=== PATIENT | male | born 1940 | race African-American/Black ===

== ENCOUNTER 2017-08-10 09:24 | Inpatient (IN) | payer MEDICARE, OTHER ==
[2017-08-10] MEDS ORDERED: MIDAZOLAM HCL 50 MG/100 ML RTUINJ IV ONE (09:39)
[2017-08-10] MEDS: MIDAZOLAM HCL 50 MG/100 ML RTUINJ IV PRN ×2 (09:50→22:58)
[2017-08-10] MEDS ORDERED: RINGERS SOLUTION,LACTATED 1,000 ML IV PRN (10:01)
--- NOTE | 2017-08-10 10:01 | ER Document Report ---
ED Respiratory Problem - General Mode of Arrival: Stretcher Information source: Patient TRAVEL OUTSIDE OF THE [place] IN LAST 30 DAYS: No <JANIE VYAS - Last Filed: 08/10/17 15:46> <KORINA COOPER - Last Filed: 08/10/17 15:52> - General Chief Complaint: Breathing Difficulty Stated Complaint: DIFFICULTY BREATHING Time Seen by Provider: 08/10/17 09:24 Notes: Patient is a 77 year old male with a history of COPD presents to the emergency department via EMS due to difficulty breathing. EMS states upon arrival to the patients home the patient was alert and oriented and followed commands although a bit confused and had an incontinent episode. EMS further states that on the way to the emergency department the patient became febrile, non verbal and stopped following commands. Family states the patient has had a cold recently with some nausea, vomiting, diarrhea and decreased appetite onset 3 days ago. Family states they called the EMS due to the patients confusion and difficulty breathing. Family further states the patient was behaving "slower" than normal last night. Family states the patient does not like to come to the emergency room but visits his PCP, Dr. Kline, regularly. (JANIE VYAS) - Related Data Allergies/Adverse Reactions: codeine Allergy (Unknown, Verified 11/15/15 13:01) unsure Penicillins Allergy (Unknown, Verified 11/15/15 13:01) unsure Past Medical History - General Information source: Relative, Emergency Med Personnel Cannot obtain history due to: Intubated, Altered mental status - Social History Smoking Status: Smoker,Current Status Unk - Family states the patient may sneak a cigarette. Frequency of alcohol use: None Drug Abuse: None Pulmonary Medical History: Reports: Hx COPD - Immunizations Hx Diphtheria, Pertussis, Tetanus Vaccination: No Hx Pneumococcal Vaccination: 06/25/14 <JANIE VYAS - Last Filed: 08/10/17 15:46> - Social History Family History: CAD <KORINA COOPER - Last Filed: 08/10/17 15:52> Review of Systems - Review of Systems Constitutional: No symptoms reported EENT: No symptoms reported Cardiovascular: No symptoms reported Respiratory: See HPI Gastrointestinal: See HPI, Abdominal pain, Diarrhea, Nausea, Vomiting Genitourinary: No symptoms reported Male Genitourinary: No symptoms reported Musculoskeletal: No symptoms reported Skin: No symptoms reported Hematologic/Lymphatic: No symptoms reported Neurological/Psychological: See HPI, Confusion -: Yes All other systems reviewed and negative <JANIE VYAS - Last Filed: 08/10/17 15:46> <KORINA COOPER - Last Filed: 08/10/17 15:52> - Review of Systems Notes: ROS obtained from family. (JANIE VYAS) Physical Exam <JANIE VYAS - Last Filed: 08/10/17 15:46> <KORINA COOPER - Last Filed: 08/10/17 15:52> - Vital signs Vitals: Pulse Ox 96 08/10/17 09:42 - Notes Notes: GENERAL: Unresponsive, does not answer questions, does not follow commands. Respiratory distress. HEAD: Normocephalic, atraumatic. EYES: Pupils equal, round, and reactive to light. ENT: Oral mucosa dry, tongue midline. NECK: Full range of motion. Supple. Trachea midline. LUNGS: respiratory distress. Tachypneic. Breathing on own although shallow breaths therefore being assisted. HEART: Tachycardic. No murmurs, gallops, or rubs. ABDOMEN: Soft, non-tender. Non-distended. Bowel sounds present in all 4 quadrants. EXTREMITIES: Left hand is clenched, will not open. No edema, radial and dorsalis pedis pulses 2/4 bilaterally. No cyanosis. NEUROLOGICAL: Does not follow commands. Will blink when touching eyelashes. Biceps and patellar DTRs 2+ bilaterally. PSYCH: Does not follow commands. SKIN: Warm, dry, normal turgor. No rashes or lesions noted. : Smells of urine. Circumcised, yeast on tip of penis. (JANIE VYAS) Course - Laboratory Result Diagrams: 08/10/17 10:00 08/10/17 10:00 <JANIE VYAS - Last Filed: 08/10/17 15:46> - Laboratory Result Diagrams: 08/10/17 10:00 08/10/17 10:00 <KORINA COOPER - Last Filed: 08/10/17 15:52> - Re-evaluation Re-evalutation: 08/10/17 12:02 When patient arrived he was in acute respiratory distress, breathing about 30 times per minute however very shallow breaths, was not following commands, GCS was less than 8, decision was made to intubate as he was also not oxygenating well, not protecting his airway. Patient was intubated without difficulty or complications. See procedure note for further details. Patient was then placed on a Versed drip for sedation. Despite being on a ventilator he has remained relatively hypoxic with his oxygenation being approximately 92% on 100 % FiO2. Patient has since become hypotensive, Versed drip was decreased somewhat and a central line was started to use levo fed. Chest x-ray reveals bilateral pneumonia, patient was started on antibiotics. Patient received 3 L of fluid as well but has persistent hypotension. Laboratory studies revealed leukocytosis with a white count of 13.5, no anemia, INR is 1.01, venous blood gas shows a pH of 7.22 and a PCO2 of 71.6, this was drawn from the central line. CMP shows acute renal failure with BUN of 40 and creatinine 1.54, lactic acid is normal at 1.8, potassium slightly elevated at 5.3, troponin is positive at 0.190, suspect this is from the septic shock rather than true STEMI. EKG does not show ischemic changes. 08/10/17 12:33 Discussed this febrile hypoxic hypotensive patient with Dr. Kline, he agrees that the patient appears to be in septic shock, requested a second antibiotic be added in the form of cefepime, he is concerned by the elevated troponin, disagrees that it is likely from the septic shock and acute renal failure, would prefer that the patient had a second set of cardiac enzymes before he accepts the patient to his service. Agrees that the patient is likely not a candidate for intervention at this point given his status but would prefer to know the results of his repeat cardiac enzymes anyway. Agreeable to holding off on the CT scan of the head until the patient is an route to the ICU. If at that point it shows a large bleed the patient will return to the ER rather than going to the intensive care unit. Before this can happen second set of cardiac enzymes must be returned and we must discuss them with him. 08/10/17 13:32 Dr. Kline did come to the emergency department and personally examined the patient. He has since put in admission orders. He is discussed the gravity of situation with the patient's family. Patient will be admitted to the intensive care unit. Repeat troponin is pending. 08/10/17 15:50 This is a late entry, second pressor in the form of dopamine was added. Blood pressure did improve. Patient has been transferred to the ICU. (KORINA COOPER) - Vital Signs Vital signs: Temp Pulse Resp BP Pulse Ox 14 89/35 L 94 08/10/17 12:01 08/10/17 12:00 08/10/17 14:10 - Laboratory Laboratory results interpreted by me: 08/10/17 08/10/17 08/10/17 09:49 10:00 10:00 WBC 13.5 H RDW 15.2 H Abs Neuts (Manual) 10.0 H VBG pH VBG pCO2 Potassium 5.3 H Carbon Dioxide 32 H BUN 40 H Creatinine 1.54 H Est GFR ( Amer) 53 L Est GFR (Non-Af Amer) 44 L Glucose 182 H POC Glucose Direct Bilirubin 0.5 H ALT 13 L Urine Protein >=500 H Urine Glucose (UA) 50 H Urine Blood LARGE H 08/10/17 08/10/17 10:32 11:10 WBC RDW Abs Neuts (Manual) VBG pH 7.22 L VBG pCO2 71.6 H* Potassium Carbon Dioxide BUN Creatinine Est GFR ( Amer) Est GFR (Non-Af Amer) Glucose POC Glucose 133 H Direct Bilirubin ALT Urine Protein Urine Glucose (UA) Urine Blood - EKG Interpretation by Me Additional EKG results interpreted by me: 08/10/17 13:34 EKG shows sinus tachycardia at a rate of 143, slight right axis deviation, no ST segment elevations or depressions, nonspecific T-wave flattening noted in V2 and AV L per my interpretation. (KORINA COOPER) Procedures - Central Line Right Internal jugular Time completed: 11:18 Consent obtained: No - Implied for emergent condition Central line pre-insertion: Sterile PPE donned, Chloraprep applied, Sterile drapes applied, Other - maximum sterile barrier technique was used including, sterile probe cover and sterile transducer gel. Central line size (Fr.): 20 Central line lumen type: Triple Anesthetic type: 1% Lidocaine mL's of anesthesia: 5 Ultrasound guided: Yes CM at insertion site: 18 Line secured with sutures: Yes Central line post-insertion: Blood return from lumens, Biopatch applied, Sutured , Sterile dressing applied, Position confirmed w/ CXR Number of attempts: 1 Complications: No - Intubation Orotracheal Time of Intubation: 09:30 Airway evaluation: No: Large tongue, Loose teeth, Neck immobility Medications: Etomidate, Vecuronium Intubation method: Orotracheal Blade type: Kehinde Blade size: 4 ETT size: 8.0 ETT secured at: Gums ETT secured at (cm): 24 Breath Sounds after Intubation: Equal End tidal CO2 confirmed: Yes Ventilator settings: SIMV Tidal volume: 350 FiO2: 30 Respirations: 14 Pressure support: 10 PEEP: 5 Post Intubation Xray: Yes Intubation Complications: No complications <JANIE VYAS - Last Filed: 08/10/17 15:46> Critical Care Note - Critical Care Note Total time excluding time spent on procedures (mins): 90 <KORINA COOPER - Last Filed: 08/10/17 15:52> Discharge <JANIE VYAS - Last Filed: 08/10/17 15:46> - Discharge Admitting Provider: [facility] Unit Admitted: ICU <KORINA COOPER - Last Filed: 08/10/17 15:52> - Discharge Clinical Impression: Septic shock, Acute on chronic respiratory failure with hypoxia and hypercapnia Acute renal failure Qualifiers: Acute renal failure type: unspecified Qualified Code(s): N17.9 - Acute kidney failure, unspecified Pneumonia Qualifiers: Pneumonia type: due to unspecified organism Laterality: bilateral Lung location : lower lobe of lung Qualified Code(s): J18.9 - Pneumonia, unspecified organism Condition: Critical Disposition: ADMITTED INPATIENT Scribe Attestation: 08/10/17 15:51 I personally performed the services described in the documentation, reviewed and edited the documentation which was dictated to the scribe in my presence, and it accurately records my words and actions. (KORINA COOPER) Scribe Documentation - Scribe Written by Luz Maria:: Luz Maria Larson, 08/10/2017 10:27 acting as scribe for :: Norm <JANIE VYAS - Last Filed: 08/10/17 15:46> Sepsis <JANIE VYAS - Last Filed: 08/10/17 15:46> - Sepsis Documentation Sepsis Patient: Yes - Vital Signs Interpretation: Hypertensive, Tachycardic, Hypoxic - Cardiovascular Peripheral Pulse Strength: Weak Capillary refill: > 3 seconds Rhythm: Tachycardia Heart Sounds: Normal auscultation - Respiratory Breath Sounds: Wheezing Respiratory Status: Other - Intubated - Skin Skin Color: Pale <KORINA COOPER - Last Filed: 08/10/17 15:52> - Vital Signs Vitals: Temp Pulse Resp BP Pulse Ox 14 89/35 L 94 08/10/17 12:01 08/10/17 12:00 08/10/17 14:10
[2017-08-10 10:22] LABS: INTERNATIONAL RATION (INR) 1.01
--- NOTE | 2017-08-10 10:26 | RADIOLOGY REPORT (SQ) ---
EXAM DESCRIPTION: CHEST SINGLE VIEW COMPLETED DATE/TIME: 08/10/2017 10:04 am REASON FOR STUDY: intubated, resp failure COMPARISON: 02/10/2008 EXAM PARAMETERS: NUMBER OF VIEWS: One view. TECHNIQUE: Single frontal radiographic view of the chest acquired. RADIATION DOSE: NA LIMITATIONS: None. FINDINGS: LUNGS AND PLEURA: Abnormal air space density in both lung bases suggesting pneumonia. 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 Somewhat spiculated density in the right upper lobe which on review of previous chest CT probably is related to scarring. No effusion. MEDIASTINUM AND HILAR STRUCTURES: No masses. Contour normal. HEART AND VASCULAR STRUCTURES: Heart normal in size. Normal vasculature. BONES: No acute findings. HARDWARE: Endotracheal tube with its tip 2 cm above the guzman. NG tube with its tip in the body of the stomach. OTHER: No other significant finding. IMPRESSION: 1. Abnormal density in both lung bases most consistent with pneumonia. 2. COPD. TECHNICAL DOCUMENTATION: JOB ID: [id number] [employer]- All Rights Reserved
[2017-08-10 10:30] LABS: ALANINE AMINOTRANSFERASE 13 U/L (21-72); ALBUMIN 3.6 g/dL (3.5-5.0); ALKALINE PHOSPHATASE 62 U/L (38-126); ANION GAP 10 (5-19); ASPARTATE AMINO TRANSFERASE 27 U/L (17-59); BILIRUBIN,DIRECT 0.5 mg/dL (0.0-0.4); BILIRUBIN,TOTAL 0.5 mg/dL (0.2-1.3); BLOOD UREA NITROGEN 40 mg/dL (7-20); CALCIUM 9.8 mg/dL (8.4-10.2); CARBON DIOXIDE 32 mmol/L (22-30); CHLORIDE 99 mmol/L (98-107); CREATINE KINASE 73 U/L (55-170); GLUCOSE 182 mg/dL (75-110); POTASSIUM 5.3 mmol/L (3.6-5.0); SODIUM 141.4 mmol/L (137-145); TOTAL PROTEIN 7.7 g/dL (6.3-8.2)
[2017-08-10] MEDS ORDERED: NOREPINEPHRINE BITARTRATE INJ/PF 4 MG/4 ML SDV IV ONE ×3 (10:34→22:40)
[2017-08-10] MEDS ORDERED: METHYLPREDNISOLONE INJ 125 MG/2 ML SDV IV ONE (10:37)
[2017-08-10] MEDS ORDERED: DEXTROSE 5%-WATER 250 ML with NOREPINEPHRINE BITARTRATE 4 MG IV PRN ×2 (10:37)
[2017-08-10 10:41] LABS: CREATINE KINASE MB 1.84 ng/mL (<4.55)
[2017-08-10 10:47] LABS: TROPONIN I 0.19 ng/mL
[2017-08-10 10:53] LABS: HEMOGLOBIN 14.2 g/dL (13.5-17.0); MEAN CORPUSCULAR HEMOGLOBIN 27.4 pg (27.0-33.4); MEAN CORPUSCULAR HGB CONC 32.3 g/dL (32.0-36.0); MEAN CORPUSCULAR VOLUME 85 fl (80-97); PLATELET COUNT 222 10^3/uL (150-450); RED BLOOD COUNT 5.18 10^6/uL (4.35-5.55); RED CELL DISTRIBUTION WIDTH 15.2 % (11.5-14.0); WHITE BLOOD COUNT 13.5 10^3/uL (4.0-10.5)
[2017-08-10] MEDS: NORMAL SALINE 1000 ML 1,000 ML IV PRN (11:03)
--- NOTE | 2017-08-10 11:04 | EKG REPORT ---
SEVERITY:- ABNORMAL ECG - SINUS TACHYCARDIA PROBABLE LEFT ATRIAL ABNORMALITY RIGHT AXIS DEVIATION CONSIDER ANTEROSEPTAL INFARCT : Confirmed by: Rachel Florian 10-Aug-2017 11:03:58
[2017-08-10 11:12] LABS: ABSOLUTE LYMPHOCYTES# (MANUAL) 2.2 10^3/uL (0.5-4.7); ABSOLUTE MONOCYTES # (MANUAL) 1.4 10^3/uL (0.1-1.4); BAND NEUTROPHILS % (MANUAL) 5 % (3-5); BASOPHILS % (MANUAL) 0 % (0-2); EOSINOPHILS % (MANUAL) 0 % (0-6); LYMPHOCYTES % (MANUAL) 15 % (13-45); MONOCYTES % (MANUAL) 10 % (3-13); SEGMENTED NEUTROPHILS % (MAN) 69 % (42-78); TOTAL CELLS COUNTED 100
[2017-08-10 11:13] LABS: ANISOCYTOSIS SLIGHT; PLATELET COMMENT ADEQUATE; TOXIC GRANULATION SLIGHT
[2017-08-10 11:26] LABS: VENOUS BLOOD BASE EXCESS -0.3 mmol/L; VENOUS BLOOD HCO3 28.8 mmol/L (20-32); VENOUS BLOOD PH 7.22 (7.30-7.42)
[2017-08-10] MEDS ORDERED: LEVOFLOXACIN 750 MG/D5W RTU 750 MG/150 ML RTUPB IV ONE (11:30)
[2017-08-10 11:32] LABS: VENOUS BLOOD PCO2 71.6 mmHg (35-63)
--- NOTE | 2017-08-10 12:04 | RADIOLOGY REPORT (SQ) ---
EXAM DESCRIPTION: CHEST SINGLE VIEW COMPLETED DATE/TIME: 08/10/2017 11:34 am REASON FOR STUDY: central line placement COMPARISON: Earlier the same day. NUMBER OF VIEWS: One view. TECHNIQUE: Single frontal radiographic image of the chest acquired. LIMITATIONS: None. FINDINGS: LUNGS AND PLEURA: No significant change. No pneumothorax. MEDIASTINUM AND HEART: Stable heart size and mediastinal structures. SUPPORT DEVICES: Interval placement of right-sided central line with tip overlying SVC. Nasogastric and endotracheal tube position is not significantly changed. BONY STRUCTURES: No acute findings. HARDWARE: None. OTHER: No other significant finding. IMPRESSION: Satisfactory position of right central line. No pneumothorax.
[2017-08-10] MEDS ORDERED: OSELTAMIVIR PHOSPHATE 75 MG CAPSULE PO ONE (12:31)
[2017-08-10] MEDS ORDERED: CEFEPIME 2 GM/D5W RTU 2 GM/50 ML RTUPB IV ONE (12:31)
[2017-08-10] MEDS ORDERED: DOPAMINE HCL/DEXTROSE 5%-WATER 800 MG/250 ML RTUINJ IV PRN (12:35)
[2017-08-10] MEDS ORDERED: NORMAL SALINE 1000 ML 1,000 ML IV ONE (12:35)
[2017-08-10] MEDS ORDERED: ACETAMINOPHEN 650 MG SUPP.RECT PR PRN (12:55)
[2017-08-10 13:14] LABS: APPEARANCE,URINE TURBID; BILIRUBIN,URINE NEGATIVE (NEGATIVE); COLOR,URINE AMBER; GLUCOSE, URINE 50 mg/dL (NEGATIVE); KETONES,URINE NEGATIVE (NEGATIVE); LEUKOCYTE ESTERASE,URINE NEGATIVE (NEGATIVE); NITRITE,URINE NEGATIVE (NEGATIVE); PROTEIN,URINE >=500 mg/dL (NEGATIVE); URINE SPECIFIC GRAVITY 1.025; UROBILINOGEN,URINE NEGATIVE mg/dL (<2.0)
[2017-08-10] MEDS ORDERED: VANCOMYCIN HCL 0 MG in DEXTROSE 5%-WATER 250 ML IV NR (13:15)
--- NOTE | 2017-08-10 13:56 | PDOC H&P ---
History of Present Illness Admission Date/PCP: 08/10/17 12:55 SUSANNA JASMINE MD Patient complains of: Hypotensive'sAnd unresponsive History of Present Illness: CHRISTOPHER LEBLANC is a 77 year old male This is a 77-year-old male's with a history of the COPD history of the hypertension's hyperlipidemia and history of the neoplasm of the rectum currently under well control was doing okay until the last 3 or 4 days according to family patient start complaining some cough cold And some nausea and vomiting and some diarrheaand runny nose-like symptoms and this morning patient started complaining of more short of breathIn the call the EMS and the patient was alert awake when the EMS went to the see the patient when patient was brought to the ER the patient was more unresponsive and very hypotensive and patient was intubated Patients in the ER start in the levo drip and added a dopamine drip Patient's also from the elevated white count and the pneumonia in the lung which is most likely source of the infections with the renal failure and elevated troponin which is all because of the septic shock When I saw the patient's in the ER patient was intubated currently on levo drips and dopamine drips systolic blood pressures around 100 Patient also came with emergency department the 101 fever currently 98.5 ER physicians call me for admissions with a septic shock and hypotension's and discussed with the family patient was still full code i discussed with the patient's daughter in the ERDuring the patient's current conditions with the critical care including the pneumonia renal failure and other etiologies within not a very good prognosis and understand very well CT of the head ordered to rule out any neurological events but unable to do it currently because patient was not stable enough to take him to the CT scan Patient is otherwise pretty much doing the last seen in my office in May and patient seen by the oncology in the last year was all stable Past Medical History Cardiac Medical History: Reports: Hyperlipidema Denies: Coronary Artery Disease, Myocardial Infarction, Hypertension Pulmonary Medical History: Reports: Chronic Obstructive Pulmonary Disease (COPD) Denies: Asthma, Bronchitis, Pneumonia Neurological Medical History: Denies: Seizures 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 GI Medical History: Reports: Gastroesophageal Reflux Disease Musculoskeltal Medical History: Denies: Arthritis Hematology: Reports: Anemia - hx Social History Information Source: Relative Lives with: Family Smoking Status: Unknown if Ever Smoked Frequency of Alcohol Use: Social Hx Recreational Drug Use: No Family History Family History: Reviewed & Not Pertinent Parental Family History Reviewed: Yes Children Family History Reviewed: Yes Sibling(s) Family History Reviewed.: Yes Medication/Allergy Allergies/Adverse Reactions: codeine Allergy (Unknown, Verified 11/15/15 13:01) unsure Penicillins Allergy (Unknown, Verified 11/15/15 13:01) unsure Review of Systems ROS unobtainable: Due to endotracheal tube All systems: reviewed and no additional remarkable complaints except as stated Physical Exam Vital Signs: Temp Pulse Resp BP Pulse Ox 14 89/35 L 91 L 08/10/17 12:01 08/10/17 12:00 08/10/17 12:01 Physical Exam: Currently intubated General appearance: PRESENT: no acute distress Eye exam: PRESENT: PERRLA Mouth exam: PRESENT: dry mucosa Neck exam: ABSENT: JVD Respiratory exam: PRESENT: decreased breath sounds Cardiovascular exam: PRESENT: +S1, +S2 GI/Abdominal exam: PRESENT: normal bowel sounds, soft Extremities exam: ABSENT: pedal edema Additional comments: Currently intubated on ventilation sedations Skin exam: PRESENT: dry Results Impressions: Chest X-Ray 08/10/17 09:58 IMPRESSION: 1. Abnormal density in both lung bases most consistent with pneumonia. 2. COPD. Assessment & Plan - Diagnosis (1) Acute on chronic respiratory failure with hypoxia and hypercapnia Is this 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 Plan: Currently intubated on ventilations discussed with the pulmonary currently underwent with the broad-spectrum antibiotics per the ICU (2) Septic shock Is this 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 Plan: Most likely pneumonia with the multiorgan failures start the patient on IV fluid currently in the levo drips and dopamine dripsStart the patient on the broad-spectrum antibiotics and cover with the Tamiflu with this currently going on in the community with the patient was some prodromal symptoms (3) Pneumonia Qualifiers: Pneumonia type: due to unspecified organism Laterality: bilateral Lung location: lower lobe of lung Qualified Code(s): J18.9 - Pneumonia, unspecified organism Is this 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 Plan: Start the patient on broad-spectrum antibiotic (4) Acute renal failure Qualifiers: Acute renal failure type: unspecified Qualified Code(s): N17.9 - Acute kidney failure, unspecified Is this 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 Plan: Due to the most likely a septic shock patient's creatinine was completely normal in May (5) Chronic obstructive pulmonary disease Qualifiers: Emphysema type: unspecified Is this 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 Plan: Continues to nebulizer treatments (6) Hypertension Qualifiers: Hypertension type: essential hypertension Qualified Code(s): I10 - Essential (primary) hypertension Is this 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 Plan: Currently hypertension is due to the septic shock (7) Neoplasm of rectum Is this 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 Plan: Patient's last CEA was all normal and according to the oncology's no need for further evaluations (8) Elevated troponin Is this 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 Plan: Most likely hypotensive's and septic shocks consult the customer program specialist get the echocardiogram - Time Time Spent: 50 to 70 Minutes Critical Time spent with patient: 35 or more minutes Medications reviewed and adjusted accordingly: Yes Anticipated discharge: Other Within: Other - Inpatient Certification Medical Necessity: Significant Comorbidiites Make Outpatient Treatment Too Risky , Need Close Monitoring Due to Risk of Patient Decompensation, Need For IV Fluids, Need for IV Antibiotics Post Hospital Care: D/C Laser Engraver Documentation - Plan Summary Plan Summary: Very extensive discussions with the patient's family and her daughter regarding the patient's current conditions with the poor prognosis also discussed with the pulmonary and cardiology about the patient's current conditions
[2017-08-10 14:03] LABS: CREATINE KINASE MB 2.03 ng/mL (<4.55)
[2017-08-10] MEDS ORDERED: DIPHENHYDRAMINE HCL 50 MG/ML VIAL IM PRN (14:06)
[2017-08-10 14:18] LABS: TROPONIN I 0.271 ng/mL
--- NOTE | 2017-08-10 14:18 | RADIOLOGY REPORT (SQ) ---
EXAM DESCRIPTION: CT HEAD WITHOUT COMPLETED DATE/TIME: 08/10/2017 2:04 pm REASON FOR STUDY: intubated, resp failure, AMS COMPARISON: 02/11/2008 TECHNIQUE: Axial images acquired through the brain without intravenous contrast. Images reviewed wi th bone, brain and subdural windows. Images stored on PACS. All CT scanners at this facility use dose modulation, iterative reconstruction, and/or weight based d osing when appropriate to reduce radiation dose to as low as reasonably achievable (ALARA). [facility]: Dose Right [facility]: CareDose [facility]: Dose Right [facility]: Teradose 4D [facility]: [employer] RADIATION DOSE: mGy. LIMITATIONS: None. FINDINGS: VENTRICLES: Prominent. CEREBRUM: No masses. No hemorrhage. No midline shift. 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 Areas of low density in the white matter most likely due to chronic micro-vascular ischemic change. No evidence for acute infarction. CEREBELLUM: No masses. No hemorrhage. No alteration of density. No evidence for acute infarction. EXTRAAXIAL SPACES: Age-related involutional change. No fluid collections. No masses. ORBITS AND GLOBE: No intra- or extraconal masses. Normal contour of globe without masses. CALVARIUM: No fracture. PARANASAL SINUSES: No fluid or mucosal thickening. SOFT TISSUES: No mass or hematoma. OTHER: No other significant finding. IMPRESSION: CHRONIC CHANGES OF ATROPHY AND MICROVASCULAR ISCHEMIA. NO ACUTE PROCESS. EVIDENCE OF ACUTE STROKE: NO. TECHNICAL DOCUMENTATION: JOB ID: [id number] Quality ID # [id number]: Final reports with documentation of one or more dose reduction techniques (e.g., Au tomated exposure control, adjustment of the mA and/or kV according to patient size, use of iterative reconstruction technique) 2010 [employer]- All Rights Reserved
[2017-08-10 14:44] LABS: ARTERIAL BLOOD BASE EXCESS -3.5 mmol/L; ARTERIAL BLOOD H2CO3 2.25 mmol/L (1.05-1.35); ARTERIAL BLOOD HCO3 26.7 mmol/L (20-26); ARTERIAL BLOOD O2 SATURATION 97.3 % (94-98); ARTERIAL BLOOD PO2 121.8 mmHg (80-100)
[2017-08-10 14:47] LABS: ARTERIAL BLOOD FIO2 100%
[2017-08-10 14:48] LABS: ARTERIAL BLOOD PCO2 74.7 mmHg (35-45); ARTERIAL BLOOD PH 7.17 (7.35-7.45)
[2017-08-10 15:36] LABS: APPEARANCE,URINE TURBID; BILIRUBIN,URINE NEGATIVE (NEGATIVE); GLUCOSE, URINE NEGATIVE (NEGATIVE); KETONES,URINE NEGATIVE (NEGATIVE); LEUKOCYTE ESTERASE,URINE NEGATIVE (NEGATIVE); NITRITE,URINE NEGATIVE (NEGATIVE); PROTEIN,URINE >=500 mg/dL (NEGATIVE); URINE SPECIFIC GRAVITY 1.025; UROBILINOGEN,URINE NEGATIVE mg/dL (<2.0)
[2017-08-10 15:37] LABS: COLOR,URINE YELLOW
[2017-08-10] MEDS: IPRATROPIUM/ALBUTEROL 0.5-2.5 MG/3 ML AMPUL NEB SCH ×2 (16:42→20:21)
[2017-08-10] MEDS ORDERED: OSELTAMIVIR PHOSPHATE 6 MG/1 ML SUSP 60 ML PO SCH (18:00)
[2017-08-10 18:18] LABS: ARTERIAL BLOOD BASE EXCESS -1.6 mmol/L; ARTERIAL BLOOD H2CO3 2.17 mmol/L (1.05-1.35); ARTERIAL BLOOD O2 SATURATION 92.5 % (94-98); ARTERIAL BLOOD PH 7.21 (7.35-7.45); ARTERIAL BLOOD PO2 78.9 mmHg (80-100); ARTERIAL BLOOD TOTAL CO2 30.2 mmol/L (23-27)
[2017-08-10 18:22] LABS: ARTERIAL BLOOD FIO2 80%
[2017-08-10] MEDS: IMIPENEM/CILASTATIN SODIUM 500 MG in NORMAL SALINE 100 ML IV SCH ×2 (18:30→23:00)
[2017-08-10] MEDS: OSELTAMIVIR PHOSPHATE 6 MG/1 ML SUSP 60 ML PO SCH (18:31)
--- NOTE | 2017-08-10 18:37 | XCELERA REPORT ---
[address] [address] Transthoracic Echocardiogram Report Name: CHRISTOPHER LEBLANC Age: 77 yrs Gender: Male : 1940 Patient Status: Inpatient Patient Location: ICU^603^A Study Date: 08/10/2017 03:18 PM Height: 66 in Weight: 128 lb BSA: 1.7 m2 Procedure: A complete two-dimensional transthoracic echocardiogram was performed (2D, M-mode, spectral and color flow Doppler). The study was technically adequate with some images being suboptimal in quality. Reason For Study: elevated troponin/hypotension Ordering Physician: SUSANNA JASMINE Performed By: Ashley Hernadez Interpretation Summary The left ventricular ejection fraction is normal. There is normal left ventricular wall thickness. The left ventricle is grossly normal size. Doppler measurements suggest pseudonormalized left ventricular relaxation, which is associated with grade II/IV or mild to moderate diastolic dysfunction Wall motion cannot be accurately commented on, but no definite regional wall motion abnormalities noted. The right ventricle is moderately dilated. The right atrium is moderately dilated. The left atrial size is normal. There is no mitral regurgitation noted. There is no mitral valve stenosis. No aortic regurgitation is present. There is no aortic valve stenosis There is a trace or physiologic amount of tricuspid regurgitation Tricuspid regurgitation jet envelope not well defined to measure RV systolic pressure accurately. The aortic root is not well visualized but is probably normal size. The inferior vena cava was not visualized There is no pericardial effusion. MMode/2D Measurements & Calculations RVDd: 4.1 cm LVIDd: 4.3 cm FS: 30.8 % Ao root diam: IVSd: 0.68 cm LVIDs: 3.0 cm EDV(Teich): 2.3 cm LVPWd: 0.71 cm 81.9 ml Ao root area: ESV(Teich): 33.8 ml 4.0 cm2 EF(Teich): 58.7 %LA dimension: 2.1 cm LVLd ap4: 6.7 cm SV(MOD-sp4): EDV(MOD-sp4): 37.0 ml 59.0 ml LVLs ap4: 5.7 cm ESV(MOD-sp4): 22.0 ml EF(MOD-sp4): 62.7 % Doppler Measurements & Calculations MV E max clara: MV P1/2t max clara: Ao V2 max: LV V1 max P.8 cm/sec 52.8 cm/sec 107.0 cm/sec 3.1 mmHg MV A max clara: MV P1/2t: 67.1 msec Ao max PG: LV V1 max: 102.2 cm/sec MVA(P1/2t): 3.3 cm2 4.6 mmHg 88.4 cm/sec MV E/A: 0.51 MV dec slope: 230.6 cm/sec2 PA V2 max: TR max clara: 44.9 cm/sec 234.8 cm/sec PA max PG: TR max P.1 mmHg 0.81 mmHg Left Ventricle The left ventricle is grossly normal size. There is normal left ventricular wall thickness. The left ventricular ejection fraction is normal. Doppler measurements suggest pseudonormalized left ventricular relaxation, which is associated with grade II/IV or mild to moderate diastolic dysfunction. Wall motion cannot be accurately commented on, but no definite regional wall motion abnormalities noted. Right Ventricle The right ventricle is moderately dilated. There is normal right ventricular wall thickness. The right ventricular systolic function is normal. Atria The right atrium is moderately dilated. The left atrial size is normal. Interarterial septum not well visualized and not well dopplered. Cannot comment on ASD/PFO presence. Mitral Valve The mitral valve is grossly normal. There is no mitral valve stenosis. There is no mitral regurgitation noted. Aortic Valve The aortic valve opens well. There is no aortic valve stenosis. No aortic regurgitation is present. Tricuspid Valve The tricuspid valve is not well visualized, but is grossly normal. There is no tricuspid stenosis. There is a trace or physiologic amount of tricuspid regurgitation. Tricuspid regurgitation jet envelope not well defined to measure RV systolic pressure accurately. Pulmonic Valve The pulmonic valve is not well visualized. Great Vessels The aortic root is not well visualized but is probably normal size. The inferior vena cava was not visualized. Effusions There is no pericardial effusion. : SUSANNA JASMINE > Rachel lForian
[2017-08-10] MEDS: HEPARIN SOD (PORCINE) 5,000 UNIT/ML 1 ML SYRINGE SUBCUT SCH ×2 (18:49→22:57)
--- NOTE | 2017-08-10 19:31 | PDOC CONSULTATION ---
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 Called the EMS and the patient was alert awake when the EMS went to the see the patient. When patient was brought to the ER the patient was more unresponsive and very hypotensive and patient was intubated Patients in the ER start in the levo drip and added a dopamine drip Patient's also from the elevated white count and the pneumonia in the lung which is most likely source of the infections with the renal failure and elevated troponin which is all because of the septic shock When I saw the patient's in the ER patient was intubated currently on levo drips and dopamine drips systolic blood pressures around 100 Patient also came with emergency department the 101 fever currently 98.5 ER physicians call me for admissions with a septic shock and hypotension's and discussed with the family patient was still full code i discussed with the patient's daughter in the ER. During the patient's current conditions with the critical care including the pneumonia renal failure and other etiologies within not a very good prognosis and understand very well CT of the head ordered to rule out any neurological events but unable to do it currently because patient was not stable enough to take him to the CT scan Patient is otherwise pretty much doing the last seen in my office in May and patient seen by the oncology in the last year was all stable. This history was reviewed and confirmed. I did talk with the nurses. Patient cannot give any history at this time. Past Medical History Cardiac Medical History: Reports: Hyperlipidema Denies: Coronary Artery Disease, Myocardial Infarction, Hypertension Pulmonary Medical History: Reports: Chronic Obstructive Pulmonary Disease (COPD) Denies: Asthma, Bronchitis, Pneumonia Neurological Medical History: Denies: Seizures GI Medical History: Reports: Gastroesophageal Reflux Disease Musculoskeltal Medical History: Denies: Arthritis Hematology: Reports: Anemia - hx Social History Information Source: [facility] Records Lives with: Family Smoking Status: Smoker,Current Status Unk - Family states the patient may sneak a cigarette. Frequency of Alcohol Use: None Hx Recreational Drug Use: No - Advance Directive Resuscitation Status: Full Code Surrogate healthcare decision maker:: Patient spouse is reported to be the surrogate decision-maker Family History Family History: CAD Parental Family History Reviewed: Yes Children Family History Reviewed: Yes Sibling(s) Family History Reviewed.: Yes Medication/Allergy Home Medications: Albuterol Sulfate [Proair Hfa Inhalation Aerosol 8.5 gm Mdi] 2 puff IH Q4HP PRN 08/10/17 Atorvastatin Calcium [Lipitor 20 mg Tablet] 20 mg PO QHS 08/10/17 Ergocalciferol (Vitamin D2) [Vitamin D2] 50,000 unit PO Q7D 08/10/17 Fluticasone/Salmeterol [Advair 250-50 Diskus 28 dose] 1 inh IH Q12 08/10/17 Tiotropium [place] [Spiriva Handihaler 18 mcg/dose (30 Dose)] 1 cap IH DAILY Allergies/Adverse Reactions: codeine Allergy (Unknown, Verified 11/15/15 13:01) unsure Penicillins Allergy (Unknown, Verified 11/15/15 13:01) unsure Review of Systems ROS unobtainable: Due to endotracheal tube Physical Exam Vital Signs: Temp Pulse Resp BP Pulse Ox 97.5 F 91 20 147/66 H 90 L 08/10/17 15:19 08/10/17 16:42 08/10/17 16:42 08/10/17 15:19 08/10/17 16:42 Intake & Output 08/09/17 08/10/17 08/11/17 06:59 06:59 06:59 Output Total 75 Balance -75 Weight 55.1 kg Exam: GENERAL: well-nourished and in no acute distress. Patient is intubated and sedated. Orientation cannot be checked HEAD: Atraumatic, normocephalic. EYES: Pupils equal round and reactive to light, extraocular movements could not be checked, sclera anicteric, conjunctiva are normal. ENT: TMs normal, nares patent, oropharynx clear without exudates. Moist mucous membranes. No oral ulcerations or bleeding gums noted NECK: supple without lymphadenopathy or JVD. Trachea is central. No cervical or axillary lymphadenopathy noted. Carotids are 2+ LUNGS: Breath sounds mostly clear to auscultation patient is noted to have bibasal crackles at the extreme bases CHEST: Palpation of the chest wall shows no significant chest wall tenderness or abnormalities. HEART: [place] CLIN ASST, No PSH, 2/6 DOTTY aortic area, 1/6 turk systolic murmur mitral area , no rubs or gallops. ABDOMEN: Soft, no significant tenderness appreciated, normoactive bowel sounds. No guarding, no rebound. No rigidity noted . No masses appreciated. EXTREMITIES: Pedal pulses are 1-2+, no calf tenderness noted, 1+ pedal edema noted. No clubbing or cyanosis. NEUROLOGICAL: The patient cannot participate in the neurological exam but no facial asymmetry noted. Extremities slightly hypotonic PSYCH: This cannot be evaluated. Patient cannot participate. SKIN: No significant ecchymosis, rash, or signs of pruritus noted. MUSCULOSKELETAL EXAM: No significant joint swelling noted. Patient cannot participate in musculoskeletal exam Results Laboratory Results: 08/10/17 08/10/17 08/10/17 13:16 14:30 14:37 Carbonic Acid 2.25 H HCO3/H2CO3 Ratio 11:1 ABG pH 7.17 L* ABG pCO2 74.7 H* ABG pO2 121.8 H ABG HCO3 26.7 H ABG O2 Saturation 97.3 ABG Base Excess -3.5 FiO2 100% Lactic Acid 1.5 Urine Color YELLOW Urine Appearance TURBID Urine pH 5.0 Ur Specific [place] 1.025 Urine Protein >=500 H Urine Glucose (UA) NEGATIVE Urine Ketones NEGATIVE Urine Blood LARGE H Urine Nitrite NEGATIVE Ur Leukocyte Esterase NEGATIVE Urine WBC (Auto) 5 Urine RBC (Auto) >182 08/10/17 18:00 Carbonic Acid 2.17 H HCO3/H2CO3 Ratio 12:1 ABG pH 7.21 L ABG pCO2 72.0 H* ABG pO2 78.9 L ABG HCO3 28.0 H ABG O2 Saturation 92.5 L ABG Base Excess -1.6 FiO2 80% Lactic Acid Urine Color Urine Appearance Urine pH Ur Specific [place] Urine Protein Urine Glucose (UA) Urine Ketones Urine Blood Urine Nitrite Ur Leukocyte Esterase Urine WBC (Auto) Urine RBC (Auto) 08/10/17 14:35 Sputum Gram Stain - Final 08/10/17 08/10/17 13:15 13:15 Creatine Kinase 70 CK-MB (CK-2) 2.03 Troponin I 0.271 EKG Comments: Shows sinus tachycardia without any acute ST-T wave changes Impressions: Chest X-Ray 08/10/17 09:58 IMPRESSION: 1. Abnormal density in both lung bases most consistent with pneumonia. 2. COPD. Head CT 08/10/17 09:58 IMPRESSION: CHRONIC CHANGES OF ATROPHY AND MICROVASCULAR ISCHEMIA. NO ACUTE PROCESS. EVIDENCE OF ACUTE STROKE: NO. Assessment & Plan - Diagnosis (1) Acute on chronic respiratory failure with hypoxia and hypercapnia Is this 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 (2) Elevated troponin Is this 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 (3) Chronic obstructive pulmonary disease Qualifiers: Emphysema type: unspecified Is this 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 (4) Pneumonia Qualifiers: Pneumonia type: due to unspecified organism Laterality: bilateral Lung location: lower lobe of lung Qualified Code(s): J18.9 - Pneumonia, unspecified organism Is this 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 (5) Septic shock Is this 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 (6) Non-STEMI (non-ST elevated myocardial infarction) Is this 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 - Notes Notes: Non-STEMI: Most likely related to sepsis and metabolic reason, hypoxemia, severe [id number] related rather than acute coronary syndrome. Recommend repeat EKG for any evolving changes. Acute respiratory failure: Most likely related to pneumonia on top of severe COPD. Agree with antibiotic therapy and artificial ventilation and oxygenation. Elevated troponin I: Most likely related to sepsis, acute respiratory failure. EKGs 2 did not show any acute ST segment changes. Will repeat EKG 2 in a.m. COPD: Continue with artificial ventilation and oxygenation. Pneumonia: Continue with antibiotic therapy. Septic shock: Agree with Levophed drip. Recommend normal saline boluses as needed. May consider adding vasopressin/dopamine drip as needed. Recommend DVT prophylaxis with Lovenox or subcu heparin - Time Time Spent: 30 to 50 Minutes - CODE STATUS was discussed, patient remains full code. Surrogate decision-maker unchanged. Multiple medical problems were addressed. More than 50% of the time spent coordinating care, discussing management plans with involved caregivers. Management plans discussed with involved personnels. Medical decision making was of moderate to high complexity , patient's has multiple comorbidities. Medications reviewed and adjusted accordingly: Yes
[2017-08-10] MEDS: VANCOMYCIN HCL 750 MG in DEXTROSE 5%-WATER 250 ML IV SCH (19:47)
[2017-08-10 21:08] LABS: ARTERIAL BLOOD BASE EXCESS -2.8 mmol/L; ARTERIAL BLOOD H2CO3 1.78 mmol/L (1.05-1.35); ARTERIAL BLOOD HCO3 25.4 mmol/L (20-26); ARTERIAL BLOOD PCO2 59.1 mmHg (35-45); ARTERIAL BLOOD PH 7.25 (7.35-7.45); ARTERIAL BLOOD PO2 67.3 mmHg (80-100); ARTERIAL BLOOD TOTAL CO2 27.2 mmol/L (23-27)
[2017-08-10 21:09] LABS: ARTERIAL BLOOD FIO2 80%
[2017-08-10 21:33] LABS: A TYPE INFLUENZA AG NEGATIVE (NEGATIVE); B INFLUENZA AG NEGATIVE (NEGATIVE)
[2017-08-10 21:40] LABS: CREATINE KINASE MB 2.61 ng/mL (<4.55)
[2017-08-10 21:44] LABS: TROPONIN I 0.16 ng/mL
[2017-08-10] MEDS: FAMOTIDINE INJ/PF 20 MG/2 ML SDV IV SCH (22:56)
[2017-08-11] MEDS: IPRATROPIUM/ALBUTEROL 0.5-2.5 MG/3 ML AMPUL NEB SCH ×6 (00:32→19:33)
[2017-08-11] MEDS: IMIPENEM/CILASTATIN SODIUM 500 MG in NORMAL SALINE 100 ML IV SCH ×3 (06:47→17:38)
[2017-08-11] MEDS: HEPARIN SOD (PORCINE) 5,000 UNIT/ML 1 ML SYRINGE SUBCUT SCH ×3 (06:48→22:09)
[2017-08-11 07:07] LABS: ALANINE AMINOTRANSFERASE 20 U/L (21-72); ALBUMIN 2.2 g/dL (3.5-5.0); ALKALINE PHOSPHATASE 44 U/L (38-126); ASPARTATE AMINO TRANSFERASE 15 U/L (17-59); BILIRUBIN,DIRECT 0.2 mg/dL (0.0-0.4); BILIRUBIN,TOTAL 0.2 mg/dL (0.2-1.3); BLOOD UREA NITROGEN 29 mg/dL (7-20); CALCIUM 7.7 mg/dL (8.4-10.2); CHLORIDE 104 mmol/L (98-107); CREATINE KINASE 31 U/L (55-170); GLUCOSE 206 mg/dL (75-110); SODIUM 136.9 mmol/L (137-145)
[2017-08-11 07:12] LABS: HEMATOCRIT 36.1 % (37.9-51.0); MEAN CORPUSCULAR HEMOGLOBIN 27.3 pg (27.0-33.4); MEAN CORPUSCULAR HGB CONC 32.8 g/dL (32.0-36.0); MEAN CORPUSCULAR VOLUME 83 fl (80-97); PLATELET COUNT 178 10^3/uL (150-450); RED BLOOD COUNT 4.34 10^6/uL (4.35-5.55); RED CELL DISTRIBUTION WIDTH 15.1 % (11.5-14.0)
[2017-08-11 07:14] LABS: HEMOGLOBIN 11.8 g/dL (13.5-17.0)
[2017-08-11 07:20] LABS: ANION GAP 12 (5-19)
[2017-08-11 07:21] LABS: ARTERIAL BLOOD BASE EXCESS -4.3 mmol/L; ARTERIAL BLOOD H2CO3 1.63 mmol/L (1.05-1.35); ARTERIAL BLOOD HCO3 23.5 mmol/L (20-26); ARTERIAL BLOOD O2 SATURATION 97.6 % (94-98); ARTERIAL BLOOD PCO2 54.3 mmHg (35-45); ARTERIAL BLOOD PH 7.25 (7.35-7.45); ARTERIAL BLOOD PO2 116.5 mmHg (80-100); ARTERIAL BLOOD TOTAL CO2 25.2 mmol/L (23-27); CARBON DIOXIDE 21 mmol/L (22-30); POTASSIUM 4.4 mmol/L (3.6-5.0)
[2017-08-11 07:22] LABS: CREATINE KINASE MB 1.8 ng/mL (<4.55); TROPONIN I 0.087 ng/mL
[2017-08-11 07:24] LABS: ARTERIAL BLOOD FIO2 60%
--- NOTE | 2017-08-11 07:48 | RADIOLOGY REPORT (SQ) ---
EXAM DESCRIPTION: CHEST SINGLE VIEW CLINICAL HISTORY: 77 years Male, vent management COMPARISON: 08/10/17. NUMBER OF VIEWS/TECHNIQUE: 1/AP LIMITATIONS: None. FINDINGS: Moderate mixed airspace and interstitial patchiness of bilateral lower lung bases, moderate obscuration-fusion of the left costophrenic angle, mild interstitial markings, and tip of an endotracheal tube is 1.3 cm from the guzman; recommend 2 cm retraction. Right jugular central line tip at the cavoatrial junction. Normal cardiac silhouette. No pneumothorax. No acute bone defect. IMPRESSION: Interval worsening includes the tip of an endotracheal tube 1.3 cm from the guzman- recommend 2 cm retraction and increased left basilar opacity.
[2017-08-11] MEDS: OSELTAMIVIR PHOSPHATE 6 MG/1 ML SUSP 60 ML PO SCH (09:12)
[2017-08-11] MEDS: FAMOTIDINE INJ/PF 20 MG/2 ML SDV IV SCH ×2 (09:12→22:09)
[2017-08-11] MEDS: NORMAL SALINE 1000 ML 1,000 ML IV PRN ×2 (09:13→17:42)
--- NOTE | 2017-08-11 09:54 | EKG REPORT ---
SEVERITY:- ABNORMAL ECG - SINUS TACHYCARDIA ATRIAL PREMATURE COMPLEX BORDERLINE RIGHT AXIS DEVIATION ABNRM R PROG, CONSIDER ASMI OR LEAD PLACEMENT BORDERLINE PROLONGED QT INTERVAL : Confirmed by: Rachel Florian 11-Aug-2017 09:53:44
[2017-08-11] MEDS ORDERED: LEVOFLOXACIN 500 MG/D5W RTU 500 MG/100 ML RTUPB IV SCH (10:00)
--- NOTE | 2017-08-11 11:38 | PDOC PROGRESS REPORT ---
Subjective Progress Note for:: 08/11/17 Subjective:: Patient about the same and has made some progress. Patient's blood pressure been more stable. He is making some urine. Labs were reviewed. Patient remains intubated, sedated, patient however looks comfortable and in acute distress. Medications reviewed. Reason For Visit: SEPTIC SHOCK,RESPIRATORY FAILURE,RENAL FAILURE, Physical Exam Vital Signs: Temp Pulse Resp BP Pulse Ox 97.2 F 117 H 24 H 112/71 96 08/11/17 10:00 08/11/17 10:00 08/11/17 10:00 08/11/17 10:00 08/11/17 10:00 Intake & Output 08/10/17 08/11/17 08/12/17 06:59 06:59 06:59 Intake Total 3487 Output Total 525 165 Balance 2962 -165 Weight 55.1 kg Exam: GENERAL: well-nourished and in no acute distress. Patient is intubated and sedated. Orientation cannot be checked HEAD: Atraumatic, normocephalic. EYES: Pupils equal round and reactive to light, extraocular movements could not be checked, sclera anicteric, conjunctiva are normal. ENT: TMs normal, nares patent, oropharynx clear without exudates. Moist mucous membranes. No oral ulcerations or bleeding gums noted NECK: supple without lymphadenopathy or JVD. Trachea is central. No cervical or axillary lymphadenopathy noted. Carotids are 2+ LUNGS: Breath sounds mostly clear to auscultation patient is noted to have bibasal crackles at the bases CHEST: Palpation of the chest wall shows no significant chest wall tenderness or abnormalities. 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 ABDOMEN: Soft, no significant tenderness appreciated, normoactive bowel sounds. No guarding, no rebound. No rigidity noted . No masses appreciated. EXTREMITIES: Pedal pulses are 1-2+, no calf tenderness noted, 1+ pedal edema noted. No clubbing or cyanosis. NEUROLOGICAL: The patient cannot participate in the neurological exam but no facial asymmetry noted. Extremities slightly hypotonic PSYCH: This cannot be evaluated. Patient cannot participate. SKIN: No significant ecchymosis, rash, or signs of pruritus noted. MUSCULOSKELETAL EXAM: No significant joint swelling noted. Patient cannot participate in musculoskeletal exam Results Laboratory Results: 08/11/17 06:30 08/11/17 06:30 08/10/17 08/10/17 08/10/17 13:16 14:30 14:37 WBC RBC Hgb Hct MCV MCH MCHC RDW Plt Count Carbonic Acid 2.25 H HCO3/H2CO3 Ratio 11:1 ABG pH 7.17 L* ABG pCO2 74.7 H* ABG pO2 121.8 H ABG HCO3 26.7 H ABG O2 Saturation 97.3 ABG Base Excess -3.5 FiO2 100% Sodium Potassium Chloride Carbon Dioxide Anion Gap BUN Creatinine Est GFR ( Amer) Est GFR (Non-Af Amer) Glucose Lactic Acid 1.5 Calcium Magnesium Total Bilirubin AST ALT Alkaline Phosphatase Total Protein Albumin Urine Color YELLOW Urine Appearance TURBID Urine pH 5.0 Ur Specific [place] 1.025 Urine Protein >=500 H Urine Glucose (UA) NEGATIVE Urine Ketones NEGATIVE Urine Blood LARGE H Urine Nitrite NEGATIVE Ur Leukocyte Esterase NEGATIVE Urine WBC (Auto) 5 Urine RBC (Auto) >182 08/10/17 08/10/17 08/11/17 18:00 20:30 06:30 WBC RBC Hgb Hct MCV MCH MCHC RDW Plt Count Carbonic Acid 2.17 H 1.78 H 1.63 H HCO3/H2CO3 Ratio 12:1 14:1 14:1 ABG pH 7.21 L 7.25 L 7.25 L ABG pCO2 72.0 H* 59.1 H 54.3 H ABG pO2 78.9 L 67.3 L 116.5 H ABG HCO3 28.0 H 25.4 23.5 ABG O2 Saturation 92.5 L 90.0 L 97.6 ABG Base Excess -1.6 -2.8 -4.3 FiO2 80% 80% 60% Sodium Potassium Chloride Carbon Dioxide Anion Gap BUN Creatinine Est GFR ( Amer) Est GFR (Non-Af Amer) Glucose Lactic Acid Calcium Magnesium Total Bilirubin AST ALT Alkaline Phosphatase Total Protein Albumin Urine Color Urine Appearance Urine pH Ur Specific [place] Urine Protein Urine Glucose (UA) Urine Ketones Urine Blood Urine Nitrite Ur Leukocyte Esterase Urine WBC (Auto) Urine RBC (Auto) 08/11/17 08/11/17 08/11/17 06:30 06:30 08:27 WBC 14.0 H RBC 4.34 L Hgb 11.8 L D Hct 36.1 L MCV 83 MCH 27.3 MCHC 32.8 RDW 15.1 H Plt Count 178 Carbonic Acid HCO3/H2CO3 Ratio ABG pH ABG pCO2 ABG pO2 ABG HCO3 ABG O2 Saturation ABG Base Excess FiO2 Sodium 136.9 L Potassium 4.4 Chloride 104 Carbon Dioxide 21 L D Anion Gap 12 BUN 29 H Creatinine 1.23 Est GFR ( Amer) > 60 Est GFR (Non-Af Amer) 57 L Glucose 206 H Lactic Acid 2.0 Calcium 7.7 L Magnesium 1.8 Total Bilirubin 0.2 AST 15 L ALT 20 L Alkaline Phosphatase 44 Total Protein 5.0 L Albumin 2.2 L Urine Color Urine Appearance Urine pH Ur Specific [place] Urine Protein Urine Glucose (UA) Urine Ketones Urine Blood Urine Nitrite Ur Leukocyte Esterase Urine WBC (Auto) Urine RBC (Auto) 08/10/17 14:35 Sputum Gram Stain - Final 08/10/17 08/10/17 08/10/17 13:15 13:15 20:30 Creatine Kinase 70 41 L CK-MB (CK-2) 2.03 Troponin I 0.271 08/10/17 08/11/17 08/11/17 20:30 06:30 06:30 Creatine Kinase 31 L CK-MB (CK-2) 2.61 1.80 Troponin I 0.160 0.087 EKG Comments: Telemetry shows sinus rhythm with tachycardia, mild. Twelve-lead EKG shows no acute ST-T wave changes. Impressions: Head CT 08/10/17 09:58 IMPRESSION: CHRONIC CHANGES OF ATROPHY AND MICROVASCULAR ISCHEMIA. NO ACUTE PROCESS. EVIDENCE OF ACUTE STROKE: NO. Chest X-Ray 08/11/17 06:00 IMPRESSION: Interval worsening includes the tip of an endotracheal tube 1.3 cm from the guzman- recommend 2 cm retraction and increased left basilar opacity. Assessment & Plan - Diagnosis (1) Acute on chronic respiratory failure with hypoxia and hypercapnia Is this 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 (2) Elevated troponin Is this 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 (3) Chronic obstructive pulmonary disease Qualifiers: Emphysema type: unspecified Is this 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 (4) Pneumonia Qualifiers: Pneumonia type: due to unspecified organism Laterality: bilateral Lung location: lower lobe of lung Qualified Code(s): J18.9 - Pneumonia, unspecified organism Is this 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 (5) Septic shock Is this 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 (6) Non-STEMI (non-ST elevated myocardial infarction) Is this 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 (7) Hypotension Qualifiers: Hypotension type: unspecified hypotension type Qualified Code(s): I95.9 - Hypotension, unspecified Is this 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 - Notes Notes: Non-STEMI: Most likely related to sepsis and metabolic reason, hypoxemia, severe hypotension related rather than acute coronary syndrome. Recommend repeat EKG for any evolving changes. Hypotension: Continue Levophed drip. May consider adding vasopressin if needed. Acute respiratory failure: Most likely related to pneumonia on top of severe COPD. Agree with antibiotic therapy and artificial ventilation and oxygenation. Elevated troponin I: Most likely related to sepsis, acute respiratory failure. EKGs 2 did not show any acute ST segment changes. Will repeat EKG 2 in a.m. COPD: Continue with artificial ventilation and oxygenation. Pneumonia: Continue with antibiotic therapy. Septic shock: Agree with Levophed drip. Recommend normal saline boluses as needed. May consider adding vasopressin/dopamine drip as needed. Recommend DVT prophylaxis with Lovenox or subcu heparin - Time Time with patient: Greater than 35 minutes - CODE STATUS was discussed, patient remains full code. Surrogate decision-maker unchanged. Multiple medical problems were addressed. More than 50% of the time spent coordinating care, discussing management plans with involved caregivers. Management plans discussed with involved personnels. Medical decision making was of moderate to high complexity, patient's has multiple comorbidities. Patient's daughter in the room. Echo findings and EKGs reviewed. Medications reviewed and adjusted accordingly: Yes
--- NOTE | 2017-08-11 12:13 | PDOC PROGRESS REPORT ---
Subjective Progress Note for:: 08/11/17 Subjective:: Patient remain intubated and vent supported in need of vasopressor support. Remain on IV antibiotic and Tamiflu coverage. His core temperature has remain fairly stable. Tolerating enteral tube feeding. Daughters at bedside. Reason For Visit: SEPTIC SHOCK,RESPIRATORY FAILURE,RENAL FAILURE, Physical Exam Vital Signs: Temp Pulse Resp BP Pulse Ox 97.2 F 117 H 24 H 112/71 96 08/11/17 10:00 08/11/17 10:00 08/11/17 10:00 08/11/17 10:00 08/11/17 10:00 Intake & Output 08/10/17 08/11/17 08/12/17 06:59 06:59 06:59 Intake Total 3487 Output Total 525 165 Balance 2962 -165 Weight 55.1 kg Physical Exam: Intubated and vent supported. Head exam: PRESENT: atraumatic, normocephalic Eye exam: PRESENT: conjunctiva pink, EOMI, PERRLA. ABSENT: scleral icterus Mouth exam: PRESENT: other - ET and NG tubes in situ Respiratory exam: PRESENT: prolonged expiratory phas - at lung bases Cardiovascular exam: PRESENT: RRR. ABSENT: diastolic murmur, rubs, systolic murmur GI/Abdominal exam: PRESENT: normal bowel sounds, soft. ABSENT: distended, guarding, mass, organolmegaly, rebound, tenderness Extremities exam: ABSENT: pedal edema Musculoskeletal exam: PRESENT: normal inspection Neurological exam: PRESENT: altered - sedated on Propofol and midazolam Psychiatric exam: PRESENT: other - sedated Skin exam: PRESENT: dry, intact, warm. ABSENT: cyanosis, rash Results Laboratory Results: 08/11/17 06:30 08/11/17 06:30 08/10/17 08/10/17 08/10/17 13:16 14:30 14:37 WBC RBC Hgb Hct MCV MCH MCHC RDW Plt Count Carbonic Acid 2.25 H HCO3/H2CO3 Ratio 11:1 ABG pH 7.17 L* ABG pCO2 74.7 H* ABG pO2 121.8 H ABG HCO3 26.7 H ABG O2 Saturation 97.3 ABG Base Excess -3.5 FiO2 100% Sodium Potassium Chloride Carbon Dioxide Anion Gap BUN Creatinine Est GFR ( Amer) Est GFR (Non-Af Amer) Glucose Lactic Acid 1.5 Calcium Magnesium Total Bilirubin AST ALT Alkaline Phosphatase Total Protein Albumin Urine Color YELLOW Urine Appearance TURBID Urine pH 5.0 Ur Specific [place] 1.025 Urine Protein >=500 H Urine Glucose (UA) NEGATIVE Urine Ketones NEGATIVE Urine Blood LARGE H Urine Nitrite NEGATIVE Ur Leukocyte Esterase NEGATIVE Urine WBC (Auto) 5 Urine RBC (Auto) >182 08/10/17 08/10/17 08/11/17 18:00 20:30 06:30 WBC RBC Hgb Hct MCV MCH MCHC RDW Plt Count Carbonic Acid 2.17 H 1.78 H 1.63 H HCO3/H2CO3 Ratio 12:1 14:1 14:1 ABG pH 7.21 L 7.25 L 7.25 L ABG pCO2 72.0 H* 59.1 H 54.3 H ABG pO2 78.9 L 67.3 L 116.5 H ABG HCO3 28.0 H 25.4 23.5 ABG O2 Saturation 92.5 L 90.0 L 97.6 ABG Base Excess -1.6 -2.8 -4.3 FiO2 80% 80% 60% Sodium Potassium Chloride Carbon Dioxide Anion Gap BUN Creatinine Est GFR ( Amer) Est GFR (Non-Af Amer) Glucose Lactic Acid Calcium Magnesium Total Bilirubin AST ALT Alkaline Phosphatase Total Protein Albumin Urine Color Urine Appearance Urine pH Ur Specific [place] Urine Protein Urine Glucose (UA) Urine Ketones Urine Blood Urine Nitrite Ur Leukocyte Esterase Urine WBC (Auto) Urine RBC (Auto) 08/11/17 08/11/17 08/11/17 06:30 06:30 08:27 WBC 14.0 H RBC 4.34 L Hgb 11.8 L D Hct 36.1 L MCV 83 MCH 27.3 MCHC 32.8 RDW 15.1 H Plt Count 178 Carbonic Acid HCO3/H2CO3 Ratio ABG pH ABG pCO2 ABG pO2 ABG HCO3 ABG O2 Saturation ABG Base Excess FiO2 Sodium 136.9 L Potassium 4.4 Chloride 104 Carbon Dioxide 21 L D Anion Gap 12 BUN 29 H Creatinine 1.23 Est GFR ( Amer) > 60 Est GFR (Non-Af Amer) 57 L Glucose 206 H Lactic Acid 2.0 Calcium 7.7 L Magnesium 1.8 Total Bilirubin 0.2 AST 15 L ALT 20 L Alkaline Phosphatase 44 Total Protein 5.0 L Albumin 2.2 L Urine Color Urine Appearance Urine pH Ur Specific [place] Urine Protein Urine Glucose (UA) Urine Ketones Urine Blood Urine Nitrite Ur Leukocyte Esterase Urine WBC (Auto) Urine RBC (Auto) 08/10/17 14:35 Sputum Gram Stain - Final 08/10/17 08/10/17 08/10/17 13:15 13:15 20:30 Creatine Kinase 70 41 L CK-MB (CK-2) 2.03 Troponin I 0.271 08/10/17 08/11/17 08/11/17 20:30 06:30 06:30 Creatine Kinase 31 L CK-MB (CK-2) 2.61 1.80 Troponin I 0.160 0.087 08/10/2017 Rapid Fluenza A and B negative Impressions: Head CT 08/10/17 09:58 IMPRESSION: CHRONIC CHANGES OF ATROPHY AND MICROVASCULAR ISCHEMIA. NO ACUTE PROCESS. EVIDENCE OF ACUTE STROKE: NO. Chest X-Ray 08/11/17 06:00 IMPRESSION: Interval worsening includes the tip of an endotracheal tube 1.3 cm from the guzman- recommend 2 cm retraction and increased left basilar opacity. Assessment & Plan - Diagnosis (1) Septic shock Is this 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 Plan: See covering attending physician orders. Continue IV antibiotic coverage, IV pressor support and IV fluid infusion. D/C Tamiflu in view of his negative rapid fluy findings. (2) Acute on chronic respiratory failure with hypoxia and hypercapnia Is this 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 Plan: See covering attending physician orders. Remain on Ventilator support with adjustment as per roll table operator recommendations. (3) Pneumonia Qualifiers: Pneumonia type: due to unspecified organism Laterality: bilateral Lung location: lower lobe of lung Qualified Code(s): J18.9 - Pneumonia, unspecified organism Is this 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 Plan: See covering attending physician orders. Continue IV antibiotic coverage. (4) Acute renal failure Qualifiers: Acute renal failure type: unspecified Qualified Code(s): N17.9 - Acute kidney failure, unspecified Is this 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 Plan: Improved. Continue current medication management. - Time Time Spent with patient: 35 or more minutes Medications reviewed and adjusted accordingly: Yes Anticipated discharge: Other Within: Other - Inpatient Certification Based on my medical assessment, after consideration of the patient's comorbidities, presenting symptoms, or acuity I expect that the services needed warrant INPATIENT care.: Yes I certify that my determination is in accordance with my understanding of Medicare's requirements for reasonable and necessary INPATIENT services [42 CFR 412.3e].: Yes Medical Necessity: Need Close Monitoring Due to Risk of Patient Decompensation, Need For IV Fluids, Need For Continuous Telemetry Monitoring, Need for Nebulizer Therapy and Monitoring of Response, Need for IV Antibiotics, Risk of Complication if Not Cared For in Hospital Post Hospital Care: Other - Plan Summary Plan Summary: See covering attending physician orders.
[2017-08-11] MEDS ORDERED: NOREPINEPHRINE BITARTRATE INJ/PF 4 MG/4 ML SDV IV ONE (13:02)
--- NOTE | 2017-08-11 13:23 | RADIOLOGY REPORT (SQ) ---
EXAM DESCRIPTION: CHEST SINGLE VIEW COMPLETED DATE/TIME: 08/11/2017 1:15 pm REASON FOR STUDY: ET tube Placement COMPARISON: None. EXAM PARAMETERS: NUMBER OF VIEWS: One view. TECHNIQUE: Single frontal radiographic view of the chest acquired. RADIATION DOSE: NA LIMITATIONS: None. FINDINGS: LUNGS AND PLEURA: Underlying emphysema with stable multifocal airspace disease and probabl e pleural effusions. MEDIASTINUM AND HILAR STRUCTURES: Stable in size and contour. HEART AND VASCULAR STRUCTURES: Stable. BONES: No acute findings. HARDWARE: Improved position endotracheal tube. Remaining lines/ tubes are stable. OTHER: No other significant finding. IMPRESSION: IMPROVED POSITION OF ENDOTRACHEAL TUBE. OTHERWISE STABLE APPEARANCE OF THE CHEST. TECHNICAL DOCUMENTATION: JOB ID: [id number] [employer]- All Rights Reserved
[2017-08-11 13:55] LABS: ARTERIAL BLOOD BASE EXCESS -4.1 mmol/L; ARTERIAL BLOOD FIO2 60%; ARTERIAL BLOOD H2CO3 1.67 mmol/L (1.05-1.35); ARTERIAL BLOOD HCO3 23.7 mmol/L (20-26); ARTERIAL BLOOD PCO2 55.5 mmHg (35-45); ARTERIAL BLOOD PH 7.25 (7.35-7.45); ARTERIAL BLOOD PO2 94.9 mmHg (80-100); ARTERIAL BLOOD TOTAL CO2 25.4 mmol/L (23-27)
[2017-08-11] MEDS: VANCOMYCIN HCL 750 MG in DEXTROSE 5%-WATER 250 ML IV SCH (14:29)
[2017-08-11] MEDS: PROPOFOL 100 ML IV PRN (14:30)
[2017-08-11 17:28] LABS: ARTERIAL BLOOD BASE EXCESS -3.6 mmol/L; ARTERIAL BLOOD H2CO3 1.32 mmol/L (1.05-1.35); ARTERIAL BLOOD HCO3 22.3 mmol/L (20-26); ARTERIAL BLOOD PCO2 43.7 mmHg (35-45); ARTERIAL BLOOD PH 7.33 (7.35-7.45); ARTERIAL BLOOD PO2 118.5 mmHg (80-100); ARTERIAL BLOOD TOTAL CO2 23.7 mmol/L (23-27)
[2017-08-11 17:29] LABS: ARTERIAL BLOOD FIO2 60%
--- NOTE | 2017-08-11 22:12 | EKG REPORT ---
SEVERITY:- ABNORMAL ECG - SINUS TACHYCARDIA ATRIAL PREMATURE COMPLEX LOW VOLTAGE WITH RIGHT AXIS DEVIATION BORDERLINE R WAVE PROGRESSION, ANTERIOR LEADS : Confirmed by: Rachel Florian 11-Aug-2017 22:11:50
[2017-08-12] MEDS: IPRATROPIUM/ALBUTEROL 0.5-2.5 MG/3 ML AMPUL NEB SCH ×6 (00:01→19:58)
[2017-08-12] MEDS: IMIPENEM/CILASTATIN SODIUM 500 MG in NORMAL SALINE 100 ML IV SCH ×5 (00:09→23:59)
[2017-08-12] MEDS: PROPOFOL 100 ML IV PRN ×3 (00:44→19:30)
[2017-08-12] MEDS: NORMAL SALINE 1000 ML 1,000 ML IV PRN ×2 (03:49→13:18)
[2017-08-12] MEDS: HEPARIN SOD (PORCINE) 5,000 UNIT/ML 1 ML SYRINGE SUBCUT SCH ×3 (05:11→22:25)
[2017-08-12 05:15] LABS: HEMOGLOBIN 10.5 g/dL (13.5-17.0); MEAN CORPUSCULAR HGB CONC 32.7 g/dL (32.0-36.0); MEAN CORPUSCULAR VOLUME 83 fl (80-97); PLATELET COUNT 175 10^3/uL (150-450); RED BLOOD COUNT 3.87 10^6/uL (4.35-5.55); RED CELL DISTRIBUTION WIDTH 15.6 % (11.5-14.0); WHITE BLOOD COUNT 12.1 10^3/uL (4.0-10.5)
[2017-08-12 07:00] LABS: ALANINE AMINOTRANSFERASE 27 U/L (21-72); ALBUMIN 1.9 g/dL (3.5-5.0); ALKALINE PHOSPHATASE 45 U/L (38-126); ANION GAP 7 (5-19); ASPARTATE AMINO TRANSFERASE 40 U/L (17-59); BLOOD UREA NITROGEN 26 mg/dL (7-20); CALCIUM 7.9 mg/dL (8.4-10.2); CARBON DIOXIDE 22 mmol/L (22-30); CHLORIDE 109 mmol/L (98-107); GLUCOSE 144 mg/dL (75-110); POTASSIUM 3.8 mmol/L (3.6-5.0); SODIUM 138.4 mmol/L (137-145); TOTAL PROTEIN 4.5 g/dL (6.3-8.2)
[2017-08-12 07:14] LABS: BILIRUBIN,TOTAL < 0.1 mg/dL (0.2-1.3)
--- NOTE | 2017-08-12 09:34 | EKG REPORT ---
SEVERITY:- ABNORMAL ECG - SINUS TACHYCARDIA MULTIPLE ATRIAL PREMATURE COMPLEXES PROBABLE ANTEROSEPTAL INFARCT, AGE INDETERM BORDERLINE PROLONGED QT INTERVAL : Confirmed by: Rachel Florian 12-Aug-2017 09:33:42
[2017-08-12] MEDS: LEVOFLOXACIN 750 MG/D5W RTU 750 MG/150 ML RTUPB IV SCH (09:55)
[2017-08-12] MEDS: FAMOTIDINE INJ/PF 20 MG/2 ML SDV IV SCH ×2 (09:55→22:24)
[2017-08-12] MEDS: VANCOMYCIN HCL 500 MG in NORMAL SALINE 100 ML IV SCH ×2 (09:56→22:24)
--- NOTE | 2017-08-12 10:05 | PDOC PROGRESS REPORT ---
Subjective Progress Note for:: 08/12/17 Subjective:: Remain intubated and vent supported. chest X ray revealed multi focal airspace disease. No reported fever. Some degree of sustained tachycardia. Tolerating enteral tube feeding. Reason For Visit: SEPTIC SHOCK,RESPIRATORY FAILURE,RENAL FAILURE, Physical Exam Vital Signs: Temp Pulse Resp BP Pulse Ox 97.7 F 104 H 24 H 97/56 L 99 08/12/17 07:59 08/12/17 08:00 08/12/17 07:59 08/12/17 07:59 08/12/17 07:59 Intake & Output 08/11/17 08/12/17 08/13/17 06:59 06:59 06:59 Intake Total 3487 4558 Output Total 525 950 60 Balance 2962 3608 -60 Weight 55.1 kg 65.5 kg Physical Exam: Intubated and vent supported. Head exam: PRESENT: atraumatic, normocephalic Eye exam: PRESENT: conjunctiva pink, EOMI, PERRLA. ABSENT: scleral icterus Mouth exam: PRESENT: other - ET and NG tubes in situ Respiratory exam: PRESENT: prolonged expiratory phas - at lung bases Cardiovascular exam: PRESENT: RRR. ABSENT: diastolic murmur, rubs, systolic murmur GI/Abdominal exam: PRESENT: normal bowel sounds, soft. ABSENT: distended, guarding, mass, organolmegaly, rebound, tenderness Extremities exam: ABSENT: pedal edema Musculoskeletal exam: PRESENT: normal inspection Neurological exam: PRESENT: altered - sedated on Propofol and midazolam Psychiatric exam: PRESENT: other - sedated Skin exam: PRESENT: dry, intact, warm. ABSENT: cyanosis, rash Results Laboratory Results: 08/12/17 05:00 08/12/17 06:00 08/11/17 08/11/17 08/12/17 13:20 17:05 05:00 WBC 12.1 H RBC 3.87 L Hgb 10.5 L Hct 32.0 L MCV 83 MCH 27.0 MCHC 32.7 RDW 15.6 H Plt Count 175 Carbonic Acid 1.67 H 1.32 HCO3/H2CO3 Ratio 14:1 16:1 ABG pH 7.25 L 7.33 L ABG pCO2 55.5 H 43.7 ABG pO2 94.9 118.5 H ABG HCO3 23.7 22.3 ABG O2 Saturation 96.0 98.0 ABG Base Excess -4.1 -3.6 FiO2 60% 60% Sodium Potassium Chloride Carbon Dioxide Anion Gap BUN Creatinine Est GFR ( Amer) Est GFR (Non-Af Amer) Glucose Lactic Acid Calcium Magnesium Total Bilirubin AST ALT Alkaline Phosphatase Total Protein Albumin 08/12/17 08/12/17 08/12/17 05:00 05:00 06:00 WBC RBC Hgb Hct MCV MCH MCHC RDW Plt Count Carbonic Acid HCO3/H2CO3 Ratio ABG pH ABG pCO2 ABG pO2 ABG HCO3 ABG O2 Saturation ABG Base Excess FiO2 Sodium Cancelled 138.4 Potassium Cancelled 3.8 Chloride Cancelled 109 H Carbon Dioxide Cancelled 22 Anion Gap Cancelled 7 BUN Cancelled 26 H Creatinine Cancelled 1.03 Est GFR ( Amer) Cancelled > 60 Est GFR (Non-Af Amer) Cancelled > 60 Glucose Cancelled 144 H Lactic Acid 1.0 Calcium Cancelled 7.9 L Magnesium Cancelled 1.9 Total Bilirubin Cancelled < 0.1 L AST Cancelled 40 ALT Cancelled 27 Alkaline Phosphatase Cancelled 45 Total Protein Cancelled 4.5 L Albumin Cancelled 1.9 L 08/10/17 14:37 Catheterized Urine Urine Culture - Final NO GROWTH 2 DAYS 08/10/17 14:35 Sputum Gram Stain - Final 08/10/17 08/10/17 08/10/17 13:15 13:15 20:30 Creatine Kinase 70 41 L CK-MB (CK-2) 2.03 Troponin I 0.271 08/10/17 08/11/17 08/11/17 20:30 06:30 06:30 Creatine Kinase 31 L CK-MB (CK-2) 2.61 1.80 Troponin I 0.160 0.087 Impressions: Head CT 08/10/17 09:58 IMPRESSION: CHRONIC CHANGES OF ATROPHY AND MICROVASCULAR ISCHEMIA. NO ACUTE PROCESS. EVIDENCE OF ACUTE STROKE: NO. Chest X-Ray 08/11/17 12:58 IMPRESSION: IMPROVED POSITION OF ENDOTRACHEAL TUBE. OTHERWISE STABLE APPEARANCE OF THE CHEST. Assessment & Plan - Diagnosis (1) Septic shock Is this 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 (2) Acute on chronic respiratory failure with hypoxia and hypercapnia Is this 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 (3) Pneumonia Qualifiers: Pneumonia type: due to unspecified organism Laterality: bilateral Lung location: lower lobe of lung Qualified Code(s): J18.9 - Pneumonia, unspecified organism Is this 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 (4) Acute renal failure Qualifiers: Acute renal failure type: unspecified Qualified Code(s): N17.9 - Acute kidney failure, unspecified Is this 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 - Time Time Spent with patient: 25-34 minutes Medications reviewed and adjusted accordingly: Yes Anticipated discharge: SNF Within: Other - Inpatient Certification Based on my medical assessment, after consideration of the patient's comorbidities, presenting symptoms, or acuity I expect that the services needed warrant INPATIENT care.: Yes I certify that my determination is in accordance with my understanding of Medicare's requirements for reasonable and necessary INPATIENT services [42 CFR 412.3e].: Yes Medical Necessity: Need Close Monitoring Due to Risk of Patient Decompensation, Need For IV Fluids, Need For Continuous Telemetry Monitoring, Need for Nebulizer Therapy and Monitoring of Response, Need for IV Antibiotics, Risk of Complication if Not Cared For in Hospital Post Hospital Care: D/C or Transfer Summary - Plan Summary Plan Summary: Continue current antibiotic coverage in view of resolving leukocytosis. Follow up on culture findings. Advance feeding by 5mL/shift to ax 45ml/hour as tolerated. Obtain ABG this am. Obtain CBC with diff, CMP in AM. I discussed care plan with daughter art bedside.
--- NOTE | 2017-08-12 11:20 | RADIOLOGY REPORT (SQ) ---
EXAM DESCRIPTION: CHEST SINGLE VIEW COMPLETED DATE/TIME: 08/12/2017 11:12 am REASON FOR STUDY: ET tube placement COMPARISON: 08/11/2017 NUMBER OF VIEWS: One view. TECHNIQUE: Single frontal radiographic image of the chest acquired. LIMITATIONS: None. FINDINGS: LUNGS AND PLEURA: Persistent bilateral airspace disease. Small left pleural effusion. No pneumothorax. MEDIASTINUM AND HEART: Stable heart size and mediastinal structures. SUPPORT DEVICES: Appropriate location without change. BONY STRUCTURES: No acute findings. HARDWARE: None. OTHER: No other significant finding. IMPRESSION: Pneumonia or asymmetric edema. No significant change. No pneumothorax.
[2017-08-12 11:39] LABS: ARTERIAL BLOOD H2CO3 1.14 mmol/L (1.05-1.35); ARTERIAL BLOOD O2 SATURATION 87.4 % (94-98); ARTERIAL BLOOD PCO2 37.9 mmHg (35-45); ARTERIAL BLOOD PH 7.36 (7.35-7.45); ARTERIAL BLOOD PO2 54.5 mmHg (80-100); ARTERIAL BLOOD TOTAL CO2 22.1 mmol/L (23-27)
[2017-08-12 11:45] LABS: ARTERIAL BLOOD FIO2 30%
--- NOTE | 2017-08-12 17:54 | PDOC PROGRESS REPORT ---
Subjective Progress Note for:: 08/12/17 Subjective:: Patient about the same and has made some progress. Patient's blood pressure been more stable. He is making urine. Labs were reviewed. Currently off vasopressors. Patient remains intubated, sedated, patient however looks comfortable and in acute distress. Telemetry strips reviewed. Shows intermittent sinus tachycardia but with frequent APCs. Medications reviewed. Reason For Visit: SEPTIC SHOCK,RESPIRATORY FAILURE,RENAL FAILURE, Physical Exam Vital Signs: Temp Pulse Resp BP Pulse Ox 97.9 F 104 H 24 H 114/67 96 08/12/17 16:00 08/12/17 16:00 08/12/17 16:00 08/12/17 16:00 08/12/17 14:02 Intake & Output 08/11/17 08/12/17 08/13/17 06:59 06:59 06:59 Intake Total 3487 4558 Output Total 525 950 845 Balance 2962 3608 -845 Weight 55.1 kg 65.5 kg Exam: GENERAL: well-nourished and in no acute distress. Patient is intubated and sedated. Orientation cannot be checked HEAD: Atraumatic, normocephalic. EYES: Pupils equal round and reactive to light, extraocular movements could not be checked, sclera anicteric, conjunctiva are normal. ENT: TMs normal, nares patent, oropharynx clear without exudates. Moist mucous membranes. No oral ulcerations or bleeding gums noted NECK: supple without lymphadenopathy or JVD. Trachea is central. No cervical or axillary lymphadenopathy noted. Carotids are 2+ LUNGS: Breath sounds mostly clear to auscultation patient is noted to have bibasal crackles at the extreme bases CHEST: Palpation of the chest wall shows no significant chest wall tenderness or abnormalities. HEART: [employer], No PSH, 2/6 ODTTY aortic area, 1/6 turk systolic murmur mitral area , no rubs or gallops. ABDOMEN: Soft, no significant tenderness appreciated, normoactive bowel sounds. No guarding, no rebound. No rigidity noted . No masses appreciated. EXTREMITIES: Pedal pulses are 1-2+, no calf tenderness noted, 1+ pedal edema noted. No clubbing or cyanosis. NEUROLOGICAL: The patient cannot participate in the neurological exam but no facial asymmetry noted. Extremities slightly hypotonic PSYCH: This cannot be evaluated. Patient cannot participate. SKIN: No significant ecchymosis, rash, or signs of pruritus noted. MUSCULOSKELETAL EXAM: No significant joint swelling noted. Patient cannot participate in musculoskeletal exam Results Laboratory Results: 08/12/17 05:00 08/12/17 06:00 08/12/17 08/12/17 08/12/17 05:00 05:00 05:00 WBC 12.1 H RBC 3.87 L Hgb 10.5 L Hct 32.0 L MCV 83 MCH 27.0 MCHC 32.7 RDW 15.6 H Plt Count 175 Carbonic Acid HCO3/H2CO3 Ratio ABG pH ABG pCO2 ABG pO2 ABG HCO3 ABG O2 Saturation ABG Base Excess FiO2 Sodium Cancelled Potassium Cancelled Chloride Cancelled Carbon Dioxide Cancelled Anion Gap Cancelled BUN Cancelled Creatinine Cancelled Est GFR ( Amer) Cancelled Est GFR (Non-Af Amer) Cancelled Glucose Cancelled Lactic Acid 1.0 Calcium Cancelled Magnesium Cancelled Total Bilirubin Cancelled AST Cancelled ALT Cancelled Alkaline Phosphatase Cancelled Total Protein Cancelled Albumin Cancelled 08/12/17 08/12/17 06:00 11:00 WBC RBC Hgb Hct MCV MCH MCHC RDW Plt Count Carbonic Acid 1.14 HCO3/H2CO3 Ratio 18:1 ABG pH 7.36 ABG pCO2 37.9 ABG pO2 54.5 L ABG HCO3 21.0 ABG O2 Saturation 87.4 L ABG Base Excess -4.0 FiO2 30% Sodium 138.4 Potassium 3.8 Chloride 109 H Carbon Dioxide 22 Anion Gap 7 BUN 26 H Creatinine 1.03 Est GFR ( Amer) > 60 Est GFR (Non-Af Amer) > 60 Glucose 144 H Lactic Acid Calcium 7.9 L Magnesium 1.9 Total Bilirubin < 0.1 L AST 40 ALT 27 Alkaline Phosphatase 45 Total Protein 4.5 L Albumin 1.9 L 08/10/17 14:35 Sputum Gram Stain - Final 08/10/17 14:37 Catheterized Urine Urine Culture - Final NO GROWTH 2 DAYS 08/10/17 08/10/17 08/10/17 13:15 13:15 20:30 Creatine Kinase 70 41 L CK-MB (CK-2) 2.03 Troponin I 0.271 08/10/17 08/11/17 08/11/17 20:30 06:30 06:30 Creatine Kinase 31 L CK-MB (CK-2) 2.61 1.80 Troponin I 0.160 0.087 Impressions: Head CT 08/10/17 09:58 IMPRESSION: CHRONIC CHANGES OF ATROPHY AND MICROVASCULAR ISCHEMIA. NO ACUTE PROCESS. EVIDENCE OF ACUTE STROKE: NO. Chest X-Ray 08/12/17 10:56 IMPRESSION: Pneumonia or asymmetric edema. No significant change. No pneumothorax. Assessment & Plan - Diagnosis (1) Acute on chronic respiratory failure with hypoxia and hypercapnia Is this 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 (2) Elevated troponin Is this 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 (3) Chronic obstructive pulmonary disease Qualifiers: Emphysema type: unspecified Is this 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 (4) Pneumonia Qualifiers: Pneumonia type: due to unspecified organism Laterality: bilateral Lung location: lower lobe of lung Qualified Code(s): J18.9 - Pneumonia, unspecified organism Is this 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 (5) Septic shock Is this 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 (6) Non-STEMI (non-ST elevated myocardial infarction) Is this 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 (7) Hypotension Qualifiers: Hypotension type: unspecified hypotension type Qualified Code(s): I95.9 - Hypotension, unspecified Is this 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 - Notes Notes: Non-STEMI: Most likely related to sepsis and metabolic reason, hypoxemia, severe hypotension related rather than acute coronary syndrome. EKG is reviewed shows no significant ST-T changes. Hypotension: Currently off vasopressors/Levophed drip. May consider adding vasopressin if needed as preferred agent especially if patient develops hypotension. Acute respiratory failure: Most likely related to pneumonia on top of severe COPD. Agree with antibiotic therapy and artificial ventilation and oxygenation. Elevated troponin I: Most likely related to sepsis, acute respiratory failure. Patient may benefit from ischemia evaluation that can be considered even as an outpatient. COPD: Continue with artificial ventilation and oxygenation. Pneumonia: Continue with antibiotic therapy. Septic shock: Continue antibiotics. Currently off any vasopressors. Recommend normal saline boluses as needed. Recommend DVT prophylaxis with Lovenox or subcu heparin - Time Time with patient: Greater than 35 minutes - CODE STATUS was discussed, patient remains full code. Surrogate decision-maker unchanged. Multiple medical problems were addressed. More than 50% of the time spent coordinating care, discussing management plans with involved caregivers. Management plans discussed with involved personnels. Medical decision making was of moderate to high complexity, patient's has multiple comorbidities. Medications reviewed and adjusted accordingly: Yes
[2017-08-12] MEDS: 1/2 NORMAL SALINE 1,000 ML IV PRN (18:14)
[2017-08-12] MEDS: DIPHENHYDRAMINE HCL 50 MG/ML VIAL IM SCH (22:24)
[2017-08-13] MEDS: IPRATROPIUM/ALBUTEROL 0.5-2.5 MG/3 ML AMPUL NEB SCH ×7 (00:26→23:58)
[2017-08-13] MEDS: PROPOFOL 100 ML IV PRN ×4 (03:57→18:35)
[2017-08-13] MEDS: DIPHENHYDRAMINE HCL 50 MG/ML VIAL IM SCH ×4 (04:01→23:27)
[2017-08-13 05:03] LABS: ARTERIAL BLOOD BASE EXCESS -1.9 mmol/L; ARTERIAL BLOOD H2CO3 1.25 mmol/L (1.05-1.35); ARTERIAL BLOOD HCO3 23.3 mmol/L (20-26); ARTERIAL BLOOD O2 SATURATION 91.4 % (94-98); ARTERIAL BLOOD PCO2 41.4 mmHg (35-45); ARTERIAL BLOOD PH 7.37 (7.35-7.45); ARTERIAL BLOOD PO2 62.7 mmHg (80-100); ARTERIAL BLOOD TOTAL CO2 24.6 mmol/L (23-27)
[2017-08-13 05:06] LABS: ARTERIAL BLOOD FIO2 35%; HEMATOCRIT 32.5 % (37.9-51.0); HEMOGLOBIN 10.5 g/dL (13.5-17.0); MEAN CORPUSCULAR HEMOGLOBIN 26.7 pg (27.0-33.4); MEAN CORPUSCULAR HGB CONC 32.4 g/dL (32.0-36.0); MEAN CORPUSCULAR VOLUME 82 fl (80-97); PLATELET COUNT 192 10^3/uL (150-450); RED BLOOD COUNT 3.95 10^6/uL (4.35-5.55); RED CELL DISTRIBUTION WIDTH 15.3 % (11.5-14.0); WHITE BLOOD COUNT 15.1 10^3/uL (4.0-10.5)
[2017-08-13] MEDS: IMIPENEM/CILASTATIN SODIUM 500 MG in NORMAL SALINE 100 ML IV SCH ×4 (05:26→23:27)
[2017-08-13 05:27] LABS: ALANINE AMINOTRANSFERASE 49 U/L (21-72); ALKALINE PHOSPHATASE 52 U/L (38-126); ANION GAP 5 (5-19); ASPARTATE AMINO TRANSFERASE 67 U/L (17-59); BILIRUBIN,DIRECT 0.2 mg/dL (0.0-0.4); BILIRUBIN,TOTAL 0.2 mg/dL (0.2-1.3); BLOOD UREA NITROGEN 26 mg/dL (7-20); CALCIUM 8.2 mg/dL (8.4-10.2); CARBON DIOXIDE 22 mmol/L (22-30); CHLORIDE 113 mmol/L (98-107); GLUCOSE 131 mg/dL (75-110); POTASSIUM 3.8 mmol/L (3.6-5.0); SODIUM 140.2 mmol/L (137-145); TOTAL PROTEIN 4.5 g/dL (6.3-8.2)
[2017-08-13 05:29] LABS: ABSOLUTE LYMPHOCYTES# (MANUAL) 1.2 10^3/uL (0.5-4.7); ABSOLUTE MONOCYTES # (MANUAL) 1.1 10^3/uL (0.1-1.4); ABSOLUTE NEUTROPHILS# (MANUAL) 12.8 10^3/uL (1.7-8.2); BAND NEUTROPHILS % (MANUAL) 2 % (3-5); BASOPHILS % (MANUAL) 0 % (0-2); EOSINOPHILS % (MANUAL) 0 % (0-6); LYMPHOCYTES % (MANUAL) 8 % (13-45); MONOCYTES % (MANUAL) 7 % (3-13); TOTAL CELLS COUNTED 100
[2017-08-13 05:33] LABS: ANISOCYTOSIS SLIGHT; BURR CELLS SLIGHT; HYPOCHROMASIA SLIGHT; OVALOCYTES SLIGHT; PLATELET CLUMPS PRESENT; PLATELET COMMENT ADEQUATE; PLATELET LARGE PRESENT; POIKILOCYTOSIS SLIGHT; POLYCHROMASIA SLIGHT
[2017-08-13] MEDS: HEPARIN SOD (PORCINE) 5,000 UNIT/ML 1 ML SYRINGE SUBCUT SCH ×3 (05:37→21:33)
[2017-08-13 06:18] LABS: SEGMENTED NEUTROPHILS % (MAN) 75 % (42-78)
[2017-08-13 06:19] LABS: MYELOCYTES % (MANUAL) 6 % (0); PROMYELOCYTES % (MANUAL) 2 % (0)
--- NOTE | 2017-08-13 07:30 | RADIOLOGY REPORT (SQ) ---
EXAM DESCRIPTION: CHEST SINGLE VIEW CLINICAL HISTORY: 77 years Male, ET Tube Placement COMPARISON: 08/12/17. NUMBER OF VIEWS/TECHNIQUE: 1/AP LIMITATIONS: None. FINDINGS: Moderate mixed patchiness and interstitial opacity with lower predominance, prominent interstitium, normal cardiac silhouette, and adequate tip of an endotracheal tube which is 1.8 cm from the guzman; recommend retraction/adjustment of the endotracheal tube by 1.5 cm. No pneumothorax. Normal cardiac silhouette. Likely adequate enteric tube obscured distally. Right jugular central line tip at the upper right atrium. IMPRESSION: Adequate endotracheal tube tip 1.8 cm from the guzman; recommend adjustment with 1.5 cm retraction. No significant change. Else, stable.
[2017-08-13] MEDS: ALPRAZOLAM 0.25 MG TABLET NG SCH ×2 (09:55→18:35)
[2017-08-13] MEDS: VANCOMYCIN HCL 500 MG in NORMAL SALINE 100 ML IV SCH ×2 (09:55→21:31)
[2017-08-13] MEDS: FAMOTIDINE INJ/PF 20 MG/2 ML SDV IV SCH ×2 (09:56→21:32)
--- NOTE | 2017-08-13 11:23 | PDOC PROGRESS REPORT ---
Subjective Progress Note for:: 08/13/17 Subjective:: Patient about the same and has made some progress. Patient's blood pressure been more stable. He is making urine. Labs were reviewed. Currently off vasopressors. Nurses claim patient to be in some pain. Patient has some pain medication ordered. Patient remains intubated, sedated, patient however looks comfortable and in acute distress. Intermittent sinus tachycardia noted. Telemetry strips reviewed. Shows intermittent sinus tachycardia but with frequent APCs. Medications reviewed. Reason For Visit: SEPTIC SHOCK,RESPIRATORY FAILURE,RENAL FAILURE, Physical Exam Vital Signs: Temp Pulse Resp BP Pulse Ox 98.1 F 118 H 30 H 118/66 94 08/13/17 08:00 08/13/17 08:00 08/13/17 08:00 08/13/17 08:00 08/13/17 08:00 Intake & Output 08/12/17 08/13/17 08/14/17 06:59 06:59 06:59 Intake Total 4558 2793 Output Total 950 2075 250 Balance 3608 718 -250 Weight 65.5 kg 66.3 kg Exam: GENERAL: well-nourished and in no acute distress. Patient is intubated and sedated. Orientation cannot be checked HEAD: Atraumatic, normocephalic. EYES: Pupils equal round and reactive to light, extraocular movements could not be checked, sclera anicteric, conjunctiva are normal. ENT: TMs normal, nares patent, oropharynx clear without exudates. Moist mucous membranes. No oral ulcerations or bleeding gums noted NECK: supple without lymphadenopathy or JVD. Trachea is central. No cervical or axillary lymphadenopathy noted. Carotids are 2+ LUNGS: Breath sounds mostly clear to auscultation patient is noted to have bibasal crackles at the extreme bases CHEST: Palpation of the chest wall shows no significant chest wall tenderness or abnormalities. 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 ABDOMEN: Soft, no significant tenderness appreciated, normoactive bowel sounds. No guarding, no rebound. No rigidity noted . No masses appreciated. EXTREMITIES: Pedal pulses are 1-2+, no calf tenderness noted, 1+ pedal edema noted. No clubbing or cyanosis. NEUROLOGICAL: The patient cannot participate in the neurological exam but no facial asymmetry noted. Extremities slightly hypotonic PSYCH: This cannot be evaluated. Patient cannot participate. SKIN: No significant ecchymosis, rash, or signs of pruritus noted. MUSCULOSKELETAL EXAM: No significant joint swelling noted. Patient cannot participate in musculoskeletal exam Results Laboratory Results: 08/13/17 04:40 08/13/17 04:40 08/12/17 08/13/17 08/13/17 11:00 04:40 04:40 WBC 15.1 H RBC 3.95 L Hgb 10.5 L Hct 32.5 L MCV 82 MCH 26.7 L MCHC 32.4 RDW 15.3 H Plt Count 192 Seg Neutrophils % Not Reportable Lymphocytes % Not Reportable Monocytes % Not Reportable Eosinophils % Not Reportable Basophils % Not Reportable Absolute Neutrophils Not Reportable Absolute Lymphocytes Not Reportable Absolute Monocytes Not Reportable Absolute Eosinophils Not Reportable Absolute Basophils Not Reportable Carbonic Acid 1.14 1.25 HCO3/H2CO3 Ratio 18:1 18:1 ABG pH 7.36 7.37 ABG pCO2 37.9 41.4 ABG pO2 54.5 L 62.7 L ABG HCO3 21.0 23.3 ABG O2 Saturation 87.4 L 91.4 L ABG Base Excess -4.0 -1.9 FiO2 30% 35% Sodium Potassium Chloride Carbon Dioxide Anion Gap BUN Creatinine Est GFR ( Amer) Est GFR (Non-Af Amer) Glucose Calcium Magnesium Total Bilirubin AST ALT Alkaline Phosphatase Total Protein Albumin 08/13/17 04:40 WBC RBC Hgb Hct MCV MCH MCHC RDW Plt Count Seg Neutrophils % Lymphocytes % Monocytes % Eosinophils % Basophils % Absolute Neutrophils Absolute Lymphocytes Absolute Monocytes Absolute Eosinophils Absolute Basophils Carbonic Acid HCO3/H2CO3 Ratio ABG pH ABG pCO2 ABG pO2 ABG HCO3 ABG O2 Saturation ABG Base Excess FiO2 Sodium 140.2 Potassium 3.8 Chloride 113 H Carbon Dioxide 22 Anion Gap 5 BUN 26 H Creatinine 1.09 Est GFR ( Amer) > 60 Est GFR (Non-Af Amer) > 60 Glucose 131 H Calcium 8.2 L Magnesium 2.0 Total Bilirubin 0.2 AST 67 H ALT 49 Alkaline Phosphatase 52 Total Protein 4.5 L Albumin 2.0 L 08/10/17 14:35 Sputum Gram Stain - Final 08/10/17 14:37 Catheterized Urine Urine Culture - Final NO GROWTH 2 DAYS 0208/10/17 08/10/17 13:15 13:15 20:30 Creatine Kinase 70 41 L CK-MB (CK-2) 2.03 Troponin I 0.271 08/10/17 08/11/17 08/11/17 20:30 06:30 06:30 Creatine Kinase 31 L CK-MB (CK-2) 2.61 1.80 Troponin I 0.160 0.087 EKG Comments: Telemetry shows sinus rhythm without any sustained tacky or bradycardia arrhythmias. Impressions: Head CT 08/10/17 09:58 IMPRESSION: CHRONIC CHANGES OF ATROPHY AND MICROVASCULAR ISCHEMIA. NO ACUTE PROCESS. EVIDENCE OF ACUTE STROKE: NO. Chest X-Ray 08/13/17 06:00 IMPRESSION: Adequate endotracheal tube tip 1.8 cm from the guzman; recommend adjustment with 1.5 cm retraction. No significant change. Else, stable. Assessment & Plan - Diagnosis (1) Acute on chronic respiratory failure with hypoxia and hypercapnia Is this 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 (2) Elevated troponin Is this 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 (3) Chronic obstructive pulmonary disease Qualifiers: Emphysema type: unspecified Is this 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 (4) Pneumonia Qualifiers: Pneumonia type: due to unspecified organism Laterality: bilateral Lung location: lower lobe of lung Qualified Code(s): J18.9 - Pneumonia, unspecified organism Is this 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 (5) Septic shock Is this 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 (6) Non-STEMI (non-ST elevated myocardial infarction) Is this 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 (7) Hypotension Qualifiers: Hypotension type: unspecified hypotension type Qualified Code(s): I95.9 - Hypotension, unspecified Is this 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 - Notes Notes: Non-STEMI: Most likely related to sepsis and metabolic reason, hypoxemia, severe hypotension related rather than acute coronary syndrome. Multiple EKG is reviewed shows no significant ST-T changes. Also no evolving changes noted. Will consider stress test prior to discharge. Hypotension: Currently off vasopressors/Levophed drip. May consider adding vasopressin if needed as preferred agent especially if patient develops hypotension. Acute respiratory failure: Most likely related to pneumonia on top of severe COPD. Agree with antibiotic therapy and artificial ventilation and oxygenation. Elevated troponin I: Most likely related to sepsis, acute respiratory failure. Patient may benefit from ischemia evaluation that can be considered even as an outpatient. COPD: Continue with artificial ventilation and oxygenation. Pneumonia: Continue with antibiotic therapy. Septic shock: Continue antibiotics. Currently off any vasopressors. Recommend normal saline boluses as needed for hypotension prior to starting patient on any vasopressors. Recommend DVT prophylaxis with Lovenox or subcu heparin - Time Time with patient: 15-25 minutes - CODE STATUS was discussed, patient remains full code. Surrogate decision-maker unchanged. Multiple medical problems were addressed. More than 50% of the time spent coordinating care, discussing management plans with involved caregivers. Management plans discussed with involved personnels. Medical decision making was of moderate to high complexity , patient's has multiple comorbidities. Medications reviewed and adjusted accordingly: Yes
--- NOTE | 2017-08-13 12:49 | PDOC PROGRESS REPORT ---
Subjective Progress Note for:: 08/13/17 Subjective:: Patient still currently intubated on a vent support's Patients off the pressure Patient's according to the nursing some still little tachycardic and discussed with the cardiology and suggested continues to monitor Patient's urine output is adequate Patient's currently on normal temperature before was a hypothermic Reason For Visit: SEPTIC SHOCK,RESPIRATORY FAILURE,RENAL FAILURE, Physical Exam Vital Signs: Temp Pulse Resp BP Pulse Ox 98.1 F 118 H 21 H 97/54 L 95 08/13/17 08:00 08/13/17 08:00 08/13/17 12:03 08/13/17 12:03 08/13/17 12:03 Intake & Output 08/12/17 08/13/17 08/14/17 06:59 06:59 06:59 Intake Total 4558 2793 Output Total 950 2075 650 Balance 3608 718 -650 Weight 65.5 kg 66.3 kg Physical Exam: Currently on intubated General appearance: PRESENT: no acute distress Eye exam: PRESENT: PERRLA Mouth exam: PRESENT: neck supple Neck exam: ABSENT: JVD Respiratory exam: PRESENT: decreased breath sounds Cardiovascular exam: PRESENT: +S1, +S2 GI/Abdominal exam: PRESENT: normal bowel sounds, soft Extremities exam: ABSENT: pedal edema Additional comments: Currently intubated and the sedations Results Laboratory Results: 08/13/17 04:40 08/13/17 04:40 08/13/17 08/13/17 08/13/17 04:40 04:40 04:40 WBC 15.1 H RBC 3.95 L Hgb 10.5 L Hct 32.5 L MCV 82 MCH 26.7 L MCHC 32.4 RDW 15.3 H Plt Count 192 Seg Neutrophils % Not Reportable Lymphocytes % Not Reportable Monocytes % Not Reportable Eosinophils % Not Reportable Basophils % Not Reportable Absolute Neutrophils Not Reportable Absolute Lymphocytes Not Reportable Absolute Monocytes Not Reportable Absolute Eosinophils Not Reportable Absolute Basophils Not Reportable Carbonic Acid 1.25 HCO3/H2CO3 Ratio 18:1 ABG pH 7.37 ABG pCO2 41.4 ABG pO2 62.7 L ABG HCO3 23.3 ABG O2 Saturation 91.4 L ABG Base Excess -1.9 FiO2 35% Sodium 140.2 Potassium 3.8 Chloride 113 H Carbon Dioxide 22 Anion Gap 5 BUN 26 H Creatinine 1.09 Est GFR ( Amer) > 60 Est GFR (Non-Af Amer) > 60 Glucose 131 H Calcium 8.2 L Magnesium 2.0 Total Bilirubin 0.2 AST 67 H ALT 49 Alkaline Phosphatase 52 Total Protein 4.5 L Albumin 2.0 L 08/10/17 14:35 Sputum Gram Stain - Final 08/10/17 14:37 Catheterized Urine Urine Culture - Final NO GROWTH 2 DAYS 08/10/17 08/10/17 08/10/17 13:15 13:15 20:30 Creatine Kinase 70 41 L CK-MB (CK-2) 2.03 Troponin I 0.271 08/10/17 08/11/17 08/11/17 20:30 06:30 06:30 Creatine Kinase 31 L CK-MB (CK-2) 2.61 1.80 Troponin I 0.160 0.087 Impressions: Head CT 08/10/17 09:58 IMPRESSION: CHRONIC CHANGES OF ATROPHY AND MICROVASCULAR ISCHEMIA. NO ACUTE PROCESS. EVIDENCE OF ACUTE STROKE: NO. Chest X-Ray 08/13/17 06:00 IMPRESSION: Adequate endotracheal tube tip 1.8 cm from the guzman; recommend adjustment with 1.5 cm retraction. No significant change. Else, stable. Assessment & Plan - Diagnosis (1) Acute on chronic respiratory failure with hypoxia and hypercapnia Is this 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 Plan: Currently on vent support's follow with the pulmonary (2) Septic shock Is this 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 Plan: Continues to IV antibiotic and IV fluidWith the sputum culture is positive with MRSAContinues to vancomycin (3) Pneumonia Qualifiers: Pneumonia type: due to unspecified organism Laterality: bilateral Lung location: lower lobe of lung Qualified Code(s): J18.9 - Pneumonia, unspecified organism Is this 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 Plan: Strep pneumonia with MRSA continues to Primaxin and vancomycin (4) Acute renal failure Qualifiers: Acute renal failure type: unspecified Qualified Code(s): N17.9 - Acute kidney failure, unspecified Is this 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 Plan: Currently all stable (5) Chronic obstructive pulmonary disease Qualifiers: Emphysema type: unspecified Is this 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 Plan: Continues to nebulizer treatments (6) Hypertension Qualifiers: Hypertension type: essential hypertension Qualified Code(s): I10 - Essential (primary) hypertension Is this 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 Plan: Currently hypertension is due to the septic shock (7) Neoplasm of rectum Is this 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 Plan: Patient's last CEA was all normal and according to the oncology's no need for further evaluations (8) Elevated troponin Is this 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 Plan: Due to the hypotension and septic shock currently stable follow with the cardiology - Time Time Spent with patient: 25-34 minutes Total Critical Time (Minutes): 25 Medications reviewed and adjusted accordingly: Yes Anticipated discharge: Other Within: Other - Inpatient Certification Medical Necessity: Need Close Monitoring Due to Risk of Patient Decompensation, Need For IV Fluids, Need for IV Antibiotics 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
--- NOTE | 2017-08-13 13:34 | CONSULTATION REPORT E ---
Consultation Report NAME: CHRISTOPHER LEBLANC : 1940 AGE: 77Y DATE: 08/10/2017 ROOM: 603 A TO: MICHAEL GARNER M.D. FROM: SUSANNA JASMINE M.D. Requesting Physician HISTORY OF PRESENT ILLNESS: The patient is a 77-year-old male who came in with history of COPD, admitted because of fever, chills, increased shortness of breath, hypotension, and respiratory distress. The patient was endotracheally intubated and mechanically ventilated and started on vasopressors in the emergency room. The patient transferred to ICU for further management. PAST MEDICAL HISTORY: Patient with history of: 1. COPD 2. Hyperlipidemia. 3. History of rectal neoplasm, stage I. 4. Gastroesophageal reflux disease. SOCIAL HISTORY: Patient lives with family. Unknown if patient ever smoked. Patient drinks alcohol occasionally. Negative illicit drug use. FAMILY HISTORY: Unremarkable. ALLERGIES: Include: 1. CODEINE 2. PENICILLIN MEDICATIONS: At home include: 1. Advair 250/50 one puff b.i.d. 2. Vitamin D. 3. Lipitor. 4. Spiriva. 5. Albuterol inhaler. REVIEW OF SYSTEMS: CONSTITUTIONAL: Patient had fever for the last few days. RESPIRATION: Complains about increased shortness of breath. patient with respiratory failure and endotracheally intubated in the emergency room. PHYSICAL EXAMINATION: GENERAL: The patient is sedated and breathing comfortably. VITAL SIGNS: Heart rate of 109. Respiratory rate is 24. Blood pressure is 105/61. Saturations 94% on FIO2 of 80%. SIMV rate of 24. Tidal volume 350. Pressors were 10. PEEP of 5. Peak A-wave pressure is 20-21. EYES: No jaundice or pallor. EARS, NOSE, AND THROAT: No ear drainage. No nasal discharge. ET tube is in place. Orotracheal tube is in place. CHEST AND LUNGS: No wheezing. No rhonchi. Fine rales bibasilarly. CARDIOVASCULAR: S1 and S2 distant. Tachycardic. Regular rhythm. ABDOMEN: Flabby. Positive bowel sounds. Soft, nondistended. EXTREMITIES: No joint swelling. No cellulitis. GENITOURINARY: Scrotum appeared within normal limits. Arvizu catheter is in place. LABORATORY: CBC done today showed white count of 13.5, hemoglobin is 14.2, hematocrit is 44, platelet count is 232. PT is 14, INR is 1.01. ABG today at 6:00 p.m. showed a pH of 7.21, pCO2 of 72, pO2 of 78.9 on ventilatory rate of 20. Chemistries done today showed sodium is 141.4, potassium is 5.3, chloride is 99, CO2 is 32, creatinine is 1.54, glucose is 182, lactate is 1.8, total bilirubin 0.5, direct bilirubin 0.5, SGOT is 37, SGPT 13. Total protein 7.7, albumin 3.6. Troponin is 0.190. RADIOLOGY: Chest x-ray showed bibasilar infiltrates. Endotracheal tube is in place. No apparent pneumothorax noted. ASSESSMENT: 1. Acute respiratory failure requiring basic mechanical ventilation. Currently on SIMV rate of 34, tidal volume 350, Pressors of 10, PEEP of 5, FIO2 of 80%. 2. Pneumonia, bibasilar. 3. Chronic obstructive pulmonary disease, presently stable and not in acute bronchospasm. 4. Septic shock requiring 1 vasopressor, Levophed. PLAN AND RECOMMENDATION: 1. Continue to optimize ventilator support. Repeat the ABG after setting ventilator tonight. 2. Continue the Primaxin 500 mg every 6 hours. 3. Continue Levaquin 750 mg IV piggyback twice daily. 4. Continue vancomycin 1 gram IV once daily. Pharmacy to follow vancomycin levels and adjust dose. 5. GI prophylaxis with Pepcid 50 mg IV q. 12 hours. Will start the NG-tube feeding using Jevity at 20 mL per hour. DICTATING PHYSICIAN: MICHAEL GARNER MD,RADHA,MPH [id number] PHY#: [id number] 1945 ID: [id number] JOB#: [id number] ACCT: [id number] cc:MICHAEL GARNER M.D. > MTDD
--- NOTE | 2017-08-13 13:35 | PROGRESS NOTE E ---
Progress Note NAME: CHRISTOPHER LEBLANC : 1940 AGE: 77Y DATE: 08/11/2017 ROOM: 603 SUBJECTIVE: This is a 77-year-old -[place] male with past medical history of COPD and emphysema. Admitted for acute respiratory failure requiring invasive mechanical ventilation and pneumonia and septic shock. Patient has been intubated for the last 24 hours. Blood pressure is still low and requiring vasopressor support, Levophed infusion. Scant endotracheal secretions over the last 24 hours. No fever spikes since last night with a current temperature of 97.2 with a T-max of 98.2. No vomiting. No diarrhea. Started NG tube feeding at 20 mL per hour and patient appeared to be tolerating it. PHYSICAL EXAMINATION: GENERAL: Patient appears sedated and afebrile, not in respiratory distress. VITAL SIGNS: Blood pressure of 112/71, heart rate of 100-119, temperature 97.2 with T-max of 98.2, saturations are about 90-93% on FiO2 of 60%, PEEP of 7, tidal volume of 400, pressor support of 10. FiO2 has been titrated to get saturation 91-94%. Attempted to decrease it to 45% a few minutes ago and patient did not tolerate it. Oxygen saturation went down to 88%, hence increaseD PEEP from 5 to 7 cm H2O. This morning because pH is still low at 7.25, pCO2 on ABG of 54.3. EYES: No jaundice or pallor. EAR, NOSE, AND THROAT: No ear drainage noted. NG tube is in place through the nose and orotracheal tube is in place. CHEST AND LUNGS: No wheezing. No coarse crackles. No rhonchi noted. CARDIOVASCULAR: S1, S2 distant. Slightly tachycardiac. Regular rate. ABDOMEN: Flabby. Positive bowel sounds. Soft and nondistended. EXTREMITIES: No joint swelling or cellulitis. INTAKE/OUTPUT: This morning, intake was 3487 mL and output is 525 mL with a positive balance of 2962. LABORATORY: CBC done today shows white count of 14,000; hemoglobin is 11.8; hematocrit is 30.1; platelet count is 178. Blood gas this morning was 7.25, pCO2 is 54.3, and pO2 is 116.5. Oxygen saturation 97.6. This is on SIMV rate of 24, tidal volume of 380 mL, pressor support of 10, PEEP of 5, and FiO2 of 60%. Chemistry done today showed sodium of 136.9, potassium 4.4, chloride 104, carbon dioxide 21, BUN 29, creatinine is 1.23, glucose is 206, and calcium is 7.7. Lactate is 2. SGOT is 15, SGPT is 20. CK-MB is 1.8. Troponin I is 0.087. Total protein is 5, albumin 2.2. Chest x-ray showed tip of endotracheal tube appears to be in the midline, about 1.5 cm above the guzman. There is still bilateral infiltrates. There is no pneumothorax. ASSESSMENT: 1. ACUTE RESPIRATORY FAILURE REQUIRING INVASIVE MECHANICAL VENTILATION. Currently requiring a PEEP of 7, FiO2 of 60%. Adjusted tidal volume to 6.5 mL/kg ideal body weight. We will continue to optimize ventilator support. 2. PNEUMONIA, BIBASILAR. Waiting for the cultures. 3. SEPTIC SHOCK. Currently on vasopressors. 4. COPD/EMPHYSEMA. Currently not in acute bronchospasm. PLAN AND RECOMMENDATION: 1. We will change the ventilator settings today to SIMV rate of 24, tidal volume of 400, pressor support of 10/5, PEEP of 7, FiO2 60% and to titrate to keep saturation 91-94%. 2. Continue vasopressors. 3. Continue Primaxin and Levaquin 750 and vancomycin. 4. Continue to optimize ventilator support, and hemodynamic support. We will repeat the ABG at 1 p.m. to determine efficacy of the current ventilator setting. DICTATING PHYSICIAN: MICHAEL GARNER MD,RADHA,MPH [id number] PHY#: [id number] ID: [id number] JOB#: [id number] ACCT: [id number] cc: > MTDD
--- NOTE | 2017-08-13 13:54 | PROGRESS NOTE E ---
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 Patient appeared to be doing well over the last 24 hours. IV Levophed was weaned off yesterday. Has continued to cough up secretions. No fever spikes over the last 24 hours. No nausea, no vomiting, no diarrhea. Patient received NG feeding at 20 mL/h over the last 24 hours. OBJECTIVE: GENERAL: Patient is sedated, afebrile, not in acute respiratory distress. VITAL SIGNS: Blood pressure 99/53 to 101/51 a few minutes ago, off Levophed drip, heart rate 102 beats per minute, respiratory rate 24, oxygen saturation 93% on FiO2 of 35%, PEEP 5, pressure of 10, SIMV rate 24, tidal volume 450. EYES: No jaundice or pallor. EARS, NOSE AND THROAT: No ear drainage. There is no nasal discharge. Nasogastric tube is in place. Orotracheal tube is in place. CHEST/LUNGS: Fine rales bilaterally. No rhonchi, no wheezing. CARDIAC: Slightly tachycardic. Regular rate and rhythm. ABDOMEN: Flat, positive bowel sounds, soft, nondistended. EXTREMITIES: No edema or cellulitis. GENITALIA: Appeared within normal limits. Arvizu catheter is in place. LABORATORY DATA: CBC done today showed a white count of 12.1, down from 14 yesterday, hemoglobin 10.5, hematocrit 32, platelet count 155. Blood gas this morning at 11:00 a.m. showed pH 7.36, pCO2 37.9, pO2 54. O2 sat- 87%. Pulse oximetry 96%. Chemistry done today showed a sodium 138, potassium 3.8, chloride 109, CO2 22, BUN 26, creatinine 1.03, glucose 144, calcium 7.9, total bilirubin less than 0.1, total protein 4.5, and albumin 1.9. Chest x-ray done this morning showed absence of pneumothorax. Endotracheal tube appeared to be in place. Central line appeared to be in place. Bibasilar infiltrate right more than the left and a small amount of secretion in the left side. ASSESSMENT: 1. Acute respiratory failure requiring invasive mechanical ventilation. Currently not ready to be extubated yet. 2. Pneumonia bilateral with a small amount of pleural effusion that appeared to be improving. 3. COPD/emphysema. Currently not in acute bronchospasm. 4. Septic shock. Appeared to have resolved. Currently not requiring vasopressors. 5. Hyperglobulinemia-we are increasing the NG tube feeding to 40 mL/h today. PLAN: 1. We will change the IV fluid to 0.45 and decrease the rate to 18 mL/h. The current I and O balance is 3608 over the last 24 hours. 2. We will continue IV Zosyn, IV Levaquin, IV vancomycin for now, until we have more sputum culture results. 3. We will continue to optimize ventilator support. 4. We will increase the NG tube rate to 40 mL. DICTATING PHYSICIAN: MICHAEL GARNER MD,RADHA,MPH [id number] PHY#: [id number] ID: [id number] JOB#: [id number] ACCT: [id number] cc:MICHAEL GARNER M.D. > MTDD
[2017-08-13 14:27] LABS: PATH REVIEW PATHOLOGIST REVIEWED
[2017-08-13] MEDS ORDERED: HYDROMORPHONE HCL INJ/PF 2 MG/ML AMPULE ONE (15:56)
--- NOTE | 2017-08-13 19:58 | PROGRESS NOTE E ---
Progress Note NAME: CHRISTOPHER LEBLANC : 1940 AGE: 77Y DATE: 08/13/2017 ROOM: 603 SUBJECTIVE: Patient is a 77-year-old who came in with acute respiratory failure requiring invasive mechanical ventilation, pneumonia and severe sepsis. Patient has been stable over the last 24 hours off the vasopressors. Patient has been tolerating the NG tube feedings. Scanty endotracheal tube secretions. No vomiting, no diarrhea. Patient went off sedation this morning, but became so agitated and tachycardic and tachypneic, the IV sedation was resumed. Patient was started on Xanax 0.25 mg tablet every 2 hours per NG tube today. Will consider repeating the breathing trial again tomorrow. OBJECTIVE: VITAL SIGNS: Patient appears sedated, afebrile, not in acute respiratory distress, with a blood pressure of 108/63, heart rate of 108, temperature is 98.6, with a T-max of 98.6. Respiratory rate is 24, the saturation is 94% on SIMV rate of 24, tidal volume of 450, pressure support of 10, PEEP of 5. MIP ventilation is 11. Plateau pressure is 16, peak airway pressure is 24, inhaled tidal volume is 458. EYES: No jaundice or pallor. EARS, NOSE AND THROAT: No ear drainage noted. No nasal discharge. Orotracheal tube is in place. NG tube is in place. CHEST AND LUNGS: No wheezing, no rhonchi, no coarse crackles. CARDIOVASCULAR: S1, S2 distinct. Normal rate and regular rhythm. ABDOMEN: Flabby. Positive bowel sounds. Soft and nondistended. EXTREMITIES: No joint swelling or cellulitis. ASSESSMENT: 1. ACUTE RESPIRATORY FAILURE REQUIRING INVASIVE MECHANICAL VENTILATION. Currently not ready to be extubated yet. Appeared to be improving. 2. PNEUMONIA BILATERALLY. 3. CHRONIC OBSTRUCTIVE PULMONARY DISEASE, CURRENTLY NOT IN ACUTE BRONCHOSPASM. PLAN: 1. Will continue to do spontaneous breathing trial tomorrow morning, when fully awake. She takes a vacation every morning. Will hold the NG tube during spontaneous breathing trial. 2. Will continue the IV antibiotics, Primaxin, vancomycin and Levaquin. 3. Will do CBC, chemistry, chest x-ray and ABG tomorrow. 4. Will continue GI prophylaxis with Pepcid 20 mg. DICTATING PHYSICIAN: MICHAEL GARNER MD,RADHA,MPH [id number] PHY#: [id number] ID: [id number] JOB#: [id number] ACCT: [id number] cc: > MTDD
[2017-08-13] MEDS: DEXTROSE 5%-WATER 250 ML with NOREPINEPHRINE BITARTRATE 4 MG IV PRN ×2 (21:53)
[2017-08-14] MEDS: ALPRAZOLAM 0.25 MG TABLET NG SCH ×3 (02:10→17:40)
[2017-08-14] MEDS: 1/2 NORMAL SALINE 1,000 ML IV PRN (04:42)
[2017-08-14] MEDS: DIPHENHYDRAMINE HCL 50 MG/ML VIAL IM SCH ×4 (04:42→23:51)
[2017-08-14] MEDS: IPRATROPIUM/ALBUTEROL 0.5-2.5 MG/3 ML AMPUL NEB SCH ×5 (04:55→19:31)
[2017-08-14 05:07] LABS: HEMATOCRIT 33.1 % (37.9-51.0); MEAN CORPUSCULAR HEMOGLOBIN 27.3 pg (27.0-33.4); MEAN CORPUSCULAR HGB CONC 33.2 g/dL (32.0-36.0); MEAN CORPUSCULAR VOLUME 82 fl (80-97); PLATELET COUNT 205 10^3/uL (150-450); RED BLOOD COUNT 4.03 10^6/uL (4.35-5.55); RED CELL DISTRIBUTION WIDTH 15.6 % (11.5-14.0); WHITE BLOOD COUNT 19.8 10^3/uL (4.0-10.5)
[2017-08-14 05:18] LABS: ANION GAP 6 (5-19); BLOOD UREA NITROGEN 25 mg/dL (7-20); CALCIUM 8.1 mg/dL (8.4-10.2); CARBON DIOXIDE 25 mmol/L (22-30); CHLORIDE 111 mmol/L (98-107); GLUCOSE 99 mg/dL (75-110); POTASSIUM 4.2 mmol/L (3.6-5.0); SODIUM 141.7 mmol/L (137-145)
[2017-08-14 05:38] LABS: ABSOLUTE LYMPHOCYTES# (MANUAL) 2.6 10^3/uL (0.5-4.7); ABSOLUTE MONOCYTES # (MANUAL) 1.6 10^3/uL (0.1-1.4); ABSOLUTE NEUTROPHILS# (MANUAL) 15.4 10^3/uL (1.7-8.2); BAND NEUTROPHILS % (MANUAL) 6 % (3-5); BASOPHILS % (MANUAL) 0 % (0-2); EOSINOPHILS % (MANUAL) 1 % (0-6); LYMPHOCYTES % (MANUAL) 13 % (13-45); METAMYELOCYTES % (MANUAL) 1 % (0); MONOCYTES % (MANUAL) 8 % (3-13); MYELOCYTES % (MANUAL) 4 % (0); PROMYELOCYTES % (MANUAL) 1 % (0); SEGMENTED NEUTROPHILS % (MAN) 66 % (42-78); TOTAL CELLS COUNTED 100
[2017-08-14 05:39] LABS: TOXIC GRANULATION SLIGHT
[2017-08-14 05:41] LABS: ANISOCYTOSIS SLIGHT
[2017-08-14 05:42] LABS: OVALOCYTES SLIGHT; POLYCHROMASIA SLIGHT
[2017-08-14 05:43] LABS: PLATELET COMMENT ADEQUATE
[2017-08-14 05:46] LABS: PLATELET LARGE PRESENT; POIKILOCYTOSIS SLIGHT
[2017-08-14] MEDS: IMIPENEM/CILASTATIN SODIUM 500 MG in NORMAL SALINE 100 ML IV SCH ×4 (05:57→23:51)
[2017-08-14] MEDS: PROPOFOL 100 ML IV PRN ×3 (05:57→20:29)
[2017-08-14] MEDS: HEPARIN SOD (PORCINE) 5,000 UNIT/ML 1 ML SYRINGE SUBCUT SCH ×3 (06:01→22:21)
--- NOTE | 2017-08-14 07:16 | RADIOLOGY REPORT (SQ) ---
EXAM DESCRIPTION: CHEST SINGLE VIEW CLINICAL HISTORY: endotracheally intubated; mechanical ventilation COMPARISON: 08/13/2017 FINDINGS: Single frontal view of the chest. Right IJ central venous catheter with tip in SVC. Endotracheal tube with tip 3 cm above the guzman. NG tube with tip below the diaphragm. Cardiac silhouette is stable. Bibasilar opacities demonstrate mildly improved aeration. No pneumothorax. Possible small left pleural effusion. No acute osseous abnormalities. Upper abdominal soft tissues are unremarkable. IMPRESSION: 1. Mild improved aeration the lung bases.
[2017-08-14] MEDS: HYDROMORPHONE HCL INJ/PF 2 MG/ML AMPULE IV PRN (08:38)
[2017-08-14] MEDS: FAMOTIDINE INJ/PF 20 MG/2 ML SDV IV SCH ×2 (08:41→22:18)
[2017-08-14] MEDS: LEVOFLOXACIN 750 MG/D5W RTU 750 MG/150 ML RTUPB IV SCH (08:41)
--- NOTE | 2017-08-14 09:14 | PDOC PROGRESS REPORT ---
Subjective Progress Note for:: 08/14/17 Subjective:: Patient is currently doing same still on the vent support Patient off the patient per patient is maintaining Patient white count is going up but patients remain afebrile Reason For Visit: SEPTIC SHOCK,RESPIRATORY FAILURE,RENAL FAILURE, Physical Exam Vital Signs: Temp Pulse Resp BP Pulse Ox 99.0 F 108 H 24 H 99/60 L 96 08/14/17 08:00 08/14/17 08:16 08/14/17 08:16 08/14/17 06:04 08/14/17 08:16 Intake & Output 08/13/17 08/14/17 08/15/17 06:59 06:59 06:59 Intake Total 2793 2601 Output Total 9448 1895 Balance 718 706 Weight 66.3 kg 67.9 kg Physical Exam: Currently intubated under sedation's and a vent support General appearance: PRESENT: no acute distress Eye exam: PRESENT: PERRLA Neck exam: ABSENT: JVD Respiratory exam: PRESENT: clear to auscultation ana Cardiovascular exam: PRESENT: +S1, +S2 GI/Abdominal exam: PRESENT: normal bowel sounds, soft Extremities exam: ABSENT: pedal edema Additional comments: Currently under sedation Skin exam: PRESENT: dry Results Laboratory Results: 08/14/17 04:45 08/14/17 04:45 08/14/17 08/14/17 04:45 04:45 WBC 19.8 H RBC 4.03 L Hgb 11.0 L Hct 33.1 L MCV 82 MCH 27.3 MCHC 33.2 RDW 15.6 H Plt Count 205 Seg Neutrophils % Not Reportable Lymphocytes % Not Reportable Monocytes % Not Reportable Eosinophils % Not Reportable Basophils % Not Reportable Absolute Neutrophils Not Reportable Absolute Lymphocytes Not Reportable Absolute Monocytes Not Reportable Absolute Eosinophils Not Reportable Absolute Basophils Not Reportable Sodium 141.7 Potassium 4.2 Chloride 111 H Carbon Dioxide 25 Anion Gap 6 BUN 25 H Creatinine 1.04 Est GFR ( Amer) > 60 Est GFR (Non-Af Amer) > 60 Glucose 99 Calcium 8.1 L 08/10/17 14:35 Sputum Gram Stain - Final 08/10/17 14:35 Sputum Sputum Culture - Final Streptococcus Pneumoniae Mrsa (Meth Resis Staph Aureus) Normal Chelsey Absent 02/16/18 02/16/18 02/16/18 13:15 13:15 20:30 Creatine Kinase 70 41 L CK-MB (CK-2) 2.03 Troponin I 0.271 08/10/17 08/11/17 08/11/17 20:30 06:30 06:30 Creatine Kinase 31 L CK-MB (CK-2) 2.61 1.80 Troponin I 0.160 0.087 Impressions: Head CT 08/10/17 09:58 IMPRESSION: CHRONIC CHANGES OF ATROPHY AND MICROVASCULAR ISCHEMIA. NO ACUTE PROCESS. EVIDENCE OF ACUTE STROKE: NO. Chest X-Ray 08/14/17 05:15 IMPRESSION: 1. Mild improved aeration the lung bases. Assessment & Plan - Diagnosis (1) Acute on chronic respiratory failure with hypoxia and hypercapnia Is this 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 Plan: Currently on vent support's follow with the pulmonary (2) Septic shock Is this 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 Plan: Continues to IV antibiotic and IV fluidWith the sputum culture is positive with MRSAContinues to vancomycin Will get the culture again's and I will just check the stool for the C. difficile with some elevated white count (3) Pneumonia Qualifiers: Pneumonia type: due to unspecified organism Laterality: bilateral Lung location: lower lobe of lung Qualified Code(s): J18.9 - Pneumonia, unspecified organism Is this 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 Plan: Strep pneumonia with MRSA continues to Primaxin and vancomycin (4) Acute renal failure Qualifiers: Acute renal failure type: unspecified Qualified Code(s): N17.9 - Acute kidney failure, unspecified Is this 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 Plan: Currently all stable (5) Chronic obstructive pulmonary disease Qualifiers: Emphysema type: unspecified Is this 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 Plan: Continues to nebulizer treatments (6) Hypertension Qualifiers: Hypertension type: essential hypertension Qualified Code(s): I10 - Essential (primary) hypertension Is this 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 Plan: Currently hypertension is due to the septic shock (7) Neoplasm of rectum Is this 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 (8) Elevated troponin Is this 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 - Time Time Spent with patient: 15-24 minutes Total Critical Time (Minutes): 25 Anticipated discharge: Other Within: Other - Inpatient Certification Medical Necessity: Need Close Monitoring Due to Risk of Patient Decompensation, Need For IV Fluids, Need for IV Antibiotics Post Hospital Care: D/C [employer] T[employer] Trimmer Documentation - Plan Summary Plan Summary: Continues to current medications continues to monitor the patient's follow with the pulmonary and cardiology discussed with the nursing staff on ICU discussed with nursing stumps to discuss with discussed with the family and will get the family meeting
[2017-08-14] MEDS: POLYETHYLENE GLYCOL 3350 POWDER 17 GM/1 PACKET PO SCH (10:54)
[2017-08-14 11:07] LABS: ARTERIAL BLOOD BASE EXCESS 0.2 mmol/L; ARTERIAL BLOOD H2CO3 1.35 mmol/L (1.05-1.35); ARTERIAL BLOOD HCO3 25.6 mmol/L (20-26); ARTERIAL BLOOD O2 SATURATION 91.9 % (94-98); ARTERIAL BLOOD PCO2 44.7 mmHg (35-45); ARTERIAL BLOOD PH 7.38 (7.35-7.45); ARTERIAL BLOOD PO2 63.9 mmHg (80-100); ARTERIAL BLOOD TOTAL CO2 26.9 mmol/L (23-27)
[2017-08-14 11:10] LABS: ARTERIAL BLOOD FIO2 35%
[2017-08-14] MEDS: METRONIDAZOLE 500 MG/NS RTU 100 ML IV SCH ×3 (11:12→23:51)
[2017-08-14 11:48] LABS: VANCOMYCIN,TROUGH 11.8 ug/mL (5.0-20.0)
[2017-08-14] MEDS: VANCOMYCIN HCL 500 MG in NORMAL SALINE 100 ML IV SCH (12:31)
--- NOTE | 2017-08-14 14:22 | RADIOLOGY REPORT (SQ) ---
EXAM DESCRIPTION: CTA CHEST COMPLETED DATE/TIME: 08/14/2017 2:05 pm REASON FOR STUDY: Pneumonia/hypoxia/tachycardia COMPARISON: 10/21/2015. TECHNIQUE: CT scan of the chest performed using helical scanning technique with dynamic intravenous contrast injection. Images reviewed with lung, soft tissue and bone windows. Reconstructed coronal and sagittal MPR images reviewed. Additional 3 dimensional post-processing performed to develop Maximal Intensity Projection images (TN P). All images stored on PACS. All CT scanners at this facility use dose modulation, iterative reconstruction, and/or weight based d osing when appropriate to reduce radiation dose to as low as reasonably achievable (ALARA). [facility]: Dose Right [facility]: CareDose [facility]: Dose Right [facility]: Teradose 4D [facility]: QuizFortune CONTRAST TYPE AND DOSE: contrast/concentration: Isovue 370.00 mg/ml; Total Contrast Delivered: 60.0 ml; Total Saline Delivered: 105.0 ml Contrast bolus optimized for the pulmonary arteries. Not diagnostic for the aorta. RENAL FUNCTION: BUN 26 creatinine 1.09. RADIATION DOSE: CT Rad equipment meets quality standard of care and radiation dose reduction techniq ues were employed. CTDIvol: 11.0 - 11.3 mGy. DLP: 424 mGy-cm. . LIMITATIONS: None. FINDINGS: LUNGS AND PLEURA: Bilateral pleural effusions. Right and left lower lobe consolidations. Chronic emphysematous changes. AORTA AND GREAT VESSELS: No aneurysm. Contrast bolus not optimized for the aorta. HEART: No pericardial effusion. No significant coronary artery calcifications. PULMONARY ARTERIES: No emboli visualized in the main pulmonary arteries or the segmental branches. HILAR AND MEDIASTINAL STRUCTURES: No identified masses or abnormal nodes. HARDWARE: Central line, endotracheal tube, nasogastric tube. UPPER ABDOMEN: Calculus in the left kidney. No other significant findings. Limited exam. THYROID AND OTHER SOFT TISSUES: No masses. No adenopathy. BONES: Old vertebral wedge compression fractures. 3D MIPS: Confirm above findings. OTHER: No other significant finding. IMPRESSION: 1. NORMAL CTA OF THE CHEST. NO PULMONARY EMBOLI. 2. BILATERAL PLEURAL EFFUSIONS. RIGHT AND LEFT LOWER LOBE CONSOLIDATIONS SECONDARY TO COMPRESSIVE AT ELECTASIS AND/OR PNEUMONIA. 3. COPD. 4. NONOBSTRUCTING CALCULUS IN THE LEFT KIDNEY. OLD VERTEBRAL WEDGE COMPRESSION FRACTURES. COMMENT: Quality ID # [id number]: Final reports with documentation of one or more dose reduction techniques (e.g., Automated exposure control, adjustment of the mA and/or kV according to patient size, use of iterative reconstruction technique) TECHNICAL DOCUMENTATION: JOB ID: [id number] [email or web address]- All Rights Reserved
[2017-08-14] MEDS: DEXTROSE 5%-WATER 250 ML with NOREPINEPHRINE BITARTRATE 4 MG IV PRN ×2 (14:44)
[2017-08-14] MEDS: VANCOMYCIN HCL 750 MG in DEXTROSE 5%-WATER 250 ML IV SCH (22:18)
--- NOTE | 2017-08-14 23:12 | RADIOLOGY REPORT (SQ) ---
EXAM DESCRIPTION: KUB/ABDOMEN (SINGLE VIEW) COMPLETED DATE/TIME: 08/14/2017 10:58 pm REASON FOR STUDY: orogastrictube placement COMPARISON: None. NUMBER OF VIEWS: One view. TECHNIQUE: Supine radiographic image of the abdomen acquired. LIMITATIONS: None. FINDINGS: NG tube is present with tip overlying the distal body of the stomach. Basilar subsegmenta l atelectasis -small left effusion. OTHER: No other significant finding. IMPRESSION: NG tube is present with tip overlying the distal body of the stomach. Basilar subsegment al atelectasis -small left effusion. TECHNICAL DOCUMENTATION: JOB ID: [id number] [id number] [employer]- All Rights Reserved
--- NOTE | 2017-08-14 23:28 | PROGRESS NOTE E ---
Progress Note NAME: CHRISTOPHER LEBLANC : 1940 AGE: 77Y DATE: 08/14/2017 ROOM: 603 SUBJECTIVE: Patient is a 77-year-old male who came in for acute respiratory failure requiring invasive mechanical ventilation, severe septic shock, pneumonia bilateral, and some pleural effusion noted today. Patient's white count has been going up. Patient's leukocytosis has been going up since yesterday from 12.1 on 08/12 to 15,000 on 08/13 and 19,800 today. This has continued the tracheal tube secretions. No vomiting. No diarrhea noted. Patient appeared to be constipated. The central line site appeared to be normal. No erythema noted. Blood culture sent from the central line site and no bed sores noted. NG tube is in place. Orotracheal tube is also in place. Patient had SPONTA breathing trial today using a SIMV rate of 2 but did not tolerate it. Patient was placed on pressure support of 14 and 7. Patient appeared to be doing well. OBJECTIVE: VITAL SIGNS: Patient on exam appears sedated, afebrile, not in acute respiratory distress with a blood pressure of 112/61, blood pressure has been going up and down today to 84/49. Patient was started on Levaquin. Heart rate was 102 beats per minute. Respiratory rate is 24. Saturation is 92% on SIMV rate of 24, tidal volume of 450, pressure support of 10, PEEP of 5, and fio2 35% with a peak airway pressure of 24, plateau pressure of 18, mean airway pressure of 12. EYES: No jaundice or pallor. EARS, NOSE AND THROAT: No ear drainage noted. No nasal discharge. CHEST AND LUNGS: No wheezing. No coarse crackles. No rhonchi noted., CARDIOVASCULAR: S1, S2 distinct. Slightly tachycardic, regular rhythm. ABDOMEN: Flabby but nondistended. Hypoactive bowel sounds. EXTREMITIES: No joint swelling. No tenderness. No cellulitis. SKIN: No bed sores on the lower back. LABORATORY: A CBC done today showed white count of 19,800; hemoglobin is 11; hematocrit is 33; platelet count is 205; bands is 6%. Chemistry done today showed sodium 141, potassium 4.2, chloride 111, CO2 is 25, BUN 25, creatinine is 1.04, calcium is 8.1. A chest x-ray done today showed endotracheal tube in place. No increase in the pulmonary infiltrates bibasally. No pneumothorax. The CT scan done today showed bilateral pleural effusion, mild to moderate. We will do an thoracic ultrasound tomorrow to quantify pleural effusion. We will consider ultrasound-guided thoracentesis on the area where there is the most pleural effusion. ASSESSMENT: 1. ACUTE RESPIRATORY FAILURE REQUIRING INVASIVE MECHANICAL VENTILATION. Not ready to be extubated yet. 2. PNEUMONIA BILATERALLY WITH MILD TO MODERATE PLEURAL EFFUSION BILATERAL. 3. WORSENING LEUKOCYTOSIS, ETIOLOGY CURRENTLY BEING DETERMINED. 4. CHRONIC OBSTRUCTIVE PULMONARY DISEASE/EMPHYSEMA, CURRENTLY NOT IN ACUTE BRONCHOSPASM. PLAN AND RECOMMENDATIONS: 1. We are awaiting for blood cultures from the central lines and we will consider changing central lines if the central line appears to be infected. 2. Will do a chest ultrasound to quantify pleural effusion. Will consider ultrasound-guided thoracentesis on the chest with the most pleural effusion. 3. Will discontinue the nasogastric tube and replace it with an orogastric tube and provide feeding through the orogastric tube. 4. Will continue the vancomycin, Primaxin, and Levaquin. 5. Will repeat the CBC with differential, chemistry tomorrow morning. DICTATING PHYSICIAN: MICHAEL GARNER MD,RADHA,MPH [id number] PHY#: [id number] ID: [id number] JOB#: [id number] ACCT: [id number] cc: > MTDD
[2017-08-15] MEDS: IPRATROPIUM/ALBUTEROL 0.5-2.5 MG/3 ML AMPUL NEB SCH ×7 (00:06→23:58)
[2017-08-15] MEDS ORDERED: METRONIDAZOLE 500 MG/NS RTU 100 ML IV ONE (00:27)
[2017-08-15] MEDS: HYDROMORPHONE HCL INJ/PF 2 MG/ML AMPULE IV PRN ×3 (01:17→15:17)
[2017-08-15] MEDS: ALPRAZOLAM 0.25 MG TABLET NG SCH ×3 (01:18→17:20)
[2017-08-15] MEDS: PROPOFOL 100 ML IV PRN ×2 (03:34→18:58)
[2017-08-15] MEDS: 1/2 NORMAL SALINE 1,000 ML IV PRN ×2 (03:51→08:24)
[2017-08-15] MEDS: METRONIDAZOLE 500 MG/NS RTU 100 ML IV SCH ×4 (05:26→23:32)
[2017-08-15] MEDS: HEPARIN SOD (PORCINE) 5,000 UNIT/ML 1 ML SYRINGE SUBCUT SCH ×3 (05:26→22:34)
[2017-08-15] MEDS: DIPHENHYDRAMINE HCL 50 MG/ML VIAL IM SCH ×4 (05:26→22:34)
[2017-08-15] MEDS: IMIPENEM/CILASTATIN SODIUM 500 MG in NORMAL SALINE 100 ML IV SCH ×4 (05:27→23:31)
[2017-08-15 06:52] LABS: ALANINE AMINOTRANSFERASE 49 U/L (21-72); ALKALINE PHOSPHATASE 57 U/L (38-126); ANION GAP 6 (5-19); ASPARTATE AMINO TRANSFERASE 67 U/L (17-59); BILIRUBIN,DIRECT 0.3 mg/dL (0.0-0.4); BILIRUBIN,TOTAL 0.3 mg/dL (0.2-1.3); BLOOD UREA NITROGEN 19 mg/dL (7-20); CALCIUM 7.7 mg/dL (8.4-10.2); CARBON DIOXIDE 26 mmol/L (22-30); CHLORIDE 107 mmol/L (98-107); GLUCOSE 101 mg/dL (75-110); POTASSIUM 4.2 mmol/L (3.6-5.0); SODIUM 138.5 mmol/L (137-145); TOTAL PROTEIN 4.7 g/dL (6.3-8.2)
[2017-08-15 07:20] LABS: HEMOGLOBIN 10.9 g/dL (13.5-17.0); MEAN CORPUSCULAR HEMOGLOBIN 27.6 pg (27.0-33.4); MEAN CORPUSCULAR HGB CONC 33.9 g/dL (32.0-36.0); MEAN CORPUSCULAR VOLUME 82 fl (80-97); PLATELET COUNT 209 10^3/uL (150-450); RED BLOOD COUNT 3.93 10^6/uL (4.35-5.55); RED CELL DISTRIBUTION WIDTH 14.9 % (11.5-14.0); WHITE BLOOD COUNT 23.7 10^3/uL (4.0-10.5)
[2017-08-15 08:37] LABS: ABSOLUTE LYMPHOCYTES# (MANUAL) 2.6 10^3/uL (0.5-4.7); ABSOLUTE MONOCYTES # (MANUAL) 1.2 10^3/uL (0.1-1.4); ABSOLUTE NEUTROPHILS# (MANUAL) 19.4 10^3/uL (1.7-8.2); BAND NEUTROPHILS % (MANUAL) 6 % (3-5); BASOPHILS % (MANUAL) 0 % (0-2); EOSINOPHILS % (MANUAL) 2 % (0-6); HYPOCHROMASIA SLIGHT; LYMPHOCYTES % (MANUAL) 11 % (13-45); METAMYELOCYTES % (MANUAL) 4 % (0); MONOCYTES % (MANUAL) 5 % (3-13); MYELOCYTES % (MANUAL) 2 % (0); PROMYELOCYTES % (MANUAL) 2 % (0); SEGMENTED NEUTROPHILS % (MAN) 68 % (42-78); TOTAL CELLS COUNTED 100; TOXIC GRANULATION 2+
[2017-08-15 08:38] LABS: OVALOCYTES SLIGHT; PLATELET COMMENT ADEQUATE; POIKILOCYTOSIS SLIGHT; POLYCHROMASIA SLIGHT
[2017-08-15] MEDS: POLYETHYLENE GLYCOL 3350 POWDER 17 GM/1 PACKET PO SCH (10:13)
[2017-08-15] MEDS: FAMOTIDINE INJ/PF 20 MG/2 ML SDV IV SCH ×2 (10:23→22:32)
[2017-08-15] MEDS: VANCOMYCIN HCL 750 MG in DEXTROSE 5%-WATER 250 ML IV SCH ×2 (10:25→22:32)
[2017-08-15] MEDS: DEXTROSE 5%-WATER 250 ML with NOREPINEPHRINE BITARTRATE 4 MG IV PRN ×2 (10:40)
--- NOTE | 2017-08-15 11:39 | PDOC PROGRESS REPORT ---
Subjective Progress Note for:: 08/14/17 Subjective:: Patient about the same and has made some progress. Patient's blood pressure been more stable. However he is placed back on small dose of Levophed. He is making urine. Labs were reviewed. Patient remains intubated, sedated, patient however looks comfortable and in acute distress. Intermittent sinus tachycardia noted. Telemetry strips reviewed. Shows intermittent sinus tachycardia but with frequent APCs. Medications reviewed. Reason For Visit: SEPTIC SHOCK,RESPIRATORY FAILURE,RENAL FAILURE, Physical Exam Vital Signs: Temp Pulse Resp BP Pulse Ox 36.7 F L 105 H 24 H 112/61 93 08/14/17 14:00 08/14/17 16:28 08/14/17 18:00 08/14/17 17:56 08/14/17 18:00 Intake & Output 08/13/17 08/14/17 08/15/17 06:59 06:59 06:59 Intake Total 2793 2601 1387 Output Total 2075 1895 1025 Balance 718 706 362 Weight 66.3 kg 67.9 kg Exam: GENERAL: well-nourished and in no acute distress. Patient is intubated and sedated. Orientation cannot be checked HEAD: Atraumatic, normocephalic. EYES: Pupils equal round and reactive to light, extraocular movements could not be checked, sclera anicteric, conjunctiva are normal. ENT: TMs normal, nares patent, oropharynx clear without exudates. Moist mucous membranes. No oral ulcerations or bleeding gums noted NECK: supple without lymphadenopathy or JVD. Trachea is central. No cervical or axillary lymphadenopathy noted. Carotids are 2+ LUNGS: Breath sounds mostly clear to auscultation patient is noted to have bibasal crackles at the extreme bases CHEST: Palpation of the chest wall shows no significant chest wall tenderness or abnormalities. 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 ABDOMEN: Soft, no significant tenderness appreciated, normoactive bowel sounds. No guarding, no rebound. No rigidity noted . No masses appreciated. EXTREMITIES: Pedal pulses are 1-2+, no calf tenderness noted, 1+ pedal edema noted. No clubbing or cyanosis. NEUROLOGICAL: The patient cannot participate in the neurological exam but no facial asymmetry noted. Extremities slightly hypotonic PSYCH: This cannot be evaluated. Patient cannot participate. SKIN: No significant ecchymosis, rash, or signs of pruritus noted. MUSCULOSKELETAL EXAM: No significant joint swelling noted. Patient cannot participate in musculoskeletal exam Results Laboratory Results: 08/14/17 04:45 08/14/17 09:40 08/14/17 08/14/17 08/14/17 04:45 04:45 09:40 WBC 19.8 H RBC 4.03 L Hgb 11.0 L Hct 33.1 L MCV 82 MCH 27.3 MCHC 33.2 RDW 15.6 H Plt Count 205 Seg Neutrophils % Not Reportable Lymphocytes % Not Reportable Monocytes % Not Reportable Eosinophils % Not Reportable Basophils % Not Reportable Absolute Neutrophils Not Reportable Absolute Lymphocytes Not Reportable Absolute Monocytes Not Reportable Absolute Eosinophils Not Reportable Absolute Basophils Not Reportable Carbonic Acid HCO3/H2CO3 Ratio ABG pH ABG pCO2 ABG pO2 ABG HCO3 ABG O2 Saturation ABG Base Excess FiO2 Sodium 141.7 Potassium 4.2 Chloride 111 H Carbon Dioxide 25 Anion Gap 6 BUN 25 H Creatinine 1.04 1.04 Est GFR ( Amer) > 60 > 60 Est GFR (Non-Af Amer) > 60 > 60 Glucose 99 Calcium 8.1 L Magnesium 1.9 08/14/17 10:50 WBC RBC Hgb Hct MCV MCH MCHC RDW Plt Count Seg Neutrophils % Lymphocytes % Monocytes % Eosinophils % Basophils % Absolute Neutrophils Absolute Lymphocytes Absolute Monocytes Absolute Eosinophils Absolute Basophils Carbonic Acid 1.35 HCO3/H2CO3 Ratio 18:1 ABG pH 7.38 ABG pCO2 44.7 ABG pO2 63.9 L ABG HCO3 25.6 ABG O2 Saturation 91.9 L ABG Base Excess 0.2 FiO2 35% Sodium Potassium Chloride Carbon Dioxide Anion Gap BUN Creatinine Est GFR ( Amer) Est GFR (Non-Af Amer) Glucose Calcium Magnesium 08/10/17 14:35 Sputum Gram Stain - Final 08/10/17 14:35 Sputum Sputum Culture - Final Streptococcus Pneumoniae Mrsa (Meth Resis Staph Aureus) Normal Chelsey Absent 08/10/17 08/10/17 08/10/17 13:15 13:15 20:30 Creatine Kinase 70 41 L CK-MB (CK-2) 2.03 Troponin I 0.271 08/10/17 08/11/17 08/11/17 20:30 06:30 06:30 Creatine Kinase 31 L CK-MB (CK-2) 2.61 1.80 Troponin I 0.160 0.087 EKG Comments: Sinus rhythm with intermittent sinus tachycardia Impressions: Head CT 08/10/17 09:58 IMPRESSION: CHRONIC CHANGES OF ATROPHY AND MICROVASCULAR ISCHEMIA. NO ACUTE PROCESS. EVIDENCE OF ACUTE STROKE: NO. Chest/Abdomen CTA 08/13/17 00:00 IMPRESSION: 1. NORMAL CTA OF THE CHEST. NO PULMONARY EMBOLI. 2. BILATERAL PLEURAL EFFUSIONS. RIGHT AND LEFT LOWER LOBE CONSOLIDATIONS SECONDARY TO COMPRESSIVE ATELECTASIS AND/OR PNEUMONIA. 3. COPD. 4. NONOBSTRUCTING CALCULUS IN THE LEFT KIDNEY. OLD VERTEBRAL WEDGE COMPRESSION FRACTURES. Chest X-Ray 08/14/17 05:15 IMPRESSION: 1. Mild improved aeration the lung bases. Assessment & Plan - Diagnosis (1) Acute on chronic respiratory failure with hypoxia and hypercapnia Is this 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 (2) Elevated troponin Is this 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 (3) Chronic obstructive pulmonary disease Qualifiers: Emphysema type: unspecified Is this 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 (4) Pneumonia Qualifiers: Pneumonia type: due to unspecified organism Laterality: bilateral Lung location: lower lobe of lung Qualified Code(s): J18.9 - Pneumonia, unspecified organism Is this 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 (5) Septic shock Is this 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 (6) Non-STEMI (non-ST elevated myocardial infarction) Is this 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 (7) Hypotension Qualifiers: Hypotension type: unspecified hypotension type Qualified Code(s): I95.9 - Hypotension, unspecified Is this 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 - Notes Notes: Non-STEMI: Most likely related to sepsis and metabolic reason, hypoxemia, severe hypotension related rather than acute coronary syndrome. Previous EKG is reviewed shows no significant ST-T changes. Hypotension: Currently started back on low-dose Levophed drip. May consider adding vasopressin if needed as preferred agent especially if patient develops hypotension. Acute respiratory failure: Most likely related to pneumonia on top of severe COPD. Agree with antibiotic therapy and artificial ventilation and oxygenation. Elevated troponin I: Most likely related to sepsis, acute respiratory failure. Patient may benefit from ischemia evaluation that can be considered even as an outpatient. COPD: Continue with artificial ventilation and oxygenation. Pneumonia: Continue with antibiotic therapy. Septic shock: Continue antibiotics. For hypotension, recommend normal saline boluses as needed, before adjusting vasopressors. Recommend DVT prophylaxis with Lovenox or subcu heparin - Time Time with patient: Greater than 35 minutes - CODE STATUS was discussed, patient remains full code. Surrogate decision-maker unchanged. Multiple medical problems were addressed. More than 50% of the time spent coordinating care, discussing management plans with involved caregivers. Management plans discussed with involved personnels. Medical decision making was of moderate to high complexity, patient's has multiple comorbidities. Medications reviewed and adjusted accordingly: Yes
--- NOTE | 2017-08-15 11:43 | PDOC PROGRESS REPORT ---
Subjective Progress Note for:: 08/15/17 Subjective:: Patient about the same and has made some progress. Patient's blood pressure been more stable. Patient is continuing on small dose of Levophed. He is making urine. Labs were reviewed. Patient remains intubated, sedated, patient however looks comfortable and in acute distress. Intermittent sinus tachycardia noted. Telemetry strips reviewed. Shows intermittent sinus tachycardia but with frequent APCs. Medications reviewed. Reason For Visit: SEPTIC SHOCK,RESPIRATORY FAILURE,RENAL FAILURE, Physical Exam Vital Signs: Temp Pulse Resp BP Pulse Ox 97.9 F 107 H 28 H 138/71 H 94 08/15/17 10:00 08/15/17 10:00 08/15/17 10:41 08/15/17 10:41 08/15/17 10:41 Intake & Output 08/14/17 08/15/17 08/16/17 06:59 06:59 06:59 Intake Total 2601 3691 Output Total 1895 2625 255 Balance 706 1066 -255 Weight 67.9 kg 68.8 kg Exam: GENERAL: well-nourished and in no acute distress. Patient is intubated and sedated. Orientation cannot be checked HEAD: Atraumatic, normocephalic. EYES: Pupils equal round and reactive to light, extraocular movements could not be checked, sclera anicteric, conjunctiva are normal. ENT: TMs normal, nares patent, oropharynx clear without exudates. Moist mucous membranes. No oral ulcerations or bleeding gums noted NECK: supple without lymphadenopathy or JVD. Trachea is central. No cervical or axillary lymphadenopathy noted. Carotids are 2+ LUNGS: Breath sounds mostly clear to auscultation patient is noted to have bibasal crackles at the extreme bases CHEST: Palpation of the chest wall shows no significant chest wall tenderness or abnormalities. 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 ABDOMEN: Soft, no significant tenderness appreciated, normoactive bowel sounds. No guarding, no rebound. No rigidity noted . No masses appreciated. EXTREMITIES: Pedal pulses are 1-2+, no calf tenderness noted, 1+ pedal edema noted. No clubbing or cyanosis. NEUROLOGICAL: The patient cannot participate in the neurological exam but no facial asymmetry noted. Extremities slightly hypotonic PSYCH: This cannot be evaluated. Patient cannot participate. SKIN: No significant ecchymosis, rash, or signs of pruritus noted. MUSCULOSKELETAL EXAM: No significant joint swelling noted. Patient cannot participate in musculoskeletal exam Results Laboratory Results: 08/15/17 05:30 08/15/17 05:30 08/14/17 08/15/17 08/15/17 09:40 05:30 05:30 WBC 23.7 H RBC 3.93 L Hgb 10.9 L Hct 32.0 L MCV 82 MCH 27.6 MCHC 33.9 RDW 14.9 H Plt Count 209 Seg Neutrophils % Not Reportable Lymphocytes % Not Reportable Monocytes % Not Reportable Eosinophils % Not Reportable Basophils % Not Reportable Absolute Neutrophils Not Reportable Absolute Lymphocytes Not Reportable Absolute Monocytes Not Reportable Absolute Eosinophils Not Reportable Absolute Basophils Not Reportable Carbonic Acid HCO3/H2CO3 Ratio ABG pH ABG pCO2 ABG pO2 ABG HCO3 ABG O2 Saturation ABG Base Excess FiO2 Sodium 138.5 Potassium 4.2 Chloride 107 Carbon Dioxide 26 Anion Gap 6 BUN 19 Creatinine 1.04 1.02 Est GFR ( Amer) > 60 > 60 Est GFR (Non-Af Amer) > 60 > 60 Glucose 101 Calcium 7.7 L Magnesium 1.9 Total Bilirubin 0.3 AST 67 H ALT 49 Alkaline Phosphatase 57 Total Protein 4.7 L Albumin 2.0 L 08/15/17 08:40 WBC RBC Hgb Hct MCV MCH MCHC RDW Plt Count Seg Neutrophils % Lymphocytes % Monocytes % Eosinophils % Basophils % Absolute Neutrophils Absolute Lymphocytes Absolute Monocytes Absolute Eosinophils Absolute Basophils Carbonic Acid Cancelled HCO3/H2CO3 Ratio Cancelled ABG pH Cancelled ABG pCO2 Cancelled ABG pO2 Cancelled ABG HCO3 Cancelled ABG O2 Saturation Cancelled ABG Base Excess Cancelled FiO2 Cancelled Sodium Potassium Chloride Carbon Dioxide Anion Gap BUN Creatinine Est GFR ( Amer) Est GFR (Non-Af Amer) Glucose Calcium Magnesium Total Bilirubin AST ALT Alkaline Phosphatase Total Protein Albumin 08/10/17 14:35 Sputum Gram Stain - Final 08/10/17 14:35 Sputum Sputum Culture - Final Streptococcus Pneumoniae Mrsa (Meth Resis Staph Aureus) Normal Chelsey Absent 08/10/17 08/10/17 08/10/17 13:15 13:15 20:30 Creatine Kinase 70 41 L CK-MB (CK-2) 2.03 Troponin I 0.271 08/10/17 08/11/17 08/11/17 20:30 06:30 06:30 Creatine Kinase 31 L CK-MB (CK-2) 2.61 1.80 Troponin I 0.160 0.087 EKG Comments: Sinus rhythm with intermittent sinus tachycardia. Impressions: Head CT 08/10/17 09:58 IMPRESSION: CHRONIC CHANGES OF ATROPHY AND MICROVASCULAR ISCHEMIA. NO ACUTE PROCESS. EVIDENCE OF ACUTE STROKE: NO. Chest/Abdomen CTA 08/13/17 00:00 IMPRESSION: 1. NORMAL CTA OF THE CHEST. NO PULMONARY EMBOLI. 2. BILATERAL PLEURAL EFFUSIONS. RIGHT AND LEFT LOWER LOBE CONSOLIDATIONS SECONDARY TO COMPRESSIVE ATELECTASIS AND/OR PNEUMONIA. 3. COPD. 4. NONOBSTRUCTING CALCULUS IN THE LEFT KIDNEY. OLD VERTEBRAL WEDGE COMPRESSION FRACTURES. KUB X-Ray 08/14/17 00:00 IMPRESSION: NG tube is present with tip overlying the distal body of the stomach. Basilar subsegmental atelectasis -small left effusion. Chest X-Ray 08/14/17 05:15 IMPRESSION: 1. Mild improved aeration the lung bases. Assessment & Plan - Diagnosis (1) Acute on chronic respiratory failure with hypoxia and hypercapnia Is this 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 (2) Elevated troponin Is this 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 (3) Chronic obstructive pulmonary disease Qualifiers: Emphysema type: unspecified Is this 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 (4) Pneumonia Qualifiers: Pneumonia type: due to unspecified organism Laterality: bilateral Lung location: lower lobe of lung Qualified Code(s): J18.9 - Pneumonia, unspecified organism Is this 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 (5) Septic shock Is this 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 (6) Non-STEMI (non-ST elevated myocardial infarction) Is this 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 (7) Hypotension Qualifiers: Hypotension type: unspecified hypotension type Qualified Code(s): I95.9 - Hypotension, unspecified Is this 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 - Notes Notes: No significant change in patient condition noted. Recommendations are same as of from yesterday. Once blood pressure improves will consider adding beta- sandra/Cardizem to patient's regimen. Will add Midodrin patient's regimen. Non-STEMI: Most likely related to sepsis and metabolic reason, hypoxemia, severe hypotension related rather than acute coronary syndrome. Previous EKG is reviewed shows no significant ST-T changes. Hypotension: Currently started back on low-dose Levophed drip. May consider adding vasopressin if needed as preferred agent especially if patient develops hypotension. Acute respiratory failure: Most likely related to pneumonia on top of severe COPD. Agree with antibiotic therapy and artificial ventilation and oxygenation. Elevated troponin I: Most likely related to sepsis, acute respiratory failure. Patient may benefit from ischemia evaluation that can be considered even as an outpatient. COPD: Continue with artificial ventilation and oxygenation. Pneumonia: Continue with antibiotic therapy. Septic shock: Continue antibiotics. For hypotension, recommend normal saline boluses as needed, before adjusting vasopressors. Recommend DVT prophylaxis with Lovenox or subcu heparin - Time Time with patient: Greater than 35 minutes - CODE STATUS was discussed, patient remains full code. Surrogate decision-maker unchanged. Multiple medical problems were addressed. More than 50% of the time spent coordinating care, discussing management plans with involved caregivers. Management plans discussed with involved personnels. Medical decision making was of moderate to high complexity, patient's has multiple comorbidities. Medications reviewed and adjusted accordingly: Yes
[2017-08-15] MEDS ORDERED: GENTAMICIN SULFATE INJ 80 MG/2 ML VIAL IV SCH (12:00)
[2017-08-15] MEDS ORDERED: LIDOCAINE 1% INJ-PF (10 MG/ML) 30 ML SDV ONE (13:37)
--- NOTE | 2017-08-15 13:48 | RADIOLOGY REPORT (SQ) ---
EXAM DESCRIPTION: U/S CHEST COMPLETED DATE/TIME: 08/15/2017 1:28 pm REASON FOR STUDY: hemithorax/ Pleural fluid COMPARISON: CT chest 08/14/2017 TECHNIQUE: Portable ultrasound was performed, in the ICU to quantitate pleural effusions LIMITATIONS: None. FINDINGS: Ultrasound of the right and left pleural space was performed portably. A small to moderat e right pleural effusion and small left pleural effusion are present. IMPRESSION: Bilateral pleural effusions TECHNICAL DOCUMENTATION: JOB ID: [id number] [employer]- All Rights Reserved
--- NOTE | 2017-08-15 15:02 | RADIOLOGY REPORT (SQ) ---
EXAM DESCRIPTION: CHEST SINGLE VIEW COMPLETED DATE/TIME: 08/15/2017 2:48 pm REASON FOR STUDY: thoracentesis COMPARISON: CT angio chest 08/14/2017 AP chest 08/14/2017 EXAM PARAMETERS: NUMBER OF VIEWS: One view. TECHNIQUE: Single frontal radiographic view of the chest acquired. RADIATION DOSE: NA LIMITATIONS: None. FINDINGS: LUNGS AND PLEURA: Immediate post right thoracentesis under ultrasound guidance 9 2. Order ed mL of fluid was removed from the right chest. No right-sided pneumothorax. Minimal right basilar atelectasis. On the left side, there is persistent left retrocardiac consolidation atelectasis versus pneumonia. No left pneumothorax. Small left pleural effusions seen on CT exam 08/14/2017 is difficult to appreci ate by plain film MEDIASTINUM AND HILAR STRUCTURES: No masses. Contour normal. HEART AND VASCULAR STRUCTURES: Heart normal in size. Normal vasculature. BONES: No acute findings. HARDWARE: Endotracheal tube tip 4 cm above the guzman. Nasogastric tube tip and side port in the sto mach. Right jugular central venous catheter tip in the superior vena cava. OTHER: No other significant finding. IMPRESSION: No pneumothorax immediate post right thoracentesis TECHNICAL DOCUMENTATION: JOB ID: [id number] [employer]- All Rights Reserved
[2017-08-15] MEDS: MIDODRINE HCL 5 MG TABLET PO SCH ×2 (15:10→17:20)
[2017-08-15] MEDS: GENTAMICIN SULFATE 120 MG in DEXTROSE 5%-WATER 100 ML IV SCH (15:10)
--- NOTE | 2017-08-15 15:14 | RADIOLOGY REPORT (SQ) ---
EXAM DESCRIPTION: U/S THORACENTESIS WITH IMAGING COMPLETED DATE/TIME: 08/15/2017 3:01 pm REASON FOR STUDY: septic shock; parapneumonic pleural effusion COMPARISON: Chest ultrasound 08/15/2017 CT chest 08/14/2017 LIMITATIONS: None. PROCEDURE: Procedure, risks, benefit, and alternative explained to patient's family who then gave co nsent. The right lateral chest wall was marked using ultrasound guidance. A time-out was called for correct marking verification. Chest prepped and draped using sterile technique. Local anesthesia ac hieved using or 0.5 ml of 1% lidocaine injection. A 6fr Safe-T- Centesis set was introduced into the right pleural space. Fluid was aspirated. The catheter was removed and the entry site was covered with sterile bandage. No immediate complications noted. Fluid was sent for testing as per attending physician Images acquired during the procedure were stored on PACS. FINDINGS: ENTRY SITE: Right lateral pleural space FLUID VOLUME: 400 mL clear straw-colored fluid FLUID ANALYSIS: Yes, sent for testing OTHER: Post procedure chest film dictated separately demonstrates no pneumothorax right-side IMPRESSION: SUCCESSFUL THORACENTESIS USING ULTRASOUND GUIDANCE. COMMENT: Patient medication list reviewed: Yes- Quality ID# [id number]:Eligible professional attests to doc umenting in the medical record they obtained, updated, or reviewed the patient's current medications. Quality ID #[id number]: Final reports for procedures using fluoroscopy that document radiation exposure baudilio alejandra, or exposure time and number of fluorographic images (if radiation exposure indices are not avail able) TECHNICAL DOCUMENTATION: JOB ID: [id number] [employer]- All Rights Reserved
--- NOTE | 2017-08-15 15:17 | PDOC PROGRESS REPORT ---
Subjective Progress Note for:: 08/15/17 Subjective:: Patient is currently doing fair Patient's white count is still elevated 23,000 spite of this medications Patient is scheduled for thoracocentesis today Patient's LFTs mildly elevated Reason For Visit: SEPTIC SHOCK,RESPIRATORY FAILURE,RENAL FAILURE, Physical Exam Vital Signs: Temp Pulse Resp BP Pulse Ox 98.2 F 108 H 27 H 121/70 94 08/15/17 14:00 08/15/17 14:00 08/15/17 14:00 08/15/17 14:00 08/15/17 14:00 Intake & Output 08/14/17 08/15/17 08/16/17 06:59 06:59 06:59 Intake Total 2601 3691 Output Total 1895 2625 365 Balance 706 1066 -365 Weight 67.9 kg 68.8 kg Physical Exam: Patient's currently intubated on the vent General appearance: PRESENT: no acute distress Eye exam: PRESENT: PERRLA Mouth exam: PRESENT: neck supple Neck exam: ABSENT: JVD Respiratory exam: PRESENT: decreased breath sounds Cardiovascular exam: PRESENT: +S1, +S2 GI/Abdominal exam: PRESENT: normal bowel sounds, soft Additional comments: Currently intubated on a vent Skin exam: PRESENT: dry Results Laboratory Results: 08/15/17 05:30 08/15/17 05:30 08/15/17 08/15/17 08/15/17 05:30 05:30 08:40 WBC 23.7 H RBC 3.93 L Hgb 10.9 L Hct 32.0 L MCV 82 MCH 27.6 MCHC 33.9 RDW 14.9 H Plt Count 209 Seg Neutrophils % Not Reportable Lymphocytes % Not Reportable Monocytes % Not Reportable Eosinophils % Not Reportable Basophils % Not Reportable Absolute Neutrophils Not Reportable Absolute Lymphocytes Not Reportable Absolute Monocytes Not Reportable Absolute Eosinophils Not Reportable Absolute Basophils Not Reportable Carbonic Acid Cancelled HCO3/H2CO3 Ratio Cancelled ABG pH Cancelled ABG pCO2 Cancelled ABG pO2 Cancelled ABG HCO3 Cancelled ABG O2 Saturation Cancelled ABG Base Excess Cancelled FiO2 Cancelled Sodium 138.5 Potassium 4.2 Chloride 107 Carbon Dioxide 26 Anion Gap 6 BUN 19 Creatinine 1.02 Est GFR ( Amer) > 60 Est GFR (Non-Af Amer) > 60 Glucose 101 Calcium 7.7 L Total Bilirubin 0.3 AST 67 H ALT 49 Alkaline Phosphatase 57 Total Protein 4.7 L Albumin 2.0 L 08/10/17 08/10/17 08/10/17 13:15 13:15 20:30 Creatine Kinase 70 41 L CK-MB (CK-2) 2.03 Troponin I 0.271 08/10/17 08/11/17 08/11/17 20:30 06:30 06:30 Creatine Kinase 31 L CK-MB (CK-2) 2.61 1.80 Troponin I 0.160 0.087 Impressions: Head CT 08/10/17 09:58 IMPRESSION: CHRONIC CHANGES OF ATROPHY AND MICROVASCULAR ISCHEMIA. NO ACUTE PROCESS. EVIDENCE OF ACUTE STROKE: NO. Chest/Abdomen CTA 08/13/17 00:00 IMPRESSION: 1. NORMAL CTA OF THE CHEST. NO PULMONARY EMBOLI. 2. BILATERAL PLEURAL EFFUSIONS. RIGHT AND LEFT LOWER LOBE CONSOLIDATIONS SECONDARY TO COMPRESSIVE ATELECTASIS AND/OR PNEUMONIA. 3. COPD. 4. NONOBSTRUCTING CALCULUS IN THE LEFT KIDNEY. OLD VERTEBRAL WEDGE COMPRESSION FRACTURES. KUB X-Ray 08/14/17 00:00 IMPRESSION: NG tube is present with tip overlying the distal body of the stomach. Basilar subsegmental atelectasis -small left effusion. Chest Ultrasound 08/15/17 09:44 IMPRESSION: Bilateral pleural effusions Chest X-Ray 08/15/17 14:29 IMPRESSION: No pneumothorax immediate post right thoracentesis Assessment & Plan - Diagnosis (1) Acute on chronic respiratory failure with hypoxia and hypercapnia Is this 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 Plan: Currently on vent support's follow with the pulmonary (2) Septic shock Is this 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 Plan: Continues to IV antibiotic and IV fluidWith the sputum culture is positive with MRSAContinues to vancomycin Will get the culture again's and I will just check the stool for the C. difficile with some elevated white count (3) Pneumonia Qualifiers: Pneumonia type: due to unspecified organism Laterality: bilateral Lung location: lower lobe of lung Qualified Code(s): J18.9 - Pneumonia, unspecified organism Is this 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 Plan: Strep pneumonia with MRSA continues to Primaxin and vancomycin (4) Acute renal failure Qualifiers: Acute renal failure type: unspecified Qualified Code(s): N17.9 - Acute kidney failure, unspecified Is this 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 Plan: Currently all stable (5) Chronic obstructive pulmonary disease Qualifiers: Emphysema type: unspecified Is this 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 Plan: Continues to nebulizer treatments (6) Hypertension Qualifiers: Hypertension type: essential hypertension Qualified Code(s): I10 - Essential (primary) hypertension Is this 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 Plan: Currently hypertension is due to the septic shock (7) Neoplasm of rectum Is this 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 (8) Elevated troponin Is this 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 (9) Leukocytosis Qualifiers: Leukocytosis type: bandemia Qualified Code(s): D72.825 - Bandemia Is this 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 Plan: Continues to broad-spectrum antibiotic will get the CT abdomen pelvis (10) Pleural effusion Is this 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 Plan: Scheduled for thoracocentesis today - Time Time Spent with patient: 25-34 minutes Total Critical Time (Minutes): 25 Medications reviewed and adjusted accordingly: Yes Anticipated discharge: Other Within: Other - Inpatient Certification Medical Necessity: Need Close Monitoring Due to Risk of Patient Decompensation, Need For IV Fluids, Need for IV Antibiotics 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
[2017-08-15 15:24] LABS: FLUID TYPE PLEURAL
[2017-08-15 15:25] LABS: FLUID APPEARANCE HAZY; FLUID COLOR YELLOW; FLUID VISCOSITY LIQUID
--- NOTE | 2017-08-15 17:02 | RADIOLOGY REPORT (SQ) ---
EXAM DESCRIPTION: CHEST SINGLE VIEW COMPLETED DATE/TIME: 08/15/2017 4:47 pm REASON FOR STUDY: 2 HOUR POST thoracentesis COMPARISON: Earlier the same day. NUMBER OF VIEWS: One view. TECHNIQUE: Single frontal radiographic image of the chest acquired. LIMITATIONS: None. FINDINGS: LUNGS AND PLEURA: Stable appearance. No pneumothorax. MEDIASTINUM AND HEART: Stable heart size and mediastinal structures. SUPPORT DEVICES: Appropriate location without change. BONY STRUCTURES: No acute findings. HARDWARE: None. OTHER: No other significant finding. IMPRESSION: No pneumothorax.
[2017-08-16] MEDS: PROPOFOL 100 ML IV PRN ×3 (00:23→17:03)
[2017-08-16] MEDS: HYDROMORPHONE HCL INJ/PF 2 MG/ML AMPULE IV PRN ×2 (00:24→12:52)
[2017-08-16] MEDS ORDERED: METRONIDAZOLE 500 MG/NS RTU 100 ML IV ONE (00:47)
[2017-08-16] MEDS: ALPRAZOLAM 0.25 MG TABLET NG SCH ×3 (01:01→18:11)
[2017-08-16] MEDS: IPRATROPIUM/ALBUTEROL 0.5-2.5 MG/3 ML AMPUL NEB SCH ×6 (04:02→23:19)
[2017-08-16] MEDS: METRONIDAZOLE 500 MG/NS RTU 100 ML IV SCH ×4 (05:18→23:19)
[2017-08-16] MEDS: DIPHENHYDRAMINE HCL 50 MG/ML VIAL IM SCH ×4 (05:18→23:19)
[2017-08-16] MEDS: IMIPENEM/CILASTATIN SODIUM 500 MG in NORMAL SALINE 100 ML IV SCH ×4 (05:19→23:20)
[2017-08-16] MEDS: HEPARIN SOD (PORCINE) 5,000 UNIT/ML 1 ML SYRINGE SUBCUT SCH ×3 (05:20→22:33)
[2017-08-16 06:13] LABS: ARTERIAL BLOOD BASE EXCESS 1.7 mmol/L; ARTERIAL BLOOD H2CO3 1.21 mmol/L (1.05-1.35); ARTERIAL BLOOD HCO3 26.1 mmol/L (20-26); ARTERIAL BLOOD O2 SATURATION 95.5 % (94-98); ARTERIAL BLOOD PCO2 40.1 mmHg (35-45); ARTERIAL BLOOD PH 7.43 (7.35-7.45); ARTERIAL BLOOD PO2 75.4 mmHg (80-100); ARTERIAL BLOOD TOTAL CO2 27.3 mmol/L (23-27)
[2017-08-16 06:14] LABS: ARTERIAL BLOOD FIO2 40%
[2017-08-16 06:18] LABS: HEMATOCRIT 32.4 % (37.9-51.0); HEMOGLOBIN 10.6 g/dL (13.5-17.0); MEAN CORPUSCULAR HEMOGLOBIN 26.9 pg (27.0-33.4); MEAN CORPUSCULAR HGB CONC 32.9 g/dL (32.0-36.0); MEAN CORPUSCULAR VOLUME 82 fl (80-97); PLATELET COUNT 217 10^3/uL (150-450); RED BLOOD COUNT 3.95 10^6/uL (4.35-5.55); RED CELL DISTRIBUTION WIDTH 15.2 % (11.5-14.0); WHITE BLOOD COUNT 20.5 10^3/uL (4.0-10.5)
[2017-08-16 06:36] LABS: ALANINE AMINOTRANSFERASE 47 U/L (21-72); ALKALINE PHOSPHATASE 71 U/L (38-126); ANION GAP 6 (5-19); ASPARTATE AMINO TRANSFERASE 65 U/L (17-59); BILIRUBIN,DIRECT 0.2 mg/dL (0.0-0.4); BILIRUBIN,TOTAL 0.2 mg/dL (0.2-1.3); BLOOD UREA NITROGEN 19 mg/dL (7-20); CALCIUM 7.9 mg/dL (8.4-10.2); CARBON DIOXIDE 26 mmol/L (22-30); CHLORIDE 105 mmol/L (98-107); GLUCOSE 104 mg/dL (75-110); PHOSPHORUS 3.8 mg/dL (2.5-4.5); POTASSIUM 4.3 mmol/L (3.6-5.0); SODIUM 137.1 mmol/L (137-145); TOTAL PROTEIN 4.7 g/dL (6.3-8.2)
[2017-08-16 06:55] LABS: ABSOLUTE LYMPHOCYTES# (MANUAL) 1.6 10^3/uL (0.5-4.7); ABSOLUTE MONOCYTES # (MANUAL) 1.6 10^3/uL (0.1-1.4); ABSOLUTE NEUTROPHILS# (MANUAL) 16.4 10^3/uL (1.7-8.2); BAND NEUTROPHILS % (MANUAL) 8 % (3-5); BASOPHILS % (MANUAL) 0 % (0-2); EOSINOPHILS % (MANUAL) 4 % (0-6); LYMPHOCYTES % (MANUAL) 8 % (13-45); METAMYELOCYTES % (MANUAL) 7 % (0); MONOCYTES % (MANUAL) 8 % (3-13); MYELOCYTES % (MANUAL) 3 % (0); SEGMENTED NEUTROPHILS % (MAN) 62 % (42-78); TOTAL CELLS COUNTED 100
[2017-08-16 07:00] LABS: ANISOCYTOSIS 1+; HYPOCHROMASIA SLIGHT; OVALOCYTES SLIGHT; PLATELET COMMENT ADEQUATE; PLATELET LARGE PRESENT; POIKILOCYTOSIS SLIGHT; POLYCHROMASIA SLIGHT; TOXIC GRANULATION SLIGHT
[2017-08-16] MEDS: DEXTROSE 5%-WATER 250 ML with NOREPINEPHRINE BITARTRATE 4 MG IV PRN ×4 (08:25→23:20)
--- NOTE | 2017-08-16 08:30 | RADIOLOGY REPORT (SQ) ---
EXAM DESCRIPTION: CT ABD/PELVIS NO ORAL OR IV COMPLETED DATE/TIME: 08/15/2017 7:45 pm REASON FOR STUDY: elevated lft/septic shock COMPARISON: CT chest 08/14/2017 CT abdomen pelvis 10/21/2015 TECHNIQUE: CT scan of the abdomen and pelvis performed without intravenous or oral contrast. Images reviewed with lung, soft tissue, and bone windows. Reconstructed coronal and sagittal MPR images revi ewed. All images stored on PACS. All CT scanners at this facility use dose modulation, iterative reconstruction, and/or weight based d osing when appropriate to reduce radiation dose to as low as reasonably achievable (ALARA). [facility]: Dose Right [facility]: CareDose [facility]: Dose Right [facility]: Teradose 4D [facility]: [employer] RADIATION DOSE: CT Rad equipment meets quality standard of care and radiation dose reduction techniq ues were employed. CTDIvol: 13.1 mGy. DLP: 672 mGy-cm.mGy. LIMITATIONS: None. FINDINGS: LOWER CHEST: Trace bilateral pleural effusions with partial collapse left lower lobe. NON-CONTRASTED LIVER, SPLEEN, ADRENALS: Evaluation limited by lack of IV contrast. No identified sign ificant masses. PANCREAS: No masses. No peripancreatic inflammatory changes. GALLBLADDER: No identified stones by CT criteria. No inflammatory changes to suggest cholecystitis. RIGHT KIDNEY AND URETER: No gross masses. Minimal residual contrast in the urinary collecting system s from CT angio chest 08/14/2017. No gross collecting system calcifications. No hydronephrosis or hydroureter. LEFT KIDNEY AND URETER: No gross masses. Minimal residual contrast in the urinary collecting systems from CT angio chest 08/14/2017. No gross collecting system calcifications. No hydronephrosis or h ydroureter. AORTA AND RETROPERITONEUM: No aneurysm. No retroperitoneal masses or adenopathy. BOWEL AND PERITONEAL CAVITY: No obvious masses or inflammatory changes. No free fluid. Sigmoid diver ticuli without CT signs of acute diverticulitis APPENDIX: Not clearly identified. No right lower quadrant inflammatory change PELVIS, BLADDER, AND ABDOMINAL WALL:Residual contrast in the urinary system from CT angio chest 2017. Arvizu catheter in the bladder. No pelvic free fluid or masses. No adenopathy. There is diffuse edema throughout the abdominal wall subcutaneous fat and soft tissues from third-spa cing. BONES: Chronic greater than 75% L1 compression deformity, chronic 25% L4 compression deformity OTHER: Nasogastric tube tip in the stomach. IMPRESSION: Trace bilateral pleural effusions with partial collapse left lower lobe Nasogastric tube, Arvizu catheter in good positioning No CT findings to explain history of sepsis COMMENT: Quality ID # [id number]: Final reports with documentation of one or more dose reduction techniques (e.g., Automated exposure control, adjustment of the mA and/or kV according to patient size, use of iterative reconstruction technique) TECHNICAL DOCUMENTATION: JOB ID: [id number] [employer]- All Rights Reserved
--- NOTE | 2017-08-16 08:52 | PDOC PROGRESS REPORT ---
Subjective Progress Note for:: 08/16/17 Subjective:: Patient is currently still intubated on the vent Patient have a thoracocentesis done to remove the 400 cc of the fluid The culture is still pending most likely exudate finding on the pleural effusion analysis Patient also CT abdomen pelvis was done which is negative for any acute finding Patient's white count is coming down Patient with no fever Reason For Visit: SEPTIC SHOCK,RESPIRATORY FAILURE,RENAL FAILURE, Physical Exam Vital Signs: Temp Pulse Resp BP Pulse Ox 97.2 F 101 H 24 H 103/64 95 08/16/17 08:00 08/16/17 08:00 08/16/17 08:00 08/16/17 08:00 08/16/17 08:00 Intake & Output 08/15/17 08/16/17 08/17/17 06:59 06:59 06:59 Intake Total 3691 3849 Output Total 2625 1760 420 Balance 1066 2089 -420 Weight 68.8 kg 69.5 kg Physical Exam: Currently intubated on a vent General appearance: PRESENT: no acute distress Eye exam: PRESENT: PERRLA Mouth exam: PRESENT: neck supple Respiratory exam: PRESENT: decreased breath sounds Cardiovascular exam: PRESENT: +S1, +S2 GI/Abdominal exam: PRESENT: normal bowel sounds, soft Additional comments: This is currently intubated on the vent but opens eyes Skin exam: PRESENT: dry Results Laboratory Results: 08/16/17 05:40 08/16/17 05:40 08/15/17 08/15/17 08/16/17 08:40 14:05 05:40 WBC 20.5 H RBC 3.95 L Hgb 10.6 L Hct 32.4 L MCV 82 MCH 26.9 L MCHC 32.9 RDW 15.2 H Plt Count 217 Seg Neutrophils % Not Reportable Lymphocytes % Not Reportable Monocytes % Not Reportable Eosinophils % Not Reportable Basophils % Not Reportable Absolute Neutrophils Not Reportable Absolute Lymphocytes Not Reportable Absolute Monocytes Not Reportable Absolute Eosinophils Not Reportable Absolute Basophils Not Reportable Carbonic Acid Cancelled HCO3/H2CO3 Ratio Cancelled ABG pH Cancelled ABG pCO2 Cancelled ABG pO2 Cancelled ABG HCO3 Cancelled ABG O2 Saturation Cancelled ABG Base Excess Cancelled FiO2 Cancelled Sodium Potassium Chloride Carbon Dioxide Anion Gap BUN Creatinine Est GFR ( Amer) Est GFR (Non-Af Amer) Glucose Calcium Phosphorus Magnesium Total Bilirubin AST ALT Alkaline Phosphatase Total Protein Albumin Fluid Type PLEURAL Fluid Source Fluid Color YELLOW Fluid Appearance HAZY Fluid Viscosity LIQUID Fluid WBC 2935 Fluid RBC 537 08/16/17 08/16/17 05:40 05:40 WBC RBC Hgb Hct MCV MCH MCHC RDW Plt Count Seg Neutrophils % Lymphocytes % Monocytes % Eosinophils % Basophils % Absolute Neutrophils Absolute Lymphocytes Absolute Monocytes Absolute Eosinophils Absolute Basophils Carbonic Acid 1.21 HCO3/H2CO3 Ratio 21:1 ABG pH 7.43 ABG pCO2 40.1 ABG pO2 75.4 L ABG HCO3 26.1 H ABG O2 Saturation 95.5 ABG Base Excess 1.7 FiO2 40% Sodium 137.1 Potassium 4.3 Chloride 105 Carbon Dioxide 26 Anion Gap 6 BUN 19 Creatinine 0.97 Est GFR ( Amer) > 60 Est GFR (Non-Af Amer) > 60 Glucose 104 Calcium 7.9 L Phosphorus 3.8 Magnesium 1.8 Total Bilirubin 0.2 AST 65 H ALT 47 Alkaline Phosphatase 71 Total Protein 4.7 L Albumin 2.0 L Fluid Type Fluid Source Fluid Color Fluid Appearance Fluid Viscosity Fluid WBC Fluid RBC 08/14/17 09:40 Catheterized Urine Urine Culture - Final NO GROWTH 2 DAYS 08/10/17 08/10/17 08/10/17 13:15 13:15 20:30 Creatine Kinase 70 41 L CK-MB (CK-2) 2.03 Troponin I 0.271 08/10/17 08/11/17 08/11/17 20:30 06:30 06:30 Creatine Kinase 31 L CK-MB (CK-2) 2.61 1.80 Troponin I 0.160 0.087 Impressions: Head CT 08/10/17 09:58 IMPRESSION: CHRONIC CHANGES OF ATROPHY AND MICROVASCULAR ISCHEMIA. NO ACUTE PROCESS. EVIDENCE OF ACUTE STROKE: NO. Chest/Abdomen CTA 08/13/17 00:00 IMPRESSION: 1. NORMAL CTA OF THE CHEST. NO PULMONARY EMBOLI. 2. BILATERAL PLEURAL EFFUSIONS. RIGHT AND LEFT LOWER LOBE CONSOLIDATIONS SECONDARY TO COMPRESSIVE ATELECTASIS AND/OR PNEUMONIA. 3. COPD. 4. NONOBSTRUCTING CALCULUS IN THE LEFT KIDNEY. OLD VERTEBRAL WEDGE COMPRESSION FRACTURES. KUB X-Ray 08/14/17 00:00 IMPRESSION: NG tube is present with tip overlying the distal body of the stomach. Basilar subsegmental atelectasis -small left effusion. Abdomen/Pelvis CT 08/15/17 00:00 IMPRESSION: Trace bilateral pleural effusions with partial collapse left lower lobe Nasogastric tube, Arvizu catheter in good positioning No CT findings to explain history of sepsis Thoracentesis Ultrasound 08/15/17 00:00 IMPRESSION: SUCCESSFUL THORACENTESIS USING ULTRASOUND GUIDANCE. Chest Ultrasound 08/15/17 09:44 IMPRESSION: Bilateral pleural effusions Chest X-Ray 08/15/17 16:30 IMPRESSION: No pneumothorax. Assessment & Plan - Diagnosis (1) Acute on chronic respiratory failure with hypoxia and hypercapnia Is this 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 Plan: Currently on vent support's follow with the pulmonary (2) Septic shock Is this 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 Plan: Continues to IV antibiotic and IV fluidWith the sputum culture is positive with MRSAContinues to vancomycin Will get the culture again's and I will just check the stool for the C. difficile with some elevated white count (3) Pneumonia Qualifiers: Pneumonia type: due to unspecified organism Laterality: bilateral Lung location: lower lobe of lung Qualified Code(s): J18.9 - Pneumonia, unspecified organism Is this 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 Plan: Strep pneumonia with MRSA continues to Primaxin and vancomycin (4) Acute renal failure Qualifiers: Acute renal failure type: unspecified Qualified Code(s): N17.9 - Acute kidney failure, unspecified Is this 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 Plan: Currently all stable (5) Chronic obstructive pulmonary disease Qualifiers: Emphysema type: unspecified Is this 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 Plan: Continues to nebulizer treatments (6) Hypertension Qualifiers: Hypertension type: essential hypertension Qualified Code(s): I10 - Essential (primary) hypertension Is this 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 Plan: Currently hypertension is due to the septic shock (7) Neoplasm of rectum Is this 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 Plan: Patient's last CEA was all normal and according to the oncology's no need for further evaluations (8) Elevated troponin Is this 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 Plan: Due to the hypotension and septic shock currently stable follow with the cardiology (9) Leukocytosis Qualifiers: Leukocytosis type: bandemia Qualified Code(s): D72.825 - Bandemia Is this 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 Plan: Continues to IV antibiotics due to the most likely MRSA pneumonia is all improving (10) Pleural effusion Is this 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 Plan: Status post thoracocentesis will wait for the culture - Time Time Spent with patient: 25-34 minutes Total Critical Time (Minutes): 25 Medications reviewed and adjusted accordingly: Yes Anticipated discharge: Other Within: Other - Inpatient Certification Medical Necessity: Need Close Monitoring Due to Risk of Patient Decompensation, Need For IV Fluids, Need for IV Antibiotics 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 Lindo about the patient's current conditions in my office
--- NOTE | 2017-08-16 09:57 | PROGRESS NOTE E ---
Progress Note NAME: CHRISTOPHER LEBLANC : 1940 AGE: 77Y DATE: 08/15/2017 ROOM: 603 SUBJECTIVE: The patient is a 77-year-old male who came in with acute respiratory failure requiring invasive mechanical ventilation, septic shock, pneumonia bilaterally, and bilateral pleural effusion. The patient's leukocytosis worsened today to 23,700 from 15,100 two days ago. The patient was hypotensive, started to be hypotensive last night, requiring IV vasopressor, Levophed, currently on 3 mcg/min dose. There scanty endotracheal tube secretions. Consulted interventional radiology today for ultrasound thoracentesis which was performed on the right chest, drawing about 400 mL of serous fluid. Pleural fluid analysis pending. IV Levaquin was discontinued today and changed to gentamicin 80 mg IV piggyback q.8 which was later changed by pharmacy to 120 mg q.12 IV. Zosyn was continued and vancomycin was continued. There was no vomiting, diarrhea. Scanty endotracheal tube secretions . OBJECTIVE: GENERAL: The patient appeared awake, afebrile, unresponsive to verbal stimuli. Not in acute respiratory distress. VITAL SIGNS: Blood pressure of 98/65, temperature 98.8 with a T-max of 99.1, respiratory rate is 24, saturation is 93% on FiO2 of 35%, PEEP of 7, pressure support of 10 above PEEP and SIMV rate of 24, tidal volume of 450. EYES: No jaundice or pallor. EARS, NOSE, AND THROAT: No ear drainage. No nasal discharge. CHEST AND LUNGS: No wheezing, no rhonchi, no coarse crackles. CARDIOVASCULAR: S1 and S2 is distinct. Normal regular rate and rhythm. ABDOMEN: Flabby, positive bowel sounds, soft, nondistended, nontender. EXTREMITIES: No joint swelling, no cellulitis. LABORATORY DATA: CBC done today at 5:30 a.m. showed a white count of 33,700; hemoglobin 10.9; hematocrit is 32; platelet count is 209. Chemistry done today showed a sodium of 138, potassium 4.2, chloride 107, CO2 is 36, BUN is 19, creatinine is 1.02, glucose is 101, calcium is 7.7, SGOT is 67, SGPT 49, alkaline phos is 57. LDH is high 858. Total protein is 4.7, albumin is 2. Pleural fluid analysis showed yellow color pleural fluid, hazy with 2935 WBC count which is normal range, RBC 537 which is not significant, segmenters 88, lymphocytes 4. Pleural fluid LDH, protein, and glucose are pending. IMAGING STUDIES: Chest ultrasound done today showed moderate amount of pleural effusion on the right side. A chest x-ray done after the thoracentesis showed absence of pneumothorax. Improved aeration of the right lung base and still infiltrates in the left lung base. ASSESSMENT: 1. ACUTE RESPIRATORY FAILURE REQUIRING INVASIVE MECHANICAL VENTILATION. Apparently appeared to be stable and slightly improving. Not ready to be extubated yet. 2. SEPTIC SHOCK/SEVERE SEPSIS. Currently on vasopressor, Levophed. The antibiotics changed to gentamicin and Levaquin discontinued. 3. ULTRASOUND GUIDED THORACENTESIS DONE TODAY. Results are pending. 4. BLOOD CULTURES FROM CENTRAL LINE DONE, BLOOD CULTURE OF THE PERIPHERAL VENOUS SOURCE ALSO DONE. PLAN: We will order the surgical consult for central line replacement and removal of the old central line. We will sent the catheter for culture. DICTATING PHYSICIAN: MICHAEL GARNER MD,RADHA,MPH [id number] PHY#: [id number] ID: [id number] JOB#: [id number] ACCT: [id number] cc: > SAYRAD
[2017-08-16] MEDS: LACTULOSE SYRUP 20 GM/30 ML UDCUP PO SCH ×2 (10:15→22:33)
[2017-08-16] MEDS: POLYETHYLENE GLYCOL 3350 POWDER 17 GM/1 PACKET PO SCH (10:15)
[2017-08-16] MEDS: FAMOTIDINE INJ/PF 20 MG/2 ML SDV IV SCH ×2 (10:16→22:33)
[2017-08-16] MEDS: VANCOMYCIN HCL 750 MG in DEXTROSE 5%-WATER 250 ML IV SCH ×2 (10:16→22:31)
[2017-08-16] MEDS: MIDODRINE HCL 5 MG TABLET PO SCH ×3 (10:16→18:11)
[2017-08-16 11:03] LABS: VANCOMYCIN,TROUGH 16.9 ug/mL (5.0-20.0)
[2017-08-16] MEDS: GENTAMICIN SULFATE 120 MG in DEXTROSE 5%-WATER 100 ML IV SCH (15:28)
--- NOTE | 2017-08-16 19:59 | PDOC PROGRESS REPORT ---
Subjective Progress Note for:: 08/16/17 Subjective:: Patient about the same and has made some progress. Patient's blood pressure been more stable. Patient is continuing on small dose of Levophed. He is making urine. Labs were reviewed. Patient last night went for abdominal CT and this results were reviewed. Patient has thoracentesis of the right side. Chest x-ray showed improvement. Pleural fluid shows increased WBCs. Patient remains intubated, sedated, patient however looks comfortable and in acute distress. Intermittent sinus tachycardia noted. Telemetry strips reviewed. Shows intermittent sinus tachycardia but with frequent APCs. Medications reviewed. Reason For Visit: SEPTIC SHOCK,RESPIRATORY FAILURE,RENAL FAILURE, Physical Exam Vital Signs: Temp Pulse Resp BP Pulse Ox 98.6 F 103 H 24 H 101/67 95 08/16/17 19:33 08/16/17 19:41 08/16/17 19:41 08/16/17 18:07 08/16/17 19:41 Intake & Output 08/15/17 08/16/17 08/17/17 06:59 06:59 06:59 Intake Total 3691 3849 1829 Output Total 2625 1760 1750 Balance 1066 2089 79 Weight 68.8 kg 69.5 kg Exam: GENERAL: looking little malnourished and in no acute distress. Patient is intubated and sedated. Orientation cannot be checked HEAD: Atraumatic, normocephalic. EYES: Pupils equal round and reactive to light, extraocular movements could not be checked, sclera anicteric, conjunctiva are normal. ENT: TMs normal, nares patent, oropharynx clear without exudates. Moist mucous membranes. No oral ulcerations or bleeding gums noted NECK: supple without lymphadenopathy or JVD. Trachea is central. No cervical or axillary lymphadenopathy noted. Carotids are 2+ LUNGS: Breath sounds mostly clear to auscultation patient is noted to have bibasal crackles at the extreme bases CHEST: Palpation of the chest wall shows no significant chest wall tenderness or abnormalities. HEART: [place] [employer] ARCHITECT, No PSH, 2/6 DOTTY aortic area, 1/6 turk systolic murmur mitral area , no rubs or gallops. ABDOMEN: Soft, no significant tenderness appreciated, normoactive bowel sounds. No guarding, no rebound. No rigidity noted . No masses appreciated. EXTREMITIES: Pedal pulses are 1-2+, no calf tenderness noted, 1+ pedal edema noted. No clubbing or cyanosis. NEUROLOGICAL: The patient cannot participate in the neurological exam but no facial asymmetry noted. Extremities slightly hypotonic PSYCH: This cannot be evaluated. Patient cannot participate. SKIN: No significant ecchymosis, rash, or signs of pruritus noted. MUSCULOSKELETAL EXAM: No significant joint swelling noted. Patient cannot participate in musculoskeletal exam Results Laboratory Results: 08/16/17 05:40 08/16/17 05:40 08/15/17 08/15/17 08/15/17 14:05 14:05 14:05 WBC RBC Hgb Hct MCV MCH MCHC RDW Plt Count Seg Neutrophils % Lymphocytes % Monocytes % Eosinophils % Basophils % Absolute Neutrophils Absolute Lymphocytes Absolute Monocytes Absolute Eosinophils Absolute Basophils Carbonic Acid HCO3/H2CO3 Ratio ABG pH ABG pCO2 ABG pO2 ABG HCO3 ABG O2 Saturation ABG Base Excess FiO2 Sodium Potassium Chloride Carbon Dioxide Anion Gap BUN Creatinine Est GFR ( Amer) Est GFR (Non-Af Amer) Glucose Calcium Phosphorus Magnesium Total Bilirubin AST ALT Alkaline Phosphatase Total Protein Albumin Fluid Glucose 101 Fluid Total Protein 2.3 Fluid LDH 209 08/16/17 08/16/17 08/16/17 05:40 05:40 05:40 WBC 20.5 H RBC 3.95 L Hgb 10.6 L Hct 32.4 L MCV 82 MCH 26.9 L MCHC 32.9 RDW 15.2 H Plt Count 217 Seg Neutrophils % Not Reportable Lymphocytes % Not Reportable Monocytes % Not Reportable Eosinophils % Not Reportable Basophils % Not Reportable Absolute Neutrophils Not Reportable Absolute Lymphocytes Not Reportable Absolute Monocytes Not Reportable Absolute Eosinophils Not Reportable Absolute Basophils Not Reportable Carbonic Acid 1.21 HCO3/H2CO3 Ratio 21:1 ABG pH 7.43 ABG pCO2 40.1 ABG pO2 75.4 L ABG HCO3 26.1 H ABG O2 Saturation 95.5 ABG Base Excess 1.7 FiO2 40% Sodium 137.1 Potassium 4.3 Chloride 105 Carbon Dioxide 26 Anion Gap 6 BUN 19 Creatinine 0.97 Est GFR ( Amer) > 60 Est GFR (Non-Af Amer) > 60 Glucose 104 Calcium 7.9 L Phosphorus 3.8 Magnesium 1.8 Total Bilirubin 0.2 AST 65 H ALT 47 Alkaline Phosphatase 71 Total Protein 4.7 L Albumin 2.0 L Fluid Glucose Fluid Total Protein Fluid LDH 08/14/17 09:40 Catheterized Urine Urine Culture - Final NO GROWTH 2 DAYS 08/10/17 08/10/17 08/10/17 13:15 13:15 20:30 Creatine Kinase 70 41 L CK-MB (CK-2) 2.03 Troponin I 0.271 08/10/17 08/11/17 08/11/17 20:30 06:30 06:30 Creatine Kinase 31 L CK-MB (CK-2) 2.61 1.80 Troponin I 0.160 0.087 EKG Comments: Telemetry strips shows sinus tachycardia with frequent APCs. Impressions: Head CT 08/10/17 09:58 IMPRESSION: CHRONIC CHANGES OF ATROPHY AND MICROVASCULAR ISCHEMIA. NO ACUTE PROCESS. EVIDENCE OF ACUTE STROKE: NO. Chest/Abdomen CTA 08/13/17 00:00 IMPRESSION: 1. NORMAL CTA OF THE CHEST. NO PULMONARY EMBOLI. 2. BILATERAL PLEURAL EFFUSIONS. RIGHT AND LEFT LOWER LOBE CONSOLIDATIONS SECONDARY TO COMPRESSIVE ATELECTASIS AND/OR PNEUMONIA. 3. COPD. 4. NONOBSTRUCTING CALCULUS IN THE LEFT KIDNEY. OLD VERTEBRAL WEDGE COMPRESSION FRACTURES. KUB X-Ray 08/14/17 00:00 IMPRESSION: NG tube is present with tip overlying the distal body of the stomach. Basilar subsegmental atelectasis -small left effusion. Abdomen/Pelvis CT 08/15/17 00:00 IMPRESSION: Trace bilateral pleural effusions with partial collapse left lower lobe Nasogastric tube, Arvizu catheter in good positioning No CT findings to explain history of sepsis Thoracentesis Ultrasound 08/15/17 00:00 IMPRESSION: SUCCESSFUL THORACENTESIS USING ULTRASOUND GUIDANCE. Chest Ultrasound 08/15/17 09:44 IMPRESSION: Bilateral pleural effusions Chest X-Ray 08/15/17 16:30 IMPRESSION: No pneumothorax. Assessment & Plan - Diagnosis (1) Acute on chronic respiratory failure with hypoxia and hypercapnia Is this 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 (2) Elevated troponin Is this 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 (3) Chronic obstructive pulmonary disease Qualifiers: Emphysema type: unspecified Is this 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 (4) Pneumonia Qualifiers: Pneumonia type: due to unspecified organism Laterality: bilateral Lung location: lower lobe of lung Qualified Code(s): J18.9 - Pneumonia, unspecified organism Is this 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 (5) Septic shock Is this 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 (6) Non-STEMI (non-ST elevated myocardial infarction) Is this 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 (7) Hypotension Qualifiers: Hypotension type: unspecified hypotension type Qualified Code(s): I95.9 - Hypotension, unspecified Is this 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 - Notes Notes: CT scan of the abdomen and pelvis results reviewed. Thoracentesis results reviewed. 2D echo results are reviewed. Patient does have significant enlargement of the right ventricle. May have element of pulmonary hypertension and possible right heart failure contributing to pleural effusion. Non-STEMI: Most likely related to sepsis and metabolic reason, hypoxemia, severe hypotension related rather than acute coronary syndrome. Previous EKG is reviewed shows no significant ST-T changes. Hypotension: Currently started back on low-dose Levophed drip. May consider adding vasopressin if needed as preferred agent especially if patient develops hypotension. Acute respiratory failure: Most likely related to pneumonia on top of severe COPD. Agree with antibiotic therapy and artificial ventilation and oxygenation. Elevated troponin I: Most likely related to sepsis, acute respiratory failure. Patient may benefit from ischemia evaluation that can be considered even as an outpatient. COPD: Continue with artificial ventilation and oxygenation. Pneumonia: Continue with antibiotic therapy. Septic shock: Continue antibiotics. For hypotension, recommend normal saline boluses as needed, before adjusting vasopressors. Recommend DVT prophylaxis with Lovenox or subcu heparin - Time Time with patient: 15-25 minutes - Continue current management plans. Patient' s medications reviewed. Medications reviewed and adjusted accordingly: Yes
[2017-08-17] MEDS: PROPOFOL 100 ML IV PRN ×4 (00:16→22:52)
[2017-08-17] MEDS: ALPRAZOLAM 0.25 MG TABLET NG SCH ×3 (02:47→17:59)
[2017-08-17] MEDS: IPRATROPIUM/ALBUTEROL 0.5-2.5 MG/3 ML AMPUL NEB SCH ×5 (03:53→19:32)
[2017-08-17] MEDS: METRONIDAZOLE 500 MG/NS RTU 100 ML IV SCH ×3 (05:22→17:59)
[2017-08-17] MEDS: DIPHENHYDRAMINE HCL 50 MG/ML VIAL IM SCH ×3 (05:22→16:48)
[2017-08-17] MEDS: HEPARIN SOD (PORCINE) 5,000 UNIT/ML 1 ML SYRINGE SUBCUT SCH ×3 (05:23→22:46)
[2017-08-17] MEDS: IMIPENEM/CILASTATIN SODIUM 500 MG in NORMAL SALINE 100 ML IV SCH ×2 (05:25→12:55)
[2017-08-17 06:24] LABS: ARTERIAL BLOOD BASE EXCESS 2.8 mmol/L; ARTERIAL BLOOD H2CO3 1.19 mmol/L (1.05-1.35); ARTERIAL BLOOD O2 SATURATION 90.5 % (94-98); ARTERIAL BLOOD PCO2 39.7 mmHg (35-45); ARTERIAL BLOOD PH 7.45 (7.35-7.45); ARTERIAL BLOOD TOTAL CO2 28.2 mmol/L (23-27)
[2017-08-17 06:28] LABS: HEMATOCRIT 32.6 % (37.9-51.0); HEMOGLOBIN 10.7 g/dL (13.5-17.0); MEAN CORPUSCULAR HEMOGLOBIN 26.7 pg (27.0-33.4); MEAN CORPUSCULAR HGB CONC 32.9 g/dL (32.0-36.0); MEAN CORPUSCULAR VOLUME 81 fl (80-97); PLATELET COUNT 240 10^3/uL (150-450); RED CELL DISTRIBUTION WIDTH 15.2 % (11.5-14.0)
[2017-08-17 06:29] LABS: ARTERIAL BLOOD FIO2 40%
[2017-08-17 06:34] LABS: ANION GAP 6 (5-19); BLOOD UREA NITROGEN 17 mg/dL (7-20); CALCIUM 7.9 mg/dL (8.4-10.2); CARBON DIOXIDE 27 mmol/L (22-30); CHLORIDE 106 mmol/L (98-107); GLUCOSE 105 mg/dL (75-110); POTASSIUM 4.3 mmol/L (3.6-5.0); SODIUM 138.7 mmol/L (137-145)
[2017-08-17 06:47] LABS: ABSOLUTE MONOCYTES # (MANUAL) 0.7 10^3/uL (0.1-1.4); ABSOLUTE NEUTROPHILS# (MANUAL) 15.3 10^3/uL (1.7-8.2); BAND NEUTROPHILS % (MANUAL) 7 % (3-5); BASOPHILS % (MANUAL) 0 % (0-2); EOSINOPHILS % (MANUAL) 0 % (0-6); LYMPHOCYTES % (MANUAL) 11 % (13-45); METAMYELOCYTES % (MANUAL) 3 % (0); MONOCYTES % (MANUAL) 4 % (3-13); MYELOCYTES % (MANUAL) 3 % (0); SEGMENTED NEUTROPHILS % (MAN) 72 % (42-78); TOTAL CELLS COUNTED 100
[2017-08-17 06:49] LABS: ANISOCYTOSIS SLIGHT; HYPOCHROMASIA SLIGHT; OVALOCYTES SLIGHT; PLATELET COMMENT ADEQUATE; POIKILOCYTOSIS SLIGHT; POLYCHROMASIA SLIGHT; TOXIC GRANULATION SLIGHT
--- NOTE | 2017-08-17 08:28 | RADIOLOGY REPORT (SQ) ---
EXAM DESCRIPTION: CHEST SINGLE VIEW COMPLETED DATE/TIME: 08/17/2017 7:16 am REASON FOR STUDY: ON VENTILATOR COMPARISON: None. EXAM PARAMETERS: NUMBER OF VIEWS: One view. TECHNIQUE: Single frontal radiographic view of the chest acquired. RADIATION DOSE: NA LIMITATIONS: None. FINDINGS: LUNGS AND PLEURA: COPD. Improving abnormal density in the left base consistent with pneum onia. Mild stable density in the medial right base. Small left effusion. No right effusion. MEDIASTINUM AND HILAR STRUCTURES: No masses. Contour normal. HEART AND VASCULAR STRUCTURES: Heart normal in size. Normal vasculature. BONES: No acute findings. HARDWARE: Endotracheal tube with its tip 3 cm above the guzman. NG tube with its tip not included on the film with tip well within the stomach. Right jugular catheter with its tip in the superior vena cava. OTHER: No other significant finding. IMPRESSION: COPD with improving left basilar pneumonia. TECHNICAL DOCUMENTATION: JOB ID: [id number] [employer]- All Rights Reserved
[2017-08-17] MEDS: HYDROMORPHONE HCL INJ/PF 2 MG/ML AMPULE IV PRN ×2 (09:13→20:32)
[2017-08-17] MEDS: LACTULOSE SYRUP 20 GM/30 ML UDCUP PO SCH ×2 (09:57→22:47)
[2017-08-17] MEDS: POLYETHYLENE GLYCOL 3350 POWDER 17 GM/1 PACKET PO SCH (09:57)
[2017-08-17] MEDS: VANCOMYCIN HCL 750 MG in DEXTROSE 5%-WATER 250 ML IV SCH ×2 (09:57→22:47)
[2017-08-17] MEDS: MIDODRINE HCL 5 MG TABLET PO SCH ×3 (09:57→17:59)
[2017-08-17] MEDS: FAMOTIDINE INJ/PF 20 MG/2 ML SDV IV SCH ×2 (09:57→22:46)
--- NOTE | 2017-08-17 10:11 | PDOC PROGRESS REPORT ---
Subjective Progress Note for:: 08/17/17 Subjective:: Patient is currently doing same still require Patient supports with a very low dose Is currently on vancomycin and gentamicin and white count is currently getting better Still does not have any bowel movement No other events happens Reason For Visit: SEPTIC SHOCK,RESPIRATORY FAILURE,RENAL FAILURE, Physical Exam Vital Signs: Temp Pulse Resp BP Pulse Ox 97.4 F 112 H 21 H 113/62 96 08/17/17 05:14 08/17/17 08:09 08/17/17 10:00 08/17/17 09:50 08/17/17 10:00 Intake & Output 08/16/17 08/17/17 08/18/17 06:59 06:59 06:59 Intake Total 3849 3498 Output Total 1760 3425 890 Balance 2089 73 -890 Weight 69.5 kg 70.2 kg Physical Exam: Currently on intubation under sedation's General appearance: PRESENT: no acute distress Eye exam: PRESENT: PERRLA Mouth exam: PRESENT: neck supple Respiratory exam: PRESENT: decreased breath sounds Cardiovascular exam: PRESENT: +S1, +S2 GI/Abdominal exam: PRESENT: normal bowel sounds, soft Extremities exam: ABSENT: pedal edema Additional comments: Currently intubated and the sedations Results Laboratory Results: 08/17/17 06:05 08/17/17 06:05 08/15/17 08/15/17 08/15/17 14:05 14:05 14:05 WBC RBC Hgb Hct MCV MCH MCHC RDW Plt Count Seg Neutrophils % Lymphocytes % Monocytes % Eosinophils % Basophils % Absolute Neutrophils Absolute Lymphocytes Absolute Monocytes Absolute Eosinophils Absolute Basophils Carbonic Acid HCO3/H2CO3 Ratio ABG pH ABG pCO2 ABG pO2 ABG HCO3 ABG O2 Saturation ABG Base Excess FiO2 Sodium Potassium Chloride Carbon Dioxide Anion Gap BUN Creatinine Est GFR ( Amer) Est GFR (Non-Af Amer) Glucose Calcium Magnesium Fluid Glucose 101 Fluid Total Protein 2.3 Fluid LDH 209 08/17/17 08/17/17 08/17/17 06:05 06:05 06:05 WBC 18.0 H RBC 4.00 L Hgb 10.7 L Hct 32.6 L MCV 81 MCH 26.7 L MCHC 32.9 RDW 15.2 H Plt Count 240 Seg Neutrophils % Not Reportable Lymphocytes % Not Reportable Monocytes % Not Reportable Eosinophils % Not Reportable Basophils % Not Reportable Absolute Neutrophils Not Reportable Absolute Lymphocytes Not Reportable Absolute Monocytes Not Reportable Absolute Eosinophils Not Reportable Absolute Basophils Not Reportable Carbonic Acid 1.19 HCO3/H2CO3 Ratio 22:1 ABG pH 7.45 ABG pCO2 39.7 ABG pO2 56.0 L ABG HCO3 27.0 H ABG O2 Saturation 90.5 L ABG Base Excess 2.8 FiO2 40% Sodium 138.7 Potassium 4.3 Chloride 106 Carbon Dioxide 27 Anion Gap 6 BUN 17 Creatinine 0.96 Est GFR ( Amer) > 60 Est GFR (Non-Af Amer) > 60 Glucose 105 Calcium 7.9 L Magnesium 1.8 Fluid Glucose Fluid Total Protein Fluid LDH 08/15/17 15:25 Catheterized Urine Urine Culture - Final NO GROWTH 2 DAYS 08/14/17 09:40 Catheterized Urine Urine Culture - Final NO GROWTH 2 DAYS 08/10/17 08/10/17 08/10/17 13:15 13:15 20:30 Creatine Kinase 70 41 L CK-MB (CK-2) 2.03 Troponin I 0.271 NT-Pro-B Natriuret Pep 08/10/17 08/11/17 08/11/17 20:30 06:30 06:30 Creatine Kinase 31 L CK-MB (CK-2) 2.61 1.80 Troponin I 0.160 0.087 NT-Pro-B Natriuret Pep 08/16/17 20:30 Creatine Kinase CK-MB (CK-2) Troponin I NT-Pro-B Natriuret Pep 1160 H Impressions: Head CT 08/10/17 09:58 IMPRESSION: CHRONIC CHANGES OF ATROPHY AND MICROVASCULAR ISCHEMIA. NO ACUTE PROCESS. EVIDENCE OF ACUTE STROKE: NO. Chest/Abdomen CTA 08/13/17 00:00 IMPRESSION: 1. NORMAL CTA OF THE CHEST. NO PULMONARY EMBOLI. 2. BILATERAL PLEURAL EFFUSIONS. RIGHT AND LEFT LOWER LOBE CONSOLIDATIONS SECONDARY TO COMPRESSIVE ATELECTASIS AND/OR PNEUMONIA. 3. COPD. 4. NONOBSTRUCTING CALCULUS IN THE LEFT KIDNEY. OLD VERTEBRAL WEDGE COMPRESSION FRACTURES. KUB X-Ray 08/14/17 00:00 IMPRESSION: NG tube is present with tip overlying the distal body of the stomach. Basilar subsegmental atelectasis -small left effusion. Abdomen/Pelvis CT 08/15/17 00:00 IMPRESSION: Trace bilateral pleural effusions with partial collapse left lower lobe Nasogastric tube, Arvizu catheter in good positioning No CT findings to explain history of sepsis Thoracentesis Ultrasound 08/15/17 00:00 IMPRESSION: SUCCESSFUL THORACENTESIS USING ULTRASOUND GUIDANCE. Chest Ultrasound 08/15/17 09:44 IMPRESSION: Bilateral pleural effusions Chest X-Ray 08/17/17 05:00 IMPRESSION: COPD with improving left basilar pneumonia. Assessment & Plan - Diagnosis (1) Acute on chronic respiratory failure with hypoxia and hypercapnia Is this 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 Plan: Currently on vent support's follow with the pulmonary (2) Septic shock Is this 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 Plan: Continues to IV antibiotic and IV fluidWith the sputum culture is positive with MRSAContinues to vancomycin Will get the culture again's and I will just check the stool for the C. difficile with some elevated white count (3) Pneumonia Qualifiers: Pneumonia type: due to unspecified organism Laterality: bilateral Lung location: lower lobe of lung Qualified Code(s): J18.9 - Pneumonia, unspecified organism Is this 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 Plan: Strep pneumonia with MRSA continues to Primaxin and vancomycin (4) Acute renal failure Qualifiers: Acute renal failure type: unspecified Qualified Code(s): N17.9 - Acute kidney failure, unspecified Is this 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 Plan: Currently all stable (5) Chronic obstructive pulmonary disease Qualifiers: Emphysema type: unspecified Is this 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 Plan: Continues to nebulizer treatments (6) Hypertension Qualifiers: Hypertension type: essential hypertension Qualified Code(s): I10 - Essential (primary) hypertension Is this 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 Plan: Currently hypertension is due to the septic shock (7) Neoplasm of rectum Is this 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 (8) Elevated troponin Is this 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 Plan: Non-ST TX due to the septic shock currently follow with the cardiology (9) Leukocytosis Qualifiers: Leukocytosis type: bandemia Qualified Code(s): D72.825 - Bandemia Is this 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 Plan: Continues to vancomycin and gentamicin (10) Pleural effusion Is this 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 - Time Time Spent with patient: 25-34 minutes Total Critical Time (Minutes): 25 Medications reviewed and adjusted accordingly: Yes Anticipated discharge: Other Within: Other - Inpatient Certification Medical Necessity: Need Close Monitoring Due to Risk of Patient Decompensation, Need For IV Fluids, Need for IV Antibiotics Post Hospital Care: D/C Rn Hemodialysis Documentation - Plan Summary Plan Summary: Continues to current medications will get the x-ray KUB patients might have a some mild ileus we will give some subsequent anymore and continues to monitor the patient at this point
--- NOTE | 2017-08-17 12:17 | RADIOLOGY REPORT (SQ) ---
EXAM DESCRIPTION: KUB/ABDOMEN (SINGLE VIEW) COMPLETED DATE/TIME: 08/17/2017 12:06 pm REASON FOR STUDY: constipation COMPARISON: CT abdomen pelvis 08/15/2017, 10/21/2015 KUB 08/14/2017 NUMBER OF VIEWS: One view. TECHNIQUE: Supine radiographic image of the abdomen acquired. LIMITATIONS: None. FINDINGS: BOWEL GAS PATTERN: Grossly nonobstructive bowel gas pattern. Small amount of air in the s igmoid colon. CALCIFICATIONS: Arterial vascular calcifications along the distal abdominal aorta and proximal common iliac artery. In the left upper quadrant adjacent to the NG tube in the stomach fundus, an incisor or canine tooth is present containing metallic fillings. SOFT TISSUES: No gross mass or suggestion of organomegaly. HARDWARE: Nasogastric tube tip and side port in the stomach. Arvizu catheter in the bladder. BONES: Osteoporotic. Compression deformities at L1, L2, L3, and L4 OTHER: No other significant finding. IMPRESSION: Grossly nonobstructive bowel gas pattern Suspect the patient has aspirated a broken tooth, tooth with filling is seen in the stomach fundus ad jacent to the nasogastric tube TECHNICAL DOCUMENTATION: JOB ID: [id number] [employer]- All Rights Reserved Reading location - IP/workstation name: [email or web address]
--- NOTE | 2017-08-17 13:00 | PROGRESS NOTE E ---
Progress Note NAME: CHRISTOPHER LEBLANC : 1940 AGE: 77Y DATE: 08/16/2017 ROOM: 603 SUBJECTIVE: Patient is a 77-year-old male who came in acute respiratory failure requiring invasive mechanical ventilation, bibasilar pneumonia, and pleural effusion. Patient was afebrile for the last 24 hours. Had a thoracentesis done on the right chest, drainage about 400 mL of serous fluid which appeared to be transudative. Had 1 episode of vomiting today. Still has some slightly purulent amount of endotracheal secretions suctioned earlier today. No diarrhea noted. Patient is still hypotensive, requiring vasopressors at 4 mcg/min. OBJECTIVE: VITAL SIGNS: Patient is sedated, afebrile, not in acute respiratory distress with a temperature of 98.4 with a T-max of 98.8, pulse rate of 109, blood pressure is 138/75, respiratory rate 21, saturation 96% on SIMV rate of 24, pressure support of 10 above PEEP, and PEEP of 7, FiO2 40%, tidal volume 460 mL with a peak airway pressure was 27, mean airway pressure is 13 and plateau airway pressure is 18. EYES: No jaundice or pallor. EARS, NOSE AND THROAT: No ear drainage noted. No nasal discharge. Endotracheal tube is in place. Orotracheal tube is in place. Patient started NG tube feeding. CHEST AND LUNGS: No wheezing. No rhonchi noted. No coarse crackles. CARDIOVASCULAR: S1, S2 distinct. Slightly tachycardic, regular rhythm. ABDOMEN: Flabby. Positive bowel sounds. Nondistended. EXTREMITIES: No joint swelling. No cellulitis. LABORATORY: CBC done today showed white count of 10,500 down from 33,700, hemoglobin is 10.6; hematocrit is 32.4; platelet count is 217, and bands of 8%. Patient was started on IV gentamicin yesterday, IV vancomycin, and IV Primaxin. Chemistry done showed BUN is 19, creatinine 0.97, glucose 104, and calcium is 7.9, phosphorus 3.8, magnesium is 1.8, total bilirubin 0.2, direct bilirubin 0.2, SGOT is 95, total protein is 4.7, and albumin is 2. Blood cultures done yesterday still pending. Tracheostomy culture: Still no growth for 1 day. Urine cultures: He notes growth also for 1 day. Blood culture yesterday also was no growth in the last 24 hours. Sputum culture done on 08/10/2017 showed positive for sterptococcus pneumoniae and MRSA and the MRSA was sensitive to vancomycin and gentamicin. ASSESSMENT: 1. ACUTE RESPIRATORY FAILURE REQUIRING INVASIVE MECHANICAL VENTILATION. Patient is not ready to be extubated yet. 2. SEPTIC SHOCK, CURRENTLY STILL REQUIRING IV VASOPRESSOR, LEVOPHED 4 MCG/KG. PATIENT BECOMES HYPOTENSIVE ONCE THE IV VASOPRESSOR WAS TAKEN OFF FOR A FEW MINUTES. 3. PNEUMONIA BILATERAL, POSITIVE FOR MRSA AND STREPTOCOCCUS PNEUMONIAE IN THE SPUTUM. 4. PLEURAL EFFUSION BILATERAL STATUS POST THORACENTESIS RIGHT SIDE. 5. SEVERE LEUKOCYTOSIS. PLAN AND RECOMMENDATIONS: 1. Will continue same IV antibiotics. 2. Will repeat the CBC, chemistry and chest x-ray and ABG tomorrow. 3. Will continue to optimize ventilator support and nutritional support. 4. Will do sedation vacation and spontaneous breathing trial every morning. DICTATING PHYSICIAN: MICHAEL GARNER MD,RADHA,MPH [id number] PHY#: [id number] ID: [id number] JOB#: [id number] ACCT: [id number] cc: > MTDD
[2017-08-17] MEDS: GENTAMICIN SULFATE 120 MG in DEXTROSE 5%-WATER 100 ML IV SCH (14:09)
[2017-08-17 14:35] LABS: GENTAMICIN-TROUGH 1.4 ug/mL (<2.0)
--- NOTE | 2017-08-17 18:43 | Progress Note ---
Provider Note Provider Note: Patient seen on morning rounds. Patient remains mildly hypertensive on Levophed. Patient been getting Midodrin 2.5 mg p.o. 3 times daily. Patient continues to have mild sinus tachycardia with frequent APCs. Recommend increasing Midodrin to 5 mg p.o. 3 times daily. The nurses tell me they are trying to wean patient today of Levophed.
[2017-08-17] MEDS ORDERED: DIPHENHYDRAMINE HCL 50 MG CAPSULE PO PRN (19:00)
--- NOTE | 2017-08-17 19:33 | PROGRESS NOTE E ---
Progress Note NAME: CHRISTOPHER LEBLANC : 1940 AGE: 77Y DATE: 08/17/2017 ROOM: 603 SUBJECTIVE: The patient is a 77-year-old male with a past medical history of COPD, came in for acute respiratory failure requiring invasive mechanical ventilation, septic shock, pneumonia bilaterally. The patient still requires vasopressors. Did not have any fever for the last 24 hours. Had scanty endotracheal secretion which is slightly purulent. Had one episode of vomitting this morning.. NG tube was held tentatively. No diarrhea noted. The patient still requires vasopressors, Levophed at 4 mcg/min. OBJECTIVE: GENERAL: The patient appeared to be slightly awake, was slightly sedated. VITAL SIGNS: Afebrile, not in apparent respiratory distress with a blood pressure of 91/61 on Levophed at 4 mcg/min. Temperature is 97.9 with a T-max of 97.9. Heart rate is 107. Respiratory is 52 breaths per minute. Saturation is 97% on FiO2 of 35%, PEEP of 6, SIMV rate of 24, tidal volume 450 mL, pressure support of 10 above PEEP and PEEP of 6. Peak airway pressure is 27. Total pressure is 24. Mid ventilation is 11. EYES: No jaundice or pallor. EARS, NOSE, AND THROAT: No ear drainage. No nasal discharge. HEAD AND NECK: No scalp swelling or tenderness. Neck is supple. CHEST AND LUNGS: No wheezing, no rhonchi, no coarse crackles. CARDIOVASCULAR: S1 and S2 is distinct. Normal rate and regular rhythm. ABDOMEN: Flabby, positive bowel sounds, soft, nondistended, nontender. EXTREMITIES: No joint swelling and no cellulitis. DIAGNOSTIC STUDIES: CBC done today showed a white count of 18,000 from 30,000 yesterday; hemoglobin is 10.7; hematocrit is 32.6; platelet count is 240; bands went down to 7. Chemistry done today showed sodium 138, potassium 4.3, chloride 106, CO2 is 27, BUN is 17, creatinine is 0.96, glucose 105, and calcium is 7.9, magnesium is 1.8. ABG done today showed a pH of 7.45, pCO2 of 39.7, pO2 is 56, bicarb is 27, and oxygen saturation is 90% on 50% FiO2. The chest x-ray done today showed absence of pneumothorax, endotracheal tube is in place, infiltrates in left lung base, no worsening of the pleural effusion. ASSESSMENT: 1. ACUTE RESPIRATORY FAILURE REQUIRING INVASIVE MECHANICAL VENTILATION. APPEARED TO BE SLIGHTLY IMPROVING, REQUIRING LESS FIO2 AND PEEP. 2. SEPTIC SHOCK REQUIRING IV VASOPRESSORS - LEVOPHED. 3. SEVERE SEPSIS. 4. COPD/EMPHYSEMA, NOT IN ACUTE SEVERE BRONCHOSPASM. 5. PNEUMONIA BILATERAL. APPEARED TO BE IMPROVING. PLAN/RECOMMENDATION: 1. Continue IV antibiotics. 2. We will perform spontaneous breathing trial every morning. The patient was placed on pressure support of 10, PEEP of 5 this morning which resulted to tachypnea with respiratory over 35 and tachycardia -. 3. We will try to optimize nutritional support with OG-tube feeding. 4. Continue IV antibiotics; vancomycin, gentamicin, and Primaxin. 5. We will do the ABG and chest x-ray tomorrow, and we will reevaluate the patient again. DICTATING PHYSICIAN: MICHAEL GARNER MD,RADHA,MPH [id number] PHY#: [id number] ID: [id number] JOB#: [id number] ACCT: [id number] cc: > MTDD
[2017-08-18] MEDS: DIPHENHYDRAMINE HCL 25 MG/10 ML UDC PO SCH ×5 (00:19→23:32)
[2017-08-18] MEDS: METRONIDAZOLE 500 MG/NS RTU 100 ML IV SCH ×5 (00:19→23:32)
[2017-08-18] MEDS: IPRATROPIUM/ALBUTEROL 0.5-2.5 MG/3 ML AMPUL NEB SCH ×6 (00:56→19:49)
[2017-08-18] MEDS: IMIPENEM/CILASTATIN SODIUM 500 MG in NORMAL SALINE 100 ML IV SCH ×4 (00:57→18:30)
[2017-08-18] MEDS: ALPRAZOLAM 0.25 MG TABLET NG SCH ×3 (03:14→17:15)
[2017-08-18] MEDS: PROPOFOL 100 ML IV PRN ×3 (05:24→18:56)
[2017-08-18 05:51] LABS: ARTERIAL BLOOD BASE EXCESS 1.9 mmol/L; ARTERIAL BLOOD H2CO3 1.07 mmol/L (1.05-1.35); ARTERIAL BLOOD HCO3 25.3 mmol/L (20-26); ARTERIAL BLOOD O2 SATURATION 92.8 % (94-98); ARTERIAL BLOOD PCO2 35.4 mmHg (35-45); ARTERIAL BLOOD PH 7.47 (7.35-7.45); ARTERIAL BLOOD PO2 60.5 mmHg (80-100); ARTERIAL BLOOD TOTAL CO2 26.4 mmol/L (23-27)
[2017-08-18 05:56] LABS: ARTERIAL BLOOD FIO2 35%
[2017-08-18 06:13] LABS: HEMATOCRIT 31.7 % (37.9-51.0); HEMOGLOBIN 10.5 g/dL (13.5-17.0); MEAN CORPUSCULAR HEMOGLOBIN 27.1 pg (27.0-33.4); MEAN CORPUSCULAR HGB CONC 33.1 g/dL (32.0-36.0); MEAN CORPUSCULAR VOLUME 82 fl (80-97); PLATELET COUNT 271 10^3/uL (150-450); RED BLOOD COUNT 3.86 10^6/uL (4.35-5.55); RED CELL DISTRIBUTION WIDTH 14.9 % (11.5-14.0); WHITE BLOOD COUNT 15.8 10^3/uL (4.0-10.5)
[2017-08-18 06:36] LABS: ABSOLUTE LYMPHOCYTES# (MANUAL) 1.6 10^3/uL (0.5-4.7); ABSOLUTE MONOCYTES # (MANUAL) 0.2 10^3/uL (0.1-1.4); ABSOLUTE NEUTROPHILS# (MANUAL) 13.9 10^3/uL (1.7-8.2); BASOPHILS % (MANUAL) 0 % (0-2); EOSINOPHILS % (MANUAL) 1 % (0-6); LYMPHOCYTES % (MANUAL) 10 % (13-45); METAMYELOCYTES % (MANUAL) 1 % (0); MONOCYTES % (MANUAL) 1 % (3-13); SEGMENTED NEUTROPHILS % (MAN) 73 % (42-78); TOTAL CELLS COUNTED 100
[2017-08-18 06:37] LABS: ANISOCYTOSIS SLIGHT; PLATELET COMMENT ADEQUATE; TOXIC GRANULATION SLIGHT
[2017-08-18 06:38] LABS: BAND NEUTROPHILS % (MANUAL) 14 % (3-5)
[2017-08-18] MEDS: HEPARIN SOD (PORCINE) 5,000 UNIT/ML 1 ML SYRINGE SUBCUT SCH ×3 (06:39→21:28)
[2017-08-18 06:48] LABS: ANION GAP 6 (5-19); BLOOD UREA NITROGEN 14 mg/dL (7-20); CARBON DIOXIDE 27 mmol/L (22-30); CHLORIDE 104 mmol/L (98-107); GLUCOSE 98 mg/dL (75-110); POTASSIUM 4.1 mmol/L (3.6-5.0); SODIUM 136.9 mmol/L (137-145)
--- NOTE | 2017-08-18 07:20 | RADIOLOGY REPORT (SQ) ---
EXAM DESCRIPTION: CHEST SINGLE VIEW CLINICAL HISTORY: VENTILATED; pneumonia COMPARISON: 08/17/2017 FINDINGS: Single frontal view of the chest. Right IJ central venous catheter with tip in SVC. NG tube with tip below the diaphragm. Endotracheal tube with tip 2 cm above the guzman. Atherosclerotic calcification aortic arch. Heart is not enlarged. Patchy left basilar opacity compatible with pneumonia. No pleural effusion. No acute osseous abnormalities. Hyperinflation. Upper abdominal soft tissues are unremarkable. IMPRESSION: 1. Stable appearance of the chest.
[2017-08-18] MEDS: DEXTROSE 5%-WATER 250 ML with NOREPINEPHRINE BITARTRATE 4 MG IV PRN ×2 (09:28)
--- NOTE | 2017-08-18 10:14 | PDOC PROGRESS REPORT ---
Subjective Progress Note for:: 08/18/17 Subjective:: Patient about the same and has made some progress. Currently on lower dose of levophed. Patient is continuing on small dose of Levophed. He is making urine. Labs were reviewed. Patient has thoracentesis of the right side. Chest x-ray showed improvement. Pleural fluid shows increased WBCs. However LDH and total protein low suggesting that this could be transudate and related to CHF. BNP level came back elevated. Patient remains intubated, sedated, patient however looks comfortable and in acute distress. Intermittent sinus tachycardia noted. Telemetry strips reviewed. Shows intermittent sinus tachycardia but with frequent APCs. Medications reviewed. Reason For Visit: SEPTIC SHOCK,RESPIRATORY FAILURE,RENAL FAILURE, Physical Exam Vital Signs: Temp Pulse Resp BP Pulse Ox 96.8 F L 105 H 24 H 126/78 H 96 08/18/17 08:33 08/18/17 08:17 08/18/17 08:17 08/18/17 06:06 08/18/17 08:17 Intake & Output 08/17/17 08/18/17 08/19/17 06:59 06:59 06:59 Intake Total 3498 2901 Output Total 3425 2750 247 Balance 73 151 -247 Weight 70.2 kg 71 kg Exam: GENERAL: in no acute distress. Patient is intubated and sedated. Orientation cannot be checked HEAD: Atraumatic, normocephalic. EYES: Pupils equal round and reactive to light, extraocular movements could not be checked, sclera anicteric, conjunctiva are normal. ENT: TMs normal, nares patent, oropharynx clear without exudates. Moist mucous membranes. No oral ulcerations or bleeding gums noted NECK: supple without lymphadenopathy or JVD. Trachea is central. No cervical or axillary lymphadenopathy noted. Carotids are 2+ LUNGS: Breath sounds mostly clear to auscultation patient is noted to have bibasal crackles at the extreme bases CHEST: Palpation of the chest wall shows no significant chest wall tenderness or abnormalities. HEART: [employer], No PSH, 2/6 DOTTY aortic area, 1/6 turk systolic murmur mitral area , no rubs or gallops. ABDOMEN: Soft, no significant tenderness appreciated, normoactive bowel sounds. No guarding, no rebound. No rigidity noted . No masses appreciated. EXTREMITIES: Pedal pulses are 1-2+, no calf tenderness noted, 1+ pedal edema noted. No clubbing or cyanosis. NEUROLOGICAL: The patient cannot participate in the neurological exam but no facial asymmetry noted. Extremities slightly hypotonic PSYCH: This cannot be evaluated. Patient cannot participate. SKIN: No significant ecchymosis, rash, or signs of pruritus noted. MUSCULOSKELETAL EXAM: No significant joint swelling noted. Patient cannot participate in musculoskeletal exam Results Laboratory Results: 08/18/17 05:35 08/18/17 05:35 08/18/17 08/18/17 08/18/17 05:35 05:35 05:35 WBC 15.8 H RBC 3.86 L Hgb 10.5 L Hct 31.7 L MCV 82 MCH 27.1 MCHC 33.1 RDW 14.9 H Plt Count 271 Seg Neutrophils % Not Reportable Lymphocytes % Not Reportable Monocytes % Not Reportable Eosinophils % Not Reportable Basophils % Not Reportable Absolute Neutrophils Not Reportable Absolute Lymphocytes Not Reportable Absolute Monocytes Not Reportable Absolute Eosinophils Not Reportable Absolute Basophils Not Reportable Carbonic Acid 1.07 HCO3/H2CO3 Ratio 23:1 ABG pH 7.47 H ABG pCO2 35.4 ABG pO2 60.5 L ABG HCO3 25.3 ABG O2 Saturation 92.8 L ABG Base Excess 1.9 FiO2 35% Sodium 136.9 L Potassium 4.1 Chloride 104 Carbon Dioxide 27 Anion Gap 6 BUN 14 Creatinine 0.96 Est GFR ( Amer) > 60 Est GFR (Non-Af Amer) > 60 Glucose 98 Calcium 8.0 L 08/15/17 15:25 Tracheal Aspirate Gram Stain - Final 08/15/17 15:25 Tracheal Aspirate Sputum Culture - Final C.albicans/C.dubliniensis Normal Chelsey Absent 08/15/17 15:25 Catheterized Urine Urine Culture - Final NO GROWTH 2 DAYS 08/10/17 08/10/17 08/10/17 13:15 13:15 20:30 Creatine Kinase 70 41 L CK-MB (CK-2) 2.03 Troponin I 0.271 NT-Pro-B Natriuret Pep 08/10/17 08/11/17 08/11/17 20:30 06:30 06:30 Creatine Kinase 31 L CK-MB (CK-2) 2.61 1.80 Troponin I 0.160 0.087 NT-Pro-B Natriuret Pep 08/16/17 20:30 Creatine Kinase CK-MB (CK-2) Troponin I NT-Pro-B Natriuret Pep 1160 H EKG Comments: Telemetry strips shows sinus rhythm with frequent APCs. Impressions: Head CT 08/10/17 09:58 IMPRESSION: CHRONIC CHANGES OF ATROPHY AND MICROVASCULAR ISCHEMIA. NO ACUTE PROCESS. EVIDENCE OF ACUTE STROKE: NO. Chest/Abdomen CTA 08/13/17 00:00 IMPRESSION: 1. NORMAL CTA OF THE CHEST. NO PULMONARY EMBOLI. 2. BILATERAL PLEURAL EFFUSIONS. RIGHT AND LEFT LOWER LOBE CONSOLIDATIONS SECONDARY TO COMPRESSIVE ATELECTASIS AND/OR PNEUMONIA. 3. COPD. 4. NONOBSTRUCTING CALCULUS IN THE LEFT KIDNEY. OLD VERTEBRAL WEDGE COMPRESSION FRACTURES. Abdomen/Pelvis CT 08/15/17 00:00 IMPRESSION: Trace bilateral pleural effusions with partial collapse left lower lobe Nasogastric tube, Arvizu catheter in good positioning No CT findings to explain history of sepsis Thoracentesis Ultrasound 08/15/17 00:00 IMPRESSION: SUCCESSFUL THORACENTESIS USING ULTRASOUND GUIDANCE. Chest Ultrasound 08/15/17 09:44 IMPRESSION: Bilateral pleural effusions KUB X-Ray 08/17/17 00:00 IMPRESSION: Grossly nonobstructive bowel gas pattern Suspect the patient has aspirated a broken tooth, tooth with filling is seen in the stomach fundus adjacent to the nasogastric tube Chest X-Ray 08/18/17 06:00 IMPRESSION: 1. Stable appearance of the chest. Assessment & Plan - Diagnosis (1) Acute on chronic respiratory failure with hypoxia and hypercapnia Is this 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 (2) Elevated troponin Is this 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 (3) Chronic obstructive pulmonary disease Qualifiers: Emphysema type: unspecified Is this 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 (4) Pneumonia Qualifiers: Pneumonia type: due to unspecified organism Laterality: bilateral Lung location: lower lobe of lung Qualified Code(s): J18.9 - Pneumonia, unspecified organism Is this 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 (5) Septic shock Is this 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 (6) Non-STEMI (non-ST elevated myocardial infarction) Is this 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 (7) Hypotension Qualifiers: Hypotension type: unspecified hypotension type Qualified Code(s): I95.9 - Hypotension, unspecified Is this 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 - Notes Notes: CHF: Suspected on basis of elevated BNP. 2D echo results are reviewed. Patient does have significant enlargement of the right ventricle. May have element of pulmonary hypertension and possible right heart failure contributing to pleural effusion. Patient also noted to have grade 2 diastolic dysfunction. Low albumin also contributing. Recommend low-dose diuretics. Non-STEMI: Most likely related to sepsis and metabolic reason, hypoxemia, severe hypotension related rather than acute coronary syndrome. Previous EKG is reviewed shows no significant ST-T changes. Hypotension: Currently on low-dose Levophed drip. May consider adding vasopressin if needed as preferred agent especially if patient develops hypotension. Acute respiratory failure: Most likely related to pneumonia on top of severe COPD. Agree with antibiotic therapy and artificial ventilation and oxygenation. Elevated troponin I: Most likely related to sepsis, acute respiratory failure. Patient may benefit from ischemia evaluation prior to discharge and can be considered even as an outpatient. COPD: Continue with artificial ventilation and oxygenation. Pneumonia: Continue with antibiotic therapy. Septic shock: Continue antibiotics. Continue vasopressors for blood pressure support. Recommend DVT prophylaxis with Lovenox or subcu heparin - Time Time with patient: Greater than 35 minutes - CODE STATUS was discussed, patient remains full code. Surrogate decision-maker unchanged. Multiple medical problems were addressed. More than 50% of the time spent coordinating care, discussing management plans with involved caregivers. Management plans discussed with involved personnels. Medical decision making was of moderate to high complexity, patient's has multiple comorbidities. Medications reviewed and adjusted accordingly: Yes
[2017-08-18] MEDS: LACTULOSE SYRUP 20 GM/30 ML UDCUP PO SCH ×2 (10:15→21:29)
[2017-08-18] MEDS: FAMOTIDINE INJ/PF 20 MG/2 ML SDV IV SCH ×2 (10:15→21:28)
[2017-08-18] MEDS: MIDODRINE HCL 5 MG TABLET PO SCH ×3 (10:16→17:15)
[2017-08-18] MEDS: POLYETHYLENE GLYCOL 3350 POWDER 17 GM/1 PACKET PO SCH (10:17)
[2017-08-18] MEDS: VANCOMYCIN HCL 750 MG in DEXTROSE 5%-WATER 250 ML IV SCH ×2 (10:17→21:30)
--- NOTE | 2017-08-18 10:17 | PDOC PROGRESS REPORT ---
Subjective Progress Note for:: 08/17/17 Subjective:: Patient about the same and has made some progress. Patient's blood pressure been more stable on Midodrin. Patient is continuing on small dose of Levophed. He is making urine. Labs were reviewed. Patient last night went for abdominal CT and this results were reviewed. Patient has thoracentesis of the right side. Chest x-ray showed improvement. Pleural fluid shows increased WBCs. Other results are pending. Patient remains intubated, sedated, patient however looks comfortable and in acute distress. Intermittent sinus tachycardia noted. Telemetry strips reviewed. Shows intermittent sinus tachycardia but with frequent APCs. Medications reviewed. Reason For Visit: SEPTIC SHOCK,RESPIRATORY FAILURE,RENAL FAILURE, Physical Exam Vital Signs: Temp Pulse Resp BP Pulse Ox 97.4 F 105 H 22 H 91/61 L 94 08/17/17 05:14 08/17/17 15:36 08/17/17 18:06 08/17/17 18:06 08/17/17 18:06 Intake & Output 08/16/17 08/17/17 08/18/17 06:59 06:59 06:59 Intake Total 3849 3498 Output Total 1760 3425 1715 Balance 2089 73 -1715 Weight 69.5 kg 70.2 kg Exam: GENERAL: well-nourished and in no acute distress. Patient is intubated and sedated. Orientation cannot be checked HEAD: Atraumatic, normocephalic. EYES: Pupils equal round and reactive to light, extraocular movements could not be checked, sclera anicteric, conjunctiva are normal. ENT: TMs normal, nares patent, oropharynx clear without exudates. Moist mucous membranes. No oral ulcerations or bleeding gums noted NECK: supple without lymphadenopathy or JVD. Trachea is central. No cervical or axillary lymphadenopathy noted. Carotids are 2+ LUNGS: Breath sounds mostly clear to auscultation patient is noted to have bibasal crackles at the extreme bases CHEST: Palpation of the chest wall shows no significant chest wall tenderness or abnormalities. 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 ABDOMEN: Soft, no significant tenderness appreciated, normoactive bowel sounds. No guarding, no rebound. No rigidity noted . No masses appreciated. EXTREMITIES: Pedal pulses are 1-2+, no calf tenderness noted, 1+ pedal edema noted. No clubbing or cyanosis. NEUROLOGICAL: The patient cannot participate in the neurological exam but no facial asymmetry noted. Extremities slightly hypotonic PSYCH: This cannot be evaluated. Patient cannot participate. SKIN: No significant ecchymosis, rash, or signs of pruritus noted. MUSCULOSKELETAL EXAM: No significant joint swelling noted. Patient cannot participate in musculoskeletal exam Results Laboratory Results: 08/17/17 06:05 08/17/17 06:05 08/17/17 08/17/17 08/17/17 06:05 06:05 06:05 WBC 18.0 H RBC 4.00 L Hgb 10.7 L Hct 32.6 L MCV 81 MCH 26.7 L MCHC 32.9 RDW 15.2 H Plt Count 240 Seg Neutrophils % Not Reportable Lymphocytes % Not Reportable Monocytes % Not Reportable Eosinophils % Not Reportable Basophils % Not Reportable Absolute Neutrophils Not Reportable Absolute Lymphocytes Not Reportable Absolute Monocytes Not Reportable Absolute Eosinophils Not Reportable Absolute Basophils Not Reportable Carbonic Acid 1.19 HCO3/H2CO3 Ratio 22:1 ABG pH 7.45 ABG pCO2 39.7 ABG pO2 56.0 L ABG HCO3 27.0 H ABG O2 Saturation 90.5 L ABG Base Excess 2.8 FiO2 40% Sodium 138.7 Potassium 4.3 Chloride 106 Carbon Dioxide 27 Anion Gap 6 BUN 17 Creatinine 0.96 Est GFR ( Amer) > 60 Est GFR (Non-Af Amer) > 60 Glucose 105 Calcium 7.9 L Magnesium 1.8 08/15/17 15:25 Tracheal Aspirate Gram Stain - Final 08/15/17 15:25 Tracheal Aspirate Sputum Culture - Final C.albicans/C.dubliniensis Normal Chelsey Absent 08/15/17 15:25 Catheterized Urine Urine Culture - Final NO GROWTH 2 DAYS 08/10/17 08/10/17 08/10/17 13:15 13:15 20:30 Creatine Kinase 70 41 L CK-MB (CK-2) 2.03 Troponin I 0.271 NT-Pro-B Natriuret Pep 08/10/17 08/11/17 08/11/17 20:30 06:30 06:30 Creatine Kinase 31 L CK-MB (CK-2) 2.61 1.80 Troponin I 0.160 0.087 NT-Pro-B Natriuret Pep 08/16/17 20:30 Creatine Kinase CK-MB (CK-2) Troponin I NT-Pro-B Natriuret Pep 1160 H EKG Comments: Telemetry strips shows sinus tachycardia with frequent APCs. Impressions: Head CT 08/10/17 09:58 IMPRESSION: CHRONIC CHANGES OF ATROPHY AND MICROVASCULAR ISCHEMIA. NO ACUTE PROCESS. EVIDENCE OF ACUTE STROKE: NO. Chest/Abdomen CTA 08/13/17 00:00 IMPRESSION: 1. NORMAL CTA OF THE CHEST. NO PULMONARY EMBOLI. 2. BILATERAL PLEURAL EFFUSIONS. RIGHT AND LEFT LOWER LOBE CONSOLIDATIONS SECONDARY TO COMPRESSIVE ATELECTASIS AND/OR PNEUMONIA. 3. COPD. 4. NONOBSTRUCTING CALCULUS IN THE LEFT KIDNEY. OLD VERTEBRAL WEDGE COMPRESSION FRACTURES. Abdomen/Pelvis CT 08/15/17 00:00 IMPRESSION: Trace bilateral pleural effusions with partial collapse left lower lobe Nasogastric tube, Arvizu catheter in good positioning No CT findings to explain history of sepsis Thoracentesis Ultrasound 08/15/17 00:00 IMPRESSION: SUCCESSFUL THORACENTESIS USING ULTRASOUND GUIDANCE. Chest Ultrasound 08/15/17 09:44 IMPRESSION: Bilateral pleural effusions KUB X-Ray 08/17/17 00:00 IMPRESSION: Grossly nonobstructive bowel gas pattern Suspect the patient has aspirated a broken tooth, tooth with filling is seen in the stomach fundus adjacent to the nasogastric tube Chest X-Ray 08/17/17 05:00 IMPRESSION: COPD with improving left basilar pneumonia. Assessment & Plan - Diagnosis (1) Acute on chronic respiratory failure with hypoxia and hypercapnia Is this 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 (2) Elevated troponin Is this 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 (3) Chronic obstructive pulmonary disease Qualifiers: Emphysema type: unspecified Is this 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 (4) Pneumonia Qualifiers: Pneumonia type: due to unspecified organism Laterality: bilateral Lung location: lower lobe of lung Qualified Code(s): J18.9 - Pneumonia, unspecified organism Is this 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 (5) Septic shock Is this 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 (6) Non-STEMI (non-ST elevated myocardial infarction) Is this 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 (7) Hypotension Qualifiers: Hypotension type: unspecified hypotension type Qualified Code(s): I95.9 - Hypotension, unspecified Is this 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 - Notes Notes: No new recommendations. Will continue to follow patient because of significant cardiac issues and comorbid diagnosis. 2D echo results are reviewed. Patient does have significant enlargement of the right ventricle. May have element of pulmonary hypertension and possible right heart failure contributing to pleural effusion. Patient also noted to have diastolic dysfunction grade 2. Non-STEMI: Most likely related to sepsis and metabolic reason, hypoxemia, severe hypotension related rather than acute coronary syndrome. Previous EKG is reviewed shows no significant ST-T changes. Hypotension: Currently on low-dose Levophed drip. May consider adding vasopressin if needed as preferred agent especially if patient develops hypotension. Acute respiratory failure: Most likely related to pneumonia on top of severe COPD. Agree with antibiotic therapy and artificial ventilation and oxygenation. Elevated troponin I: Most likely related to sepsis, acute respiratory failure. Patient may benefit from ischemia evaluation that can be considered even as an outpatient. COPD: Continue with artificial ventilation and oxygenation. Pneumonia: Continue with antibiotic therapy. Septic shock: Continue antibiotics. For hypotension, recommend normal saline boluses as needed, before adjusting vasopressors. Recommend DVT prophylaxis with Lovenox or subcu heparin - Time Time with patient: 15-25 minutes - CODE STATUS was discussed, patient remains full code. Surrogate decision-maker unchanged. Multiple medical problems were addressed. More than 50% of the time spent coordinating care, discussing management plans with involved caregivers. Management plans discussed with involved personnels. Medical decision making was of moderate to high complexity , patient's has multiple comorbidities. Medications reviewed and adjusted accordingly: Yes
[2017-08-18] MEDS: GENTAMICIN SULFATE 120 MG in DEXTROSE 5%-WATER 100 ML IV SCH (13:46)
[2017-08-18 14:30] LABS: GENTAMICIN-TROUGH 1.7 ug/mL (<2.0)
[2017-08-18 16:26] LABS: GENTAMICIN-PEAK 8.4 ug/mL (5.0-10.0)
--- NOTE | 2017-08-18 17:34 | RADIOLOGY REPORT (SQ) ---
EXAM DESCRIPTION: CT FACIAL AREA WITHOUT COMPLETED DATE/TIME: 08/18/2017 5:01 pm REASON FOR STUDY: dental abscess TRANSPORT WITH VENTILATOR O2 COMPARISON: CT brain 08/10/2017 TECHNIQUE: Noncontrasted images through the facial bones and orbits windowed for bone and soft tissu e. Additional coronal and sagittal reconstructed images reviewed. All images stored on PACS. All CT scanners at this facility use dose modulation, iterative reconstruction, and/or weight based d osing when appropriate to reduce radiation dose to as low as reasonably achievable (ALARA). [facility]: Dose Right [facility]: CareDose [facility]: Dose Right [facility]: Teradose 4D [facility]: [employer] RADIATION DOSE: CT Rad equipment meets quality standard of care and radiation dose reduction techniq ues were employed. CTDIvol: 30.4 mGy. DLP: 606 mGy-cm. mGy. LIMITATIONS: None. FINDINGS: FACIAL BONES: No fracture or bone lesion. ORBITS: Intact. No fracture. Symmetric intact globes and retroorbital soft tissues. PARANASAL SINUSES: Clear. No significant mucosal thickening, mass or fluid. No nasal polyps. Maxill jenny sinus outlets are patent. SOFT TISSUES: No mass or edema. 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 10/13/2012 OTHER: Patient has 1 right lower tooth fragment without CT evidence of abscess. Otherwise edentulous . Endotracheal tube, orogastric tube are present. IMPRESSION: NO ACUTE FINDINGS. TECHNICAL DOCUMENTATION: JOB ID: [id number] Quality ID # [id number]: Final reports with documentation of one or more dose reduction techniques (e.g., Au tomated exposure control, adjustment of the mA and/or kV according to patient size, use of iterative reconstruction technique) 2010 [employer]- All Rights Reserved Reading location - IP/workstation name: [email or web address]
--- NOTE | 2017-08-18 17:39 | PDOC PROGRESS REPORT ---
Subjective Progress Note for:: 08/18/17 Subjective:: Patient was seen by the bedside in ICU alert. He had thoracentesis done, analysis consistent with transudate suggesting pleural effusion is from CHF, pulmonary, cardiology following patient. Reason For Visit: SEPTIC SHOCK,RESPIRATORY FAILURE,RENAL FAILURE, Physical Exam Vital Signs: Temp Pulse Resp BP Pulse Ox 97.5 F 105 H 24 H 78/58 L 97 08/18/17 16:00 08/18/17 15:43 08/18/17 15:43 08/18/17 15:06 08/18/17 15:43 Intake & Output 08/17/17 08/18/17 08/19/17 06:59 06:59 06:59 Intake Total 3498 2901 Output Total 3429 5700 05606 Balance 73 151 -33369 Weight 70.2 kg 71 kg General appearance: PRESENT: other Eye exam: PRESENT: PERRLA Respiratory exam: PRESENT: rhonchi Cardiovascular exam: PRESENT: +S1, +S2 GI/Abdominal exam: PRESENT: soft Neurological exam: PRESENT: alert Results Laboratory Results: 08/18/17 05:35 08/18/17 05:35 08/18/17 08/18/17 08/18/17 05:35 05:35 05:35 WBC 15.8 H RBC 3.86 L Hgb 10.5 L Hct 31.7 L MCV 82 MCH 27.1 MCHC 33.1 RDW 14.9 H Plt Count 271 Seg Neutrophils % Not Reportable Lymphocytes % Not Reportable Monocytes % Not Reportable Eosinophils % Not Reportable Basophils % Not Reportable Absolute Neutrophils Not Reportable Absolute Lymphocytes Not Reportable Absolute Monocytes Not Reportable Absolute Eosinophils Not Reportable Absolute Basophils Not Reportable Carbonic Acid 1.07 HCO3/H2CO3 Ratio 23:1 ABG pH 7.47 H ABG pCO2 35.4 ABG pO2 60.5 L ABG HCO3 25.3 ABG O2 Saturation 92.8 L ABG Base Excess 1.9 FiO2 35% Sodium 136.9 L Potassium 4.1 Chloride 104 Carbon Dioxide 27 Anion Gap 6 BUN 14 Creatinine 0.96 Est GFR ( Amer) > 60 Est GFR (Non-Af Amer) > 60 Glucose 98 Calcium 8.0 L 08/15/17 15:25 Tracheal Aspirate Gram Stain - Final 08/15/17 15:25 Tracheal Aspirate Sputum Culture - Final C.albicans/C.dubliniensis Normal Chelsey Absent 08/10/17 08/10/17 08/10/17 13:15 13:15 20:30 Creatine Kinase 70 41 L CK-MB (CK-2) 2.03 Troponin I 0.271 NT-Pro-B Natriuret Pep 08/10/17 08/11/17 08/11/17 20:30 06:30 06:30 Creatine Kinase 31 L CK-MB (CK-2) 2.61 1.80 Troponin I 0.160 0.087 NT-Pro-B Natriuret Pep 08/16/17 20:30 Creatine Kinase CK-MB (CK-2) Troponin I NT-Pro-B Natriuret Pep 1160 H Impressions: Head CT 08/10/17 09:58 IMPRESSION: CHRONIC CHANGES OF ATROPHY AND MICROVASCULAR ISCHEMIA. NO ACUTE PROCESS. EVIDENCE OF ACUTE STROKE: NO. Chest/Abdomen CTA 08/13/17 00:00 IMPRESSION: 1. NORMAL CTA OF THE CHEST. NO PULMONARY EMBOLI. 2. BILATERAL PLEURAL EFFUSIONS. RIGHT AND LEFT LOWER LOBE CONSOLIDATIONS SECONDARY TO COMPRESSIVE ATELECTASIS AND/OR PNEUMONIA. 3. COPD. 4. NONOBSTRUCTING CALCULUS IN THE LEFT KIDNEY. OLD VERTEBRAL WEDGE COMPRESSION FRACTURES. Abdomen/Pelvis CT 08/15/17 00:00 IMPRESSION: Trace bilateral pleural effusions with partial collapse left lower lobe Nasogastric tube, Arvizu catheter in good positioning No CT findings to explain history of sepsis Thoracentesis Ultrasound 08/15/17 00:00 IMPRESSION: SUCCESSFUL THORACENTESIS USING ULTRASOUND GUIDANCE. Chest Ultrasound 08/15/17 09:44 IMPRESSION: Bilateral pleural effusions KUB X-Ray 08/17/17 00:00 IMPRESSION: Grossly nonobstructive bowel gas pattern Suspect the patient has aspirated a broken tooth, tooth with filling is seen in the stomach fundus adjacent to the nasogastric tube Chest X-Ray 08/18/17 06:00 IMPRESSION: 1. Stable appearance of the chest. Assessment & Plan - Diagnosis (1) Septic shock Is this 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 (2) CHF (congestive heart failure) Qualifiers: Heart failure type: systolic Heart failure chronicity: acute Qualified Code(s): I50.21 - Acute systolic (congestive) heart failure (3) Acute on chronic respiratory failure with hypoxia and hypercapnia Is this 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 (4) Pneumonia Qualifiers: Pneumonia type: due to unspecified organism Laterality: bilateral Lung location: lower lobe of lung Qualified Code(s): J18.9 - Pneumonia, unspecified organism Is this 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 (5) Non-STEMI (non-ST elevated myocardial infarction) Is this 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 - Plan Summary Plan Summary: Patient still on mechanical ventilation, will continue same continue diuretic , another treatment for CHF
[2017-08-19] MEDS: IPRATROPIUM/ALBUTEROL 0.5-2.5 MG/3 ML AMPUL NEB SCH ×6 (00:31→20:06)
[2017-08-19] MEDS: IMIPENEM/CILASTATIN SODIUM 500 MG in NORMAL SALINE 100 ML IV SCH ×4 (00:46→17:53)
[2017-08-19] MEDS: PROPOFOL 100 ML IV PRN ×4 (00:50→17:53)
[2017-08-19] MEDS: ALPRAZOLAM 0.25 MG TABLET NG SCH ×3 (02:58→17:08)
[2017-08-19 04:51] LABS: ARTERIAL BLOOD BASE EXCESS 2.7 mmol/L; ARTERIAL BLOOD H2CO3 1.28 mmol/L (1.05-1.35); ARTERIAL BLOOD HCO3 27.4 mmol/L (20-26); ARTERIAL BLOOD O2 SATURATION 95.7 % (94-98); ARTERIAL BLOOD PCO2 42.4 mmHg (35-45); ARTERIAL BLOOD PH 7.43 (7.35-7.45); ARTERIAL BLOOD PO2 77.4 mmHg (80-100); ARTERIAL BLOOD TOTAL CO2 28.7 mmol/L (23-27); HEMOGLOBIN 10.4 g/dL (13.5-17.0); MEAN CORPUSCULAR HEMOGLOBIN 26.8 pg (27.0-33.4); MEAN CORPUSCULAR HGB CONC 32.7 g/dL (32.0-36.0); MEAN CORPUSCULAR VOLUME 82 fl (80-97); PLATELET COUNT 302 10^3/uL (150-450); RED BLOOD COUNT 3.89 10^6/uL (4.35-5.55); RED CELL DISTRIBUTION WIDTH 14.9 % (11.5-14.0)
[2017-08-19 04:52] LABS: ARTERIAL BLOOD FIO2 35%
[2017-08-19 05:06] LABS: ALANINE AMINOTRANSFERASE 52 U/L (21-72); ALBUMIN 2.1 g/dL (3.5-5.0); ALKALINE PHOSPHATASE 71 U/L (38-126); ANION GAP 6 (5-19); ASPARTATE AMINO TRANSFERASE 83 U/L (17-59); BILIRUBIN,DIRECT 0.3 mg/dL (0.0-0.4); BILIRUBIN,TOTAL 0.3 mg/dL (0.2-1.3); BLOOD UREA NITROGEN 12 mg/dL (7-20); CALCIUM 7.9 mg/dL (8.4-10.2); CARBON DIOXIDE 26 mmol/L (22-30); CHLORIDE 101 mmol/L (98-107); GLUCOSE 105 mg/dL (75-110); POTASSIUM 3.8 mmol/L (3.6-5.0); SODIUM 133.1 mmol/L (137-145); TOTAL PROTEIN 5.2 g/dL (6.3-8.2)
[2017-08-19] MEDS: DIPHENHYDRAMINE HCL 25 MG/10 ML UDC PO SCH ×4 (05:20→23:08)
[2017-08-19] MEDS: HEPARIN SOD (PORCINE) 5,000 UNIT/ML 1 ML SYRINGE SUBCUT SCH ×3 (05:21→23:06)
[2017-08-19] MEDS: METRONIDAZOLE 500 MG/NS RTU 100 ML IV SCH ×3 (05:21→17:07)
[2017-08-19] MEDS: 1/2 NORMAL SALINE 1,000 ML IV PRN (05:23)
[2017-08-19 05:46] LABS: ABSOLUTE LYMPHOCYTES# (MANUAL) 1.1 10^3/uL (0.5-4.7); ABSOLUTE MONOCYTES # (MANUAL) 0.5 10^3/uL (0.1-1.4); ABSOLUTE NEUTROPHILS# (MANUAL) 14.4 10^3/uL (1.7-8.2); BAND NEUTROPHILS % (MANUAL) 5 % (3-5); BASOPHILS % (MANUAL) 0 % (0-2); EOSINOPHILS % (MANUAL) 0 % (0-6); LYMPHOCYTES % (MANUAL) 7 % (13-45); MONOCYTES % (MANUAL) 3 % (3-13); SEGMENTED NEUTROPHILS % (MAN) 85 % (42-78); TOTAL CELLS COUNTED 100
[2017-08-19 05:47] LABS: PLATELET COMMENT ADEQUATE; RBC MORPHOLOGY COMMENT NORMO-CYTIC/CHROMIC
--- NOTE | 2017-08-19 06:15 | RADIOLOGY REPORT (SQ) ---
EXAM DESCRIPTION: CHEST SINGLE VIEW CLINICAL HISTORY: ventilated and intubated COMPARISON: 08/18/2017 FINDINGS: Single frontal view of the chest. Right IJ central venous catheter with tip in SVC. NG tube with tip below the diaphragm. Endotracheal tube with tip 2 cm above the guzman. Atherosclerotic calcification aortic arch. Heart is not enlarged. Patchy left basilar opacity compatible with pneumonia. No pleural effusion. No acute osseous abnormalities. Hyperinflation. Upper abdominal soft tissues are unremarkable. IMPRESSION: 1. Stable appearance of the chest.
[2017-08-19] MEDS: VANCOMYCIN HCL 750 MG in DEXTROSE 5%-WATER 250 ML IV SCH ×2 (09:35→23:07)
[2017-08-19] MEDS: DEXTROSE 5%-WATER 250 ML with NOREPINEPHRINE BITARTRATE 4 MG IV PRN ×2 (09:38)
[2017-08-19] MEDS: LACTULOSE SYRUP 20 GM/30 ML UDCUP PO SCH ×2 (09:39→23:07)
[2017-08-19] MEDS: MIDODRINE HCL 5 MG TABLET PO SCH ×3 (09:41→17:08)
[2017-08-19] MEDS: POLYETHYLENE GLYCOL 3350 POWDER 17 GM/1 PACKET PO SCH (09:41)
[2017-08-19] MEDS: FAMOTIDINE INJ/PF 20 MG/2 ML SDV IV SCH ×2 (09:43→23:06)
--- NOTE | 2017-08-19 11:28 | PDOC PROGRESS REPORT ---
Subjective Progress Note for:: 08/19/17 Subjective:: Patient about the same and has made very little progress. Patient's blood pressure been more stable on Midodrin. Patient is continuing on small dose of Levophed. He is making urine. Labs were reviewed. Patient is noted to have increased edema all over. Albumin is noted to be low. Patient remains intubated, sedated, patient however looks comfortable and in acute distress. Intermittent sinus tachycardia noted. Telemetry strips reviewed. Shows intermittent sinus tachycardia but with frequent APCs. Medications reviewed. Reason For Visit: SEPTIC SHOCK,RESPIRATORY FAILURE,RENAL FAILURE, Physical Exam Vital Signs: Temp Pulse Resp BP Pulse Ox 97.5 F 105 H 24 H 105/65 96 08/19/17 08:00 08/19/17 08:39 08/19/17 08:39 08/19/17 06:07 08/19/17 08:39 Intake & Output 08/18/17 08/19/17 08/20/17 06:59 06:59 06:59 Intake Total 2901 3720 Output Total 2750 53241 100 Balance 151 -45647 -100 Weight 71 kg 71.1 kg Exam: GENERAL: well-nourished and in no acute distress. Patient is intubated and sedated. Orientation cannot be checked HEAD: Atraumatic, normocephalic. EYES: Pupils equal round and reactive to light, extraocular movements could not be checked, sclera anicteric, conjunctiva are normal. ENT: TMs normal, nares patent, oropharynx clear without exudates. Moist mucous membranes. No oral ulcerations or bleeding gums noted NECK: supple without lymphadenopathy or JVD. Trachea is central. No cervical or axillary lymphadenopathy noted. Carotids are 2+ LUNGS: Breath sounds mostly clear to auscultation patient is noted to have bibasal crackles at the extreme bases CHEST: Palpation of the chest wall shows no significant chest wall tenderness or abnormalities. 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 ABDOMEN: Soft, no significant tenderness appreciated, normoactive bowel sounds. No guarding, no rebound. No rigidity noted . No masses appreciated. EXTREMITIES: Pedal pulses are 1-2+, no calf tenderness noted, 1+ pedal edema and generalized edema noted. No clubbing or cyanosis. NEUROLOGICAL: The patient cannot participate in the neurological exam but no facial asymmetry noted. Extremities slightly hypotonic PSYCH: This cannot be evaluated. Patient cannot participate. SKIN: No significant ecchymosis, rash, or signs of pruritus noted. MUSCULOSKELETAL EXAM: No significant joint swelling noted. Patient cannot participate in musculoskeletal exam Results Laboratory Results: 08/19/17 04:00 08/19/17 04:00 08/19/17 08/19/17 08/19/17 04:00 04:00 04:00 WBC 16.0 H RBC 3.89 L Hgb 10.4 L Hct 32.0 L MCV 82 MCH 26.8 L MCHC 32.7 RDW 14.9 H Plt Count 302 Seg Neutrophils % Not Reportable Lymphocytes % Not Reportable Monocytes % Not Reportable Eosinophils % Not Reportable Basophils % Not Reportable Absolute Neutrophils Not Reportable Absolute Lymphocytes Not Reportable Absolute Monocytes Not Reportable Absolute Eosinophils Not Reportable Absolute Basophils Not Reportable Carbonic Acid 1.28 HCO3/H2CO3 Ratio 21:1 ABG pH 7.43 ABG pCO2 42.4 ABG pO2 77.4 L ABG HCO3 27.4 H ABG O2 Saturation 95.7 ABG Base Excess 2.7 FiO2 35% Sodium 133.1 L Potassium 3.8 Chloride 101 Carbon Dioxide 26 Anion Gap 6 BUN 12 Creatinine 0.99 Est GFR ( Amer) > 60 Est GFR (Non-Af Amer) > 60 Glucose 105 Calcium 7.9 L Total Bilirubin 0.3 AST 83 H ALT 52 Alkaline Phosphatase 71 Total Protein 5.2 L Albumin 2.1 L 08/14/17 10:23 Blood Blood Culture - Final NO GROWTH IN 5 DAYS 08/14/17 09:40 Blood Blood Culture - Final NO GROWTH IN 5 DAYS 08/10/17 08/10/17 08/10/17 13:15 13:15 20:30 Creatine Kinase 70 41 L CK-MB (CK-2) 2.03 Troponin I 0.271 NT-Pro-B Natriuret Pep 08/10/17 08/11/17 08/11/17 20:30 06:30 06:30 Creatine Kinase 31 L CK-MB (CK-2) 2.61 1.80 Troponin I 0.160 0.087 NT-Pro-B Natriuret Pep 08/16/17 20:30 Creatine Kinase CK-MB (CK-2) Troponin I NT-Pro-B Natriuret Pep 1160 H EKG Comments: Telemetry strip shows sinus rhythm without sustained tacky or bradycardia arrhythmias. Impressions: Head CT 08/10/17 09:58 IMPRESSION: CHRONIC CHANGES OF ATROPHY AND MICROVASCULAR ISCHEMIA. NO ACUTE PROCESS. EVIDENCE OF ACUTE STROKE: NO. Chest/Abdomen CTA 08/13/17 00:00 IMPRESSION: 1. NORMAL CTA OF THE CHEST. NO PULMONARY EMBOLI. 2. BILATERAL PLEURAL EFFUSIONS. RIGHT AND LEFT LOWER LOBE CONSOLIDATIONS SECONDARY TO COMPRESSIVE ATELECTASIS AND/OR PNEUMONIA. 3. COPD. 4. NONOBSTRUCTING CALCULUS IN THE LEFT KIDNEY. OLD VERTEBRAL WEDGE COMPRESSION FRACTURES. Abdomen/Pelvis CT 08/15/17 00:00 IMPRESSION: Trace bilateral pleural effusions with partial collapse left lower lobe Nasogastric tube, Arvizu catheter in good positioning No CT findings to explain history of sepsis Thoracentesis Ultrasound 08/15/17 00:00 IMPRESSION: SUCCESSFUL THORACENTESIS USING ULTRASOUND GUIDANCE. Chest Ultrasound 08/15/17 09:44 IMPRESSION: Bilateral pleural effusions KUB X-Ray 08/17/17 00:00 IMPRESSION: Grossly nonobstructive bowel gas pattern Suspect the patient has aspirated a broken tooth, tooth with filling is seen in the stomach fundus adjacent to the nasogastric tube Facial Bones CT 08/18/17 00:00 IMPRESSION: NO ACUTE FINDINGS. Chest X-Ray 08/19/17 05:00 IMPRESSION: 1. Stable appearance of the chest. Assessment & Plan - Diagnosis (1) Acute on chronic respiratory failure with hypoxia and hypercapnia Is this 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 (2) Elevated troponin Is this 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 (3) Chronic obstructive pulmonary disease Qualifiers: Emphysema type: unspecified Is this 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 (4) Pneumonia Qualifiers: Pneumonia type: due to unspecified organism Laterality: bilateral Lung location: lower lobe of lung Qualified Code(s): J18.9 - Pneumonia, unspecified organism Is this 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 (5) Septic shock Is this 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 (6) Non-STEMI (non-ST elevated myocardial infarction) Is this 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 (7) Hypotension Qualifiers: Hypotension type: unspecified hypotension type Qualified Code(s): I95.9 - Hypotension, unspecified Is this 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 - Notes Notes: CHF: Suspected on basis of elevated BNP. 2D echo results are reviewed. Patient does have significant enlargement of the right ventricle. May have element of pulmonary hypertension and possible right heart failure contributing to pleural effusion. Patient also noted to have grade 2 diastolic dysfunction. Low albumin also contributing. Recommend low-dose diuretics. Will start patient on Lasix 20 mg p.o. daily. Non-STEMI: Most likely related to sepsis and metabolic reason, hypoxemia, severe hypotension related rather than acute coronary syndrome. Previous EKG is reviewed shows no significant ST-T changes. Hypotension: Currently on low-dose Levophed drip. Will increase Midodrin to 5 mg p.o. 3 times a day. May consider adding vasopressin if needed as preferred agent especially if patient develops hypotension. Acute respiratory failure: Most likely related to pneumonia on top of severe COPD. Agree with antibiotic therapy and artificial ventilation and oxygenation. Elevated troponin I: Most likely related to sepsis, acute respiratory failure. Patient may benefit from ischemia evaluation prior to discharge and can be considered even as an outpatient. COPD: Continue with artificial ventilation and oxygenation. Pneumonia: Continue with antibiotic therapy. Septic shock: Continue antibiotics. Continue vasopressors for blood pressure support. Recommend DVT prophylaxis with Lovenox or subcu heparin - Time Time with patient: Greater than 35 minutes - CODE STATUS was discussed, patient remains full code. Surrogate decision-maker unchanged. Multiple medical problems were addressed. More than 50% of the time spent coordinating care, discussing management plans with involved caregivers. Management plans discussed with involved personnels. Medical decision making was of moderate to high complexity, patient's has multiple comorbidities. Medications reviewed and adjusted accordingly: Yes
[2017-08-19] MEDS ORDERED: FUROSEMIDE INJ/PF 20 MG/2 ML SDV IV ONE (12:00)
--- NOTE | 2017-08-19 12:55 | RADIOLOGY REPORT (SQ) ---
EXAM DESCRIPTION: KUB/ABDOMEN (SINGLE VIEW) COMPLETED DATE/TIME: 08/19/2017 12:42 pm REASON FOR STUDY: distended abdomen; COMPARISON: 08/17/2017 NUMBER OF VIEWS: One view. TECHNIQUE: Supine radiographic image of the abdomen acquired. LIMITATIONS: None. FINDINGS: BOWEL GAS PATTERN: Stable gas distended loops of bowel. CALCIFICATIONS: No suspicious calcifications. SOFT TISSUES: No gross mass or suggestion of organomegaly. HARDWARE: Stable. BONES: No acute fracture. No worrisome bone lesions. OTHER: Diffuse again noted within the stomach IMPRESSION: STABLE GAS DISTENDED LOOPS OF BOWEL PRESUMABLY REPRESENTING ILEUS. TOOTH AGAIN NOTED WITHIN THE STOMACH. STABLE NASOGASTRIC TUBE AND COLBY CATHETER. TECHNICAL DOCUMENTATION: JOB ID: [id number] [employer]- All Rights Reserved Reading location - IP/workstation name: [email or web address]
--- NOTE | 2017-08-19 14:58 | PDOC PROGRESS REPORT ---
Subjective Progress Note for:: 08/19/17 Subjective:: Patient is still on mechanical ventilation Reason For Visit: SEPTIC SHOCK,RESPIRATORY FAILURE,RENAL FAILURE, Physical Exam Vital Signs: Temp Pulse Resp BP Pulse Ox 97.7 F 96 36 H 125/78 91 L 08/19/17 12:00 08/19/17 12:05 08/19/17 14:38 08/19/17 14:38 08/19/17 14:38 Intake & Output 08/18/17 08/19/17 08/20/17 06:59 06:59 06:59 Intake Total 2901 3720 Output Total 2750 94197 650 Balance 151 -16953 -650 Weight 71 kg 71.1 kg General appearance: PRESENT: no acute distress Eye exam: PRESENT: PERRLA Respiratory exam: PRESENT: rhonchi Cardiovascular exam: PRESENT: +S1, +S2 GI/Abdominal exam: PRESENT: soft Results Laboratory Results: 08/19/17 04:00 08/19/17 04:00 08/19/17 08/19/17 08/19/17 04:00 04:00 04:00 WBC 16.0 H RBC 3.89 L Hgb 10.4 L Hct 32.0 L MCV 82 MCH 26.8 L MCHC 32.7 RDW 14.9 H Plt Count 302 Seg Neutrophils % Not Reportable Lymphocytes % Not Reportable Monocytes % Not Reportable Eosinophils % Not Reportable Basophils % Not Reportable Absolute Neutrophils Not Reportable Absolute Lymphocytes Not Reportable Absolute Monocytes Not Reportable Absolute Eosinophils Not Reportable Absolute Basophils Not Reportable Carbonic Acid 1.28 HCO3/H2CO3 Ratio 21:1 ABG pH 7.43 ABG pCO2 42.4 ABG pO2 77.4 L ABG HCO3 27.4 H ABG O2 Saturation 95.7 ABG Base Excess 2.7 FiO2 35% Sodium 133.1 L Potassium 3.8 Chloride 101 Carbon Dioxide 26 Anion Gap 6 BUN 12 Creatinine 0.99 Est GFR ( Amer) > 60 Est GFR (Non-Af Amer) > 60 Glucose 105 Calcium 7.9 L Total Bilirubin 0.3 AST 83 H ALT 52 Alkaline Phosphatase 71 Total Protein 5.2 L Albumin 2.1 L 08/14/17 10:23 Blood Blood Culture - Final NO GROWTH IN 5 DAYS 08/14/17 09:40 Blood Blood Culture - Final NO GROWTH IN 5 DAYS 0208/10/17 08/10/17 13:15 13:15 20:30 Creatine Kinase 70 41 L CK-MB (CK-2) 2.03 Troponin I 0.271 NT-Pro-B Natriuret Pep 08/10/17 08/11/17 08/11/17 20:30 06:30 06:30 Creatine Kinase 31 L CK-MB (CK-2) 2.61 1.80 Troponin I 0.160 0.087 NT-Pro-B Natriuret Pep 08/16/17 20:30 Creatine Kinase CK-MB (CK-2) Troponin I NT-Pro-B Natriuret Pep 1160 H Impressions: Head CT 08/10/17 09:58 IMPRESSION: CHRONIC CHANGES OF ATROPHY AND MICROVASCULAR ISCHEMIA. NO ACUTE PROCESS. EVIDENCE OF ACUTE STROKE: NO. Chest/Abdomen CTA 08/13/17 00:00 IMPRESSION: 1. NORMAL CTA OF THE CHEST. NO PULMONARY EMBOLI. 2. BILATERAL PLEURAL EFFUSIONS. RIGHT AND LEFT LOWER LOBE CONSOLIDATIONS SECONDARY TO COMPRESSIVE ATELECTASIS AND/OR PNEUMONIA. 3. COPD. 4. NONOBSTRUCTING CALCULUS IN THE LEFT KIDNEY. OLD VERTEBRAL WEDGE COMPRESSION FRACTURES. Abdomen/Pelvis CT 08/15/17 00:00 IMPRESSION: Trace bilateral pleural effusions with partial collapse left lower lobe Nasogastric tube, Colby catheter in good positioning No CT findings to explain history of sepsis Thoracentesis Ultrasound 08/15/17 00:00 IMPRESSION: SUCCESSFUL THORACENTESIS USING ULTRASOUND GUIDANCE. Chest Ultrasound 08/15/17 09:44 IMPRESSION: Bilateral pleural effusions Facial Bones CT 08/18/17 00:00 IMPRESSION: NO ACUTE FINDINGS. KUB X-Ray 08/19/17 00:00 IMPRESSION: STABLE GAS DISTENDED LOOPS OF BOWEL PRESUMABLY REPRESENTING ILEUS. TOOTH AGAIN NOTED WITHIN THE STOMACH. STABLE NASOGASTRIC TUBE AND COLBY CATHETER. Chest X-Ray 08/19/17 05:00 IMPRESSION: 1. Stable appearance of the chest. Assessment & Plan - Diagnosis (1) Septic shock Is this 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 (2) CHF (congestive heart failure) Qualifiers: Heart failure type: systolic Heart failure chronicity: acute Qualified Code(s): I50.21 - Acute systolic (congestive) heart failure (3) Acute on chronic respiratory failure with hypoxia and hypercapnia Is this 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 (4) Pneumonia Qualifiers: Pneumonia type: due to unspecified organism Laterality: bilateral Lung location: lower lobe of lung Qualified Code(s): J18.9 - Pneumonia, unspecified organism Is this 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 (5) Non-STEMI (non-ST elevated myocardial infarction) Is this 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 - Plan Summary Plan Summary: Continue treatment
[2017-08-19] MEDS: GENTAMICIN SULFATE 90 MG in DEXTROSE 5%-WATER 100 ML IV SCH (23:13)
[2017-08-20] MEDS: IPRATROPIUM/ALBUTEROL 0.5-2.5 MG/3 ML AMPUL NEB SCH ×7 (00:24→23:47)
[2017-08-20] MEDS: PROPOFOL 100 ML IV PRN ×3 (00:27→18:06)
[2017-08-20] MEDS: IMIPENEM/CILASTATIN SODIUM 500 MG in NORMAL SALINE 100 ML IV SCH ×5 (00:47→23:45)
[2017-08-20] MEDS: METRONIDAZOLE 500 MG/NS RTU 100 ML IV SCH ×3 (00:47→11:48)
[2017-08-20] MEDS: 1/2 NORMAL SALINE 1,000 ML IV PRN ×2 (03:40→21:59)
[2017-08-20] MEDS: ALPRAZOLAM 0.25 MG TABLET NG SCH (03:41)
[2017-08-20 05:43] LABS: ARTERIAL BLOOD BASE EXCESS 1.8 mmol/L; ARTERIAL BLOOD H2CO3 1.22 mmol/L (1.05-1.35); ARTERIAL BLOOD HCO3 26.2 mmol/L (20-26); ARTERIAL BLOOD PCO2 40.6 mmHg (35-45); ARTERIAL BLOOD PH 7.43 (7.35-7.45); ARTERIAL BLOOD PO2 105.7 mmHg (80-100); ARTERIAL BLOOD TOTAL CO2 27.5 mmol/L (23-27)
[2017-08-20 05:46] LABS: ARTERIAL BLOOD FIO2 60%; HEMATOCRIT 29.3 % (37.9-51.0); HEMOGLOBIN 9.7 g/dL (13.5-17.0); MEAN CORPUSCULAR HEMOGLOBIN 26.9 pg (27.0-33.4); MEAN CORPUSCULAR HGB CONC 32.9 g/dL (32.0-36.0); MEAN CORPUSCULAR VOLUME 82 fl (80-97); PLATELET COUNT 325 10^3/uL (150-450); RED BLOOD COUNT 3.59 10^6/uL (4.35-5.55); RED CELL DISTRIBUTION WIDTH 14.9 % (11.5-14.0); WHITE BLOOD COUNT 15.1 10^3/uL (4.0-10.5)
[2017-08-20] MEDS: HEPARIN SOD (PORCINE) 5,000 UNIT/ML 1 ML SYRINGE SUBCUT SCH ×3 (06:05→21:15)
[2017-08-20 06:08] LABS: ANION GAP 8 (5-19); BLOOD UREA NITROGEN 12 mg/dL (7-20); CALCIUM 7.9 mg/dL (8.4-10.2); CARBON DIOXIDE 27 mmol/L (22-30); CHLORIDE 104 mmol/L (98-107); GLUCOSE 100 mg/dL (75-110); POTASSIUM 3.5 mmol/L (3.6-5.0); SODIUM 139.4 mmol/L (137-145)
[2017-08-20] MEDS: DIPHENHYDRAMINE HCL 25 MG/10 ML UDC PO SCH ×4 (06:08→23:45)
[2017-08-20 06:11] LABS: ABSOLUTE LYMPHOCYTES# (MANUAL) 2.3 10^3/uL (0.5-4.7); ABSOLUTE MONOCYTES # (MANUAL) 0.6 10^3/uL (0.1-1.4); ABSOLUTE NEUTROPHILS# (MANUAL) 12.2 10^3/uL (1.7-8.2); BAND NEUTROPHILS % (MANUAL) 1 % (3-5); BASOPHILS % (MANUAL) 0 % (0-2); EOSINOPHILS % (MANUAL) 0 % (0-6); LYMPHOCYTES % (MANUAL) 14 % (13-45); MONOCYTES % (MANUAL) 4 % (3-13); SEGMENTED NEUTROPHILS % (MAN) 80 % (42-78); TOTAL CELLS COUNTED 100
[2017-08-20 07:09] LABS: PLATELET COMMENT ADEQUATE
--- NOTE | 2017-08-20 07:31 | RADIOLOGY REPORT (SQ) ---
EXAM DESCRIPTION: CHEST SINGLE VIEW CLINICAL HISTORY: ventilated COMPARISON: 08/18/2017 FINDINGS: Single frontal view of the chest. Right IJ central venous catheter with tip in SVC. NG tube with tip below the diaphragm. Endotracheal tube with tip 2 cm above the guzman. Atherosclerotic calcification aortic arch. Heart is not enlarged. Tubal development of patchy right basilar airspace opacity. Patchy left basilar opacity compatible with pneumonia. No pleural effusion. No acute osseous abnormalities. Hyperinflation. Upper abdominal soft tissues are unremarkable. IMPRESSION: 1. Interval development of minimal patchy right basilar opacity. Otherwise stable appearance of the chest with persistent left basilar airspace opacity. Electronically signed by: Rafiq Cole 08/20/2017 6:30 AM
[2017-08-20] MEDS: VANCOMYCIN HCL 750 MG in DEXTROSE 5%-WATER 250 ML IV SCH ×2 (09:55→21:58)
[2017-08-20] MEDS: FUROSEMIDE INJ/PF 20 MG/2 ML SDV IV SCH (09:56)
[2017-08-20] MEDS: FAMOTIDINE INJ/PF 20 MG/2 ML SDV IV SCH ×2 (09:56→21:59)
[2017-08-20] MEDS: MIDODRINE HCL 5 MG TABLET PO SCH ×3 (09:57→18:05)
[2017-08-20] MEDS: DEXTROSE 5%-WATER 250 ML with NOREPINEPHRINE BITARTRATE 4 MG IV PRN ×2 (09:58)
[2017-08-20] MEDS ORDERED: COSYNTROPIN INJ 0.25 MG VIAL IV PRN (10:00)
[2017-08-20] MEDS ORDERED: POTASSIUM CHLORIDE 20 MEQ/15 ML UDCUP PO ONE (10:00)
[2017-08-20] MEDS ORDERED: DEXAMETHASONE SOD PHOSPHATE INJ 4 MG/1 ML VIAL IV ONE (10:00)
[2017-08-20] MEDS ORDERED: FLUCONAZOLE 200 MG/NS RTU 100 ML IV SCH (10:00)
--- NOTE | 2017-08-20 13:31 | PROGRESS NOTE E ---
Progress Note NAME: CHRISTOPHER LEBLANC : 1940 AGE: 77Y DATE: 08/18/2017 ROOM: 603 SUBJECTIVE: Patient is a 77-year-old -[place] male with a history of acute respiratory failure requiring invasive mechanical ventilation, septic shock requiring vasopressors, pneumonia bilateral, and history of COPD. Patient could not tolerate NG tube feeding yesterday, and NG tube feeding was held. Abdomen appeared to be slightly distended today. Patient is still in septic shock requiring vasopressors on Levophed at 4 mcg/min. The patient was weaned off of a Levophed drip earlier but his blood pressure went down to the 70s. Spontaneous breathing trial was performed. Patient failed his breathing trial using a ventilator rate of 6. Patient became tachypneic during the spontaneous breathing trial with a respiratory rate of 34, 38, 36 breaths per minute after about 5 minutes. Scanty endotracheal secretions. There was no fever over the last 24 hours. I spoke to the radiologist about the tooth that was dislodged and was noted on the KUB. I spoke to the radiologist and reviewed the CT scan of the abdomen. I had noted that the tooth appeared to be in the fundus of the stomach and seems to be stable on the CT scan of the abdomen done on August 15, 2017, and a chest CT scan done on August 14, 2017. He recommended doing a CT scan of the facial bones and sinuses to rule out abscess or source of infection resulting in septic shock. OBJECTIVE: GENERAL: Patient appeared awake, slightly sedated, afebrile, not in apparent acute respiratory distress with a blood pressure of 111/70 on Levophed of 4 mcg/min. Temperature is 97.5 with a T max of 98.1. Respiratory rate is 23-24. Oxygen saturation is 92% on SIMV rate of 24, tidal volume 450, PEEP of 6, pressure support of 10 above PEEP, and FiO2 35% with a peak airway pressure of 28 cm of water, and plateau pressure of 19, and mean airway pressure of 10, tidal volume of 416 mL a minute, ventilation of 11. EYES: No jaundice or pallor. EARS, NOSE, AND THROAT: No ear drainage. No nasal discharge. Orogastric tube is in place. CHEST AND LUNGS: No wheezing, no rhonchi, no coarse crackles noted. CARDIOVASCULAR: S1 and S2 is distinct. Normal rate and regular rhythm. ABDOMEN: Slightly distended and hypoactive bowel sounds. GENITOURINARY: Arvizu catheter is in place and the sex organs appear to be normal. EXTREMITIES: No joint swelling and no cellulitis. LABORATORY: CBC done today showed white blood cell count of 15,800, down from 18,000 yesterday. Hemoglobin is 10.5, hematocrit 31.7, platelet count is 221, that seems to be increasing from 7% yesterday to 14% today. Chemistries done today showed sodium of 136.9, potassium 4.1, chloride 104, CO2 27, BUN 14, creatinine 0.96, glucose 98, calcium is 8. ABG: pH of 7.47, pCO2 is 35.4, pO2 60.5, and saturation 92.8%. Chest x-ray done today showed a stable infiltrate in both lungs, and endotracheal tube is in place. No pneumothorax noted. No pleural effusion. Abdominal CT scan on August 15, 2017, and a chest CT scan done on August 14, 2017, were reviewed with the radiologist, Dr. Florence. ASSESSMENT: 1. ACUTE RESPIRATORY FAILURE REQUIRING INVASIVE MECHANICAL VENTILATION. Patient currently is not ready to be extubated yet. Patient failed the spontaneous breathing trial this morning. 2. SEPTIC SHOCK REQUIRING IV VASOPRESSORS CALLED LEVOPHED AND STILL REQUIRING 4 MCG/MIN INFUSION. Possible source of septic shock may be partly pneumonia but partly from tooth abscess or sinusitis. 3. PNEUMONIA BILATERAL. Appeared to be improving, scant endotracheal tube secretions. Currently on IV Primaxin, IV gentamicin, IV vancomycin, IV Flagyl. 4. DISLODGED TOOTH CURRENTLY FOUND IN THE FUNDUS OF THE STOMACH AND NOTHING IN THE DISTAL ESOPHAGUS. PLAN AND RECOMMENDATION: 1. Will do a CT scan of the facial bones and sinuses. 2. Will continue to optimize ventilatory support. 3. We will start patient on NG tube feedings at 20 mL per hour to advance to 30 ml if well tolerated. If patient vomits again, we may consider repeating the CT scan of the abdomen with contrast for possible acute intra abdominal pathology. 4. Continue IV antibiotics for now and will continue vasopressors until appears to wean off the vasopressor if possible. DICTATING PHYSICIAN: MICHAEL GARNER MD,RADHA,MPH [id number] PHY#: [id number] ID: [id number] JOB#: [id number] ACCT: [id number] cc: > MTDD
--- NOTE | 2017-08-20 13:45 | PDOC PROGRESS REPORT ---
Subjective Progress Note for:: 08/20/17 Subjective:: Patient is currently doing fair Patient still on antibiotic still Intubated on the ventilation support still require some pressure No fever at all cultures so far negative except the sputum culture so some candidiasis Reason For Visit: SEPTIC SHOCK,RESPIRATORY FAILURE,RENAL FAILURE, Physical Exam Vital Signs: Temp Pulse Resp BP Pulse Ox 98.4 F 97 34 H 111/68 98 08/20/17 12:00 08/20/17 12:03 08/20/17 12:03 08/20/17 10:24 08/20/17 12:03 Intake & Output 08/19/17 08/20/17 08/21/17 06:59 06:59 06:59 Intake Total 3720 3775 500 Output Total 52833 3765 1150 Balance -36733 10 -650 Weight 71.1 kg 70.3 kg Physical Exam: Currently intubated on vent support General appearance: PRESENT: no acute distress Eye exam: PRESENT: PERRLA Mouth exam: PRESENT: neck supple Respiratory exam: PRESENT: decreased breath sounds Cardiovascular exam: PRESENT: +S1, +S2 GI/Abdominal exam: PRESENT: normal bowel sounds, soft Extremities exam: ABSENT: pedal edema Additional comments: Currently on a vent support sedation Results Laboratory Results: 08/20/17 05:25 08/20/17 05:25 08/20/17 08/20/17 08/20/17 05:25 05:25 05:25 WBC 15.1 H RBC 3.59 L Hgb 9.7 L Hct 29.3 L MCV 82 MCH 26.9 L MCHC 32.9 RDW 14.9 H Plt Count 325 Seg Neutrophils % Not Reportable Lymphocytes % Not Reportable Monocytes % Not Reportable Eosinophils % Not Reportable Basophils % Not Reportable Absolute Neutrophils Not Reportable Absolute Lymphocytes Not Reportable Absolute Monocytes Not Reportable Absolute Eosinophils Not Reportable Absolute Basophils Not Reportable Carbonic Acid 1.22 HCO3/H2CO3 Ratio 21:1 ABG pH 7.43 ABG pCO2 40.6 ABG pO2 105.7 H ABG HCO3 26.2 H ABG O2 Saturation 98.0 ABG Base Excess 1.8 FiO2 60% Sodium 139.4 Potassium 3.5 L Chloride 104 Carbon Dioxide 27 Anion Gap 8 BUN 12 Creatinine 0.97 Est GFR ( Amer) > 60 Est GFR (Non-Af Amer) > 60 Glucose 100 Calcium 7.9 L Magnesium 1.8 08/15/17 14:05 Pleural Fluid - Not Specified Gram Stain - Final 08/15/17 14:05 Pleural Fluid - Not Specified Body Fluid Culture - Final NO AEROBIC OR ANAEROBIC ORGANISMS RECOVERED 08/14/17 10:23 Blood Blood Culture - Final NO GROWTH IN 5 DAYS 08/14/17 09:40 Blood Blood Culture - Final NO GROWTH IN 5 DAYS 08/10/17 08/10/17 08/10/17 13:15 13:15 20:30 Creatine Kinase 70 41 L CK-MB (CK-2) 2.03 Troponin I 0.271 NT-Pro-B Natriuret Pep 08/10/17 08/11/17 08/11/17 20:30 06:30 06:30 Creatine Kinase 31 L CK-MB (CK-2) 2.61 1.80 Troponin I 0.160 0.087 NT-Pro-B Natriuret Pep 08/16/17 20:30 Creatine Kinase CK-MB (CK-2) Troponin I NT-Pro-B Natriuret Pep 1160 H Impressions: Head CT 08/10/17 09:58 IMPRESSION: CHRONIC CHANGES OF ATROPHY AND MICROVASCULAR ISCHEMIA. NO ACUTE PROCESS. EVIDENCE OF ACUTE STROKE: NO. Chest/Abdomen CTA 08/13/17 00:00 IMPRESSION: 1. NORMAL CTA OF THE CHEST. NO PULMONARY EMBOLI. 2. BILATERAL PLEURAL EFFUSIONS. RIGHT AND LEFT LOWER LOBE CONSOLIDATIONS SECONDARY TO COMPRESSIVE ATELECTASIS AND/OR PNEUMONIA. 3. COPD. 4. NONOBSTRUCTING CALCULUS IN THE LEFT KIDNEY. OLD VERTEBRAL WEDGE COMPRESSION FRACTURES. Abdomen/Pelvis CT 08/15/17 00:00 IMPRESSION: Trace bilateral pleural effusions with partial collapse left lower lobe Nasogastric tube, Colby catheter in good positioning No CT findings to explain history of sepsis Thoracentesis Ultrasound 08/15/17 00:00 IMPRESSION: SUCCESSFUL THORACENTESIS USING ULTRASOUND GUIDANCE. Chest Ultrasound 08/15/17 09:44 IMPRESSION: Bilateral pleural effusions Facial Bones CT 08/18/17 00:00 IMPRESSION: NO ACUTE FINDINGS. KUB X-Ray 08/19/17 00:00 IMPRESSION: STABLE GAS DISTENDED LOOPS OF BOWEL PRESUMABLY REPRESENTING ILEUS. TOOTH AGAIN NOTED WITHIN THE STOMACH. STABLE NASOGASTRIC TUBE AND COLBY CATHETER. Chest X-Ray 08/20/17 05:00 IMPRESSION: 1. Interval development of minimal patchy right basilar opacity. Otherwise stable appearance of the chest with persistent left basilar airspace opacity. Assessment & Plan - Diagnosis (1) Acute on chronic respiratory failure with hypoxia and hypercapnia Is this 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 Plan: Currently on vent support's follow with the pulmonary (2) Septic shock Is this 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 Plan: As per discussed with the community leader will continues to vancomycin and Primaxin stop the Flagyl was C. difficile is negative (3) Pneumonia Qualifiers: Pneumonia type: due to unspecified organism Laterality: bilateral Lung location: lower lobe of lung Qualified Code(s): J18.9 - Pneumonia, unspecified organism Is this 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 Plan: Strep pneumonia with MRSA continues to Primaxin and vancomycin (4) Acute renal failure Qualifiers: Acute renal failure type: unspecified Qualified Code(s): N17.9 - Acute kidney failure, unspecified Is this 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 Plan: Currently all stable (5) Chronic obstructive pulmonary disease Qualifiers: Emphysema type: unspecified Is this 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 Plan: Continues to nebulizer treatments (6) Hypertension Qualifiers: Hypertension type: essential hypertension Qualified Code(s): I10 - Essential (primary) hypertension Is this 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 Plan: Currently hypertension is due to the septic shock (7) Neoplasm of rectum Is this 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 Plan: Patient's last CEA was all normal and according to the oncology's no need for further evaluations (8) Elevated troponin Is this 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 Plan: Non-ST DC due to the septic shock currently follow with the cardiology (9) Leukocytosis Qualifiers: Leukocytosis type: bandemia Qualified Code(s): D72.825 - Bandemia Is this 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 Plan: Continues to vancomycin and gentamicin (10) Pleural effusion Is this 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 - Time Time Spent with patient: 15-24 minutes Medications reviewed and adjusted accordingly: Yes Anticipated discharge: Other Within: Other - Inpatient Certification Medical Necessity: Need Close Monitoring Due to Risk of Patient Decompensation, Need For IV Fluids, Need for IV Antibiotics Post Hospital Care: D/C Charge Master Specialist Documentation - Plan Summary Plan Summary: Continues to current medication discussed with the patient's family and the discussed with the pulmonary and cardiology
--- NOTE | 2017-08-20 14:15 | PROGRESS NOTE E ---
Progress Note NAME: CHRISTOPHER LEBLANC : 1940 AGE: 77Y DATE: 08/19/2017 ROOM: 603 SUBJECTIVE: The patient is a 77-year-old -[place] Islander male who came in with acute respiratory failure requiring invasive mechanical ventilation, septic shock, pneumonia bibasal, pleural effusion, and COPD. Patient had no fever overnight. There was no vomiting noted. Has scant endotracheal tube secretions. The patient is still hypotensive requiring Levophed infusion at 4 mcg per hour, and started to wean off at 3 mcg per hour. Blood pressure seems to be low. Patient started having watery stools. Patient was given a laxative yesterday. CT scan of the facial bones did not show any signs of tooth abscess or sinusitis or sinus abscess. Bowel sounds seems more hypoactive than yesterday, but patient seems to be tolerating the OG tube feeding at 20 mL per hour. OBJECTIVE: GENERAL: Patient is slightly sedated. VITAL SIGNS: Afebrile. Not in respiratory distress with a blood pressure 110/69, temperature is 94.8 with a T max of 95 degrees Fahrenheit. Heart rate is about 88 beats per minute. Respiratory rate is 24. Saturation is 93% on FiO2 of 35%, PEEP of 6, pressure support of 10 above PEEP. Tidal volume is 450 at a rate of 24 with peak airway pressure of 27 and 22, and total pressure of 18, minute ventilations of 11, exhale/inhale tidal volume 460/550. EYES: No jaundice or pallor. EARS, NOSE, MOUTH, AND THROAT: No ear drainage noted. Orotracheal and orogastric tube is in place. CHEST AND LUNGS: No wheezing, no coarse crackles, no rhonchi. CARDIOVASCULAR: S1 and S2 is distinct. Normal rate and regular rhythm. ABDOMEN: Slightly distended and hypoactive bowel sounds. No apparent tenderness. EXTREMITIES: No joint swelling and no cellulitis. GENITOURINARY: Genital area appeared to be normal. Over the last 24 hours, intake is about 2900, and output is about 4750. LABORATORY: CBC done today showed white count of 16,000, hemoglobin is 10.4, hematocrit is 32, and platelet count is 302, bands down to 5% from 14%. Chemistry done today showed sodium 133, potassium 3.8, chloride 101, CO2 is 26, BUN 4, creatinine 0.99, glucose 105, and calcium 7.9. Total bilirubin is 0.3, direct bilirubin is 0.3. SGOT is 83 and SGPT 54, alkaline phosphatase 51. Total protein is 5.2 and albumin is 2.1. ABG done today showed pH of 7.43, pCO2 42.4, pO2 is 77, and ABG saturation is 95%, and PEEP of 5. Chest x-ray showed endotracheal tube tip is well seen about the guzman. No pneumothorax noted and no worsening pulmonary infiltrates noted. Chest x-ray appeared stable. ASSESSMENT: 1. ACUTE RESPIRATORY FAILURE REQUIRING INVASIVE MECHANICAL VENTILATION. We are doing spontaneous breathing trials today. Patient failed spontaneous breathing trial yesterday. Will do it again this morning. 2. PNEUMONIA BILATERAL BIBASAL. Appeared to be improving. White count is down to 15,000 from 60,000 yesterday. Bands are going down to 5% from 14% today. 3. PLEURAL EFFUSION LEFT SIDE. Seems to be stable on today's chest x-ray. 4. SEPTIC SHOCK. Currently still requiring vasopressors but seems to be improving requiring less vasopressors and leukocytosis improving. 5. SLIGHTLY DISTENDED ABDOMEN WITH HYPOACTIVE BOWEL SOUNDS. PLAN AND RECOMMENDATIONS: 1. We are going to do spontaneous breathing trial in the morning. 2. We will do a chest x-ray, ABG, and labs tomorrow. 3. We will continue to try feed the patient through orogastric tube feedings. If he is tolerating well, we might go up to 30 mL. 4. We will do a KUB this morning. 5. Will continue the IV vancomycin , Primaxin, gentamicin, and Flagyl. DICTATING PHYSICIAN: MICHAEL GARNER MD,RADHA,MPH [id number] PHY#: [id number] ID: [id number] JOB#: [id number] ACCT: [id number] cc: > MTDD
[2017-08-20] MEDS: HYDROCORTISONE SOD SUCCINATE INJ/PF 100 MG/2 ML SDV IV SCH (18:06)
--- NOTE | 2017-08-20 20:34 | PDOC PROGRESS REPORT ---
Subjective Progress Note for:: 08/20/17 Subjective:: Patient about the same and has made some progress. Today noted to be off levophed. Patient was placed on IV Lasix 20 mg p.o. daily which he seems to be tolerating well. Patient remains intubated, sedated, patient however looks comfortable and in acute distress. Intermittent sinus tachycardia noted. Telemetry strips reviewed. Shows intermittent sinus tachycardia but with frequent APCs. Medications reviewed. Reason For Visit: SEPTIC SHOCK,RESPIRATORY FAILURE,RENAL FAILURE, Physical Exam Vital Signs: Temp Pulse Resp BP Pulse Ox 97.9 F 96 24 H 109/67 95 08/20/17 20:00 08/20/17 20:00 08/20/17 18:23 08/20/17 18:23 08/20/17 18:23 Intake & Output 08/19/17 08/20/17 08/21/17 06:59 06:59 06:59 Intake Total 3720 3775 2435 [place] Total 08179 3765 2200 Balance -21446 10 235 Weight 71.1 kg 70.3 kg Exam: GENERAL: well-nourished and in no acute distress. Patient is intubated and sedated. Orientation cannot be checked HEAD: Atraumatic, normocephalic. EYES: Pupils equal round and reactive to light, extraocular movements could not be checked, sclera anicteric, conjunctiva are normal. ENT: TMs normal, nares patent, oropharynx clear without exudates. Moist mucous membranes. No oral ulcerations or bleeding gums noted NECK: supple without lymphadenopathy or JVD. Trachea is central. No cervical or axillary lymphadenopathy noted. Carotids are 2+ LUNGS: Breath sounds mostly clear to auscultation patient is noted to have bibasal crackles at the extreme bases CHEST: Palpation of the chest wall shows no significant chest wall tenderness or abnormalities. HEART: [place] [employer], No PSH, 2/6 DOTTY aortic area, 1/6 turk systolic murmur mitral area , no rubs or gallops. ABDOMEN: Soft, no significant tenderness appreciated, normoactive bowel sounds. No guarding, no rebound. No rigidity noted . No masses appreciated. EXTREMITIES: Pedal pulses are 1-2+, no calf tenderness noted, 1+ pedal edema noted. No clubbing or cyanosis. NEUROLOGICAL: The patient cannot participate in the neurological exam but no facial asymmetry noted. Extremities slightly hypotonic PSYCH: This cannot be evaluated. Patient cannot participate. SKIN: No significant ecchymosis, rash, or signs of pruritus noted. MUSCULOSKELETAL EXAM: No significant joint swelling noted. Patient cannot participate in musculoskeletal exam Results Laboratory Results: 08/20/17 05:25 08/20/17 05:25 08/20/17 08/20/17 08/20/17 05:25 05:25 05:25 WBC 15.1 H RBC 3.59 L Hgb 9.7 L Hct 29.3 L MCV 82 MCH 26.9 L MCHC 32.9 RDW 14.9 H Plt Count 325 Seg Neutrophils % Not Reportable Lymphocytes % Not Reportable Monocytes % Not Reportable Eosinophils % Not Reportable Basophils % Not Reportable Absolute Neutrophils Not Reportable Absolute Lymphocytes Not Reportable Absolute Monocytes Not Reportable Absolute Eosinophils Not Reportable Absolute Basophils Not Reportable Carbonic Acid 1.22 HCO3/H2CO3 Ratio 21:1 ABG pH 7.43 ABG pCO2 40.6 ABG pO2 105.7 H ABG HCO3 26.2 H ABG O2 Saturation 98.0 ABG Base Excess 1.8 FiO2 60% Sodium 139.4 Potassium 3.5 L Chloride 104 Carbon Dioxide 27 Anion Gap 8 BUN 12 Creatinine 0.97 Est GFR ( Amer) > 60 Est GFR (Non-Af Amer) > 60 Glucose 100 Calcium 7.9 L Magnesium 1.8 TSH 08/20/17 05:25 WBC RBC Hgb Hct MCV MCH MCHC RDW Plt Count Seg Neutrophils % Lymphocytes % Monocytes % Eosinophils % Basophils % Absolute Neutrophils Absolute Lymphocytes Absolute Monocytes Absolute Eosinophils Absolute Basophils Carbonic Acid HCO3/H2CO3 Ratio ABG pH ABG pCO2 ABG pO2 ABG HCO3 ABG O2 Saturation ABG Base Excess FiO2 Sodium Potassium Chloride Carbon Dioxide Anion Gap BUN Creatinine Est GFR ( Amer) Est GFR (Non-Af Amer) Glucose Calcium Magnesium TSH 2.96 08/15/17 18:35 Blood Blood Culture - Final NO GROWTH IN 5 DAYS 08/15/17 16:55 Blood Blood Culture - Final NO GROWTH IN 5 DAYS 08/15/17 13:15 Blood Blood Culture - Final NO GROWTH IN 5 DAYS 08/15/17 13:20 Blood Blood Culture - Final NO GROWTH IN 5 DAYS 08/15/17 14:05 Pleural Fluid - Not Specified Gram Stain - Final 08/15/17 14:05 Pleural Fluid - Not Specified Body Fluid Culture - Final NO AEROBIC OR ANAEROBIC ORGANISMS RECOVERED 08/10/17 08/10/17 08/10/17 13:15 13:15 20:30 Creatine Kinase 70 41 L CK-MB (CK-2) 2.03 Troponin I 0.271 NT-Pro-B Natriuret Pep 08/10/17 08/11/17 08/11/17 20:30 06:30 06:30 Creatine Kinase 31 L CK-MB (CK-2) 2.61 1.80 Troponin I 0.160 0.087 NT-Pro-B Natriuret Pep 08/16/17 20:30 Creatine Kinase CK-MB (CK-2) Troponin I NT-Pro-B Natriuret Pep 1160 H EKG Comments: Telemetry strips shows sinus tachycardia with frequent APCs. Impressions: Head CT 08/10/17 09:58 IMPRESSION: CHRONIC CHANGES OF ATROPHY AND MICROVASCULAR ISCHEMIA. NO ACUTE PROCESS. EVIDENCE OF ACUTE STROKE: NO. Chest/Abdomen CTA 08/13/17 00:00 IMPRESSION: 1. NORMAL CTA OF THE CHEST. NO PULMONARY EMBOLI. 2. BILATERAL PLEURAL EFFUSIONS. RIGHT AND LEFT LOWER LOBE CONSOLIDATIONS SECONDARY TO COMPRESSIVE ATELECTASIS AND/OR PNEUMONIA. 3. COPD. 4. NONOBSTRUCTING CALCULUS IN THE LEFT KIDNEY. OLD VERTEBRAL WEDGE COMPRESSION FRACTURES. Abdomen/Pelvis CT 08/15/17 00:00 IMPRESSION: Trace bilateral pleural effusions with partial collapse left lower lobe Nasogastric tube, Colby catheter in good positioning No CT findings to explain history of sepsis Thoracentesis Ultrasound 08/15/17 00:00 IMPRESSION: SUCCESSFUL THORACENTESIS USING ULTRASOUND GUIDANCE. Chest Ultrasound 08/15/17 09:44 IMPRESSION: Bilateral pleural effusions Facial Bones CT 08/18/17 00:00 IMPRESSION: NO ACUTE FINDINGS. KUB X-Ray 08/19/17 00:00 IMPRESSION: STABLE GAS DISTENDED LOOPS OF BOWEL PRESUMABLY REPRESENTING ILEUS. TOOTH AGAIN NOTED WITHIN THE STOMACH. STABLE NASOGASTRIC TUBE AND COLBY CATHETER. Chest X-Ray 08/20/17 05:00 IMPRESSION: 1. Interval development of minimal patchy right basilar opacity. Otherwise stable appearance of the chest with persistent left basilar airspace opacity. Assessment & Plan - Diagnosis (1) Acute on chronic respiratory failure with hypoxia and hypercapnia Is this 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 (2) Elevated troponin Is this 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 (3) Chronic obstructive pulmonary disease Qualifiers: Emphysema type: unspecified Is this 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 (4) Pneumonia Qualifiers: Pneumonia type: due to unspecified organism Laterality: bilateral Lung location: lower lobe of lung Qualified Code(s): J18.9 - Pneumonia, unspecified organism Is this 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 (5) Septic shock Is this 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 (6) Non-STEMI (non-ST elevated myocardial infarction) Is this 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 (7) Hypotension Qualifiers: Hypotension type: unspecified hypotension type Qualified Code(s): I95.9 - Hypotension, unspecified Is this 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 - Notes Notes: CHF: Suspected on basis of elevated BNP. 2D echo results are reviewed. Patient does have significant enlargement of the right ventricle. May have element of pulmonary hypertension and possible right heart failure contributing to pleural effusion. Patient also noted to have grade 2 diastolic dysfunction. Low albumin also contributing. Recommend low-dose diuretics. Continue Lasix at current dose. Non-STEMI: Most likely related to sepsis and metabolic reason, hypoxemia, severe hypotension related rather than acute coronary syndrome. Previous EKG is reviewed shows no significant ST-T changes. Hypotension: Blood pressure was stable. Increased Midodrin to 5 mg p.o. 3 times a day. May consider adding vasopressin if needed as preferred agent especially if patient develops hypotension. Acute respiratory failure: Most likely related to pneumonia on top of severe COPD. Agree with antibiotic therapy and artificial ventilation and oxygenation. Elevated troponin I: Most likely related to sepsis, acute respiratory failure. Patient may benefit from ischemia evaluation prior to discharge and can be considered even as an outpatient. COPD: Continue with artificial ventilation and oxygenation. Pneumonia: Continue with antibiotic therapy. Septic shock: Continue antibiotics. Continue vasopressors for blood pressure support. Recommend DVT prophylaxis with Lovenox or subcu heparin - Time Time with patient: 15-25 minutes - CODE STATUS was discussed, patient remains full code. Surrogate decision-maker unchanged. Multiple medical problems were addressed. More than 50% of the time spent coordinating care, discussing management plans with involved caregivers. Management plans discussed with involved personnels. Medical decision making was of moderate to high complexity , patient's has multiple comorbidities. Medications reviewed and adjusted accordingly: Yes
--- NOTE | 2017-08-20 21:08 | PROGRESS NOTE E ---
Progress Note NAME: CHRISTOPHER LEBLANC : 1940 AGE: 77Y DATE: 08/20/2017 ROOM: 603 SUBJECTIVE: The patient is a 77-year-old -[place] male who came with a history of acute respiratory failure requiring invasive mechanical ventilation, pneumonia bibasal, septic shock, COPD exacerbation, and pleural effusion. The patient has no fever over the last 24 hours. He was still hypotensive this morning requiring vasopressor infusion, namely Levophed at 3-4 mcg per minute. Blood pressure appeared improved in the morning after the patient received dexamethasone 4 mg IV as a preparation for ACTH stimulation test. There was no vomiting, no diarrhea. Has scanty endotracheal tube secretions. The patient tolerated NG tube feeding at 30 mL per hour. Spontaneous breathing trial was performed earlier today using the SIMV rate of 6. The patient became tachypneic with respirations about 36 breaths per minute after about 5-6 minutes. ACTH stimulation test was done today showing baseline serum cortisol level of 15.5 and cortisol went up to 30 mcg/dL 1 hour after cosyntropin 250 mcg IV was administered. Blood pressure has been stable this morning and off vasopressor. OBJECTIVE: GENERAL: The patient appeared slightly sedated. VITAL SIGNS: Afebrile, not in acute respiratory distress with a blood pressure of 101/58 off the vasopressor. Temperature is 98.6 with a T-max of 98.6. Respiratory is 24. Saturation is 94% on FiO2 of 40%, PEEP of 6, pressor support of 10, centimeter water pressure above PEEP, rate of 24, and tidal volume 450 mL, peak airway pressure is 24, total pressure is 18, mean airway pressure is 12, minute ventilation is 10-11, and inhaled/exhaled tidal volume about 450 mL. EYES: No jaundice or pallor. EARS, NOSE, AND THROAT: No ear drainage noted. No nasal discharge. HEAD AND NECK: No scalp swelling or tenderness. Neck is supple. CHEST AND LUNGS: No wheezing, no rhonchi, no coarse crackles. CARDIOVASCULAR: S1 and S2 is distinct. Normal rate, regular rhythm. ABDOMEN: Flabby, positive bowel sounds, soft, nondistended. EXTREMITIES: No joint swelling, no cellulitis. GENITOURINARY: Genitals appeared normal. LABORATORY DATA: CBC done today showed white count of 15,100 down from 16,000 yesterday; hemoglobin is 9.7; hematocrit is 39.3; platelet count is 324. Bands went down to 1% from 5% yesterday and 14% two days ago. ABG done this morning showed a pH of 7.43, pCO2 of 40.6, pO2 of 105, and ABG saturation is 98% on 60% FiO2. Chemistry done today showed sodium 139, potassium 3.5, chloride 104, CO2 is 27, BUN 12, creatinine is 0.97, glucose 100, calcium 7.9, and magnesium 1.8. IMAGING STUDIES: Chest x-ray done today showed absence of pneumothorax. Endotracheal tube is in place about 2 cm above the guzman. No worsening of the infiltrate or pleural effusion. ASSESSMENT: 1. ACUTE RESPIRATORY FAILURE REQUIRING INVASIVE MECHANICAL VENTILATION. Currently not ready to be extubated yet. Failed spontaneous breathing trial this morning after 6 minutes. 2. SEVERE HYPOTENSION, PARTLY DUE TO SEPSIS. Has been on IV antibiotics for more than 7 days; on IV vancomycin, IV Primaxin, and IV gentamicin. No fever over the last 48 hours and white count has been decreasing. Hypotension may be due to a secondary adrenal insufficiency or subclinical adrenal insufficiency. ACTH stimulation test showed a non-conclusive serum cortisol level of 15 mcg/dL, and there is good response to cosyntropin IV injection. Adrenal insufficiency cannot be completely excluded. The hypotension appeared to respond to IV dexamethasone 4 mg this morning. 3. PNEUMONIA BILATERAL. Seems to be clinically improving. 4. COPD, CURRENTLY NOT IN ACUTE BRONCHOSPASM. PLAN/RECOMMENDATION: 1. We will discontinue the fluconazole IV because it may suppress the adrenals. 2. We will continue IV antibiotics. 3. We will do a spontaneous breathing trial again tomorrow. 4. We will start patient empirically on hydrocortisone 50 mg IV every 8 hours, first dose tonight. And, if patient responds appropriately and with improvement of the blood pressure we will taper the dose in the next 1 to 3 days to oral form. 5. We continue to optimize nutritional support and ventilator support. DICTATING PHYSICIAN: MICHAEL GARNER MD,RADHA,MPH [id number] PHY#: [id number] ID: [id number] JOB#: [id number] ACCT: [id number] cc: > MTDD
[2017-08-21] MEDS: HYDROCORTISONE SOD SUCCINATE INJ/PF 100 MG/2 ML SDV IV SCH ×3 (02:16→18:42)
[2017-08-21] MEDS: PROPOFOL 100 ML IV PRN (04:13)
[2017-08-21] MEDS: IPRATROPIUM/ALBUTEROL 0.5-2.5 MG/3 ML AMPUL NEB SCH ×5 (04:28→20:02)
[2017-08-21] MEDS: DIPHENHYDRAMINE HCL 25 MG/10 ML UDC PO SCH ×3 (05:00→18:38)
[2017-08-21] MEDS: IMIPENEM/CILASTATIN SODIUM 500 MG in NORMAL SALINE 100 ML IV SCH ×3 (05:30→21:09)
[2017-08-21] MEDS: HEPARIN SOD (PORCINE) 5,000 UNIT/ML 1 ML SYRINGE SUBCUT SCH ×3 (05:31→21:10)
[2017-08-21 06:07] LABS: HEMATOCRIT 28.5 % (37.9-51.0); HEMOGLOBIN 9.4 g/dL (13.5-17.0); MEAN CORPUSCULAR HGB CONC 32.9 g/dL (32.0-36.0); MEAN CORPUSCULAR VOLUME 82 fl (80-97); PLATELET COUNT 330 10^3/uL (150-450); RED BLOOD COUNT 3.48 10^6/uL (4.35-5.55); RED CELL DISTRIBUTION WIDTH 15.3 % (11.5-14.0); WHITE BLOOD COUNT 15.3 10^3/uL (4.0-10.5)
[2017-08-21 06:24] LABS: ALANINE AMINOTRANSFERASE 41 U/L (21-72); ALBUMIN 2.1 g/dL (3.5-5.0); ALKALINE PHOSPHATASE 70 U/L (38-126); ANION GAP 9 (5-19); ASPARTATE AMINO TRANSFERASE 39 U/L (17-59); BILIRUBIN,DIRECT 0.2 mg/dL (0.0-0.4); BILIRUBIN,TOTAL 0.2 mg/dL (0.2-1.3); BLOOD UREA NITROGEN 17 mg/dL (7-20); CALCIUM 8.1 mg/dL (8.4-10.2); CARBON DIOXIDE 26 mmol/L (22-30); CHLORIDE 103 mmol/L (98-107); GLUCOSE 111 mg/dL (75-110); POTASSIUM 4.2 mmol/L (3.6-5.0); SODIUM 137.5 mmol/L (137-145)
[2017-08-21 06:27] LABS: ABSOLUTE LYMPHOCYTES# (MANUAL) 0.6 10^3/uL (0.5-4.7); ABSOLUTE MONOCYTES # (MANUAL) 0.9 10^3/uL (0.1-1.4); ABSOLUTE NEUTROPHILS# (MANUAL) 13.8 10^3/uL (1.7-8.2); BAND NEUTROPHILS % (MANUAL) 2 % (3-5); BASOPHILS % (MANUAL) 0 % (0-2); EOSINOPHILS % (MANUAL) 0 % (0-6); LYMPHOCYTES % (MANUAL) 4 % (13-45); MONOCYTES % (MANUAL) 6 % (3-13); SEGMENTED NEUTROPHILS % (MAN) 88 % (42-78); TOTAL CELLS COUNTED 100
[2017-08-21 06:30] LABS: ANISOCYTOSIS SLIGHT; BURR CELLS 2+; HELMET CELLS SLIGHT; OVALOCYTES 1+; POIKILOCYTOSIS 1+; SCHISTOCYTES 1+; TOXIC GRANULATION 2+
[2017-08-21 06:31] LABS: PLATELET COMMENT ADEQUATE; TEAR DROP CELLS 1+
--- NOTE | 2017-08-21 07:53 | RADIOLOGY REPORT (SQ) ---
EXAM DESCRIPTION: CHEST SINGLE VIEW CLINICAL HISTORY: 77 years Male, ventilated COMPARISON: 08/20/17. NUMBER OF VIEWS/TECHNIQUE: 1/AP LIMITATIONS: None. FINDINGS: Moderate haziness-layered effusion of bilateral lower lungs, moderate left lower lobar opacity, prominent interstitium, normal cardiac silhouette, adequate appearing endotracheal tube tip is 2.2 cm from the guzman: Recommend 1 cm retraction. Likely adequate enteric tube obscured distally. Tip of a right jugular central line at the cavoatrial junction. No pneumothorax. No acute bone defect. IMPRESSION: Tip of an endotracheal tube is 2.2 cm from the guzman; recommend 1 cm retraction. Else, stable.
[2017-08-21 09:40] LABS: ARTERIAL BLOOD BASE EXCESS 4.9 mmol/L; ARTERIAL BLOOD H2CO3 1.12 mmol/L (1.05-1.35); ARTERIAL BLOOD HCO3 28.3 mmol/L (20-26); ARTERIAL BLOOD O2 SATURATION 92.1 % (94-98); ARTERIAL BLOOD PCO2 37.1 mmHg (35-45); ARTERIAL BLOOD TOTAL CO2 29.4 mmol/L (23-27)
[2017-08-21 09:45] LABS: PATH REVIEW PATHOLOGIST REVIEWED
[2017-08-21 09:47] LABS: ARTERIAL BLOOD FIO2 30%
[2017-08-21] MEDS: FAMOTIDINE INJ/PF 20 MG/2 ML SDV IV SCH ×2 (10:33→21:09)
[2017-08-21] MEDS: GENTAMICIN SULFATE 90 MG in DEXTROSE 5%-WATER 100 ML IV SCH (10:34)
[2017-08-21] MEDS: VANCOMYCIN HCL 750 MG in DEXTROSE 5%-WATER 250 ML IV SCH (10:34)
[2017-08-21] MEDS: MIDODRINE HCL 5 MG TABLET PO SCH ×3 (10:35→18:38)
[2017-08-21 11:27] LABS: VANCOMYCIN,TROUGH 27.8 ug/mL (5.0-20.0)
--- NOTE | 2017-08-21 11:59 | PDOC PROGRESS REPORT ---
Subjective Progress Note for:: 08/21/17 Subjective:: Patient is currently doing same hopefully patients extubated today per the nursing staff and the pulmonary Patients off the pressure No fever no other events happens Reason For Visit: SEPTIC SHOCK,RESPIRATORY FAILURE,RENAL FAILURE, Physical Exam Vital Signs: Temp Pulse Resp BP Pulse Ox 97.9 F 107 H 23 H 108/59 L 96 08/21/17 08:00 08/21/17 10:00 08/21/17 10:00 08/21/17 10:00 08/21/17 10:00 Intake & Output 08/20/17 08/21/17 08/22/17 06:59 06:59 06:59 Intake Total 3775 4018 Output Total 3765 3110 550 Balance 10 908 -550 Weight 70.3 kg 71.2 kg General appearance: PRESENT: no acute distress, well-developed, well-nourished Head exam: PRESENT: atraumatic, normocephalic Eye exam: PRESENT: conjunctiva pink, EOMI, PERRLA. ABSENT: scleral icterus Ear exam: PRESENT: normal external ear exam Mouth exam: PRESENT: moist, tongue midline Neck exam: PRESENT: full ROM. ABSENT: carotid bruit, JVD, lymphadenopathy, thyromegaly Respiratory exam: PRESENT: clear to auscultation ana Cardiovascular exam: PRESENT: RRR. ABSENT: diastolic murmur, rubs, systolic murmur Pulses: PRESENT: normal dorsalis pedis pul, +2 pedal pulses bilateral Vascular exam: PRESENT: normal capillary refill GI/Abdominal exam: PRESENT: normal bowel sounds, soft. ABSENT: distended, guarding, mass, organolmegaly, rebound, tenderness Rectal exam: PRESENT: deferred Extremities exam: ABSENT: pedal edema Neurological exam: PRESENT: alert, awake, oriented to person. ABSENT: motor sensory deficit Psychiatric exam: PRESENT: appropriate affect, normal mood. ABSENT: homicidal ideation, suicidal ideation Skin exam: PRESENT: dry, intact, warm. ABSENT: cyanosis, rash Results Laboratory Results: 08/21/17 05:37 08/21/17 05:37 08/20/17 08/21/17 08/21/17 05:25 05:37 05:37 WBC 15.3 H RBC 3.48 L Hgb 9.4 L Hct 28.5 L MCV 82 MCH 27.0 MCHC 32.9 RDW 15.3 H Plt Count 330 Seg Neutrophils % Not Reportable Lymphocytes % Not Reportable Monocytes % Not Reportable Eosinophils % Not Reportable Basophils % Not Reportable Absolute Neutrophils Not Reportable Absolute Lymphocytes Not Reportable Absolute Monocytes Not Reportable Absolute Eosinophils Not Reportable Absolute Basophils Not Reportable Carbonic Acid HCO3/H2CO3 Ratio ABG pH ABG pCO2 ABG pO2 ABG HCO3 ABG O2 Saturation ABG Base Excess FiO2 Sodium 137.5 Potassium 4.2 Chloride 103 Carbon Dioxide 26 Anion Gap 9 BUN 17 Creatinine 1.13 Est GFR ( Amer) > 60 Est GFR (Non-Af Amer) > 60 Glucose 111 H Calcium 8.1 L Magnesium 1.8 Total Bilirubin 0.2 AST 39 ALT 41 Alkaline Phosphatase 70 Total Protein 5.0 L Albumin 2.1 L TSH 2.96 08/21/17 09:15 WBC RBC Hgb Hct MCV MCH MCHC RDW Plt Count Seg Neutrophils % Lymphocytes % Monocytes % Eosinophils % Basophils % Absolute Neutrophils Absolute Lymphocytes Absolute Monocytes Absolute Eosinophils Absolute Basophils Carbonic Acid 1.12 HCO3/H2CO3 Ratio 25:1 ABG pH 7.50 H ABG pCO2 37.1 ABG pO2 57.0 L ABG HCO3 28.3 H ABG O2 Saturation 92.1 L ABG Base Excess 4.9 FiO2 30% Sodium Potassium Chloride Carbon Dioxide Anion Gap BUN Creatinine Est GFR ( Amer) Est GFR (Non-Af Amer) Glucose Calcium Magnesium Total Bilirubin AST ALT Alkaline Phosphatase Total Protein Albumin TSH 08/15/17 18:35 Blood Blood Culture - Final NO GROWTH IN 5 DAYS 08/15/17 16:55 Blood Blood Culture - Final NO GROWTH IN 5 DAYS 08/15/17 13:15 Blood Blood Culture - Final NO GROWTH IN 5 DAYS 08/15/17 13:20 Blood Blood Culture - Final NO GROWTH IN 5 DAYS 08/15/17 14:05 Pleural Fluid - Not Specified Gram Stain - Final 08/15/17 14:05 Pleural Fluid - Not Specified Body Fluid Culture - Final NO AEROBIC OR ANAEROBIC ORGANISMS RECOVERED 08/10/17 08/10/17 08/10/17 13:15 13:15 20:30 Creatine Kinase 70 41 L CK-MB (CK-2) 2.03 Troponin I 0.271 NT-Pro-B Natriuret Pep 08/10/17 08/11/17 08/11/17 20:30 06:30 06:30 Creatine Kinase 31 L CK-MB (CK-2) 2.61 1.80 Troponin I 0.160 0.087 NT-Pro-B Natriuret Pep 08/16/17 20:30 Creatine Kinase CK-MB (CK-2) Troponin I NT-Pro-B Natriuret Pep 1160 H Impressions: Head CT 08/10/17 09:58 IMPRESSION: CHRONIC CHANGES OF ATROPHY AND MICROVASCULAR ISCHEMIA. NO ACUTE PROCESS. EVIDENCE OF ACUTE STROKE: NO. Chest/Abdomen CTA 08/13/17 00:00 IMPRESSION: 1. NORMAL CTA OF THE CHEST. NO PULMONARY EMBOLI. 2. BILATERAL PLEURAL EFFUSIONS. RIGHT AND LEFT LOWER LOBE CONSOLIDATIONS SECONDARY TO COMPRESSIVE ATELECTASIS AND/OR PNEUMONIA. 3. COPD. 4. NONOBSTRUCTING CALCULUS IN THE LEFT KIDNEY. OLD VERTEBRAL WEDGE COMPRESSION FRACTURES. Abdomen/Pelvis CT 08/15/17 00:00 IMPRESSION: Trace bilateral pleural effusions with partial collapse left lower lobe Nasogastric tube, Colby catheter in good positioning No CT findings to explain history of sepsis Thoracentesis Ultrasound 08/15/17 00:00 IMPRESSION: SUCCESSFUL THORACENTESIS USING ULTRASOUND GUIDANCE. Chest Ultrasound 08/15/17 09:44 IMPRESSION: Bilateral pleural effusions Facial Bones CT 08/18/17 00:00 IMPRESSION: NO ACUTE FINDINGS. KUB X-Ray 08/19/17 00:00 IMPRESSION: STABLE GAS DISTENDED LOOPS OF BOWEL PRESUMABLY REPRESENTING ILEUS. TOOTH AGAIN NOTED WITHIN THE STOMACH. STABLE NASOGASTRIC TUBE AND COLBY CATHETER. Chest X-Ray 08/21/17 05:00 IMPRESSION: Tip of an endotracheal tube is 2.2 cm from the guzman; recommend 1 cm retraction. Else, stable. Assessment & Plan - Diagnosis (1) Acute on chronic respiratory failure with hypoxia and hypercapnia Is this 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 Plan: Currently on vent support's follow with the pulmonary (2) Septic shock Is this 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 Plan: As per discussed with the master motorcycle technician will continues to vancomycin and Primaxin stop the Flagyl was C. difficile is negative (3) Pneumonia Qualifiers: Pneumonia type: due to unspecified organism Laterality: bilateral Lung location: lower lobe of lung Qualified Code(s): J18.9 - Pneumonia, unspecified organism Is this 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 Plan: Strep pneumonia with MRSA continues to Primaxin and vancomycin (4) Acute renal failure Qualifiers: Acute renal failure type: unspecified Qualified Code(s): N17.9 - Acute kidney failure, unspecified Is this 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 Plan: Currently all stable (5) Chronic obstructive pulmonary disease Qualifiers: Emphysema type: unspecified Is this 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 Plan: Continues to nebulizer treatments (6) Hypertension Qualifiers: Hypertension type: essential hypertension Qualified Code(s): I10 - Essential (primary) hypertension Is this 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 Plan: Currently hypertension is due to the septic shock (7) Neoplasm of rectum Is this 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 Plan: Patient's last CEA was all normal and according to the oncology's no need for further evaluations (8) Elevated troponin Is this 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 Plan: Non-ST SD due to the septic shock currently follow with the cardiology (9) Leukocytosis Qualifiers: Leukocytosis type: bandemia Qualified Code(s): D72.825 - Bandemia Is this 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 Plan: Continues to vancomycin and gentamicin (10) Pleural effusion Is this 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 Plan: Status post thoracocentesis will wait for the culture - Time Time Spent with patient: 15-24 minutes Medications reviewed and adjusted accordingly: Yes Anticipated discharge: Other Within: Other - Inpatient Certification Based on my medical assessment, after consideration of the patient's comorbidities, presenting symptoms, or acuity I expect that the services needed warrant INPATIENT care.: Yes I certify that my determination is in accordance with my understanding of Medicare's requirements for reasonable and necessary INPATIENT services [42 CFR 412.3e].: Yes Medical Necessity: Need Close Monitoring Due to Risk of Patient Decompensation, Need for IV Antibiotics Post Hospital Care: D/C [facility] Documentation - Plan Summary Plan Summary: Continues to current medications discussed with the family yesterday regarding the patient's current conditions
[2017-08-21] MEDS: FUROSEMIDE INJ/PF 20 MG/2 ML SDV IV SCH (12:56)
[2017-08-21] MEDS ORDERED: TIOTROPIUM BROMIDE DPI 5 CAP/KIT (18 MCG/CAP) IH ONE (15:00)
[2017-08-21] MEDS: 1/2 NORMAL SALINE 1,000 ML IV PRN (16:22)
[2017-08-21] MEDS: FLUTICASONE/SALMETEROL DISKUS 500-50 MCG/DOSE IH SCH (18:41)
[2017-08-21] MEDS ORDERED: DIPHENHYDRAMINE HCL 50 MG/ML VIAL IV ONE (20:00)
--- NOTE | 2017-08-21 20:53 | PDOC PROGRESS REPORT ---
Subjective Progress Note for:: 08/21/17 Subjective:: Patient about the same and has made some progress. 2 days off levophed. Patient was placed on IV Lasix 20 mg p.o. daily which he seems to be tolerating well. However patient is noted to have increased pleural effusion and increased edema. Patient remains intubated, sedated, patient however looks comfortable and in acute distress. Intermittent sinus tachycardia noted. Telemetry strips reviewed. Shows intermittent sinus tachycardia but with frequent APCs. Medications reviewed. Reason For Visit: SEPTIC SHOCK,RESPIRATORY FAILURE,RENAL FAILURE, Physical Exam Vital Signs: Temp Pulse Resp BP Pulse Ox 97.0 F 106 H 23 H 111/55 L 95 08/21/17 19:44 08/21/17 15:54 08/21/17 19:10 08/21/17 19:10 08/21/17 19:10 Intake & Output 08/20/17 08/21/17 08/22/17 06:59 06:59 06:59 Intake Total 3775 4018 1214 Output Total 3765 3110 4350 Balance 10 908 -3136 Weight 70.3 kg 71.2 kg Exam: GENERAL: well-nourished and in no acute distress. Patient is intubated and sedated. Orientation cannot be checked HEAD: Atraumatic, normocephalic. EYES: Pupils equal round and reactive to light, extraocular movements could not be checked, sclera anicteric, conjunctiva are normal. ENT: TMs normal, nares patent, oropharynx clear without exudates. Moist mucous membranes. No oral ulcerations or bleeding gums noted NECK: supple without lymphadenopathy or JVD. Trachea is central. No cervical or axillary lymphadenopathy noted. Carotids are 2+ LUNGS: Breath sounds mostly clear to auscultation patient is noted to have bibasal crackles at the extreme bases CHEST: Palpation of the chest wall shows no significant chest wall tenderness or abnormalities. HEART: [place] [employer]ING, No PSH, 2/6 DOTTY aortic area, 1/6 turk systolic murmur mitral area , no rubs or gallops. ABDOMEN: Soft, no significant tenderness appreciated, normoactive bowel sounds. No guarding, no rebound. No rigidity noted . No masses appreciated. EXTREMITIES: Pedal pulses are 1-2+, no calf tenderness noted, 1+ pedal edema noted. No clubbing or cyanosis. Generalized edema also noted. NEUROLOGICAL: The patient cannot participate in the neurological exam but no facial asymmetry noted. Extremities slightly hypotonic PSYCH: This cannot be evaluated. Patient cannot participate. SKIN: No significant ecchymosis, rash, or signs of pruritus noted. MUSCULOSKELETAL EXAM: No significant joint swelling noted. Patient cannot participate in musculoskeletal exam Results Laboratory Results: 08/21/17 05:37 08/21/17 05:37 08/21/17 08/21/17 08/21/17 05:37 05:37 09:15 WBC 15.3 H RBC 3.48 L Hgb 9.4 L Hct 28.5 L MCV 82 MCH 27.0 MCHC 32.9 RDW 15.3 H Plt Count 330 Seg Neutrophils % Not Reportable Lymphocytes % Not Reportable Monocytes % Not Reportable Eosinophils % Not Reportable Basophils % Not Reportable Absolute Neutrophils Not Reportable Absolute Lymphocytes Not Reportable Absolute Monocytes Not Reportable Absolute Eosinophils Not Reportable Absolute Basophils Not Reportable Carbonic Acid 1.12 HCO3/H2CO3 Ratio 25:1 ABG pH 7.50 H ABG pCO2 37.1 ABG pO2 57.0 L ABG HCO3 28.3 H ABG O2 Saturation 92.1 L ABG Base Excess 4.9 FiO2 30% Sodium 137.5 Potassium 4.2 Chloride 103 Carbon Dioxide 26 Anion Gap 9 BUN 17 Creatinine 1.13 Est GFR ( Amer) > 60 Est GFR (Non-Af Amer) > 60 Glucose 111 H Calcium 8.1 L Magnesium 1.8 Total Bilirubin 0.2 AST 39 ALT 41 Alkaline Phosphatase 70 Total Protein 5.0 L Albumin 2.1 L 08/15/17 18:35 Blood Blood Culture - Final NO GROWTH IN 5 DAYS 08/15/17 16:55 Blood Blood Culture - Final NO GROWTH IN 5 DAYS 08/10/17 08/10/17 08/10/17 13:15 13:15 20:30 Creatine Kinase 70 41 L CK-MB (CK-2) 2.03 Troponin I 0.271 NT-Pro-B Natriuret Pep 08/10/17 08/11/17 08/11/17 20:30 06:30 06:30 Creatine Kinase 31 L CK-MB (CK-2) 2.61 1.80 Troponin I 0.160 0.087 NT-Pro-B Natriuret Pep 08/16/17 20:30 Creatine Kinase CK-MB (CK-2) Troponin I NT-Pro-B Natriuret Pep 1160 H EKG Comments: Telemetry strips shows sinus rhythm with frequent APCs and intermittent sinus tachycardia. Impressions: Head CT 08/10/17 09:58 IMPRESSION: CHRONIC CHANGES OF ATROPHY AND MICROVASCULAR ISCHEMIA. NO ACUTE PROCESS. EVIDENCE OF ACUTE STROKE: NO. Chest/Abdomen CTA 08/13/17 00:00 IMPRESSION: 1. NORMAL CTA OF THE CHEST. NO PULMONARY EMBOLI. 2. BILATERAL PLEURAL EFFUSIONS. RIGHT AND LEFT LOWER LOBE CONSOLIDATIONS SECONDARY TO COMPRESSIVE ATELECTASIS AND/OR PNEUMONIA. 3. COPD. 4. NONOBSTRUCTING CALCULUS IN THE LEFT KIDNEY. OLD VERTEBRAL WEDGE COMPRESSION FRACTURES. Abdomen/Pelvis CT 08/15/17 00:00 IMPRESSION: Trace bilateral pleural effusions with partial collapse left lower lobe Nasogastric tube, Colby catheter in good positioning No CT findings to explain history of sepsis Thoracentesis Ultrasound 08/15/17 00:00 IMPRESSION: SUCCESSFUL THORACENTESIS USING ULTRASOUND GUIDANCE. Chest Ultrasound 08/15/17 09:44 IMPRESSION: Bilateral pleural effusions Facial Bones CT 08/18/17 00:00 IMPRESSION: NO ACUTE FINDINGS. KUB X-Ray 08/19/17 00:00 IMPRESSION: STABLE GAS DISTENDED LOOPS OF BOWEL PRESUMABLY REPRESENTING ILEUS. TOOTH AGAIN NOTED WITHIN THE STOMACH. STABLE NASOGASTRIC TUBE AND COLBY CATHETER. Chest X-Ray 08/21/17 05:00 IMPRESSION: Tip of an endotracheal tube is 2.2 cm from the guzman; recommend 1 cm retraction. Else, stable. Assessment & Plan - Diagnosis (1) Acute on chronic respiratory failure with hypoxia and hypercapnia Is this 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 (2) Elevated troponin Is this 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 (3) Chronic obstructive pulmonary disease Qualifiers: Emphysema type: unspecified Is this 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 (4) Pneumonia Qualifiers: Pneumonia type: due to unspecified organism Laterality: bilateral Lung location: lower lobe of lung Qualified Code(s): J18.9 - Pneumonia, unspecified organism Is this 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 (5) Septic shock Is this 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 (6) Non-STEMI (non-ST elevated myocardial infarction) Is this 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 (7) Hypotension Qualifiers: Hypotension type: unspecified hypotension type Qualified Code(s): I95.9 - Hypotension, unspecified Is this 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 - Notes Notes: CHF: Suspected on basis of elevated BNP. 2D echo results are reviewed. Patient does have significant enlargement of the right ventricle. May have element of pulmonary hypertension and possible right heart failure contributing to pleural effusion. Patient also noted to have grade 2 diastolic dysfunction. Low albumin also contributing. Recommend low-dose diuretics. Sitter increasing Lasix to 20 mg IV every 12. Non-STEMI: Most likely related to sepsis and metabolic reason, hypoxemia, severe hypotension related rather than acute coronary syndrome. Previous EKG is reviewed shows no significant ST-T changes. Hypotension: Blood pressure was stable. Increased Midodrin to 5 mg p.o. 3 times a day. May consider adding vasopressin if needed as preferred agent especially if patient develops hypotension. Acute respiratory failure: Most likely related to pneumonia on top of severe COPD. Agree with antibiotic therapy and artificial ventilation and oxygenation. Elevated troponin I: Most likely related to sepsis, acute respiratory failure. Patient may benefit from ischemia evaluation prior to discharge and can be considered even as an outpatient. COPD: Continue with artificial ventilation and oxygenation. Pneumonia: Continue with antibiotic therapy. Septic shock: Continue antibiotics. Recommend DVT prophylaxis with Lovenox or subcu heparin. No other new recommendations. - Time Time with patient: 15-25 minutes - CODE STATUS was discussed, patient remains full code. Surrogate decision-maker unchanged. Multiple medical problems were addressed. More than 50% of the time spent coordinating care, discussing management plans with involved caregivers. Management plans discussed with involved personnels. Medical decision making was of moderate to high complexity , patient's has multiple comorbidities. Medications reviewed and adjusted accordingly: Yes
--- NOTE | 2017-08-21 23:09 | PROGRESS NOTE E ---
Progress Note NAME: CHRISTOPHER LEBLANC : 1940 AGE: 77Y DATE: 08/21/2017 ROOM: 603 SUBJECTIVE: The patient is a 77-year-old male with a history of acute respiratory failure requiring invasive mechanical ventilation, septic shock, pneumonia, bilateral pleural effusion bilateral, status post thoracentesis right side, history of COPD. The patient's blood pressure appeared to improve overnight after IV dexamethasone was given yesterday. Patient's blood pressure was holding at 100/60. Hydrocortisone 50 mg IV every 8 hours was started last night. Patient's blood pressure has been stable overnight. There was scant endotracheal tube secretion this morning. No fever spikes, no vomiting. Patient tolerated OG tube feeding at 30 mL per hour. Patient had spontaneous breathing trial today using the SIMV rate of 2. Patient tolerated well and patient was subsequently extubated this morning. Patient has been doing well all afternoon. Tonight he was placed on BiPAP of 12/6 and FiO2 of 40% and titrated to get saturation 91-94 with a rate of 8. Patient claims that he is feeling better and denies any chest pain, nausea or vomiting. Complains about some sore throat following intubation of endotracheal tube. Has not eaten well this morning. No vomiting and no diarrhea. OBJECTIVE: GENERAL: The patient appeared awake, coherent, oriented x3. Afebrile. Not in apparent respiratory distress VITAL SIGNS: Temperature of 97 degrees Fahrenheit with a T-max of 98.6. Blood pressure of 114/52. Heart rate of 110-116. Respiratory rate is 23. Saturation of 96% on BiPAP of 12/6 and FiO2 of 40% and rate of 8. EYES: No jaundice or pallor. EARS, NOSE, AND THROAT: No ear drainage noted. No nasal discharge. HEAD AND NECK: No scalp swelling or tenderness. Neck is supple. CHEST AND LUNGS: No wheezing, no rhonchi, no coarse crackles. CARDIOVASCULAR: S1 and S2 is distinct. Normal rate, regular rhythm. ABDOMEN: Flabby, positive bowel sounds, soft, nondistended. EXTREMITIES: No joint swelling, no cellulitis. LABORATORY DATA: CBC done today showed white blood cell count of 15,300 with a hemoglobin of 9.4; hematocrit of 38.5 and the bands of 2%. Chemistry done today showed sodium 137, potassium 4.2, chloride 103, carbon dioxide is 36, BUN 17, creatinine is 1.16, glucose 111, calcium 8.1, magnesium is 1.8, total bilirubin is 0.2, direct bilirubin is 0.2. SGOT 39, SGPT 41, alkaline phosphatase 17, albumin is 2.1 and total protein is 5. ASSESSMENT: 1. ACUTE RESPIRATORY FAILURE REQUIRING INVASIVE MECHANICAL VENTILATION. Patient appeared improved and extubated this morning. 2. PNEUMONIA, BILATERAL. Appeared to be clinically improving. Scant endotracheal tube secretions this morning and no fever. Leukocytosis appeared to be improving. 3. PLEURAL EFFUSION, BILATERAL STATUS POST THORACENTESIS, RIGHT. Small amount of pleural effusion on the left side. 4. ADRENAL INSUFFICIENCY. Appeared to respond to IV dexamathasone and IV hydrocortisone. 5. COPD, APPEARED TO BE STABLE AND NOT IN ACUTE BRONCHOSPASM. PLAN/RECOMMENDATION: 1. We put patient on BiPAP for the rest of the night, 12/6 and Fi02 titrated to get saturation 91-94%. 2. Start the patient on Spiriva inhaler 1 puff q. daily and Advair 500 mcg diskhaler 1 puff BID and continue the nebulizer treatment as needed. 3. Continue IV antibiotics for now. Continue the IV Primaxin and IV vancomycin and gentamicin. 4. Will decrease the hydrocortisone to 25 mg every 8 hours IV. DICTATING PHYSICIAN: MICHAEL GARNER MD,RADHA,MPH 3M [id number] PHY#: [id number] ID: [id number] JOB#: [id number] ACCT: [id number] cc: > MTDD
[2017-08-21] MEDS: DIPHENHYDRAMINE HCL 50 MG/ML VIAL IV SCH (23:34)
[2017-08-22] MEDS: IPRATROPIUM/ALBUTEROL 0.5-2.5 MG/3 ML AMPUL NEB SCH ×3 (00:12→07:56)
[2017-08-22] MEDS: IMIPENEM/CILASTATIN SODIUM 500 MG in NORMAL SALINE 100 ML IV SCH ×5 (00:46→23:45)
[2017-08-22] MEDS: HYDROCORTISONE SOD SUCCINATE INJ/PF 100 MG/2 ML SDV IV SCH ×3 (03:11→18:21)
[2017-08-22] MEDS: DIPHENHYDRAMINE HCL 50 MG/ML VIAL IV SCH ×4 (05:44→23:05)
[2017-08-22] MEDS: FLUTICASONE/SALMETEROL DISKUS 500-50 MCG/DOSE IH SCH ×2 (05:45→18:21)
[2017-08-22] MEDS: HEPARIN SOD (PORCINE) 5,000 UNIT/ML 1 ML SYRINGE SUBCUT SCH ×3 (05:46→21:01)
[2017-08-22 06:13] LABS: HEMATOCRIT 27.7 % (37.9-51.0); HEMOGLOBIN 9.3 g/dL (13.5-17.0); MEAN CORPUSCULAR HEMOGLOBIN 27.5 pg (27.0-33.4); MEAN CORPUSCULAR HGB CONC 33.4 g/dL (32.0-36.0); MEAN CORPUSCULAR VOLUME 82 fl (80-97); PLATELET COUNT 350 10^3/uL (150-450); RED BLOOD COUNT 3.37 10^6/uL (4.35-5.55); RED CELL DISTRIBUTION WIDTH 15.3 % (11.5-14.0); WHITE BLOOD COUNT 16.6 10^3/uL (4.0-10.5)
[2017-08-22 06:27] LABS: ALANINE AMINOTRANSFERASE 42 U/L (21-72); ALBUMIN 2.1 g/dL (3.5-5.0); ALKALINE PHOSPHATASE 56 U/L (38-126); ANION GAP 5 (5-19); ASPARTATE AMINO TRANSFERASE 35 U/L (17-59); BILIRUBIN,DIRECT 0.5 mg/dL (0.0-0.4); BILIRUBIN,TOTAL 0.5 mg/dL (0.2-1.3); BLOOD UREA NITROGEN 19 mg/dL (7-20); CALCIUM 8.1 mg/dL (8.4-10.2); CARBON DIOXIDE 28 mmol/L (22-30); CHLORIDE 108 mmol/L (98-107); GLUCOSE 76 mg/dL (75-110); POTASSIUM 3.3 mmol/L (3.6-5.0); SODIUM 141.1 mmol/L (137-145); TOTAL PROTEIN 5.1 g/dL (6.3-8.2)
[2017-08-22 06:58] LABS: ABSOLUTE LYMPHOCYTES# (MANUAL) 1.8 10^3/uL (0.5-4.7); ABSOLUTE MONOCYTES # (MANUAL) 1.7 10^3/uL (0.1-1.4); ABSOLUTE NEUTROPHILS# (MANUAL) 13.1 10^3/uL (1.7-8.2); BASOPHILS % (MANUAL) 0 % (0-2); EOSINOPHILS % (MANUAL) 0 % (0-6); LYMPHOCYTES % (MANUAL) 11 % (13-45); MONOCYTES % (MANUAL) 10 % (3-13); SEGMENTED NEUTROPHILS % (MAN) 79 % (42-78); TOTAL CELLS COUNTED 100
[2017-08-22 07:01] LABS: ANISOCYTOSIS SLIGHT; HYPOCHROMASIA SLIGHT; OVALOCYTES 1+; PLATELET COMMENT ADEQUATE; POIKILOCYTOSIS SLIGHT; TOXIC GRANULATION 1+
--- NOTE | 2017-08-22 10:20 | PDOC PROGRESS REPORT ---
Subjective Progress Note for:: 08/22/17 Subjective:: Patient is currently extubated alert awake Patient's concern about the Colby catheter and want to take it out Patients have a scheduled speech therapy evaluations Denied any chest pain denied any shortness of the breath no fever Reason For Visit: SEPTIC SHOCK,RESPIRATORY FAILURE,RENAL FAILURE, Physical Exam Vital Signs: Temp Pulse Resp BP Pulse Ox 97.0 F 116 H 18 121/78 97 08/22/17 01:49 08/22/17 07:56 08/22/17 07:56 08/22/17 06:40 08/22/17 07:56 Intake & Output 08/21/17 08/22/17 08/23/17 06:59 06:59 06:59 Intake Total 4018 2167 Output Total 3110 4895 Balance 908 -0528 Weight 71.2 kg 68.1 kg General appearance: PRESENT: no acute distress, well-developed, well-nourished Head exam: PRESENT: atraumatic, normocephalic Eye exam: PRESENT: conjunctiva pink, EOMI, PERRLA. ABSENT: scleral icterus Ear exam: PRESENT: normal external ear exam Mouth exam: PRESENT: moist, tongue midline Neck exam: PRESENT: full ROM. ABSENT: carotid bruit, JVD, lymphadenopathy, thyromegaly Respiratory exam: PRESENT: clear to auscultation ana Cardiovascular exam: PRESENT: RRR. ABSENT: diastolic murmur, rubs, systolic murmur Pulses: PRESENT: normal dorsalis pedis pul, +2 pedal pulses bilateral Vascular exam: PRESENT: normal capillary refill GI/Abdominal exam: PRESENT: normal bowel sounds, soft. ABSENT: distended, guarding, mass, organolmegaly, rebound, tenderness Rectal exam: PRESENT: deferred Extremities exam: ABSENT: pedal edema Additional comments: Mild puffiness of the hand Neurological exam: PRESENT: alert, awake, oriented to person. ABSENT: motor sensory deficit Psychiatric exam: PRESENT: appropriate affect, normal mood. ABSENT: homicidal ideation, suicidal ideation Skin exam: PRESENT: dry, intact, warm. ABSENT: cyanosis, rash Results Laboratory Results: 08/22/17 05:40 08/22/17 05:40 08/22/17 08/22/17 05:40 05:40 WBC 16.6 H RBC 3.37 L Hgb 9.3 L Hct 27.7 L MCV 82 MCH 27.5 MCHC 33.4 RDW 15.3 H Plt Count 350 Seg Neutrophils % Not Reportable Lymphocytes % Not Reportable Monocytes % Not Reportable Eosinophils % Not Reportable Basophils % Not Reportable Absolute Neutrophils Not Reportable Absolute Lymphocytes Not Reportable Absolute Monocytes Not Reportable Absolute Eosinophils Not Reportable Absolute Basophils Not Reportable Sodium 141.1 Potassium 3.3 L Chloride 108 H Carbon Dioxide 28 Anion Gap 5 BUN 19 Creatinine 1.14 Est GFR ( Amer) > 60 Est GFR (Non-Af Amer) > 60 Glucose 76 Calcium 8.1 L Total Bilirubin 0.5 AST 35 ALT 42 Alkaline Phosphatase 56 Total Protein 5.1 L Albumin 2.1 L 08/10/17 08/10/17 08/10/17 13:15 13:15 20:30 Creatine Kinase 70 41 L CK-MB (CK-2) 2.03 Troponin I 0.271 NT-Pro-B Natriuret Pep 08/10/17 08/11/17 08/11/17 20:30 06:30 06:30 Creatine Kinase 31 L CK-MB (CK-2) 2.61 1.80 Troponin I 0.160 0.087 NT-Pro-B Natriuret Pep 08/16/17 20:30 Creatine Kinase CK-MB (CK-2) Troponin I NT-Pro-B Natriuret Pep 1160 H Impressions: Head CT 08/10/17 09:58 IMPRESSION: CHRONIC CHANGES OF ATROPHY AND MICROVASCULAR ISCHEMIA. NO ACUTE PROCESS. EVIDENCE OF ACUTE STROKE: NO. Chest/Abdomen CTA 08/13/17 00:00 IMPRESSION: 1. NORMAL CTA OF THE CHEST. NO PULMONARY EMBOLI. 2. BILATERAL PLEURAL EFFUSIONS. RIGHT AND LEFT LOWER LOBE CONSOLIDATIONS SECONDARY TO COMPRESSIVE ATELECTASIS AND/OR PNEUMONIA. 3. COPD. 4. NONOBSTRUCTING CALCULUS IN THE LEFT KIDNEY. OLD VERTEBRAL WEDGE COMPRESSION FRACTURES. Abdomen/Pelvis CT 08/15/17 00:00 IMPRESSION: Trace bilateral pleural effusions with partial collapse left lower lobe Nasogastric tube, Colby catheter in good positioning No CT findings to explain history of sepsis Thoracentesis Ultrasound 08/15/17 00:00 IMPRESSION: SUCCESSFUL THORACENTESIS USING ULTRASOUND GUIDANCE. Chest Ultrasound 08/15/17 09:44 IMPRESSION: Bilateral pleural effusions Facial Bones CT 08/18/17 00:00 IMPRESSION: NO ACUTE FINDINGS. KUB X-Ray 08/19/17 00:00 IMPRESSION: STABLE GAS DISTENDED LOOPS OF BOWEL PRESUMABLY REPRESENTING ILEUS. TOOTH AGAIN NOTED WITHIN THE STOMACH. STABLE NASOGASTRIC TUBE AND COLBY CATHETER. Chest X-Ray 08/21/17 05:00 IMPRESSION: Tip of an endotracheal tube is 2.2 cm from the guzman; recommend 1 cm retraction. Else, stable. Assessment & Plan - Diagnosis (1) Acute on chronic respiratory failure with hypoxia and hypercapnia Is this 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 Plan: Currently extubated continues to current medications (2) Septic shock Is this 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 Plan: Currently resolved (3) Pneumonia Qualifiers: Pneumonia type: due to unspecified organism Laterality: bilateral Lung location: lower lobe of lung Qualified Code(s): J18.9 - Pneumonia, unspecified organism Is this 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 Plan: The patient's daughter the p.o. will be considered the clindamycin's which is sensitive to the MRSA (4) Acute renal failure Qualifiers: Acute renal failure type: unspecified Qualified Code(s): N17.9 - Acute kidney failure, unspecified Is this 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 Plan: Currently all stable (5) Chronic obstructive pulmonary disease Qualifiers: Emphysema type: unspecified Is this 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 Plan: Continues to nebulizer treatments (6) Hypertension Qualifiers: Hypertension type: essential hypertension Qualified Code(s): I10 - Essential (primary) hypertension Is this 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 Plan: Currently hypertension is due to the septic shock (7) Neoplasm of rectum Is this 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 (8) Elevated troponin Is this 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 Plan: Non-ST IN follow with cardiology (9) Leukocytosis Qualifiers: Leukocytosis type: bandemia Qualified Code(s): D72.825 - Bandemia Is this 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 Plan: Continues to monitor most likely from the sepsis currently stable (10) Pleural effusion Is this 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 - Time Time Spent with patient: 15-24 minutes Total Critical Time (Minutes): 25 Medications reviewed and adjusted accordingly: Yes Anticipated discharge: SNF, Other Within: Other - Inpatient Certification Medical Necessity: Need Close Monitoring Due to Risk of Patient Decompensation, Need for IV Antibiotics 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
[2017-08-22] MEDS: FUROSEMIDE INJ/PF 20 MG/2 ML SDV IV SCH (10:57)
[2017-08-22] MEDS: MIDODRINE HCL 5 MG TABLET PO SCH ×3 (10:58→17:26)
[2017-08-22] MEDS: FLUCONAZOLE 100 MG TABLET PO SCH (10:58)
[2017-08-22] MEDS: TIOTROPIUM BROMIDE DPI 5 CAP/KIT (18 MCG/CAP) IH SCH (11:00)
[2017-08-22] MEDS: FAMOTIDINE INJ/PF 20 MG/2 ML SDV IV SCH ×2 (11:00→20:57)
[2017-08-22] MEDS: POTASSIUM CHLORIDE 20 MEQ/50 ML RTU IV SCH ×2 (11:02→12:44)
[2017-08-22] MEDS: 1/2 NORMAL SALINE 1,000 ML IV PRN (11:04)
[2017-08-22] MEDS: IPRATROPIUM BROMIDE 0.02% NEB 0.5 MG/2.5 ML AMPUL NEB SCH ×2 (14:41→20:18)
[2017-08-22] MEDS: LEVALBUTEROL HCL NEB 1.25 MG/3 ML AMPUL NEB SCH ×2 (14:41→20:18)
[2017-08-22 14:43] LABS: ADRENOCORTICOTROPIC HORMONE <1.1 pg/mL (7.2-63.3)
--- NOTE | 2017-08-22 19:54 | PDOC PROGRESS REPORT ---
Subjective Progress Note for:: 08/22/17 Subjective:: Patient has been extubated and seems to be tolerating this well. Patient denying any chest pain. He is noted to be comfortable. Telemetry strips reviewed. Shows intermittent sinus tachycardia but with frequent APCs. Medications reviewed. Reason For Visit: SEPTIC SHOCK,RESPIRATORY FAILURE,RENAL FAILURE, Physical Exam Vital Signs: Temp Pulse Resp BP Pulse Ox 97.0 F 115 H 24 H 129/77 H 98 08/22/17 01:49 08/22/17 19:45 08/22/17 19:40 08/22/17 19:40 08/22/17 19:40 Intake & Output 08/21/17 08/22/17 08/23/17 06:59 06:59 06:59 Intake Total 4018 2167 Output Total 3110 4895 1900 Balance 908 -6148 -1900 Weight 71.2 kg 68.1 kg Exam: GENERAL: well-nourished and in no acute distress. Alert and oriented x1 HEAD: Atraumatic, normocephalic. EYES: Pupils equal round and reactive to light, extraocular movements intact, sclera anicteric, conjunctiva are normal. ENT: TMs normal, nares patent, oropharynx clear without exudates. Moist mucous membranes. No oral ulcerations or bleeding gums noted NECK: supple without lymphadenopathy. Trachea is central. No cervical or axillary lymphadenopathy noted. Carotids are 2+, JVD WNL LUNGS: Respiration seems nonlabored, no significant accessory muscle action noted. Breath sounds clear to auscultation bilaterally and equal noted. No wheezes rales or rhonchi noted. No significant dullness noted on percussion. CHEST: Palpation of the chest wall shows no significant chest wall tenderness. No other significant abnormalities noted. 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 ABDOMEN: Soft, no significant tenderness appreciated, normoactive bowel sounds. No guarding, no rebound. No rigidity noted . No masses appreciated. EXTREMITIES: Pedal pulses are 1-2+, no calf tenderness noted. No clubbing or cyanosis. 1+ pedal edema noted NEUROLOGICAL: Focused neurological exam showed no significant neurologic deficit. Normal speech, no focal weakness appreciated. PSYCH: Normal mood, normal affect. Judgment could not be evaluated. SKIN: No significant ecchymosis, rash, ulcerations or signs of pruritus noted. MUSCULOSKELETAL EXAM: No significant joint swelling noted. Results Laboratory Results: 08/22/17 05:40 08/22/17 05:40 08/22/17 08/22/17 05:40 05:40 WBC 16.6 H RBC 3.37 L Hgb 9.3 L Hct 27.7 L MCV 82 MCH 27.5 MCHC 33.4 RDW 15.3 H Plt Count 350 Seg Neutrophils % Not Reportable Lymphocytes % Not Reportable Monocytes % Not Reportable Eosinophils % Not Reportable Basophils % Not Reportable Absolute Neutrophils Not Reportable Absolute Lymphocytes Not Reportable Absolute Monocytes Not Reportable Absolute Eosinophils Not Reportable Absolute Basophils Not Reportable Sodium 141.1 Potassium 3.3 L Chloride 108 H Carbon Dioxide 28 Anion Gap 5 BUN 19 Creatinine 1.14 Est GFR ( Amer) > 60 Est GFR (Non-Af Amer) > 60 Glucose 76 Calcium 8.1 L Total Bilirubin 0.5 AST 35 ALT 42 Alkaline Phosphatase 56 Total Protein 5.1 L Albumin 2.1 L 08/10/17 08/10/17 08/10/17 13:15 13:15 20:30 Creatine Kinase 70 41 L CK-MB (CK-2) 2.03 Troponin I 0.271 NT-Pro-B Natriuret Pep 08/10/17 08/11/17 08/11/17 20:30 06:30 06:30 Creatine Kinase 31 L CK-MB (CK-2) 2.61 1.80 Troponin I 0.160 0.087 NT-Pro-B Natriuret Pep 08/16/17 20:30 Creatine Kinase CK-MB (CK-2) Troponin I NT-Pro-B Natriuret Pep 1160 H EKG Comments: Telemetry shows sinus rhythm with intermittent sinus tachycardia and frequent VPCs. Impressions: Head CT 08/10/17 09:58 IMPRESSION: CHRONIC CHANGES OF ATROPHY AND MICROVASCULAR ISCHEMIA. NO ACUTE PROCESS. EVIDENCE OF ACUTE STROKE: NO. Chest/Abdomen CTA 08/13/17 00:00 IMPRESSION: 1. NORMAL CTA OF THE CHEST. NO PULMONARY EMBOLI. 2. BILATERAL PLEURAL EFFUSIONS. RIGHT AND LEFT LOWER LOBE CONSOLIDATIONS SECONDARY TO COMPRESSIVE ATELECTASIS AND/OR PNEUMONIA. 3. COPD. 4. NONOBSTRUCTING CALCULUS IN THE LEFT KIDNEY. OLD VERTEBRAL WEDGE COMPRESSION FRACTURES. Abdomen/Pelvis CT 08/15/17 00:00 IMPRESSION: Trace bilateral pleural effusions with partial collapse left lower lobe Nasogastric tube, Colby catheter in good positioning No CT findings to explain history of sepsis Thoracentesis Ultrasound 08/15/17 00:00 IMPRESSION: SUCCESSFUL THORACENTESIS USING ULTRASOUND GUIDANCE. Chest Ultrasound 08/15/17 09:44 IMPRESSION: Bilateral pleural effusions Facial Bones CT 08/18/17 00:00 IMPRESSION: NO ACUTE FINDINGS. KUB X-Ray 08/19/17 00:00 IMPRESSION: STABLE GAS DISTENDED LOOPS OF BOWEL PRESUMABLY REPRESENTING ILEUS. TOOTH AGAIN NOTED WITHIN THE STOMACH. STABLE NASOGASTRIC TUBE AND COLBY CATHETER. Chest X-Ray 08/21/17 05:00 IMPRESSION: Tip of an endotracheal tube is 2.2 cm from the guzman; recommend 1 cm retraction. Else, stable. Assessment & Plan - Diagnosis (1) Acute on chronic respiratory failure with hypoxia and hypercapnia Is this 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 (2) Elevated troponin Is this 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 (3) Chronic obstructive pulmonary disease Qualifiers: Emphysema type: unspecified Is this 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 (4) Pneumonia Qualifiers: Pneumonia type: due to unspecified organism Laterality: bilateral Lung location: lower lobe of lung Qualified Code(s): J18.9 - Pneumonia, unspecified organism Is this 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 (5) Septic shock Is this 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 (6) Non-STEMI (non-ST elevated myocardial infarction) Is this 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 (7) Hypotension Qualifiers: Hypotension type: unspecified hypotension type Qualified Code(s): I95.9 - Hypotension, unspecified Is this 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 - Notes Notes: CHF: Consider increasing Lasix to 20 mg IV every 12. Currently seems stable. Non-STEMI: Most likely related to sepsis and metabolic reason, hypoxemia, severe hypotension related rather than acute coronary syndrome. Previous EKG is reviewed shows no significant ST-T changes. Hypotension: Blood pressure was stable. Increased Midodrin to 5 mg p.o. 3 times a day. Acute respiratory failure: Most likely related to pneumonia on top of severe COPD. Patient tolerating extubation well. Elevated troponin I: Most likely related to sepsis, acute respiratory failure. Patient may benefit from ischemia evaluation prior to discharge and can be considered even as an outpatient. COPD: Continue current therapy and supplemental oxygenation. Pneumonia: Continue with antibiotic therapy. Septic shock: Continue antibiotics. This seems to have significantly improved. Currently patient is having good perfusion. Recommend DVT prophylaxis with Lovenox or subcu heparin. No other new recommendations. - Time Time with patient: Greater than 35 minutes - CODE STATUS was discussed, patient remains full code. Surrogate decision-maker unchanged. Multiple medical problems were addressed. More than 50% of the time spent coordinating care, discussing management plans with involved caregivers. Management plans discussed with involved personnels. Medical decision making was of moderate to high complexity, patient's has multiple comorbidities. Medications reviewed and adjusted accordingly: Yes
--- NOTE | 2017-08-22 20:18 | PROGRESS NOTE E ---
Progress Note NAME: CHRISTOPHER LEBLANC : 1940 AGE: 77Y DATE: 08/22/2017 ROOM: 603 SUBJECTIVE: The patient is a 77-year-old male who came in with acute respiratory failure requiring invasive mechanical ventilation with pneumonia bilateral, septic shock, adrenal insufficiency, and COPD. Extubated yesterday. Blood pressure improved over the last 24 hours. Off vasopressors. Started tolerating oral intake. Denies any fevers, chills, vomiting, chest pain, acutely worsening dyspnea. No abdominal pain. No nausea, diarrhea. OBJECTIVE: GENERAL: Patient is awake, aware, and oriented x3. VITAL SIGNS: Afebrile. Not in acute respiratory distress with a temperature of 97.2 with a T-Max of 97.2. Blood pressure is 127/74. The respiratory rate is 19. Saturation 95% on 4 L nasal cannula. EYES: No jaundice or pallor. EARS, NOSE AND THROAT: No ear drainage noted. No nasal discharge. HEAD AND NECK: No scalp tenderness. Neck supple. CHEST AND LUNGS: No wheezing. No rhonchi. No coarse crackles. CARDIOVASCULAR: S1, S2 distinct. Normal rate, regular rhythm. ABDOMEN: Flabby. Positive bowel sounds. Soft, nondistended, nontender. EXTREMITIES: No joint swelling. No cellulitis. LABORATORY: CBC done today showed white count of 16,600, up from 15,000; hemoglobin is 9.3; hematocrit is 37.7; ; segs estimated 9%, . Chemistry done today showed sodium 141, potassium 3.3, chloride 108, CO2 is 28, BUN is 19, creatinine is 1.14, glucose 76, calcium is 8.1. Total bilirubin 7.5 and Aldosterone is pending. ASSESSMENT: 1. ACUTE RESPIRATORY FAILURE, CURRENTLY RESOLVED. 2. CHRONIC OBSTRUCTIVE PULMONARY DISEASE, CURRENTLY STABLE AND NOT IN ACUTE BRONCHOSPASM. 3. PNEUMONIA BIBASAL, CLINICALLY IMPROVING. 4. LEUKOCYTOSIS MAY BE RELATED TO THE IV HYDROCORTISONE GIVEN. PLAN: 1. We are tapering the hydrocortisone down and decreased the hydrocortisone today to 10 mg IV push every 8 hours from 25 mg IV push every 8 hours yesterday. 2. Will continue Primaxin for now. 3. Continue the Spiriva inhaler and Advair 500 mcg. DICTATING PHYSICIAN: MICHAEL GARNER MD,RADAH,MPH [id number] [id number] PHY#: [id number] ID: [id number] JOB#: [id number] ACCT: [id number] cc: > SAYRAD
[2017-08-22] MEDS: CLINDAMYCIN HCL 150 MG CAPSULE PO SCH (20:57)
[2017-08-23] MEDS: LEVALBUTEROL HCL NEB 1.25 MG/3 ML AMPUL NEB SCH ×4 (01:35→19:55)
[2017-08-23] MEDS: IPRATROPIUM BROMIDE 0.02% NEB 0.5 MG/2.5 ML AMPUL NEB SCH ×4 (01:35→19:55)
[2017-08-23] MEDS: HYDROCORTISONE SOD SUCCINATE INJ/PF 100 MG/2 ML SDV IV SCH ×3 (01:56→18:24)
[2017-08-23] MEDS: 1/2 NORMAL SALINE 1,000 ML IV PRN ×2 (01:56→22:25)
[2017-08-23] MEDS: CLINDAMYCIN HCL 150 MG CAPSULE PO SCH ×3 (05:02→22:26)
[2017-08-23] MEDS: DIPHENHYDRAMINE HCL 50 MG/ML VIAL IV SCH ×4 (05:03→23:52)
[2017-08-23] MEDS: FLUTICASONE/SALMETEROL DISKUS 500-50 MCG/DOSE IH SCH ×2 (05:03→18:25)
[2017-08-23] MEDS: HEPARIN SOD (PORCINE) 5,000 UNIT/ML 1 ML SYRINGE SUBCUT SCH ×3 (05:04→22:27)
[2017-08-23 05:41] LABS: HEMOGLOBIN 9.2 g/dL (13.5-17.0); MEAN CORPUSCULAR HEMOGLOBIN 27.2 pg (27.0-33.4); MEAN CORPUSCULAR HGB CONC 32.8 g/dL (32.0-36.0); MEAN CORPUSCULAR VOLUME 83 fl (80-97); PLATELET COUNT 379 10^3/uL (150-450); RED BLOOD COUNT 3.38 10^6/uL (4.35-5.55); RED CELL DISTRIBUTION WIDTH 15.2 % (11.5-14.0); WHITE BLOOD COUNT 11.1 10^3/uL (4.0-10.5)
[2017-08-23] MEDS: IMIPENEM/CILASTATIN SODIUM 500 MG in NORMAL SALINE 100 ML IV SCH ×4 (05:58→23:51)
[2017-08-23 06:01] LABS: ANION GAP 10 (5-19); BLOOD UREA NITROGEN 23 mg/dL (7-20); CALCIUM 8.5 mg/dL (8.4-10.2); CARBON DIOXIDE 29 mmol/L (22-30); CHLORIDE 105 mmol/L (98-107); GLUCOSE 67 mg/dL (75-110); POTASSIUM 3.7 mmol/L (3.6-5.0); SODIUM 143.7 mmol/L (137-145)
[2017-08-23 06:34] LABS: ABSOLUTE LYMPHOCYTES# (MANUAL) 0.6 10^3/uL (0.5-4.7); ABSOLUTE NEUTROPHILS# (MANUAL) 9.3 10^3/uL (1.7-8.2); BAND NEUTROPHILS % (MANUAL) 1 % (3-5); BASOPHILS % (MANUAL) 1 % (0-2); EOSINOPHILS % (MANUAL) 1 % (0-6); LYMPHOCYTES % (MANUAL) 5 % (13-45); METAMYELOCYTES % (MANUAL) 1 % (0); MONOCYTES % (MANUAL) 9 % (3-13); SEGMENTED NEUTROPHILS % (MAN) 82 % (42-78); TOTAL CELLS COUNTED 100
[2017-08-23 06:45] LABS: ANISOCYTOSIS SLIGHT; HYPOCHROMASIA SLIGHT; OVALOCYTES 1+; PLATELET CLUMPS PRESENT; PLATELET COMMENT ADEQUATE; POIKILOCYTOSIS SLIGHT
--- NOTE | 2017-08-23 08:44 | PDOC PROGRESS REPORT ---
Subjective Progress Note for:: 08/23/17 Subjective:: Patient is currently doing much better Since denied any chest pain denied any shortness of the breath patients wants to go home Reason For Visit: SEPTIC SHOCK,RESPIRATORY FAILURE,RENAL FAILURE, Physical Exam Vital Signs: Temp Pulse Resp BP Pulse Ox 98.4 F 115 H 24 H 132/79 H 97 08/23/17 08:00 08/23/17 08:00 08/23/17 08:00 08/23/17 08:00 08/23/17 08:00 Intake & Output 08/22/17 08/23/17 08/24/17 06:59 06:59 06:59 Intake Total 2167 1823 Output Total 4895 4020 100 Balance -2728 -2197 -100 Weight 68.1 kg 66.4 kg General appearance: PRESENT: no acute distress, well-developed, well-nourished Head exam: PRESENT: atraumatic, normocephalic Eye exam: PRESENT: conjunctiva pink, EOMI, PERRLA. ABSENT: scleral icterus Ear exam: PRESENT: normal external ear exam Mouth exam: PRESENT: moist, tongue midline Neck exam: PRESENT: full ROM. ABSENT: carotid bruit, JVD, lymphadenopathy, thyromegaly Respiratory exam: PRESENT: clear to auscultation ana Cardiovascular exam: PRESENT: RRR. ABSENT: diastolic murmur, rubs, systolic murmur Pulses: PRESENT: normal dorsalis pedis pul, +2 pedal pulses bilateral Vascular exam: PRESENT: normal capillary refill GI/Abdominal exam: PRESENT: normal bowel sounds, soft. ABSENT: distended, guarding, mass, organolmegaly, rebound, tenderness Rectal exam: PRESENT: deferred Additional comments: Puffiness of the upper extremity Neurological exam: PRESENT: alert, awake, oriented to person. ABSENT: motor sensory deficit Psychiatric exam: PRESENT: appropriate affect, normal mood. ABSENT: homicidal ideation, suicidal ideation Skin exam: PRESENT: dry, intact, warm. ABSENT: cyanosis, rash Results Laboratory Results: 08/23/17 05:21 08/23/17 05:21 08/23/17 08/23/17 05:21 05:21 WBC 11.1 H RBC 3.38 L Hgb 9.2 L Hct 28.0 L MCV 83 MCH 27.2 MCHC 32.8 RDW 15.2 H Plt Count 379 Seg Neutrophils % Not Reportable Lymphocytes % Not Reportable Monocytes % Not Reportable Eosinophils % Not Reportable Basophils % Not Reportable Absolute Neutrophils Not Reportable Absolute Lymphocytes Not Reportable Absolute Monocytes Not Reportable Absolute Eosinophils Not Reportable Absolute Basophils Not Reportable Sodium 143.7 Potassium 3.7 Chloride 105 Carbon Dioxide 29 Anion Gap 10 BUN 23 H Creatinine 1.10 Est GFR ( Amer) > 60 Est GFR (Non-Af Amer) > 60 Glucose 67 L Calcium 8.5 08/10/17 08/10/17 08/10/17 13:15 13:15 20:30 Creatine Kinase 70 41 L CK-MB (CK-2) 2.03 Troponin I 0.271 NT-Pro-B Natriuret Pep 08/10/17 08/11/17 08/11/17 20:30 06:30 06:30 Creatine Kinase 31 L CK-MB (CK-2) 2.61 1.80 Troponin I 0.160 0.087 NT-Pro-B Natriuret Pep 08/16/17 20:30 Creatine Kinase CK-MB (CK-2) Troponin I NT-Pro-B Natriuret Pep 1160 H Impressions: Head CT 08/10/17 09:58 IMPRESSION: CHRONIC CHANGES OF ATROPHY AND MICROVASCULAR ISCHEMIA. NO ACUTE PROCESS. EVIDENCE OF ACUTE STROKE: NO. Chest/Abdomen CTA 08/13/17 00:00 IMPRESSION: 1. NORMAL CTA OF THE CHEST. NO PULMONARY EMBOLI. 2. BILATERAL PLEURAL EFFUSIONS. RIGHT AND LEFT LOWER LOBE CONSOLIDATIONS SECONDARY TO COMPRESSIVE ATELECTASIS AND/OR PNEUMONIA. 3. COPD. 4. NONOBSTRUCTING CALCULUS IN THE LEFT KIDNEY. OLD VERTEBRAL WEDGE COMPRESSION FRACTURES. Abdomen/Pelvis CT 08/15/17 00:00 IMPRESSION: Trace bilateral pleural effusions with partial collapse left lower lobe Nasogastric tube, Colby catheter in good positioning No CT findings to explain history of sepsis Thoracentesis Ultrasound 08/15/17 00:00 IMPRESSION: SUCCESSFUL THORACENTESIS USING ULTRASOUND GUIDANCE. Chest Ultrasound 08/15/17 09:44 IMPRESSION: Bilateral pleural effusions Facial Bones CT 08/18/17 00:00 IMPRESSION: NO ACUTE FINDINGS. KUB X-Ray 08/19/17 00:00 IMPRESSION: STABLE GAS DISTENDED LOOPS OF BOWEL PRESUMABLY REPRESENTING ILEUS. TOOTH AGAIN NOTED WITHIN THE STOMACH. STABLE NASOGASTRIC TUBE AND COLBY CATHETER. Chest X-Ray 08/21/17 05:00 IMPRESSION: Tip of an endotracheal tube is 2.2 cm from the guzman; recommend 1 cm retraction. Else, stable. Assessment & Plan - Diagnosis (1) Acute on chronic respiratory failure with hypoxia and hypercapnia Is this 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 Plan: Currently extubated doing well (2) Septic shock Is this 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 Plan: Currently resolved (3) Pneumonia Qualifiers: Pneumonia type: due to unspecified organism Laterality: bilateral Lung location: lower lobe of lung Qualified Code(s): J18.9 - Pneumonia, unspecified organism Is this 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 Plan: Continues to current medications (4) Acute renal failure Qualifiers: Acute renal failure type: unspecified Qualified Code(s): N17.9 - Acute kidney failure, unspecified Is this 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 Plan: Currently all stable (5) Chronic obstructive pulmonary disease Qualifiers: Emphysema type: unspecified Is this 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 Plan: Continues to nebulizer treatments (6) Hypertension Qualifiers: Hypertension type: essential hypertension Qualified Code(s): I10 - Essential (primary) hypertension Is this 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 Plan: Currently hypertension is due to the septic shock (7) Neoplasm of rectum Is this 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 (8) Elevated troponin Is this 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 Plan: Non-ST SC follow with cardiology (9) Leukocytosis Qualifiers: Leukocytosis type: bandemia Qualified Code(s): D72.825 - Bandemia Is this 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 Plan: Currently resolved (10) Pleural effusion Is this 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 - Time Time Spent with patient: 15-24 minutes Medications reviewed and adjusted accordingly: Yes Anticipated discharge: Other Within: Other - Inpatient Certification Medical Necessity: Need Close Monitoring Due to Risk of Patient Decompensation 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
[2017-08-23] MEDS: FUROSEMIDE INJ/PF 20 MG/2 ML SDV IV SCH (11:29)
[2017-08-23] MEDS: FAMOTIDINE INJ/PF 20 MG/2 ML SDV IV SCH (11:29)
[2017-08-23] MEDS: MIDODRINE HCL 5 MG TABLET PO SCH ×3 (11:30→18:25)
[2017-08-23] MEDS: FLUCONAZOLE 100 MG TABLET PO SCH (11:30)
[2017-08-23] MEDS: TIOTROPIUM BROMIDE DPI 5 CAP/KIT (18 MCG/CAP) IH SCH (11:36)
[2017-08-23 11:47] LABS: ALDOSTERONE <1.0 ng/dL (0.0-30.0)
--- NOTE | 2017-08-23 19:23 | PROGRESS NOTE E ---
Progress Note NAME: CHRISTOPHER LEBLANC : 1940 AGE: 77Y DATE: 08/23/2017 ROOM: 603 SUBJECTIVE: The patient is a 77-year-old male who came in with acute respiratory failure requiring invasive mechanical ventilation, pneumonia, septic shock, bilateral pleural effusion, and COPD. Extubated a few days ago, off the vasopressors, and currently doing okay. The patient denies any chest pain, increased shortness of breath, or increased cough, or purulent sputum production. No hemoptysis. No nausea, vomiting, diarrhea. Blood pressure has been doing okay with the current blood pressure is 142/69 on hydrocortisone 10 mg IV q.8 hours. OBJECTIVE: GENERAL: The patient is awake, coherent, oriented, afebrile, not in acute respiratory distress. VITAL SIGNS: Temperature of 97.5, heart rate 118, blood pressure is 136/81, respiratory rate is 23, saturation 95%. EYES: No jaundice or pallor. EARS, NOSE, AND THROAT: No ear drainage. No nasal discharge. HEAD AND NECK: No scalp swelling or tenderness. Neck is supple. CHEST AND LUNGS: No wheezing, no rhonchi, no coarse crackles. CARDIOVASCULAR: S1 and S2 is distant. Normal rate, regular rhythm. ABDOMEN: Flabby, positive bowel sounds. Soft, nondistended, nontender. EXTREMITIES: No joint swelling, no cellulitis. LABORATORY DATA: CBC done today showed a white count of 11.1, hemoglobin is 9.2, hematocrit is 28, platelet count is 329, bands is 1%. Chemistry done today showed sodium is 143, potassium 3.7, chloride 105, CO2 is 29, BUN is 23, creatinine is 1.10, , calcium is 8.7. Aldosterone is less than 1. Basal ACTH was less than 1.1 consistent with a secondary tertiary adrenal insufficiency. ASSESSMENT: 1. COPD, CURRENTLY STABLE AND NOT IN ACUTE EXACERBATION. 2. 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 Currently on hydrocortisone 80 mg IV q.8 hours. Appeared to be doing well. We will plan to decrease the hydrocortisone to 10 mg p.o. q.12. The patient may require endocrine follow up as an outpatient. 3. PNEUMONIA, BILATERAL. Appeared to be improving. 4. PLEURAL EFFUSION. Left side currently is stable. 5. SEPSIS. Leukocytosis appeared to be improving as well. PLAN/RECOMMENDATION: 1. We will change the hydrocortisone to 10 mg tablet p.o. q.12 hours. 2. We will change the Pepcid to oral form 40 mg once a day. 3. We will finish the Primaxin dose until Sunday. 4. Continue inhalers. DICTATING PHYSICIAN: MICHAEL GARNER MD,RADHA,MPH [id number] [id number] PHY#: [id number] ID: [id number] JOB#: [id number] ACCT: [id number] cc: > MTDD
--- NOTE | 2017-08-23 19:46 | PDOC PROGRESS REPORT ---
Subjective Progress Note for:: 08/23/17 Subjective:: Patient has been extubated yesterday and seems to be tolerating this well. Patient denying any chest pain. He is noted to be comfortable. Today he is more alert but still confused. Telemetry strips reviewed. Shows intermittent sinus tachycardia but with frequent APCs. Medications reviewed. Reason For Visit: SEPTIC SHOCK,RESPIRATORY FAILURE,RENAL FAILURE, Physical Exam Vital Signs: Temp Pulse Resp BP Pulse Ox 97.5 F 113 H 23 H 136/81 H 95 08/23/17 12:00 08/23/17 14:06 08/23/17 17:00 08/23/17 16:41 08/23/17 17:00 Intake & Output 08/22/17 08/23/17 08/24/17 06:59 06:59 06:59 Intake Total 2167 1823 50 Output Total 4840 4023 5428 Balance -2393 -1878 -2334 Weight 68.1 kg 66.4 kg Exam: GENERAL: well-nourished and in no acute distress. Alert and oriented x 1. Patient oriented only to person and not oriented to place or time. HEAD: Atraumatic, normocephalic. EYES: Pupils equal round and reactive to light, extraocular movements intact, sclera anicteric, conjunctiva are normal. ENT: TMs normal, nares patent, oropharynx clear without exudates. Moist mucous membranes. No oral ulcerations or bleeding gums noted NECK: supple without lymphadenopathy. Trachea is central. No cervical or axillary lymphadenopathy noted. Carotids are 2+, JVD WNL LUNGS: Respiration seems nonlabored, no significant accessory muscle action noted. Bibasilar fine crackles and occasional bilateral wheezes rales or rhonchi noted. No significant dullness noted on percussion. CHEST: Palpation of the chest wall shows no significant chest wall tenderness. No other significant abnormalities noted. 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 ABDOMEN: Soft, no significant tenderness appreciated, normoactive bowel sounds. No guarding, no rebound. No rigidity noted . No masses appreciated. EXTREMITIES: Pedal pulses are 1-2+, no calf tenderness noted. No clubbing or cyanosis.trace to 1+ pedal edema noted NEUROLOGICAL: Focused neurological exam showed no significant neurologic deficit. Normal speech, no focal weakness appreciated. PSYCH: Normal mood, normal affect. Judgment and insight not checked. SKIN: No significant ecchymosis, rash, ulcerations or signs of pruritus noted. MUSCULOSKELETAL EXAM: No significant joint swelling noted. Results Laboratory Results: 08/23/17 05:21 08/23/17 05:21 08/23/17 08/23/17 05:21 05:21 WBC 11.1 H RBC 3.38 L Hgb 9.2 L Hct 28.0 L MCV 83 MCH 27.2 MCHC 32.8 RDW 15.2 H Plt Count 379 Seg Neutrophils % Not Reportable Lymphocytes % Not Reportable Monocytes % Not Reportable Eosinophils % Not Reportable Basophils % Not Reportable Absolute Neutrophils Not Reportable Absolute Lymphocytes Not Reportable Absolute Monocytes Not Reportable Absolute Eosinophils Not Reportable Absolute Basophils Not Reportable Sodium 143.7 Potassium 3.7 Chloride 105 Carbon Dioxide 29 Anion Gap 10 BUN 23 H Creatinine 1.10 Est GFR ( Amer) > 60 Est GFR (Non-Af Amer) > 60 Glucose 67 L Calcium 8.5 08/10/17 08/10/17 08/10/17 13:15 13:15 20:30 Creatine Kinase 70 41 L CK-MB (CK-2) 2.03 Troponin I 0.271 NT-Pro-B Natriuret Pep 08/10/17 08/11/17 08/11/17 20:30 06:30 06:30 Creatine Kinase 31 L CK-MB (CK-2) 2.61 1.80 Troponin I 0.160 0.087 NT-Pro-B Natriuret Pep 08/16/17 20:30 Creatine Kinase CK-MB (CK-2) Troponin I NT-Pro-B Natriuret Pep 1160 H EKG Comments: Telemetry shows sinus rhythm with intermittent sinus tachycardia, frequent VPCs noted. Impressions: Head CT 08/10/17 09:58 IMPRESSION: CHRONIC CHANGES OF ATROPHY AND MICROVASCULAR ISCHEMIA. NO ACUTE PROCESS. EVIDENCE OF ACUTE STROKE: NO. Chest/Abdomen CTA 08/13/17 00:00 IMPRESSION: 1. NORMAL CTA OF THE CHEST. NO PULMONARY EMBOLI. 2. BILATERAL PLEURAL EFFUSIONS. RIGHT AND LEFT LOWER LOBE CONSOLIDATIONS SECONDARY TO COMPRESSIVE ATELECTASIS AND/OR PNEUMONIA. 3. COPD. 4. NONOBSTRUCTING CALCULUS IN THE LEFT KIDNEY. OLD VERTEBRAL WEDGE COMPRESSION FRACTURES. Abdomen/Pelvis CT 08/15/17 00:00 IMPRESSION: Trace bilateral pleural effusions with partial collapse left lower lobe Nasogastric tube, Colby catheter in good positioning No CT findings to explain history of sepsis Thoracentesis Ultrasound 08/15/17 00:00 IMPRESSION: SUCCESSFUL THORACENTESIS USING ULTRASOUND GUIDANCE. Chest Ultrasound 08/15/17 09:44 IMPRESSION: Bilateral pleural effusions Facial Bones CT 08/18/17 00:00 IMPRESSION: NO ACUTE FINDINGS. KUB X-Ray 08/19/17 00:00 IMPRESSION: STABLE GAS DISTENDED LOOPS OF BOWEL PRESUMABLY REPRESENTING ILEUS. TOOTH AGAIN NOTED WITHIN THE STOMACH. STABLE NASOGASTRIC TUBE AND COLBY CATHETER. Chest X-Ray 08/21/17 05:00 IMPRESSION: Tip of an endotracheal tube is 2.2 cm from the guzman; recommend 1 cm retraction. Else, stable. Assessment & Plan - Diagnosis (1) Acute on chronic respiratory failure with hypoxia and hypercapnia Is this a current diagnosis for this admission?: Yes (2) Elevated troponin Is this a current diagnosis for this admission?: Yes (3) Chronic obstructive pulmonary disease Qualifiers: Emphysema type: unspecified Is this a current diagnosis for this admission?: Yes (4) Pneumonia Qualifiers: Pneumonia type: due to unspecified organism Laterality: bilateral Lung location: lower lobe of lung Qualified Code(s): J18.9 - Pneumonia, unspecified organism Is this a current diagnosis for this admission?: Yes (5) Septic shock Is this a current diagnosis for this admission?: Yes (6) Non-STEMI (non-ST elevated myocardial infarction) Is this a current diagnosis for this admission?: Yes (7) Hypotension Qualifiers: Hypotension type: unspecified hypotension type Qualified Code(s): I95.9 - Hypotension, unspecified Is this a current diagnosis for this admission?: Yes - Notes Notes: No new recommendations. Labs were reviewed. CHF: Currently seems compensated centrally. Continue Lasix at current dose of 20 mg IV daily. Currently seems stable. Edema probably related to low albumin. Non-STEMI: Most likely related to sepsis and metabolic reason, hypoxemia, severe hypotension related rather than acute coronary syndrome. Previous EKG is reviewed shows no significant ST-T changes. Hypotension: Blood pressure was stable. Continue Midodrin at 5 mg p.o. 3 times a day. Acute respiratory failure: Most likely related to pneumonia on top of severe COPD. Patient tolerating extubation well. Elevated troponin I: Most likely related to sepsis, acute respiratory failure. Patient may benefit from ischemia evaluation prior to discharge and can be considered even as an outpatient. COPD: Continue current therapy and supplemental oxygenation. Pneumonia: Continue with antibiotic therapy. Septic shock: Continue antibiotics. This seems to have significantly improved. Currently patient is having good perfusion. Recommend DVT prophylaxis with Lovenox or subcu heparin. No other new recommendations. - Time Time with patient: 15-25 minutes - CODE STATUS was discussed, patient remains full code. Surrogate decision-maker unchanged. Multiple medical problems were addressed. More than 50% of the time spent coordinating care, discussing management plans with involved caregivers. Management plans discussed with involved personnels. Medical decision making was of moderate to high complexity , patient's has multiple comorbidities. Medications reviewed and adjusted accordingly: Yes
[2017-08-23] MEDS: FAMOTIDINE 20 MG TABLET PO SCH (22:26)
[2017-08-24] MEDS: IPRATROPIUM BROMIDE 0.02% NEB 0.5 MG/2.5 ML AMPUL NEB SCH ×4 (02:19→20:41)
[2017-08-24] MEDS: LEVALBUTEROL HCL NEB 1.25 MG/3 ML AMPUL NEB SCH ×4 (02:19→20:42)
[2017-08-24 04:35] LABS: HEMATOCRIT 27.6 % (37.9-51.0); HEMOGLOBIN 9.1 g/dL (13.5-17.0); MEAN CORPUSCULAR HEMOGLOBIN 27.7 pg (27.0-33.4); MEAN CORPUSCULAR HGB CONC 33.2 g/dL (32.0-36.0); MEAN CORPUSCULAR VOLUME 84 fl (80-97); PLATELET COUNT 368 10^3/uL (150-450); RED CELL DISTRIBUTION WIDTH 15.1 % (11.5-14.0); WHITE BLOOD COUNT 7.8 10^3/uL (4.0-10.5)
[2017-08-24 05:14] LABS: ANION GAP 9 (5-19); BLOOD UREA NITROGEN 24 mg/dL (7-20); CALCIUM 8.2 mg/dL (8.4-10.2); CARBON DIOXIDE 32 mmol/L (22-30); CHLORIDE 101 mmol/L (98-107); GLUCOSE 86 mg/dL (75-110); POTASSIUM 3.5 mmol/L (3.6-5.0); SODIUM 142.4 mmol/L (137-145)
[2017-08-24 05:22] LABS: ABSOLUTE LYMPHOCYTES# (MANUAL) 0.8 10^3/uL (0.5-4.7); ABSOLUTE MONOCYTES # (MANUAL) 0.5 10^3/uL (0.1-1.4); ABSOLUTE NEUTROPHILS# (MANUAL) 6.6 10^3/uL (1.7-8.2); BAND NEUTROPHILS % (MANUAL) 1 % (3-5); BASOPHILS % (MANUAL) 0 % (0-2); EOSINOPHILS % (MANUAL) 0 % (0-6); LYMPHOCYTES % (MANUAL) 10 % (13-45); METAMYELOCYTES % (MANUAL) 1 % (0); MONOCYTES % (MANUAL) 6 % (3-13); SEGMENTED NEUTROPHILS % (MAN) 81 % (42-78); TOTAL CELLS COUNTED 100
[2017-08-24 05:25] LABS: ANISOCYTOSIS SLIGHT; HYPOCHROMASIA SLIGHT; OVALOCYTES 1+; PLATELET CLUMPS PRESENT; PLATELET COMMENT ADEQUATE; PLATELET GIANT PRESENT; POIKILOCYTOSIS SLIGHT
[2017-08-24 05:26] LABS: MYELOCYTES % (MANUAL) 1 % (0)
[2017-08-24] MEDS: FLUTICASONE/SALMETEROL DISKUS 500-50 MCG/DOSE IH SCH ×2 (05:47→17:25)
[2017-08-24] MEDS: CLINDAMYCIN HCL 150 MG CAPSULE PO SCH ×3 (05:47→21:21)
[2017-08-24] MEDS: HEPARIN SOD (PORCINE) 5,000 UNIT/ML 1 ML SYRINGE SUBCUT SCH ×3 (05:48→21:25)
[2017-08-24] MEDS: IMIPENEM/CILASTATIN SODIUM 500 MG in NORMAL SALINE 100 ML IV SCH ×4 (05:49→23:37)
[2017-08-24] MEDS: DIPHENHYDRAMINE HCL 50 MG/ML VIAL IV SCH (05:49)
[2017-08-24] MEDS ORDERED: FUROSEMIDE 20 MG TABLET PO SCH (08:15)
[2017-08-24] MEDS ORDERED: POTASSIUM CHLORIDE 10 MEQ TABLET.SA PO ONE (09:00)
[2017-08-24] MEDS: FAMOTIDINE 20 MG TABLET PO SCH ×2 (09:15→21:24)
[2017-08-24] MEDS: MIDODRINE HCL 5 MG TABLET PO SCH ×2 (09:16→17:26)
[2017-08-24] MEDS: FLUCONAZOLE 100 MG TABLET PO SCH (09:16)
[2017-08-24] MEDS: HYDROCORTISONE 10 MG TABLET PO SCH ×2 (09:16→17:26)
--- NOTE | 2017-08-24 09:21 | RADIOLOGY REPORT (SQ) ---
EXAM DESCRIPTION: CHEST SINGLE VIEW COMPLETED DATE/TIME: 08/24/2017 9:04 am REASON FOR STUDY: pnemonia COMPARISON: 08/21/2017 EXAM PARAMETERS: NUMBER OF VIEWS: One view. TECHNIQUE: Single frontal radiographic view of the chest acquired. RADIATION DOSE: NA LIMITATIONS: None. FINDINGS: LUNGS AND PLEURA: The previously described basilar airspace densities are again identified and appear essentially unchanged. Again there is some blunting of the costophrenic angles consisten t with small bilateral pleural effusions. MEDIASTINUM AND HILAR STRUCTURES: No masses. Contour normal. HEART AND VASCULAR STRUCTURES: The configuration of the heart mediastinal structures is unchanged. BONES: No acute findings. HARDWARE: Endotracheal tube and NG tube have been removed since the previous study. Central line is unchanged in position OTHER: No other significant finding. IMPRESSION: Bibasilar airspace densities in small associated pleural effusions appear essentially un changed. Interval removal of the endotracheal tube and NG tube. Other findings as noted above TECHNICAL DOCUMENTATION: JOB ID: [id number] [employer]- All Rights Reserved Reading location - IP/workstation name: [email or web address]
[2017-08-24] MEDS: TIOTROPIUM BROMIDE DPI 5 CAP/KIT (18 MCG/CAP) IH SCH (09:25)
--- NOTE | 2017-08-24 11:09 | RADIOLOGY REPORT (SQ) ---
EXAM DESCRIPTION: PICC INSERTION COMPLETED DATE/TIME: 08/24/2017 10:50 am REASON FOR STUDY: IV ACCESS COMPARISON: None. FLUOROSCOPY TIME: 0.47 minute 3 images saved to PACS. TECHNIQUE: Fluoroscopic and ultrasound guided PICC placement. LIMITATIONS: None. PROCEDURE: After written consent and assessment were obtained, the patient was brought into the fluo roscopy room and place supine on the table. Ultrasound was used on the patient's left arm for PICC a ccess. The left arm was prepped and draped in a sterile fashion along with the ultrasound probe. The entry site was anesthetized with 1% lidocaine. A 21 gauge 7 cm needle was advanced through the skin a nd into the basilic vein under live ultrasound guidance. An ultrasound image was saved to PACS confi ing access site. A .018 guide wire was then inserted through the needle and into the venous system . The needle was the removed and an 11 blade scalpel was used to make a 1cm skin incision. A 5 fr pe el-away sheath was advanced over the wire and into the venous system. A measurement was then made usi ng the existing wire and live fluoroscopic guidance. The wire was then removed and the trimmed. The P ICC was advanced through the peel-away sheath and into the venous system. The peel-away sheath was re moved and the catheter was adhered to the patients arm with a stat lock. The catheter was then aspira ange and flushed and a sterile bandage was placed over the access site. A fluoroscopic spot image was saved to PACS confirming the catheter tip within the superior vena cava. IMPRESSION: SUCCESSFUL PLACEMENT OF A 5 FR pool LUMEN 42 CM PICC IN THE left basilic VEIN. COMMENT: Patient medication list reviewed: Yes. Quality ID [id number]: Final reports for procedures using fluoroscopy that document radiation exposure baudilio alejandra, or exposure time and number of fluorographic images (if radiation exposure indices are not avail able) Quality ID #[id number]: The patient was prepped and draped using maximum sterile barrier technique including cap, mask, sterile gown, sterile gloves, a large sterile sheet, hand hygiene, and 2% Chlorhexidine fo r cutaneous antisepsis. When ultrasound is used, sterile ultrasound techniques are followed requiring sterile gel and sterile probes. TECHNICAL DOCUMENTATION: JOB ID: [id number] [employer]- All Rights Reserved Reading location - IP[email or web address]
--- NOTE | 2017-08-24 11:09 | RADIOLOGY REPORT (SQ) ---
EXAM DESCRIPTION: FLUORO/CV PLACEMENT COMPLETE DATE/TIME: 08/24/2017 10:50 am REASON FOR STUDY: IV ACCESS FINDINGS: Please see combined report for performance of procedure and radiologic supervision and int erpretation. IMPRESSION: Please see combined report for performance of procedure and radiologic supervision and i nterpretation. Reading location - IP/workstation name: [email or web address]
--- NOTE | 2017-08-24 11:09 | RADIOLOGY REPORT (SQ) ---
EXAM DESCRIPTION: U/S GUIDE FOR VASCULAR ACCESS COMPLETE DATE/TIME: 08/24/2017 10:50 am REASON FOR STUDY: IV ACCESS FINDINGS: Please see combined report for performance of procedure and radiologic supervision and int erpretation. IMPRESSION: Please see combined report for performance of procedure and radiologic supervision and i nterpretation. Reading location - IP/workstation name: [email or web address]
--- NOTE | 2017-08-24 11:38 | PDOC PROGRESS REPORT ---
Subjective Progress Note for:: 08/24/17 Subjective:: Patient is currently doing fair little bit more tired and fatigued According to the nurse he could not sleep last night'This with the patient's feel tired this morning Otherwise no other events happens overnight Reason For Visit: SEPTIC SHOCK,RESPIRATORY FAILURE,RENAL FAILURE, Physical Exam Vital Signs: Temp Pulse Resp BP Pulse Ox 98.9 F 99 19 130/59 H 94 08/23/17 23:39 08/24/17 08:18 08/24/17 09:41 08/24/17 09:41 08/24/17 09:41 Intake & Output 08/23/17 08/24/17 08/25/17 06:59 06:59 06:59 Intake Total 1823 1557 50 Output Total 4020 3125 200 Balance -2197 -1568 -150 Weight 66.4 kg 65.6 kg General appearance: PRESENT: no acute distress, well-developed, well-nourished Head exam: PRESENT: atraumatic, normocephalic Eye exam: PRESENT: conjunctiva pink, EOMI, PERRLA. ABSENT: scleral icterus Ear exam: PRESENT: normal external ear exam Mouth exam: PRESENT: moist, tongue midline Neck exam: PRESENT: full ROM. ABSENT: carotid bruit, JVD, lymphadenopathy, thyromegaly Respiratory exam: PRESENT: clear to auscultation ana Cardiovascular exam: PRESENT: RRR. ABSENT: diastolic murmur, rubs, systolic murmur Pulses: PRESENT: normal dorsalis pedis pul, +2 pedal pulses bilateral Vascular exam: PRESENT: normal capillary refill GI/Abdominal exam: PRESENT: normal bowel sounds, soft. ABSENT: distended, guarding, mass, organolmegaly, rebound, tenderness Rectal exam: PRESENT: deferred Neurological exam: PRESENT: alert, awake, oriented to person. ABSENT: motor sensory deficit Psychiatric exam: PRESENT: appropriate affect, normal mood. ABSENT: homicidal ideation, suicidal ideation Skin exam: PRESENT: dry, intact, warm. ABSENT: cyanosis, rash Results Laboratory Results: 08/24/17 04:20 08/24/17 04:20 08/24/17 08/24/17 04:20 04:20 WBC 7.8 RBC 3.30 L Hgb 9.1 L Hct 27.6 L MCV 84 MCH 27.7 MCHC 33.2 RDW 15.1 H Plt Count 368 Seg Neutrophils % Not Reportable Lymphocytes % Not Reportable Monocytes % Not Reportable Eosinophils % Not Reportable Basophils % Not Reportable Absolute Neutrophils Not Reportable Absolute Lymphocytes Not Reportable Absolute Monocytes Not Reportable Absolute Eosinophils Not Reportable Absolute Basophils Not Reportable Sodium 142.4 Potassium 3.5 L Chloride 101 Carbon Dioxide 32 H Anion Gap 9 BUN 24 H Creatinine 1.09 Est GFR ( Amer) > 60 Est GFR (Non-Af Amer) > 60 Glucose 86 Calcium 8.2 L 08/10/17 08/10/17 08/10/17 13:15 13:15 20:30 Creatine Kinase 70 41 L CK-MB (CK-2) 2.03 Troponin I 0.271 NT-Pro-B Natriuret Pep 08/10/17 08/11/17 08/11/17 20:30 06:30 06:30 Creatine Kinase 31 L CK-MB (CK-2) 2.61 1.80 Troponin I 0.160 0.087 NT-Pro-B Natriuret Pep 08/16/17 20:30 Creatine Kinase CK-MB (CK-2) Troponin I NT-Pro-B Natriuret Pep 1160 H Impressions: Head CT 08/10/17 09:58 IMPRESSION: CHRONIC CHANGES OF ATROPHY AND MICROVASCULAR ISCHEMIA. NO ACUTE PROCESS. EVIDENCE OF ACUTE STROKE: NO. Chest/Abdomen CTA 08/13/17 00:00 IMPRESSION: 1. NORMAL CTA OF THE CHEST. NO PULMONARY EMBOLI. 2. BILATERAL PLEURAL EFFUSIONS. RIGHT AND LEFT LOWER LOBE CONSOLIDATIONS SECONDARY TO COMPRESSIVE ATELECTASIS AND/OR PNEUMONIA. 3. COPD. 4. NONOBSTRUCTING CALCULUS IN THE LEFT KIDNEY. OLD VERTEBRAL WEDGE COMPRESSION FRACTURES. Abdomen/Pelvis CT 08/15/17 00:00 IMPRESSION: Trace bilateral pleural effusions with partial collapse left lower lobe Nasogastric tube, Colby catheter in good positioning No CT findings to explain history of sepsis Thoracentesis Ultrasound 08/15/17 00:00 IMPRESSION: SUCCESSFUL THORACENTESIS USING ULTRASOUND GUIDANCE. Chest Ultrasound 08/15/17 09:44 IMPRESSION: Bilateral pleural effusions Facial Bones CT 08/18/17 00:00 IMPRESSION: NO ACUTE FINDINGS. KUB X-Ray 08/19/17 00:00 IMPRESSION: STABLE GAS DISTENDED LOOPS OF BOWEL PRESUMABLY REPRESENTING ILEUS. TOOTH AGAIN NOTED WITHIN THE STOMACH. STABLE NASOGASTRIC TUBE AND COLBY CATHETER. Chest X-Ray 08/24/17 00:00 IMPRESSION: Bibasilar airspace densities in small associated pleural effusions appear essentially unchanged. Interval removal of the endotracheal tube and NG tube. Other findings as noted above Guidance Fluoroscopy 08/24/17 00:00 IMPRESSION: Please see combined report for performance of procedure and radiologic supervision and interpretation. Interventional Vascular Procedure 08/24/17 00:00 IMPRESSION: Please see combined report for performance of procedure and radiologic supervision and interpretation. PICC Line Insertion 08/24/17 00:00 IMPRESSION: SUCCESSFUL PLACEMENT OF A 5 FR pool LUMEN 42 CM PICC IN THE left basilic VEIN. Assessment & Plan - Diagnosis (1) Acute on chronic respiratory failure with hypoxia and hypercapnia Is this a current diagnosis for this admission?: Yes Plan: Currently extubated doing well (2) Septic shock Is this a current diagnosis for this admission?: Yes Plan: Currently resolved (3) Pneumonia Qualifiers: Pneumonia type: due to unspecified organism Laterality: bilateral Lung location: lower lobe of lung Qualified Code(s): J18.9 - Pneumonia, unspecified organism Is this a current diagnosis for this admission?: Yes Plan: Continues to current medications (4) Acute renal failure Qualifiers: Acute renal failure type: unspecified Qualified Code(s): N17.9 - Acute kidney failure, unspecified Is this a current diagnosis for this admission?: Yes Plan: Currently all stable (5) Chronic obstructive pulmonary disease Qualifiers: Emphysema type: unspecified Is this a current diagnosis for this admission?: Yes Plan: Continues to nebulizer treatments (6) Hypertension Qualifiers: Hypertension type: essential hypertension Qualified Code(s): I10 - Essential (primary) hypertension Is this a current diagnosis for this admission?: Yes Plan: Currently hypertension is due to the septic shock (7) Neoplasm of rectum Is this a current diagnosis for this admission?: Yes (8) Elevated troponin Is this a current diagnosis for this admission?: Yes Plan: Non-ST NE follow with cardiology (9) Leukocytosis Qualifiers: Leukocytosis type: bandemia Qualified Code(s): D72.825 - Bandemia Is this a current diagnosis for this admission?: Yes Plan: Currently resolved (10) Pleural effusion Is this a current diagnosis for this admission?: Yes - Time Time Spent with patient: 15-24 minutes Medications reviewed and adjusted accordingly: Yes Anticipated discharge: Other Within: Other - Inpatient Certification Medical Necessity: Need Close Monitoring Due to Risk of Patient Decompensation, Need for IV Antibiotics Post Hospital Care: D/C Fine Artist Documentation - Plan Summary Plan Summary: We will switch the IV to the p.o. Lasix We will continues the antibiotic will persistent pneumonia 's with the family about patient still very weak and probably need a rehab but family wants to take home will continues to physical therapy here and patients currently stable and up to transfer to the [facility]
[2017-08-24 13:20] LABS: PATH REVIEW PATHOLOGIST REVIEWED
--- NOTE | 2017-08-24 13:33 | PDOC PROGRESS REPORT ---
Subjective Progress Note for:: 08/24/17 Subjective:: Patient claims to be feeling tired and fatigued. Patient denying any chest pain. He is noted to be comfortable. Today he is more alert but still confused. Patient is oriented to person. Telemetry strips reviewed. Shows intermittent sinus tachycardia but with frequent APCs. Medications reviewed. Reason For Visit: SEPTIC SHOCK,RESPIRATORY FAILURE,RENAL FAILURE, Physical Exam Vital Signs: Temp Pulse Resp BP Pulse Ox 97.6 F 99 19 128/82 H 94 08/24/17 11:56 08/24/17 08:18 08/24/17 11:15 08/24/17 11:15 08/24/17 11:15 Intake & Output 08/23/17 08/24/17 08/25/17 06:59 06:59 06:59 Intake Total 1823 1557 50 Output Total 4020 3125 200 Balance -7467 -1568 -150 Weight 66.4 kg 65.6 kg Exam: General appearance: PRESENT: no acute distress, well-developed, well-nourished Head exam: PRESENT: atraumatic, normocephalic Eye exam: PRESENT: conjunctiva pink, EOMI, PERRLA. ABSENT: scleral icterus Ear exam: PRESENT: normal external ear exam Mouth exam: PRESENT: moist, tongue midline Neck exam: PRESENT: full ROM. ABSENT: carotid bruit, JVD, lymphadenopathy, thyromegaly Respiratory exam: PRESENT: clear to auscultation ana Cardiovascular exam: PRESENT: RRR. ABSENT: diastolic murmur, rubs, systolic murmur Pulses: PRESENT: normal dorsalis pedis pul, +2 pedal pulses bilateral Vascular exam: PRESENT: normal capillary refill GI/Abdominal exam: PRESENT: normal bowel sounds, soft. ABSENT: distended, guarding, mass, organolmegaly, rebound, tenderness Rectal exam: PRESENT: deferred Neurological exam: PRESENT: alert, awake, oriented to person. ABSENT: motor sensory deficit Psychiatric exam: PRESENT: appropriate affect, normal mood. ABSENT: homicidal ideation, suicidal ideation Skin exam: PRESENT: dry, intact, warm. ABSENT: cyanosis, rash Results Laboratory Results: 08/24/17 04:20 08/24/17 04:20 08/24/17 08/24/17 04:20 04:20 WBC 7.8 RBC 3.30 L Hgb 9.1 L Hct 27.6 L MCV 84 MCH 27.7 MCHC 33.2 RDW 15.1 H Plt Count 368 Seg Neutrophils % Not Reportable Lymphocytes % Not Reportable Monocytes % Not Reportable Eosinophils % Not Reportable Basophils % Not Reportable Absolute Neutrophils Not Reportable Absolute Lymphocytes Not Reportable Absolute Monocytes Not Reportable Absolute Eosinophils Not Reportable Absolute Basophils Not Reportable Sodium 142.4 Potassium 3.5 L Chloride 101 Carbon Dioxide 32 H Anion Gap 9 BUN 24 H Creatinine 1.09 Est GFR ( Amer) > 60 Est GFR (Non-Af Amer) > 60 Glucose 86 Calcium 8.2 L 08/10/17 08/10/17 08/10/17 13:15 13:15 20:30 Creatine Kinase 70 41 L CK-MB (CK-2) 2.03 Troponin I 0.271 NT-Pro-B Natriuret Pep 08/10/17 08/11/17 08/11/17 20:30 06:30 06:30 Creatine Kinase 31 L CK-MB (CK-2) 2.61 1.80 Troponin I 0.160 0.087 NT-Pro-B Natriuret Pep 08/16/17 20:30 Creatine Kinase CK-MB (CK-2) Troponin I NT-Pro-B Natriuret Pep 1160 H EKG Comments: Telemetry strips shows sinus rhythm with mild sinus tachycardia and frequent APCs Impressions: Head CT 08/10/17 09:58 IMPRESSION: CHRONIC CHANGES OF ATROPHY AND MICROVASCULAR ISCHEMIA. NO ACUTE PROCESS. EVIDENCE OF ACUTE STROKE: NO. Chest/Abdomen CTA 08/13/17 00:00 IMPRESSION: 1. NORMAL CTA OF THE CHEST. NO PULMONARY EMBOLI. 2. BILATERAL PLEURAL EFFUSIONS. RIGHT AND LEFT LOWER LOBE CONSOLIDATIONS SECONDARY TO COMPRESSIVE ATELECTASIS AND/OR PNEUMONIA. 3. COPD. 4. NONOBSTRUCTING CALCULUS IN THE LEFT KIDNEY. OLD VERTEBRAL WEDGE COMPRESSION FRACTURES. Abdomen/Pelvis CT 08/15/17 00:00 IMPRESSION: Trace bilateral pleural effusions with partial collapse left lower lobe Nasogastric tube, Colby catheter in good positioning No CT findings to explain history of sepsis Thoracentesis Ultrasound 08/15/17 00:00 IMPRESSION: SUCCESSFUL THORACENTESIS USING ULTRASOUND GUIDANCE. Chest Ultrasound 08/15/17 09:44 IMPRESSION: Bilateral pleural effusions Facial Bones CT 08/18/17 00:00 IMPRESSION: NO ACUTE FINDINGS. KUB X-Ray 08/19/17 00:00 IMPRESSION: STABLE GAS DISTENDED LOOPS OF BOWEL PRESUMABLY REPRESENTING ILEUS. TOOTH AGAIN NOTED WITHIN THE STOMACH. STABLE NASOGASTRIC TUBE AND COLBY CATHETER. Chest X-Ray 08/24/17 00:00 IMPRESSION: Bibasilar airspace densities in small associated pleural effusions appear essentially unchanged. Interval removal of the endotracheal tube and NG tube. Other findings as noted above Guidance Fluoroscopy 08/24/17 00:00 IMPRESSION: Please see combined report for performance of procedure and radiologic supervision and interpretation. Interventional Vascular Procedure 08/24/17 00:00 IMPRESSION: Please see combined report for performance of procedure and radiologic supervision and interpretation. PICC Line Insertion 08/24/17 00:00 IMPRESSION: SUCCESSFUL PLACEMENT OF A 5 FR pool LUMEN 42 CM PICC IN THE left basilic VEIN. Assessment & Plan - Diagnosis (1) Acute on chronic respiratory failure with hypoxia and hypercapnia Is this a current diagnosis for this admission?: Yes (2) Elevated troponin Is this a current diagnosis for this admission?: Yes (3) Chronic obstructive pulmonary disease Qualifiers: Emphysema type: unspecified Is this a current diagnosis for this admission?: Yes (4) Pneumonia Qualifiers: Pneumonia type: due to unspecified organism Laterality: bilateral Lung location: lower lobe of lung Qualified Code(s): J18.9 - Pneumonia, unspecified organism Is this a current diagnosis for this admission?: Yes (5) Septic shock Is this a current diagnosis for this admission?: Yes (6) Non-STEMI (non-ST elevated myocardial infarction) Is this a current diagnosis for this admission?: Yes (7) Hypotension Qualifiers: Hypotension type: unspecified hypotension type Qualified Code(s): I95.9 - Hypotension, unspecified Is this a current diagnosis for this admission?: Yes - Notes Notes: Chest x-ray reviewed shows bibasilar opacities most consistent with bronchiectasis and bilateral pneumonitis. Do not feel patient has any CHF based on chest x-ray finding. CHF: Currently seems compensated centrally. Continue Lasix at current dose of 20 mg IV daily. Currently seems stable. Edema probably related to low albumin. Non-STEMI: Most likely related to sepsis and metabolic reason, hypoxemia, severe hypotension related rather than acute coronary syndrome. Previous EKG is reviewed shows no significant ST-T changes. Hypotension: Blood pressure was stable. Continue Midodrin at 5 mg p.o. 3 times a day. Acute respiratory failure: Most likely related to pneumonia on top of severe COPD. Continue oxygen supplementation. Elevated troponin I: Most likely related to sepsis, acute respiratory failure. Patient may benefit from ischemia evaluation prior to discharge and can be considered even as an outpatient. COPD: Continue current therapy and supplemental oxygenation. Pneumonia: Continue with antibiotic therapy. Septic shock: Continue antibiotics. Resolved. Currently patient is having good perfusion. Recommend DVT prophylaxis with Lovenox or subcu heparin. No other new recommendations. No - Time Time with patient: 15-25 minutes - CODE STATUS was discussed, patient remains full code. Surrogate decision-maker unchanged. Multiple medical problems were addressed. More than 50% of the time spent coordinating care, discussing management plans with involved caregivers. Management plans discussed with involved personnels. Medical decision making was of moderate to high complexity , patient's has multiple comorbidities. Medications reviewed and adjusted accordingly: Yes
[2017-08-24] MEDS: TAMSULOSIN HCL 0.4 MG CAP.SR.24H PO SCH (17:26)
[2017-08-24] MEDS: LORAZEPAM 0.5 MG TABLET PO PRN (21:24)
[2017-08-24] MEDS: NORMAL SALINE 10 ML SDV (SCHEDULED) IV SCH (21:26)
[2017-08-25] MEDS: LEVALBUTEROL HCL NEB 1.25 MG/3 ML AMPUL NEB SCH ×4 (02:18→20:14)
[2017-08-25] MEDS: IPRATROPIUM BROMIDE 0.02% NEB 0.5 MG/2.5 ML AMPUL NEB SCH ×4 (02:19→20:14)
[2017-08-25 05:10] LABS: HEMATOCRIT 28.1 % (37.9-51.0); HEMOGLOBIN 9.4 g/dL (13.5-17.0); MEAN CORPUSCULAR HEMOGLOBIN 27.9 pg (27.0-33.4); MEAN CORPUSCULAR HGB CONC 33.3 g/dL (32.0-36.0); MEAN CORPUSCULAR VOLUME 84 fl (80-97); PLATELET COUNT 324 10^3/uL (150-450); RED BLOOD COUNT 3.36 10^6/uL (4.35-5.55); RED CELL DISTRIBUTION WIDTH 15.3 % (11.5-14.0)
[2017-08-25] MEDS: CLINDAMYCIN HCL 150 MG CAPSULE PO SCH ×3 (05:13→21:51)
[2017-08-25] MEDS: FLUTICASONE/SALMETEROL DISKUS 500-50 MCG/DOSE IH SCH ×2 (05:14→17:19)
[2017-08-25] MEDS: HEPARIN SOD (PORCINE) 5,000 UNIT/ML 1 ML SYRINGE SUBCUT SCH ×3 (05:17→21:51)
[2017-08-25 05:34] LABS: BLOOD UREA NITROGEN 20 mg/dL (7-20); CALCIUM 8.1 mg/dL (8.4-10.2); GLUCOSE 82 mg/dL (75-110); POTASSIUM 3.7 mmol/L (3.6-5.0)
[2017-08-25] MEDS: 1/2 NORMAL SALINE 1,000 ML IV PRN (05:35)
[2017-08-25 05:40] LABS: CARBON DIOXIDE 34 mmol/L (22-30); CHLORIDE 101 mmol/L (98-107); SODIUM 137.9 mmol/L (137-145)
[2017-08-25 05:43] LABS: ANION GAP 3 (5-19)
[2017-08-25 05:57] LABS: ABSOLUTE LYMPHOCYTES# (MANUAL) 1.1 10^3/uL (0.5-4.7); ABSOLUTE MONOCYTES # (MANUAL) 0.6 10^3/uL (0.1-1.4); ABSOLUTE NEUTROPHILS# (MANUAL) 5.3 10^3/uL (1.7-8.2); BAND NEUTROPHILS % (MANUAL) 1 % (3-5); BASOPHILS % (MANUAL) 0 % (0-2); EOSINOPHILS % (MANUAL) 1 % (0-6); LYMPHOCYTES % (MANUAL) 15 % (13-45); MONOCYTES % (MANUAL) 9 % (3-13); MYELOCYTES % (MANUAL) 1 % (0); SEGMENTED NEUTROPHILS % (MAN) 73 % (42-78); TOTAL CELLS COUNTED 100
[2017-08-25 05:58] LABS: TOXIC GRANULATION SLIGHT; TOXIC VACUOLATION PRESENT
[2017-08-25 05:59] LABS: ANISOCYTOSIS SLIGHT; OVALOCYTES 1+; PLATELET CLUMPS PRESENT; PLATELET COMMENT ADEQUATE; POIKILOCYTOSIS SLIGHT
--- NOTE | 2017-08-25 09:11 | PDOC PROGRESS REPORT ---
Subjective Progress Note for:: 08/25/17 Subjective:: Patient is currently doing much. Patient's denied any chest pain denied any shortness of breath. Patient is very anxious to go home patient's otherwise heart rate is running 120-140 Reason For Visit: SEPTIC SHOCK,RESPIRATORY FAILURE,RENAL FAILURE, Physical Exam Vital Signs: Temp Pulse Resp BP Pulse Ox 97.8 F 103 H 16 115/78 93 08/25/17 07:45 08/25/17 08:24 08/25/17 08:24 08/25/17 07:45 08/25/17 08:24 Intake & Output 08/24/17 08/25/17 08/26/17 06:59 06:59 06:59 Intake Total 1557 1520 Output Total 3125 200 Balance -1568 1320 Weight 65.6 kg 64.6 kg General appearance: PRESENT: no acute distress, well-developed, well-nourished Head exam: PRESENT: atraumatic, normocephalic Eye exam: PRESENT: conjunctiva pink, EOMI, PERRLA. ABSENT: scleral icterus Ear exam: PRESENT: normal external ear exam Mouth exam: PRESENT: moist, tongue midline Neck exam: PRESENT: full ROM. ABSENT: carotid bruit, JVD, lymphadenopathy, thyromegaly Respiratory exam: PRESENT: clear to auscultation ana Cardiovascular exam: PRESENT: RRR. ABSENT: diastolic murmur, rubs, systolic murmur Pulses: PRESENT: normal dorsalis pedis pul, +2 pedal pulses bilateral Vascular exam: PRESENT: normal capillary refill GI/Abdominal exam: PRESENT: normal bowel sounds, soft. ABSENT: distended, guarding, mass, organolmegaly, rebound, tenderness Rectal exam: PRESENT: deferred Extremities exam: ABSENT: pedal edema Neurological exam: PRESENT: alert, awake, oriented to person, oriented to place , oriented to time, oriented to situation, CN II-XII grossly intact. ABSENT: motor sensory deficit Psychiatric exam: PRESENT: appropriate affect, normal mood. ABSENT: homicidal ideation, suicidal ideation Skin exam: PRESENT: dry, intact, warm. ABSENT: cyanosis, rash Results Laboratory Results: 08/25/17 04:10 08/25/17 04:10 08/25/17 08/25/17 04:10 04:10 WBC 7.0 RBC 3.36 L Hgb 9.4 L Hct 28.1 L MCV 84 MCH 27.9 MCHC 33.3 RDW 15.3 H Plt Count 324 Seg Neutrophils % Not Reportable Lymphocytes % Not Reportable Monocytes % Not Reportable Eosinophils % Not Reportable Basophils % Not Reportable Absolute Neutrophils Not Reportable Absolute Lymphocytes Not Reportable Absolute Monocytes Not Reportable Absolute Eosinophils Not Reportable Absolute Basophils Not Reportable Sodium 137.9 Potassium 3.7 Chloride 101 Carbon Dioxide 34 H Anion Gap 3 L BUN 20 Creatinine 1.08 Est GFR ( Amer) > 60 Est GFR (Non-Af Amer) > 60 Glucose 82 Calcium 8.1 L 08/10/17 08/10/17 08/10/17 13:15 13:15 20:30 Creatine Kinase 70 41 L CK-MB (CK-2) 2.03 Troponin I 0.271 NT-Pro-B Natriuret Pep 08/10/17 08/11/17 08/11/17 20:30 06:30 06:30 Creatine Kinase 31 L CK-MB (CK-2) 2.61 1.80 Troponin I 0.160 0.087 NT-Pro-B Natriuret Pep 08/16/17 20:30 Creatine Kinase CK-MB (CK-2) Troponin I NT-Pro-B Natriuret Pep 1160 H Impressions: Head CT 08/10/17 09:58 IMPRESSION: CHRONIC CHANGES OF ATROPHY AND MICROVASCULAR ISCHEMIA. NO ACUTE PROCESS. EVIDENCE OF ACUTE STROKE: NO. Chest/Abdomen CTA 08/13/17 00:00 IMPRESSION: 1. NORMAL CTA OF THE CHEST. NO PULMONARY EMBOLI. 2. BILATERAL PLEURAL EFFUSIONS. RIGHT AND LEFT LOWER LOBE CONSOLIDATIONS SECONDARY TO COMPRESSIVE ATELECTASIS AND/OR PNEUMONIA. 3. COPD. 4. NONOBSTRUCTING CALCULUS IN THE LEFT KIDNEY. OLD VERTEBRAL WEDGE COMPRESSION FRACTURES. Abdomen/Pelvis CT 08/15/17 00:00 IMPRESSION: Trace bilateral pleural effusions with partial collapse left lower lobe Nasogastric tube, Colby catheter in good positioning No CT findings to explain history of sepsis Thoracentesis Ultrasound 08/15/17 00:00 IMPRESSION: SUCCESSFUL THORACENTESIS USING ULTRASOUND GUIDANCE. Chest Ultrasound 08/15/17 09:44 IMPRESSION: Bilateral pleural effusions Facial Bones CT 08/18/17 00:00 IMPRESSION: NO ACUTE FINDINGS. KUB X-Ray 08/19/17 00:00 IMPRESSION: STABLE GAS DISTENDED LOOPS OF BOWEL PRESUMABLY REPRESENTING ILEUS. TOOTH AGAIN NOTED WITHIN THE STOMACH. STABLE NASOGASTRIC TUBE AND COLBY CATHETER. Chest X-Ray 08/24/17 00:00 IMPRESSION: Bibasilar airspace densities in small associated pleural effusions appear essentially unchanged. Interval removal of the endotracheal tube and NG tube. Other findings as noted above Guidance Fluoroscopy 08/24/17 00:00 IMPRESSION: Please see combined report for performance of procedure and radiologic supervision and interpretation. Interventional Vascular Procedure 08/24/17 00:00 IMPRESSION: Please see combined report for performance of procedure and radiologic supervision and interpretation. PICC Line Insertion 08/24/17 00:00 IMPRESSION: SUCCESSFUL PLACEMENT OF A 5 FR pool LUMEN 42 CM PICC IN THE left basilic VEIN. Assessment & Plan - Diagnosis (1) Acute on chronic respiratory failure with hypoxia and hypercapnia Is this a current diagnosis for this admission?: Yes Plan: Stable (2) Septic shock Is this a current diagnosis for this admission?: Yes Plan: Currently resolved (3) Pneumonia Qualifiers: Pneumonia type: due to unspecified organism Laterality: bilateral Lung location: lower lobe of lung Qualified Code(s): J18.9 - Pneumonia, unspecified organism Is this a current diagnosis for this admission?: Yes Plan: Continues to clindamycin (4) Acute renal failure Qualifiers: Acute renal failure type: unspecified Qualified Code(s): N17.9 - Acute kidney failure, unspecified Is this a current diagnosis for this admission?: Yes Plan: Currently all stable (5) Chronic obstructive pulmonary disease Qualifiers: Emphysema type: unspecified Is this a current diagnosis for this admission?: Yes Plan: Continues to nebulizer treatments (6) Hypertension Qualifiers: Hypertension type: essential hypertension Qualified Code(s): I10 - Essential (primary) hypertension Is this a current diagnosis for this admission?: Yes Plan: Currently hypertension is due to the septic shock (7) Neoplasm of rectum Is this a current diagnosis for this admission?: Yes (8) Elevated troponin Is this a current diagnosis for this admission?: Yes Plan: Non-ST [facility] follow with cardiology (9) Leukocytosis Qualifiers: Leukocytosis type: bandemia Qualified Code(s): D72.825 - Bandemia Is this a current diagnosis for this admission?: Yes Plan: Currently all resolved (10) Pleural effusion Is this a current diagnosis for this admission?: Yes (11) Sinus tachycardia Is this a current diagnosis for this admission?: Yes Plan: Discuss with cardiology and suggest the Cardizem 20 mg p.o. every 8 - Time Time Spent with patient: 15-24 minutes Medications reviewed and adjusted accordingly: Yes Anticipated discharge: Home Within: Other - Inpatient Certification Medical Necessity: Need Close Monitoring Due to Risk of Patient Decompensation Post Hospital Care: D/C Manager Of Medical Documentation - Plan Summary Plan Summary: Continues to current medications see other MD orders
[2017-08-25] MEDS: MIDODRINE HCL 5 MG TABLET PO SCH ×2 (09:16→17:19)
[2017-08-25] MEDS: HYDROCORTISONE 10 MG TABLET PO SCH (09:17)
[2017-08-25] MEDS: FAMOTIDINE 20 MG TABLET PO SCH ×2 (09:17→21:51)
[2017-08-25] MEDS: FLUCONAZOLE 100 MG TABLET PO SCH (09:18)
[2017-08-25] MEDS: NORMAL SALINE 10 ML SDV (SCHEDULED) IV SCH ×2 (09:21→21:51)
[2017-08-25] MEDS: TIOTROPIUM BROMIDE DPI 5 CAP/KIT (18 MCG/CAP) IH SCH (09:22)
[2017-08-25] MEDS ORDERED: MIDODRINE HCL 5 MG TABLET PO SCH (10:00)
[2017-08-25] MEDS: DILTIAZEM HCL 30 MG TABLET PO SCH ×2 (14:22→21:51)
--- NOTE | 2017-08-25 16:45 | PDOC PROGRESS REPORT ---
Subjective Progress Note for:: 08/25/17 Subjective:: Patient claims to be feeling tired and fatigued. Patient denying any chest pain. He is noted to be comfortable. Today patient seems oriented to place and person. Telemetry strips reviewed. Telemetry strips shows worsening tachycardia with heart rate going up to 140s. Medications reviewed. Reason For Visit: SEPTIC SHOCK,RESPIRATORY FAILURE,RENAL FAILURE, Physical Exam Vital Signs: Temp Pulse Resp BP Pulse Ox 97.8 F 120 H 20 102/83 100 08/25/17 12:00 08/25/17 13:59 08/25/17 16:00 08/25/17 12:16 08/25/17 14:00 Intake & Output 08/24/17 08/25/17 08/26/17 06:59 06:59 06:59 Intake Total 1557 1520 237 Output Total 3125 200 Balance -1568 1320 237 Weight 65.6 kg 64.6 kg Exam: GENERAL: well-nourished and in no acute distress. Alert and oriented x2 HEAD: Atraumatic, normocephalic. EYES: Pupils equal round and reactive to light, extraocular movements intact, sclera anicteric, conjunctiva are normal. ENT: TMs normal, nares patent, oropharynx clear without exudates. Moist mucous membranes. No oral ulcerations or bleeding gums noted NECK: supple without lymphadenopathy. Trachea is central. No cervical or axillary lymphadenopathy noted. Carotids are 2+, JVD WNL LUNGS: Respiration seems nonlabored, no significant accessory muscle action noted. Bibasilar fine crackles, right more than left as well as few scattered wheezes rales or rhonchi noted. No significant dullness noted on percussion. CHEST: Palpation of the chest wall shows no significant chest wall tenderness. No other significant abnormalities noted. HEART: [place] VP ANCILLARY, No PSH, 1/6 DOTTY aortic area, 1/6 turk systolic murmur mitral area, no rubs, no gallops. ABDOMEN: Soft, no significant tenderness appreciated, normoactive bowel sounds. No guarding, no rebound. No rigidity noted . No masses appreciated. EXTREMITIES: Pedal pulses are 1-2+, no calf tenderness noted. No clubbing or cyanosis.trace to 1+ pedal edema noted NEUROLOGICAL: Focused neurological exam showed no significant neurologic deficit. Normal speech, no focal weakness appreciated. PSYCH: Normal mood, normal affect. Judgment and insight within normal limits. SKIN: No significant ecchymosis, rash, ulcerations or signs of pruritus noted. MUSCULOSKELETAL EXAM: No significant joint swelling noted. Results Laboratory Results: 08/25/17 04:10 08/25/17 04:10 08/25/17 08/25/17 04:10 04:10 WBC 7.0 RBC 3.36 L Hgb 9.4 L Hct 28.1 L MCV 84 MCH 27.9 MCHC 33.3 RDW 15.3 H Plt Count 324 Seg Neutrophils % Not Reportable Lymphocytes % Not Reportable Monocytes % Not Reportable Eosinophils % Not Reportable Basophils % Not Reportable Absolute Neutrophils Not Reportable Absolute Lymphocytes Not Reportable Absolute Monocytes Not Reportable Absolute Eosinophils Not Reportable Absolute Basophils Not Reportable Sodium 137.9 Potassium 3.7 Chloride 101 Carbon Dioxide 34 H Anion Gap 3 L BUN 20 Creatinine 1.08 Est GFR ( Amer) > 60 Est GFR (Non-Af Amer) > 60 Glucose 82 Calcium 8.1 L 08/10/17 08/10/17 08/10/17 13:15 13:15 20:30 Creatine Kinase 70 41 L CK-MB (CK-2) 2.03 Troponin I 0.271 NT-Pro-B Natriuret Pep 08/10/17 08/11/17 08/11/17 20:30 06:30 06:30 Creatine Kinase 31 L CK-MB (CK-2) 2.61 1.80 Troponin I 0.160 0.087 NT-Pro-B Natriuret Pep 08/16/17 20:30 Creatine Kinase CK-MB (CK-2) Troponin I NT-Pro-B Natriuret Pep 1160 H EKG Comments: Telemetry strips shows sinus tachycardia, short runs of paroxysmal atrial tachycardia and frequent APCs. Impressions: Head CT 08/10/17 09:58 IMPRESSION: CHRONIC CHANGES OF ATROPHY AND MICROVASCULAR ISCHEMIA. NO ACUTE PROCESS. EVIDENCE OF ACUTE STROKE: NO. Chest/Abdomen CTA 08/13/17 00:00 IMPRESSION: 1. NORMAL CTA OF THE CHEST. NO PULMONARY EMBOLI. 2. BILATERAL PLEURAL EFFUSIONS. RIGHT AND LEFT LOWER LOBE CONSOLIDATIONS SECONDARY TO COMPRESSIVE ATELECTASIS AND/OR PNEUMONIA. 3. COPD. 4. NONOBSTRUCTING CALCULUS IN THE LEFT KIDNEY. OLD VERTEBRAL WEDGE COMPRESSION FRACTURES. Abdomen/Pelvis CT 08/15/17 00:00 IMPRESSION: Trace bilateral pleural effusions with partial collapse left lower lobe Nasogastric tube, Colby catheter in good positioning No CT findings to explain history of sepsis Thoracentesis Ultrasound 08/15/17 00:00 IMPRESSION: SUCCESSFUL THORACENTESIS USING ULTRASOUND GUIDANCE. Chest Ultrasound 08/15/17 09:44 IMPRESSION: Bilateral pleural effusions Facial Bones CT 08/18/17 00:00 IMPRESSION: NO ACUTE FINDINGS. KUB X-Ray 08/19/17 00:00 IMPRESSION: STABLE GAS DISTENDED LOOPS OF BOWEL PRESUMABLY REPRESENTING ILEUS. TOOTH AGAIN NOTED WITHIN THE STOMACH. STABLE NASOGASTRIC TUBE AND COLBY CATHETER. Chest X-Ray 08/24/17 00:00 IMPRESSION: Bibasilar airspace densities in small associated pleural effusions appear essentially unchanged. Interval removal of the endotracheal tube and NG tube. Other findings as noted above Guidance Fluoroscopy 08/24/17 00:00 IMPRESSION: Please see combined report for performance of procedure and radiologic supervision and interpretation. Interventional Vascular Procedure 08/24/17 00:00 IMPRESSION: Please see combined report for performance of procedure and radiologic supervision and interpretation. PICC Line Insertion 08/24/17 00:00 IMPRESSION: SUCCESSFUL PLACEMENT OF A 5 FR pool LUMEN 42 CM PICC IN THE left basilic VEIN. Assessment & Plan - Diagnosis (1) Acute on chronic respiratory failure with hypoxia and hypercapnia Is this a current diagnosis for this admission?: Yes (2) Elevated troponin Is this a current diagnosis for this admission?: Yes (3) Chronic obstructive pulmonary disease Qualifiers: Emphysema type: unspecified Is this a current diagnosis for this admission?: Yes (4) Pneumonia Qualifiers: Pneumonia type: due to unspecified organism Laterality: bilateral Lung location: lower lobe of lung Qualified Code(s): J18.9 - Pneumonia, unspecified organism Is this a current diagnosis for this admission?: Yes (5) Septic shock Is this a current diagnosis for this admission?: Yes (6) Non-STEMI (non-ST elevated myocardial infarction) Is this a current diagnosis for this admission?: Yes (7) Hypotension Qualifiers: Hypotension type: unspecified hypotension type Qualified Code(s): I95.9 - Hypotension, unspecified Is this a current diagnosis for this admission?: Yes - Notes Notes: Tachycardia: Most likely related to metabolic problems. Patient could be having short run of paroxysmal atrial tachycardia related to COPD. Agree with adding Cardizem for rate control. Maintain electrolytes within normal limits. CHF: Currently seems compensated clinically. Continue Lasix at current dose of 20 mg IV daily. Currently seems stable. Edema probably related to low albumin. This has improved. Non-STEMI: Most likely related to sepsis and metabolic reason, hypoxemia, severe hypotension related rather than acute coronary syndrome. Previous EKG is reviewed shows no significant ST-T changes. Will consider repeating an EKG on Sunday and also a stress test on Sunday. Hypotension: Blood pressure was stable. May consider discontinuing Midodrin.. Acute respiratory failure: Most likely related to pneumonia on top of severe COPD. Continue oxygen supplementation. Elevated troponin I: Most likely related to sepsis, acute respiratory failure. Patient may benefit from ischemia evaluation prior to discharge and can be considered even as an outpatient. COPD: Continue current therapy and supplemental oxygenation. Pneumonia: Continue with antibiotic therapy. Septic shock: Continue antibiotics. Resolved. Currently patient is having good perfusion. Recommend DVT prophylaxis with Lovenox or subcu heparin. No other new recommendations. No - Time Time with patient: 15-25 minutes - CODE STATUS was discussed, patient remains full code. Surrogate decision-maker unchanged. Multiple medical problems were addressed. More than 50% of the time spent coordinating care, discussing management plans with involved caregivers. Management plans discussed with involved personnels. Medical decision making was of moderate to high complexity , patient's has multiple comorbidities. Medications reviewed and adjusted accordingly: Yes
[2017-08-25] MEDS: TAMSULOSIN HCL 0.4 MG CAP.SR.24H PO SCH (17:19)
--- NOTE | 2017-08-25 20:33 | PROGRESS NOTE E ---
Progress Note NAME: CHRISTOPHER LEBLANC : 1940 AGE: 77Y DATE: 08/25/2017 ROOM: 603 SUBJECTIVE: Patient is a 77-year-old male who came in acute respiratory failure requiring mechanical ventilation, septic shock, adrenal insufficiency, pneumonia, bilateral pleural effusion, bilateral COPD exacerbated a few days ago. Appeared to be tolerating well. Denies any increased coughing, increased sputum production or hemoptysis. No fever in the last 24 hours. No nausea, vomiting, diarrhea. Leukocyte count has become normal over the last 2 days to 7.8 yesterday and 7 today. Bands remained stable at 1%. OBJECTIVE: VITAL SIGNS: Patient is awake, alert, coherent, oriented x3, not in apparent respiratory distress, with a blood pressure of 99/63 to 113/55. Heart rate goes up and down from 108 to 140 beats per minute, currently in atrial fibrillation. Respiratory rate is 21. Saturation is 95% on 3 liters. HEENT: Eyes: No jaundice or pallor. Ears, nose and throat: No ear drainage or nasal discharge. EXTREMITIES: No calf swelling, no tenderness. CHEST: No rales, no wheezing and no crackles. No rhonchi. CARDIOVASCULAR: S1, S2. Tachycardic. Irregular rate, in atrial fibrillation. GASTROINTESTINAL: Abdomen is flabby. Positive bowel sounds. Soft, nondistended, nontender. EXTREMITIES: No joint swelling or cellulitis. LABORATORY DATA: CBC done today showed white count of 7000, hemoglobin of 9.4, hematocrit is 28.1, platelet count is 324,000, 1% bands. Chemistry done today showed sodium is 137, potassium 3.7, chloride is 101, CO2 is 34, BUN is 20, creatinine is 1.08, glucose 82, calcium is 8.1. ASSESSMENT: 1. COPD, CURRENTLY STABLE. No acute bronchospasm. 2. PNEUMONIA, BIBASILAR, DUE TO MRSA AND STREPTOCOCCUS PNEUMONIAE. Completed 2 weeks of IV Primaxin, vancomycin and gentamicin. Agree on clindamycin orally. Appears to be improving. 3. ADRENAL INSUFFICIENCY, CURRENTLY IMPROVING. 4. HYPOTENSION, IMPROVED WITHOUT ANY VASOPRESSORS. Currently on hydrocortisone 10 mg tablet p.o. daily. PLAN: 1. Continue Advair and Spiriva inhaler. 2. Continue clindamycin for the next 7 days. 3. Recommend physical rehabilitation because patient has been bedridden for the last 2 weeks. May need physical conditioning prior to discharge home. 4. Pulmonary clinic followup in 2 to 3 weeks following hospital discharge. 5. Will sign off tonight. If you have any questions, please feel free to call me. DICTATING PHYSICIAN: MICHAEL GARNER MD,RADHA,MPH [id number] PHY#: [id number] ID: [id number] JOB#: [id number] ACCT: [id number] cc: > MTDD
[2017-08-25] MEDS: LORAZEPAM 0.5 MG TABLET PO PRN (21:51)
[2017-08-26] MEDS: IPRATROPIUM BROMIDE 0.02% NEB 0.5 MG/2.5 ML AMPUL NEB SCH ×4 (01:59→20:12)
[2017-08-26] MEDS: LEVALBUTEROL HCL NEB 1.25 MG/3 ML AMPUL NEB SCH ×4 (01:59→20:13)
[2017-08-26] MEDS: 1/2 NORMAL SALINE 1,000 ML IV PRN ×2 (02:26→23:46)
[2017-08-26 05:26] LABS: HEMATOCRIT 27.2 % (37.9-51.0); MEAN CORPUSCULAR HEMOGLOBIN 27.7 pg (27.0-33.4); MEAN CORPUSCULAR HGB CONC 33.1 g/dL (32.0-36.0); MEAN CORPUSCULAR VOLUME 84 fl (80-97); PLATELET COUNT 275 10^3/uL (150-450); RED BLOOD COUNT 3.24 10^6/uL (4.35-5.55); RED CELL DISTRIBUTION WIDTH 15.6 % (11.5-14.0); WHITE BLOOD COUNT 6.1 10^3/uL (4.0-10.5)
[2017-08-26 05:27] LABS: ANION GAP 7 (5-19); BLOOD UREA NITROGEN 15 mg/dL (7-20); CALCIUM 7.9 mg/dL (8.4-10.2); CARBON DIOXIDE 35 mmol/L (22-30); CHLORIDE 95 mmol/L (98-107); GLUCOSE 95 mg/dL (75-110); POTASSIUM 3.3 mmol/L (3.6-5.0); SODIUM 136.5 mmol/L (137-145)
[2017-08-26] MEDS: HEPARIN SOD (PORCINE) 5,000 UNIT/ML 1 ML SYRINGE SUBCUT SCH ×3 (06:29→23:27)
[2017-08-26] MEDS: CLINDAMYCIN HCL 150 MG CAPSULE PO SCH ×3 (06:29→23:27)
[2017-08-26] MEDS: FLUTICASONE/SALMETEROL DISKUS 500-50 MCG/DOSE IH SCH ×2 (06:29→17:32)
[2017-08-26] MEDS: DILTIAZEM HCL 30 MG TABLET PO SCH (06:29)
[2017-08-26 07:41] LABS: ABSOLUTE LYMPHOCYTES# (MANUAL) 0.7 10^3/uL (0.5-4.7); ABSOLUTE MONOCYTES # (MANUAL) 0.7 10^3/uL (0.1-1.4); ABSOLUTE NEUTROPHILS# (MANUAL) 4.6 10^3/uL (1.7-8.2); BASOPHILS % (MANUAL) 0 % (0-2); EOSINOPHILS % (MANUAL) 1 % (0-6); LYMPHOCYTES % (MANUAL) 12 % (13-45); MONOCYTES % (MANUAL) 12 % (3-13); NUCLEATED RED BLOOD CELLS 1 /100 WBC (0); SEGMENTED NEUTROPHILS % (MAN) 75 % (42-78); TOTAL CELLS COUNTED 100
[2017-08-26 07:43] LABS: POLYCHROMASIA SLIGHT
[2017-08-26 07:44] LABS: ANISOCYTOSIS 1+; HELMET CELLS SLIGHT; HYPOCHROMASIA 1+; OVALOCYTES SLIGHT; PLATELET COMMENT ADEQUATE; POIKILOCYTOSIS SLIGHT
[2017-08-26] MEDS ORDERED: POTASSIUM CHLORIDE 10 MEQ TABLET.SA PO ONE ×2 (09:10→10:00)
[2017-08-26] MEDS ORDERED: ONDANSETRON HCL INJ/PF 4 MG/2 ML SDV ONE (09:10)
[2017-08-26] MEDS ORDERED: DILTIAZEM HCL 30 MG TABLET PO SCH (09:11)
[2017-08-26] MEDS: FAMOTIDINE 20 MG TABLET PO SCH ×2 (09:13→23:28)
[2017-08-26] MEDS: FLUCONAZOLE 100 MG TABLET PO SCH (09:13)
[2017-08-26] MEDS: HYDROCORTISONE 10 MG TABLET PO SCH (09:13)
[2017-08-26] MEDS: MIDODRINE HCL 5 MG TABLET PO SCH ×2 (09:13→17:31)
--- NOTE | 2017-08-26 09:14 | PDOC PROGRESS REPORT ---
Subjective Progress Note for:: 08/26/17 Subjective:: Patient is currently doing much better Is currently seated in the chair still very anxious to go home still very weak Patient's denied any chest pain denied any shortness of the Reason For Visit: SEPTIC SHOCK,RESPIRATORY FAILURE,RENAL FAILURE, Physical Exam Vital Signs: Temp Pulse Resp BP Pulse Ox 97.0 F 128 H 18 107/68 98 08/26/17 07:46 08/26/17 08:04 08/26/17 08:04 08/26/17 07:46 08/26/17 08:04 Intake & Output 08/25/17 08/26/17 08/27/17 06:59 06:59 06:59 Intake Total 1520 1588 Output Total 200 Balance 1320 1588 Weight 64.6 kg 65.2 kg General appearance: PRESENT: no acute distress, well-developed, well-nourished Head exam: PRESENT: atraumatic, normocephalic Eye exam: PRESENT: conjunctiva pink, EOMI, PERRLA. ABSENT: scleral icterus Ear exam: PRESENT: normal external ear exam Mouth exam: PRESENT: moist, tongue midline Neck exam: PRESENT: full ROM. ABSENT: carotid bruit, JVD, lymphadenopathy, thyromegaly Respiratory exam: PRESENT: clear to auscultation ana Cardiovascular exam: PRESENT: RRR. ABSENT: diastolic murmur, rubs, systolic murmur Pulses: PRESENT: normal dorsalis pedis pul, +2 pedal pulses bilateral Vascular exam: PRESENT: normal capillary refill GI/Abdominal exam: PRESENT: normal bowel sounds, soft. ABSENT: distended, guarding, mass, organolmegaly, rebound, tenderness Rectal exam: PRESENT: deferred Neurological exam: PRESENT: alert, awake, oriented to person, oriented to place , oriented to time, oriented to situation, CN II-XII grossly intact. ABSENT: motor sensory deficit Psychiatric exam: PRESENT: appropriate affect, normal mood. ABSENT: homicidal ideation, suicidal ideation Skin exam: PRESENT: dry, intact, warm. ABSENT: cyanosis, rash Results Laboratory Results: 08/26/17 04:55 08/26/17 04:55 08/26/17 08/26/17 04:55 04:55 WBC 6.1 RBC 3.24 L Hgb 9.0 L Hct 27.2 L MCV 84 MCH 27.7 MCHC 33.1 RDW 15.6 H Plt Count 275 Seg Neutrophils % Not Reportable Lymphocytes % Not Reportable Monocytes % Not Reportable Eosinophils % Not Reportable Basophils % Not Reportable Absolute Neutrophils Not Reportable Absolute Lymphocytes Not Reportable Absolute Monocytes Not Reportable Absolute Eosinophils Not Reportable Absolute Basophils Not Reportable Sodium 136.5 L Potassium 3.3 L Chloride 95 L Carbon Dioxide 35 H Anion Gap 7 BUN 15 Creatinine 0.97 Est GFR ( Amer) > 60 Est GFR (Non-Af Amer) > 60 Glucose 95 Calcium 7.9 L Magnesium 1.8 08/10/17 08/10/17 08/10/17 13:15 13:15 20:30 Creatine Kinase 70 41 L CK-MB (CK-2) 2.03 Troponin I 0.271 NT-Pro-B Natriuret Pep 08/10/17 08/11/17 08/11/17 20:30 06:30 06:30 Creatine Kinase 31 L CK-MB (CK-2) 2.61 1.80 Troponin I 0.160 0.087 NT-Pro-B Natriuret Pep 08/16/17 20:30 Creatine Kinase CK-MB (CK-2) Troponin I NT-Pro-B Natriuret Pep 1160 H Impressions: Head CT 08/10/17 09:58 IMPRESSION: CHRONIC CHANGES OF ATROPHY AND MICROVASCULAR ISCHEMIA. NO ACUTE PROCESS. EVIDENCE OF ACUTE STROKE: NO. Chest/Abdomen CTA 08/13/17 00:00 IMPRESSION: 1. NORMAL CTA OF THE CHEST. NO PULMONARY EMBOLI. 2. BILATERAL PLEURAL EFFUSIONS. RIGHT AND LEFT LOWER LOBE CONSOLIDATIONS SECONDARY TO COMPRESSIVE ATELECTASIS AND/OR PNEUMONIA. 3. COPD. 4. NONOBSTRUCTING CALCULUS IN THE LEFT KIDNEY. OLD VERTEBRAL WEDGE COMPRESSION FRACTURES. Abdomen/Pelvis CT 08/15/17 00:00 IMPRESSION: Trace bilateral pleural effusions with partial collapse left lower lobe Nasogastric tube, Colby catheter in good positioning No CT findings to explain history of sepsis Thoracentesis Ultrasound 08/15/17 00:00 IMPRESSION: SUCCESSFUL THORACENTESIS USING ULTRASOUND GUIDANCE. Chest Ultrasound 08/15/17 09:44 IMPRESSION: Bilateral pleural effusions Facial Bones CT 08/18/17 00:00 IMPRESSION: NO ACUTE FINDINGS. KUB X-Ray 08/19/17 00:00 IMPRESSION: STABLE GAS DISTENDED LOOPS OF BOWEL PRESUMABLY REPRESENTING ILEUS. TOOTH AGAIN NOTED WITHIN THE STOMACH. STABLE NASOGASTRIC TUBE AND COLBY CATHETER. Chest X-Ray 08/24/17 00:00 IMPRESSION: Bibasilar airspace densities in small associated pleural effusions appear essentially unchanged. Interval removal of the endotracheal tube and NG tube. Other findings as noted above Guidance Fluoroscopy 08/24/17 00:00 IMPRESSION: Please see combined report for performance of procedure and radiologic supervision and interpretation. Interventional Vascular Procedure 08/24/17 00:00 IMPRESSION: Please see combined report for performance of procedure and radiologic supervision and interpretation. PICC Line Insertion 08/24/17 00:00 IMPRESSION: SUCCESSFUL PLACEMENT OF A 5 FR pool LUMEN 42 CM PICC IN THE left basilic VEIN. Assessment & Plan - Diagnosis (1) Acute on chronic respiratory failure with hypoxia and hypercapnia Is this a current diagnosis for this admission?: Yes Plan: Currently all stable (2) Septic shock Is this a current diagnosis for this admission?: Yes Plan: Currently resolved (3) Pneumonia Qualifiers: Pneumonia type: due to unspecified organism Laterality: bilateral Lung location: lower lobe of lung Qualified Code(s): J18.9 - Pneumonia, unspecified organism Is this a current diagnosis for this admission?: Yes Plan: Continues to clindamycin (4) Acute renal failure Qualifiers: Acute renal failure type: unspecified Qualified Code(s): N17.9 - Acute kidney failure, unspecified Is this a current diagnosis for this admission?: Yes Plan: Currently all stable (5) Chronic obstructive pulmonary disease Qualifiers: Emphysema type: unspecified Is this a current diagnosis for this admission?: Yes Plan: Continues to nebulizer treatments (6) Hypertension Qualifiers: Hypertension type: essential hypertension Qualified Code(s): I10 - Essential (primary) hypertension Is this a current diagnosis for this admission?: Yes Plan: Currently hypertension is due to the septic shock (7) Neoplasm of rectum Is this a current diagnosis for this admission?: Yes (8) Elevated troponin Is this a current diagnosis for this admission?: Yes Plan: Scheduled for the stress test and cardiology (9) Leukocytosis Qualifiers: Leukocytosis type: bandemia Qualified Code(s): D72.825 - Bandemia Is this a current diagnosis for this admission?: Yes Plan: Currently all resolved (10) Pleural effusion Is this a current diagnosis for this admission?: Yes (11) Sinus tachycardia Is this a current diagnosis for this admission?: Yes Plan: Cardizem 30 mg to 60 mg - Time Time Spent with patient: 15-24 minutes Medications reviewed and adjusted accordingly: Yes Anticipated discharge: Other Within: Other - Inpatient Certification Medical Necessity: Need Close Monitoring Due to Risk of Patient Decompensation, Need for IV Antibiotics Post Hospital Care: D/C [facility] Documentation - Plan Summary Plan Summary: Replace the potassium
[2017-08-26] MEDS: NORMAL SALINE 10 ML SDV (SCHEDULED) IV SCH ×2 (09:18→23:29)
[2017-08-26] MEDS: TIOTROPIUM BROMIDE DPI 5 CAP/KIT (18 MCG/CAP) IH SCH (09:21)
[2017-08-26 09:52] LABS: ABSOLUTE RETICS # 0.059 10^6/uL (0.028-0.122); RETICULOCYTE COUNT (AUTO) 1.83 % (0.66-2.85)
[2017-08-26 10:03] LABS: IRON(TIBC) 43.1 ug/dL (49-181)
[2017-08-26 11:09] LABS: FOLATE 6.41 ng/mL (>2.76)
[2017-08-26] MEDS: DILTIAZEM HCL 60 MG TABLET PO SCH ×2 (13:52→23:28)
--- NOTE | 2017-08-26 14:54 | PDOC PROGRESS REPORT ---
Subjective Progress Note for:: 08/26/17 Subjective:: No significant change in patient's condition. Patient noted to be wearing bilevel therapy. Patient denying any chest pain. He is noted to be comfortable. Today patient seems oriented to place and person. Telemetry strips reviewed. Telemetry strips shows worsening tachycardia with heart rate going up to 140s. Medications reviewed. Reason For Visit: SEPTIC SHOCK,RESPIRATORY FAILURE,RENAL FAILURE, Physical Exam Vital Signs: Temp Pulse Resp BP Pulse Ox 97.3 F 122 H 18 128/68 H 98 08/26/17 12:00 08/26/17 14:23 08/26/17 14:23 08/26/17 13:26 08/26/17 14:23 Intake & Output 08/25/17 08/26/17 08/27/17 06:59 06:59 06:59 Intake Total 1520 1588 475 Output Total 200 160 Balance 1320 1588 315 Weight 64.6 kg 65.2 kg Exam: GENERAL: well-nourished and in no acute distress. Alert and oriented x3 HEAD: Atraumatic, normocephalic. EYES: Pupils equal round and reactive to light, extraocular movements intact, sclera anicteric, conjunctiva are normal. ENT: TMs normal, nares patent, oropharynx clear without exudates. Moist mucous membranes. No oral ulcerations or bleeding gums noted NECK: supple without lymphadenopathy. Trachea is central. No cervical or axillary lymphadenopathy noted. Carotids are 2+, JVD WNL LUNGS: Respiration seems nonlabored, no significant accessory muscle action noted. Bilateral fine crackles and scattered wheezing or rhonchi noted. No significant dullness noted on percussion. CHEST: Palpation of the chest wall shows no significant chest wall tenderness. No other significant abnormalities noted. HEART: [place] [employer]CH[employer], No PSH, 1/6 DOTTY aortic area, 1/6 turk systolic murmur mitral area, no rubs, no gallops. ABDOMEN: Soft, no significant tenderness appreciated, normoactive bowel sounds. No guarding, no rebound. No rigidity noted . No masses appreciated. EXTREMITIES: Pedal pulses are 1-2+, no calf tenderness noted. No clubbing or cyanosis.trace to 1+ pedal edema noted NEUROLOGICAL: Focused neurological exam showed no significant neurologic deficit. Normal speech, no focal weakness appreciated. PSYCH: Normal mood, normal affect. Judgment and insight within normal limits. SKIN: No significant ecchymosis, skin is noted to be warm. MUSCULOSKELETAL EXAM: No significant acute joint swelling noted. Results Laboratory Results: 08/26/17 04:55 08/26/17 04:55 08/26/17 08/26/17 08/26/17 04:55 04:55 04:55 WBC 6.1 RBC 3.24 L Hgb 9.0 L Hct 27.2 L MCV 84 MCH 27.7 MCHC 33.1 RDW 15.6 H Plt Count 275 Seg Neutrophils % Not Reportable Lymphocytes % Not Reportable Monocytes % Not Reportable Eosinophils % Not Reportable Basophils % Not Reportable Absolute Neutrophils Not Reportable Absolute Lymphocytes Not Reportable Absolute Monocytes Not Reportable Absolute Eosinophils Not Reportable Absolute Basophils Not Reportable Retic Count (auto) 1.83 Absolute Retic 0.059 Sodium 136.5 L Potassium 3.3 L Chloride 95 L Carbon Dioxide 35 H Anion Gap 7 BUN 15 Creatinine 0.97 Est GFR ( Amer) > 60 Est GFR (Non-Af Amer) > 60 Glucose 95 Calcium 7.9 L Magnesium 1.8 Iron TIBC % Saturation Ferritin Vitamin B12 Folate 08/26/17 04:55 WBC RBC Hgb Hct MCV MCH MCHC RDW Plt Count Seg Neutrophils % Lymphocytes % Monocytes % Eosinophils % Basophils % Absolute Neutrophils Absolute Lymphocytes Absolute Monocytes Absolute Eosinophils Absolute Basophils Retic Count (auto) Absolute Retic Sodium Potassium Chloride Carbon Dioxide Anion Gap BUN Creatinine Est GFR ( Amer) Est GFR (Non-Af Amer) Glucose Calcium Magnesium Iron 43.1 L TIBC 152 L % Saturation 28 Ferritin 255.00 Vitamin B12 770.0 Folate 6.41 08/10/17 08/10/17 08/10/17 13:15 13:15 20:30 Creatine Kinase 70 41 L CK-MB (CK-2) 2.03 Troponin I 0.271 NT-Pro-B Natriuret Pep 08/10/17 08/11/17 08/11/17 20:30 06:30 06:30 Creatine Kinase 31 L CK-MB (CK-2) 2.61 1.80 Troponin I 0.160 0.087 NT-Pro-B Natriuret Pep 08/16/17 20:30 Creatine Kinase CK-MB (CK-2) Troponin I NT-Pro-B Natriuret Pep 1160 H EKG Comments: Telemetry shows intermittent tachycardic rhythm which is narrow complex at times irregular, but mostly sinus rhythm. Patient seems to be having multiple APCs and multifocal atrial tachycardia. Impressions: Head CT 08/10/17 09:58 IMPRESSION: CHRONIC CHANGES OF ATROPHY AND MICROVASCULAR ISCHEMIA. NO ACUTE PROCESS. EVIDENCE OF ACUTE STROKE: NO. Chest/Abdomen CTA 08/13/17 00:00 IMPRESSION: 1. NORMAL CTA OF THE CHEST. NO PULMONARY EMBOLI. 2. BILATERAL PLEURAL EFFUSIONS. RIGHT AND LEFT LOWER LOBE CONSOLIDATIONS SECONDARY TO COMPRESSIVE ATELECTASIS AND/OR PNEUMONIA. 3. COPD. 4. NONOBSTRUCTING CALCULUS IN THE LEFT KIDNEY. OLD VERTEBRAL WEDGE COMPRESSION FRACTURES. Abdomen/Pelvis CT 08/15/17 00:00 IMPRESSION: Trace bilateral pleural effusions with partial collapse left lower lobe Nasogastric tube, Colby catheter in good positioning No CT findings to explain history of sepsis Thoracentesis Ultrasound 08/15/17 00:00 IMPRESSION: SUCCESSFUL THORACENTESIS USING ULTRASOUND GUIDANCE. Chest Ultrasound 08/15/17 09:44 IMPRESSION: Bilateral pleural effusions Facial Bones CT 08/18/17 00:00 IMPRESSION: NO ACUTE FINDINGS. KUB X-Ray 08/19/17 00:00 IMPRESSION: STABLE GAS DISTENDED LOOPS OF BOWEL PRESUMABLY REPRESENTING ILEUS. TOOTH AGAIN NOTED WITHIN THE STOMACH. STABLE NASOGASTRIC TUBE AND COLBY CATHETER. Chest X-Ray 08/24/17 00:00 IMPRESSION: Bibasilar airspace densities in small associated pleural effusions appear essentially unchanged. Interval removal of the endotracheal tube and NG tube. Other findings as noted above Guidance Fluoroscopy 08/24/17 00:00 IMPRESSION: Please see combined report for performance of procedure and radiologic supervision and interpretation. Interventional Vascular Procedure 08/24/17 00:00 IMPRESSION: Please see combined report for performance of procedure and radiologic supervision and interpretation. PICC Line Insertion 08/24/17 00:00 IMPRESSION: SUCCESSFUL PLACEMENT OF A 5 FR pool LUMEN 42 CM PICC IN THE left basilic VEIN. Assessment & Plan - Diagnosis (1) Multifocal atrial tachycardia Is this a current diagnosis for this admission?: Yes (2) Acute on chronic respiratory failure with hypoxia and hypercapnia Is this a current diagnosis for this admission?: Yes (3) Elevated troponin Is this a current diagnosis for this admission?: Yes (4) Chronic obstructive pulmonary disease Qualifiers: Emphysema type: unspecified Is this a current diagnosis for this admission?: Yes (5) Pneumonia Qualifiers: Pneumonia type: due to unspecified organism Laterality: bilateral Lung location: lower lobe of lung Qualified Code(s): J18.9 - Pneumonia, unspecified organism Is this a current diagnosis for this admission?: Yes (6) Septic shock Is this a current diagnosis for this admission?: Yes (7) Non-STEMI (non-ST elevated myocardial infarction) Is this a current diagnosis for this admission?: Yes (8) Hypotension Qualifiers: Hypotension type: unspecified hypotension type Qualified Code(s): I95.9 - Hypotension, unspecified Is this a current diagnosis for this admission?: Yes - Notes Notes: Tachycardia: Most likely related to metabolic and COPD problems. Patient could be having short run of paroxysmal atrial tachycardia, multifocal atrial tachycardia, cannot rule out short runs of A. fib. Related to COPD. Agree with adding Cardizem for rate control. Maintain electrolytes within normal limits. CHF: Currently seems compensated clinically. Continue Lasix at current dose of 20 mg IV daily. Currently seems stable. Edema probably related to low albumin. This has improved. Non-STEMI: Most likely related to sepsis and metabolic reason, hypoxemia, severe hypotension related rather than acute coronary syndrome. Previous EKG is reviewed shows no significant ST-T changes. Will consider repeating an EKG on Sunday and also a stress test on Sunday. Hypotension: Blood pressure was stable. May consider discontinuing Midodrin.. Acute respiratory failure: Most likely related to pneumonia on top of severe COPD. Continue oxygen supplementation. Elevated troponin I: Most likely related to sepsis, acute respiratory failure. Patient may benefit from ischemia evaluation prior to discharge and can be considered even as an outpatient. COPD: Continue current therapy and supplemental oxygenation. Pneumonia: Continue with antibiotic therapy. Septic shock: Continue antibiotics. Resolved. Currently patient is having good perfusion. Recommend DVT prophylaxis with Lovenox or subcu heparin. No other new recommendations. No - Time Time with patient: 15-25 minutes - CODE STATUS was discussed, patient remains full code. Surrogate decision-maker unchanged. Multiple medical problems were addressed. More than 50% of the time spent coordinating care, discussing management plans with involved caregivers. Management plans discussed with involved personnels. Medical decision making was of moderate to high complexity , patient's has multiple comorbidities. Medications reviewed and adjusted accordingly: Yes
[2017-08-26] MEDS: TAMSULOSIN HCL 0.4 MG CAP.SR.24H PO SCH (17:31)
[2017-08-27] MEDS: LEVALBUTEROL HCL NEB 1.25 MG/3 ML AMPUL NEB SCH ×4 (02:18→21:17)
[2017-08-27] MEDS: IPRATROPIUM BROMIDE 0.02% NEB 0.5 MG/2.5 ML AMPUL NEB SCH ×4 (02:18→21:17)
[2017-08-27] MEDS: LORAZEPAM 0.5 MG TABLET PO PRN (03:03)
[2017-08-27] MEDS: DILTIAZEM HCL 60 MG TABLET PO SCH ×3 (05:51→21:47)
[2017-08-27] MEDS: CLINDAMYCIN HCL 150 MG CAPSULE PO SCH ×3 (05:51→21:48)
[2017-08-27] MEDS: HEPARIN SOD (PORCINE) 5,000 UNIT/ML 1 ML SYRINGE SUBCUT SCH ×3 (05:52→21:48)
[2017-08-27] MEDS: FLUTICASONE/SALMETEROL DISKUS 500-50 MCG/DOSE IH SCH ×2 (05:52→18:34)
[2017-08-27 06:36] LABS: HEMATOCRIT 27.5 % (37.9-51.0); HEMOGLOBIN 9.1 g/dL (13.5-17.0); MEAN CORPUSCULAR HGB CONC 33.1 g/dL (32.0-36.0); MEAN CORPUSCULAR VOLUME 85 fl (80-97); PLATELET COUNT 267 10^3/uL (150-450); RED BLOOD COUNT 3.25 10^6/uL (4.35-5.55); RED CELL DISTRIBUTION WIDTH 15.8 % (11.5-14.0); WHITE BLOOD COUNT 6.2 10^3/uL (4.0-10.5)
[2017-08-27 06:41] LABS: BLOOD UREA NITROGEN 12 mg/dL (7-20); CALCIUM 8.1 mg/dL (8.4-10.2); CHLORIDE 95 mmol/L (98-107); GLUCOSE 88 mg/dL (75-110); POTASSIUM 3.9 mmol/L (3.6-5.0)
[2017-08-27 06:47] LABS: CARBON DIOXIDE 37 mmol/L (22-30); SODIUM 135.3 mmol/L (137-145)
[2017-08-27 06:48] LABS: ANION GAP 3 (5-19)
[2017-08-27 07:13] LABS: ABSOLUTE LYMPHOCYTES# (MANUAL) 0.9 10^3/uL (0.5-4.7); ABSOLUTE MONOCYTES # (MANUAL) 0.5 10^3/uL (0.1-1.4); ABSOLUTE NEUTROPHILS# (MANUAL) 4.6 10^3/uL (1.7-8.2); BASOPHILS % (MANUAL) 0 % (0-2); EOSINOPHILS % (MANUAL) 3 % (0-6); LYMPHOCYTES % (MANUAL) 14 % (13-45); METAMYELOCYTES % (MANUAL) 1 % (0); MONOCYTES % (MANUAL) 8 % (3-13); SEGMENTED NEUTROPHILS % (MAN) 73 % (42-78); TOTAL CELLS COUNTED 100
[2017-08-27 07:14] LABS: HYPOCHROMASIA 1+; OVALOCYTES SLIGHT; PLATELET COMMENT ADEQUATE; POIKILOCYTOSIS SLIGHT; POLYCHROMASIA SLIGHT; TOXIC GRANULATION SLIGHT
[2017-08-27] MEDS: MIDODRINE HCL 5 MG TABLET PO SCH ×2 (10:40→18:35)
[2017-08-27] MEDS: FLUCONAZOLE 100 MG TABLET PO SCH (10:40)
[2017-08-27] MEDS: FAMOTIDINE 20 MG TABLET PO SCH ×2 (10:40→21:47)
[2017-08-27] MEDS: HYDROCORTISONE 10 MG TABLET PO SCH (10:40)
[2017-08-27] MEDS: NORMAL SALINE 10 ML SDV (SCHEDULED) IV SCH ×2 (10:41→21:48)
[2017-08-27] MEDS: TIOTROPIUM BROMIDE DPI 5 CAP/KIT (18 MCG/CAP) IH SCH (12:19)
--- NOTE | 2017-08-27 12:21 | PDOC PROGRESS REPORT ---
Subjective Progress Note for:: 08/27/17 Subjective:: Patient is currently doing fair Patient's denied any chest pain denied any shortness of the breath Still very weak No other events happens Reason For Visit: SEPTIC SHOCK,RESPIRATORY FAILURE,RENAL FAILURE, Physical Exam Vital Signs: Temp Pulse Resp BP Pulse Ox 97.5 F 110 H 20 102/60 92 08/27/17 08:00 08/27/17 08:00 08/27/17 11:00 08/27/17 09:29 08/27/17 11:00 Intake & Output 08/26/17 08/27/17 08/28/17 06:59 06:59 06:59 Intake Total 1588 1658 Output Total 360 Balance 1588 1298 Weight 65.2 kg 66.5 kg General appearance: PRESENT: no acute distress, well-developed, well-nourished Head exam: PRESENT: atraumatic, normocephalic Eye exam: PRESENT: conjunctiva pink, EOMI, PERRLA. ABSENT: scleral icterus Ear exam: PRESENT: normal external ear exam Mouth exam: PRESENT: moist, tongue midline Neck exam: PRESENT: full ROM. ABSENT: carotid bruit, JVD, lymphadenopathy, thyromegaly Respiratory exam: PRESENT: clear to auscultation ana Cardiovascular exam: PRESENT: RRR. ABSENT: diastolic murmur, rubs, systolic murmur Pulses: PRESENT: normal dorsalis pedis pul, +2 pedal pulses bilateral Vascular exam: PRESENT: normal capillary refill GI/Abdominal exam: PRESENT: normal bowel sounds, soft. ABSENT: distended, guarding, mass, organolmegaly, rebound, tenderness Rectal exam: PRESENT: deferred Extremities exam: ABSENT: pedal edema Neurological exam: PRESENT: alert, awake, oriented to person, oriented to place , oriented to time, oriented to situation, CN II-XII grossly intact. ABSENT: motor sensory deficit Psychiatric exam: PRESENT: appropriate affect, normal mood. ABSENT: homicidal ideation, suicidal ideation Skin exam: PRESENT: dry, intact, warm. ABSENT: cyanosis, rash Results Laboratory Results: 08/27/17 06:05 08/27/17 06:05 08/27/17 08/27/17 06:05 06:05 WBC 6.2 RBC 3.25 L Hgb 9.1 L Hct 27.5 L MCV 85 MCH 28.0 MCHC 33.1 RDW 15.8 H Plt Count 267 Seg Neutrophils % Not Reportable Lymphocytes % Not Reportable Monocytes % Not Reportable Eosinophils % Not Reportable Basophils % Not Reportable Absolute Neutrophils Not Reportable Absolute Lymphocytes Not Reportable Absolute Monocytes Not Reportable Absolute Eosinophils Not Reportable Absolute Basophils Not Reportable Sodium 135.3 L Potassium 3.9 Chloride 95 L Carbon Dioxide 37 H Anion Gap 3 L BUN 12 Creatinine 0.98 Est GFR ( Amer) > 60 Est GFR (Non-Af Amer) > 60 Glucose 88 Calcium 8.1 L 08/10/17 08/10/17 08/10/17 13:15 13:15 20:30 Creatine Kinase 70 41 L CK-MB (CK-2) 2.03 Troponin I 0.271 NT-Pro-B Natriuret Pep 08/10/17 08/11/17 08/11/17 20:30 06:30 06:30 Creatine Kinase 31 L CK-MB (CK-2) 2.61 1.80 Troponin I 0.160 0.087 NT-Pro-B Natriuret Pep 08/16/17 20:30 Creatine Kinase CK-MB (CK-2) Troponin I NT-Pro-B Natriuret Pep 1160 H Impressions: Head CT 08/10/17 09:58 IMPRESSION: CHRONIC CHANGES OF ATROPHY AND MICROVASCULAR ISCHEMIA. NO ACUTE PROCESS. EVIDENCE OF ACUTE STROKE: NO. Chest/Abdomen CTA 08/13/17 00:00 IMPRESSION: 1. NORMAL CTA OF THE CHEST. NO PULMONARY EMBOLI. 2. BILATERAL PLEURAL EFFUSIONS. RIGHT AND LEFT LOWER LOBE CONSOLIDATIONS SECONDARY TO COMPRESSIVE ATELECTASIS AND/OR PNEUMONIA. 3. COPD. 4. NONOBSTRUCTING CALCULUS IN THE LEFT KIDNEY. OLD VERTEBRAL WEDGE COMPRESSION FRACTURES. Abdomen/Pelvis CT 08/15/17 00:00 IMPRESSION: Trace bilateral pleural effusions with partial collapse left lower lobe Nasogastric tube, Colby catheter in good positioning No CT findings to explain history of sepsis Thoracentesis Ultrasound 08/15/17 00:00 IMPRESSION: SUCCESSFUL THORACENTESIS USING ULTRASOUND GUIDANCE. Chest Ultrasound 08/15/17 09:44 IMPRESSION: Bilateral pleural effusions Facial Bones CT 08/18/17 00:00 IMPRESSION: NO ACUTE FINDINGS. KUB X-Ray 08/19/17 00:00 IMPRESSION: STABLE GAS DISTENDED LOOPS OF BOWEL PRESUMABLY REPRESENTING ILEUS. TOOTH AGAIN NOTED WITHIN THE STOMACH. STABLE NASOGASTRIC TUBE AND COLBY CATHETER. Chest X-Ray 08/24/17 00:00 IMPRESSION: Bibasilar airspace densities in small associated pleural effusions appear essentially unchanged. Interval removal of the endotracheal tube and NG tube. Other findings as noted above Guidance Fluoroscopy 08/24/17 00:00 IMPRESSION: Please see combined report for performance of procedure and radiologic supervision and interpretation. Interventional Vascular Procedure 08/24/17 00:00 IMPRESSION: Please see combined report for performance of procedure and radiologic supervision and interpretation. PICC Line Insertion 08/24/17 00:00 IMPRESSION: SUCCESSFUL PLACEMENT OF A 5 FR pool LUMEN 42 CM PICC IN THE left basilic VEIN. Assessment & Plan - Diagnosis (1) Acute on chronic respiratory failure with hypoxia and hypercapnia Is this a current diagnosis for this admission?: Yes Plan: Currently all stable (2) Septic shock Is this a current diagnosis for this admission?: Yes Plan: Currently resolved (3) Pneumonia Qualifiers: Pneumonia type: due to unspecified organism Laterality: bilateral Lung location: lower lobe of lung Qualified Code(s): J18.9 - Pneumonia, unspecified organism Is this a current diagnosis for this admission?: Yes Plan: Continues the p.o. clindamycin's for 7 days (4) Acute renal failure Qualifiers: Acute renal failure type: unspecified Qualified Code(s): N17.9 - Acute kidney failure, unspecified Is this a current diagnosis for this admission?: Yes Plan: Currently all stable (5) Chronic obstructive pulmonary disease Qualifiers: Emphysema type: unspecified Is this a current diagnosis for this admission?: Yes Plan: Continues to nebulizer treatments (6) Hypertension Qualifiers: Hypertension type: essential hypertension Qualified Code(s): I10 - Essential (primary) hypertension Is this a current diagnosis for this admission?: Yes Plan: Currently hypertension is due to the septic shock (7) Neoplasm of rectum Is this 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 (8) Elevated troponin Is this a current diagnosis for this admission?: Yes Plan: Patient scheduled for the stress test per cardiology (9) Leukocytosis Qualifiers: Leukocytosis type: bandemia Qualified Code(s): D72.825 - Bandemia Is this a current diagnosis for this admission?: Yes Plan: Currently all resolved (10) Pleural effusion Is this a current diagnosis for this admission?: Yes Plan: Status post thoracocentesis will wait for the culture (11) Sinus tachycardia Is this a current diagnosis for this admission?: Yes Plan: Continues to [facility] ([facility]) - Time Time Spent with patient: 15-24 minutes Medications reviewed and adjusted accordingly: Yes Anticipated discharge: Home Within: Other - Inpatient Certification Medical Necessity: Need Close Monitoring Due to Risk of Patient Decompensation Post Hospital Care: 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
[2017-08-27] MEDS: TAMSULOSIN HCL 0.4 MG CAP.SR.24H PO SCH (18:35)
--- NOTE | 2017-08-27 19:27 | PDOC PROGRESS REPORT ---
Subjective Progress Note for:: 08/27/17 Subjective:: Patient seen on morning rounds Patient doing much better. He is about to be moved out of the unit. Patient denying any chest pain. He is noted to be comfortable. Today patient seems oriented to place and person. Telemetry strips reviewed. Telemetry strips shows improving tachycardia. Medications reviewed. Reason For Visit: SEPTIC SHOCK,RESPIRATORY FAILURE,RENAL FAILURE, Physical Exam Vital Signs: Temp Pulse Resp BP Pulse Ox 98.0 F 106 H 16 120/67 94 08/27/17 12:00 08/27/17 17:08 08/27/17 15:47 08/27/17 15:47 08/27/17 15:47 Intake & Output 08/26/17 08/27/17 08/28/17 06:59 06:59 06:59 Intake Total 1588 1658 Output Total 360 Balance 1588 1298 Weight 65.2 kg 66.5 kg Exam: GENERAL: well-nourished and in no acute distress. Alert and oriented x3 HEAD: Atraumatic, normocephalic. EYES: Pupils equal round and reactive to light, extraocular movements intact, sclera anicteric, conjunctiva are normal. ENT: TMs normal, nares patent, oropharynx clear without exudates. Moist mucous membranes. No oral ulcerations or bleeding gums noted NECK: supple without lymphadenopathy. Trachea is central. No cervical or axillary lymphadenopathy noted. Carotids are 2+, JVD WNL LUNGS: Respiration seems nonlabored, no significant accessory muscle action noted. Bibasilar fine crackles noted with mild scattered wheezing. No dullness noted CHEST: Palpation of the chest wall shows no significant chest wall tenderness. No other significant abnormalities noted. 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 ABDOMEN: Soft, no significant tenderness appreciated, normoactive bowel sounds. No guarding, no rebound. No rigidity noted . No masses appreciated. EXTREMITIES: Pedal pulses are 1-2+, no calf tenderness noted. No clubbing or cyanosis.trace to 1+ pedal edema noted NEUROLOGICAL: Focused neurological exam showed no significant neurologic deficit. Normal speech, no focal weakness appreciated. PSYCH: Normal mood, normal affect. Judgment and insight within normal limits. SKIN: No significant ecchymosis, skin is noted to be warm. MUSCULOSKELETAL EXAM: No significant acute joint swelling noted. Results Laboratory Results: 08/27/17 06:05 08/27/17 06:05 08/27/17 08/27/17 06:05 06:05 WBC 6.2 RBC 3.25 L Hgb 9.1 L Hct 27.5 L MCV 85 MCH 28.0 MCHC 33.1 RDW 15.8 H Plt Count 267 Seg Neutrophils % Not Reportable Lymphocytes % Not Reportable Monocytes % Not Reportable Eosinophils % Not Reportable Basophils % Not Reportable Absolute Neutrophils Not Reportable Absolute Lymphocytes Not Reportable Absolute Monocytes Not Reportable Absolute Eosinophils Not Reportable Absolute Basophils Not Reportable Sodium 135.3 L Potassium 3.9 Chloride 95 L Carbon Dioxide 37 H Anion Gap 3 L BUN 12 Creatinine 0.98 Est GFR ( Amer) > 60 Est GFR (Non-Af Amer) > 60 Glucose 88 Calcium 8.1 L 08/10/17 08/10/17 08/10/17 13:15 13:15 20:30 Creatine Kinase 70 41 L CK-MB (CK-2) 2.03 Troponin I 0.271 NT-Pro-B Natriuret Pep 08/10/17 08/11/17 08/11/17 20:30 06:30 06:30 Creatine Kinase 31 L CK-MB (CK-2) 2.61 1.80 Troponin I 0.160 0.087 NT-Pro-B Natriuret Pep 08/16/17 20:30 Creatine Kinase CK-MB (CK-2) Troponin I NT-Pro-B Natriuret Pep 1160 H EKG Comments: Telemetry strips shows sinus rhythm with sinus tachycardia and frequent APCs, short run of paroxysmal atrial tachycardia. Impressions: Head CT 08/10/17 09:58 IMPRESSION: CHRONIC CHANGES OF ATROPHY AND MICROVASCULAR ISCHEMIA. NO ACUTE PROCESS. EVIDENCE OF ACUTE STROKE: NO. Chest/Abdomen CTA 08/13/17 00:00 IMPRESSION: 1. NORMAL CTA OF THE CHEST. NO PULMONARY EMBOLI. 2. BILATERAL PLEURAL EFFUSIONS. RIGHT AND LEFT LOWER LOBE CONSOLIDATIONS SECONDARY TO COMPRESSIVE ATELECTASIS AND/OR PNEUMONIA. 3. COPD. 4. NONOBSTRUCTING CALCULUS IN THE LEFT KIDNEY. OLD VERTEBRAL WEDGE COMPRESSION FRACTURES. Abdomen/Pelvis CT 08/15/17 00:00 IMPRESSION: Trace bilateral pleural effusions with partial collapse left lower lobe Nasogastric tube, Colby catheter in good positioning No CT findings to explain history of sepsis Thoracentesis Ultrasound 08/15/17 00:00 IMPRESSION: SUCCESSFUL THORACENTESIS USING ULTRASOUND GUIDANCE. Chest Ultrasound 08/15/17 09:44 IMPRESSION: Bilateral pleural effusions Facial Bones CT 08/18/17 00:00 IMPRESSION: NO ACUTE FINDINGS. KUB X-Ray 08/19/17 00:00 IMPRESSION: STABLE GAS DISTENDED LOOPS OF BOWEL PRESUMABLY REPRESENTING ILEUS. TOOTH AGAIN NOTED WITHIN THE STOMACH. STABLE NASOGASTRIC TUBE AND COLBY CATHETER. Chest X-Ray 08/24/17 00:00 IMPRESSION: Bibasilar airspace densities in small associated pleural effusions appear essentially unchanged. Interval removal of the endotracheal tube and NG tube. Other findings as noted above Guidance Fluoroscopy 08/24/17 00:00 IMPRESSION: Please see combined report for performance of procedure and radiologic supervision and interpretation. Interventional Vascular Procedure 08/24/17 00:00 IMPRESSION: Please see combined report for performance of procedure and radiologic supervision and interpretation. PICC Line Insertion 08/24/17 00:00 IMPRESSION: SUCCESSFUL PLACEMENT OF A 5 FR pool LUMEN 42 CM PICC IN THE left basilic VEIN. Assessment & Plan - Diagnosis (1) Multifocal atrial tachycardia Is this a current diagnosis for this admission?: Yes (2) Acute on chronic respiratory failure with hypoxia and hypercapnia Is this a current diagnosis for this admission?: Yes (3) Elevated troponin Is this a current diagnosis for this admission?: Yes (4) Chronic obstructive pulmonary disease Qualifiers: Emphysema type: unspecified Is this a current diagnosis for this admission?: Yes (5) Pneumonia Qualifiers: Pneumonia type: due to unspecified organism Laterality: bilateral Lung location: lower lobe of lung Qualified Code(s): J18.1 - Lobar pneumonia, unspecified organism Is this a current diagnosis for this admission?: Yes (6) Septic shock Is this a current diagnosis for this admission?: Yes (7) Non-STEMI (non-ST elevated myocardial infarction) Is this a current diagnosis for this admission?: Yes (8) Hypotension Qualifiers: Hypotension type: unspecified hypotension type Qualified Code(s): I95.9 - Hypotension, unspecified Is this a current diagnosis for this admission?: Yes - Notes Notes: Patient scheduled for nuclear stress test tomorrow. Tachycardia: Most likely related to metabolic and COPD problems. Patient could be having short run of paroxysmal atrial tachycardia, multifocal atrial tachycardia, cannot rule out short runs of A. fib. Related to COPD. Currently improved with increased dose of Cardizem. Maintain electrolytes within normal limits. CHF: Currently seems compensated clinically. Continue current diuretic therapy. Currently seems stable. Edema probably related to low albumin. This has improved. Non-STEMI: Most likely related to sepsis and metabolic reason, hypoxemia, severe hypotension related rather than acute coronary syndrome. Previous EKG is reviewed shows no significant ST-T changes. Have scheduled patient for a nuclear stress test. Hypotension: Blood pressure was stable. May consider discontinuing Midodrin.. Acute respiratory failure: Most likely related to pneumonia on top of severe COPD. Continue oxygen supplementation. Elevated troponin I: Most likely related to sepsis, acute respiratory failure. COPD: Continue current therapy and supplemental oxygenation. Pneumonia: Continue with antibiotic therapy. Septic shock: Continue antibiotics. Resolved. Currently patient is having good perfusion. Recommend DVT prophylaxis with Lovenox or subcu heparin. - Time Time with patient: 15-25 minutes - CODE STATUS was discussed, patient remains full code. Surrogate decision-maker unchanged. Multiple medical problems were addressed. More than 50% of the time spent coordinating care, discussing management plans with involved caregivers. Management plans discussed with involved personnels. Medical decision making was of moderate to high complexity , patient's has multiple comorbidities. Medications reviewed and adjusted accordingly: Yes
[2017-08-28] MEDS: LEVALBUTEROL HCL NEB 1.25 MG/3 ML AMPUL NEB SCH ×7 (00:45→23:55)
[2017-08-28] MEDS: IPRATROPIUM BROMIDE 0.02% NEB 0.5 MG/2.5 ML AMPUL NEB SCH ×7 (00:45→23:55)
[2017-08-28] MEDS: DILTIAZEM HCL 60 MG TABLET PO SCH ×3 (05:54→21:47)
[2017-08-28] MEDS: HEPARIN SOD (PORCINE) 5,000 UNIT/ML 1 ML SYRINGE SUBCUT SCH ×3 (05:55→21:47)
[2017-08-28] MEDS: CLINDAMYCIN HCL 150 MG CAPSULE PO SCH ×3 (05:55→21:48)
[2017-08-28] MEDS: FLUTICASONE/SALMETEROL DISKUS 500-50 MCG/DOSE IH SCH ×2 (05:55→17:38)
[2017-08-28 06:49] LABS: ABSOLUTE EOSINOPHILS # (AUTO) 0.2 10^3/uL (0.0-0.6); ABSOLUTE LYMPHOCYTES (AUTO) 0.8 10^3/uL (0.5-4.7); ABSOLUTE MONOCYTES (AUTO) 0.8 10^3/uL (0.1-1.4); ABSOLUTE NEUT (AUTO) 4.2 10^3/uL (1.7-8.2); BASOPHILS % (AUTO) 0.5 % (0-2); EOSINOPHILS % (AUTO) 2.8 % (0-6); HEMATOCRIT 26.5 % (37.9-51.0); HEMOGLOBIN 8.7 g/dL (13.5-17.0); LYMPHOCYTES % (AUTO) 13.6 % (13-45); MEAN CORPUSCULAR HEMOGLOBIN 27.8 pg (27.0-33.4); MEAN CORPUSCULAR HGB CONC 32.8 g/dL (32.0-36.0); MEAN CORPUSCULAR VOLUME 85 fl (80-97); MONOCYTES % (AUTO) 13.9 % (3-13); PLATELET COUNT 223 10^3/uL (150-450); RED BLOOD COUNT 3.13 10^6/uL (4.35-5.55); RED CELL DISTRIBUTION WIDTH 16.7 % (11.5-14.0); SEGMENTED NEUTROPHILS % (AUTO) 69.2 % (42-78); TOTAL CELLS COUNTED % (AUTO) 100 %
[2017-08-28 07:04] LABS: BLOOD UREA NITROGEN 10 mg/dL (7-20); CALCIUM 8.3 mg/dL (8.4-10.2); GLUCOSE 81 mg/dL (75-110); POTASSIUM 3.9 mmol/L (3.6-5.0)
[2017-08-28 07:10] LABS: CARBON DIOXIDE 39 mmol/L (22-30); CHLORIDE 92 mmol/L (98-107); SODIUM 134.7 mmol/L (137-145)
[2017-08-28 07:16] LABS: ANION GAP 4 (5-19)
--- NOTE | 2017-08-28 08:50 | RADIOLOGY REPORT (SQ) ---
EXAM DESCRIPTION: CHEST SINGLE VIEW COMPLETED DATE/TIME: 08/28/2017 7:37 am REASON FOR STUDY: shortness of breath COMPARISON: 08/24/2017 EXAM PARAMETERS: NUMBER OF VIEWS: One view. TECHNIQUE: Single frontal radiographic view of the chest acquired. RADIATION DOSE: NA LIMITATIONS: None. FINDINGS: LUNGS AND PLEURA: COPD. Persistent abnormal density in both lung bases appearing to repre sent a combination of pneumonia and small effusions. No significant change since prior study. MEDIASTINUM AND HILAR STRUCTURES: No masses. Contour normal. HEART AND VASCULAR STRUCTURES: Heart normal in size. Normal vasculature. BONES: No acute findings. HARDWARE: Left-sided PICC catheter with tip at the junction of superior vena cava and right atrium. OTHER: No other significant finding. IMPRESSION: No significant change in the abnormal density in the lung bases. TECHNICAL DOCUMENTATION: JOB ID: [id number] [employer]- All Rights Reserved Reading location - IP/workstation name: [email or web address]
--- NOTE | 2017-08-28 08:52 | PDOC PROGRESS REPORT ---
Subjective Progress Note for:: 08/28/17 Subjective:: Patients have episode of the hypoxia last night's O2 sat go to up to 80% and requiring 6 L oxygens and come back normal to back to the 2 L nasal cannula Patient still very weak denied any chest pain denied any shortness of the breath Patient scheduled for the stress test but unfortunately patient is very weak so discussed with the cardiology at this point hold the stress test Patient hemoglobin is 8.7 with iron is low Reason For Visit: SEPTIC SHOCK,RESPIRATORY FAILURE,RENAL FAILURE, Physical Exam Vital Signs: Temp Pulse Resp BP Pulse Ox 97.7 F 112 H 16 113/58 L 96 08/28/17 03:08 08/28/17 04:22 08/28/17 04:22 08/28/17 03:08 08/28/17 04:22 Intake & Output 08/27/17 08/28/17 08/29/17 06:59 06:59 06:59 Intake Total 1658 355 Output Total 360 Balance 1298 355 Weight 66.5 kg 64.6 kg General appearance: PRESENT: no acute distress, well-developed, well-nourished Head exam: PRESENT: atraumatic, normocephalic Eye exam: PRESENT: conjunctiva pink, EOMI, PERRLA. ABSENT: scleral icterus Ear exam: PRESENT: normal external ear exam Mouth exam: PRESENT: moist, tongue midline Neck exam: PRESENT: full ROM. ABSENT: carotid bruit, JVD, lymphadenopathy, thyromegaly Respiratory exam: PRESENT: clear to auscultation ana Cardiovascular exam: PRESENT: RRR. ABSENT: diastolic murmur, rubs, systolic murmur Pulses: PRESENT: normal dorsalis pedis pul, +2 pedal pulses bilateral Vascular exam: PRESENT: normal capillary refill GI/Abdominal exam: PRESENT: normal bowel sounds, soft. ABSENT: distended, guarding, mass, organolmegaly, rebound, tenderness Rectal exam: PRESENT: deferred Extremities exam: ABSENT: pedal edema Neurological exam: PRESENT: alert, awake, oriented to person, oriented to place , oriented to time, oriented to situation, CN II-XII grossly intact. ABSENT: motor sensory deficit Psychiatric exam: PRESENT: appropriate affect, normal mood. ABSENT: homicidal ideation, suicidal ideation Skin exam: PRESENT: dry, intact, warm. ABSENT: cyanosis, rash Results Laboratory Results: 08/28/17 05:50 08/28/17 05:50 08/26/17 08/28/17 08/28/17 11:15 05:50 05:50 WBC 6.0 RBC 3.13 L Hgb 8.7 L Hct 26.5 L MCV 85 MCH 27.8 MCHC 32.8 RDW 16.7 H Plt Count 223 Seg Neutrophils % 69.2 Lymphocytes % 13.6 Monocytes % 13.9 H Eosinophils % 2.8 Basophils % 0.5 Absolute Neutrophils 4.2 Absolute Lymphocytes 0.8 Absolute Monocytes 0.8 Absolute Eosinophils 0.2 Absolute Basophils 0.0 Sodium 134.7 L Potassium 3.9 Chloride 92 L Carbon Dioxide 39 H Anion Gap 4 L BUN 10 Creatinine 1.02 Est GFR ( Amer) > 60 Est GFR (Non-Af Amer) > 60 Glucose 81 Calcium 8.3 L Transferrin 95 L 08/10/17 08/10/17 08/10/17 13:15 13:15 20:30 Creatine Kinase 70 41 L CK-MB (CK-2) 2.03 Troponin I 0.271 NT-Pro-B Natriuret Pep 08/10/17 08/11/17 08/11/17 20:30 06:30 06:30 Creatine Kinase 31 L CK-MB (CK-2) 2.61 1.80 Troponin I 0.160 0.087 NT-Pro-B Natriuret Pep 08/16/17 20:30 Creatine Kinase CK-MB (CK-2) Troponin I NT-Pro-B Natriuret Pep 1160 H Impressions: Head CT 08/10/17 09:58 IMPRESSION: CHRONIC CHANGES OF ATROPHY AND MICROVASCULAR ISCHEMIA. NO ACUTE PROCESS. EVIDENCE OF ACUTE STROKE: NO. Chest/Abdomen CTA 08/13/17 00:00 IMPRESSION: 1. NORMAL CTA OF THE CHEST. NO PULMONARY EMBOLI. 2. BILATERAL PLEURAL EFFUSIONS. RIGHT AND LEFT LOWER LOBE CONSOLIDATIONS SECONDARY TO COMPRESSIVE ATELECTASIS AND/OR PNEUMONIA. 3. COPD. 4. NONOBSTRUCTING CALCULUS IN THE LEFT KIDNEY. OLD VERTEBRAL WEDGE COMPRESSION FRACTURES. Abdomen/Pelvis CT 08/15/17 00:00 IMPRESSION: Trace bilateral pleural effusions with partial collapse left lower lobe Nasogastric tube, Colby catheter in good positioning No CT findings to explain history of sepsis Thoracentesis Ultrasound 08/15/17 00:00 IMPRESSION: SUCCESSFUL THORACENTESIS USING ULTRASOUND GUIDANCE. Chest Ultrasound 08/15/17 09:44 IMPRESSION: Bilateral pleural effusions Facial Bones CT 08/18/17 00:00 IMPRESSION: NO ACUTE FINDINGS. KUB X-Ray 08/19/17 00:00 IMPRESSION: STABLE GAS DISTENDED LOOPS OF BOWEL PRESUMABLY REPRESENTING ILEUS. TOOTH AGAIN NOTED WITHIN THE STOMACH. STABLE NASOGASTRIC TUBE AND COLBY CATHETER. Guidance Fluoroscopy 08/24/17 00:00 IMPRESSION: Please see combined report for performance of procedure and radiologic supervision and interpretation. Interventional Vascular Procedure 08/24/17 00:00 IMPRESSION: Please see combined report for performance of procedure and radiologic supervision and interpretation. PICC Line Insertion 08/24/17 00:00 IMPRESSION: SUCCESSFUL PLACEMENT OF A 5 FR pool LUMEN 42 CM PICC IN THE left basilic VEIN. Assessment & Plan - Diagnosis (1) Acute on chronic respiratory failure with hypoxia and hypercapnia Is this a current diagnosis for this admission?: Yes Plan: Currently doing well but will retreat repeat the CT angiogram to rule out other etiologyAlso get the ABG (2) Septic shock Is this a current diagnosis for this admission?: Yes Plan: Currently resolved (3) Pneumonia Qualifiers: Pneumonia type: due to unspecified organism Laterality: bilateral Lung location: lower lobe of lung Qualified Code(s): J18.9 - Pneumonia, unspecified organism Is this a current diagnosis for this admission?: Yes Plan: Continues the p.o. clindamycin's for 7 days (4) Acute renal failure Qualifiers: Acute renal failure type: unspecified Qualified Code(s): N17.9 - Acute kidney failure, unspecified Is this a current diagnosis for this admission?: Yes Plan: Currently all stable (5) Chronic obstructive pulmonary disease Qualifiers: Emphysema type: unspecified Is this a current diagnosis for this admission?: Yes Plan: Continues to nebulizer treatments (6) Hypertension Qualifiers: Hypertension type: essential hypertension Qualified Code(s): I10 - Essential (primary) hypertension Is this a current diagnosis for this admission?: Yes Plan: Currently hypertension is due to the septic shock (7) Neoplasm of rectum Is this a current diagnosis for this admission?: Yes (8) Elevated troponin Is this a current diagnosis for this admission?: Yes Plan: As per discussed with the cardiology for the stress test while patient's overall condition is not ready for the stress test yet (9) Leukocytosis Qualifiers: Leukocytosis type: bandemia Qualified Code(s): D72.825 - Bandemia Is this a current diagnosis for this admission?: Yes Plan: Currently all resolved (10) Pleural effusion Is this a current diagnosis for this admission?: Yes (11) Sinus tachycardia Is this a current diagnosis for this admission?: Yes - Time Time Spent with patient: 15-24 minutes Medications reviewed and adjusted accordingly: Yes Anticipated discharge: Other Within: Other - Inpatient Certification Medical Necessity: Need Close Monitoring Due to Risk of Patient Decompensation, Need for IV Antibiotics 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
--- NOTE | 2017-08-28 09:46 | RADIOLOGY REPORT (SQ) ---
EXAM DESCRIPTION: CTA CHEST COMPLETED DATE/TIME: 08/28/2017 9:29 am REASON FOR STUDY: hypoxia COMPARISON: 08/14/2017 TECHNIQUE: CT scan of the chest performed using helical scanning technique with dynamic intravenous contrast injection. Images reviewed with lung, soft tissue and bone windows. Reconstructed coronal and sagittal MPR images reviewed. Additional 3 dimensional post-processing performed to develop Maximal Intensity Projection images (AK P). All images stored on PACS. All CT scanners at this facility use dose modulation, iterative reconstruction, and/or weight based d osing when appropriate to reduce radiation dose to as low as reasonably achievable (ALARA). [facility]: Dose Right [facility]: CareDose [facility]: Dose Right [facility]: Teradose 4D [facility]: Wattpad CONTRAST TYPE AND DOSE: contrast/concentration: Isovue 370.00 mg/ml; Total Contrast Delivered: 60.0 ml; Total Saline Delivered: 105.0 ml RENAL FUNCTION: BUN 10 creatinine 1.0 RADIATION DOSE: CT Rad equipment meets quality standard of care and radiation dose reduction techniq ues were employed. CTDIvol: 1.9 - 13.2 mGy. DLP: 509 mGy-cm. . LIMITATIONS: None. FINDINGS: LUNGS AND PLEURA: Moderate bilateral pleural effusions and associated dependent airspace d isease. Persistent collapse of the left lower lobe. Emphysematous changes. AORTA AND GREAT VESSELS: No aneurysm. Contrast bolus not optimized for the aorta. HEART: No pericardial effusion. PULMONARY ARTERIES: No emboli visualized in the main pulmonary arteries or the segmental branches. HILAR AND MEDIASTINAL STRUCTURES: No identified masses or abnormal nodes. HARDWARE: None in the chest. UPPER ABDOMEN: No significant findings. Limited exam. THYROID AND OTHER SOFT TISSUES: No masses. No adenopathy. BONES: No acute or significant finding. 3D MIPS: Confirm above findings. OTHER: No other significant finding. IMPRESSION: No PE. Unchanged pleural effusions and lower lobe consolidation. COMMENT: Quality ID # [id number]: Final reports with documentation of one or more dose reduction techniques (e.g., Automated exposure control, adjustment of the mA and/or kV according to patient size, use of iterative reconstruction technique) TECHNICAL DOCUMENTATION: JOB ID: [id number] [employer]- All Rights Reserved Reading location - IP/workstation name: [facility]
[2017-08-28] MEDS: MIDODRINE HCL 5 MG TABLET PO SCH ×3 (10:12→17:39)
[2017-08-28] MEDS: FERROUS SULFATE 325 MG TABLET PO SCH ×2 (10:13→17:40)
[2017-08-28] MEDS: FLUCONAZOLE 100 MG TABLET PO SCH (10:13)
[2017-08-28] MEDS: FAMOTIDINE 20 MG TABLET PO SCH ×2 (10:14→21:44)
[2017-08-28] MEDS: TIOTROPIUM BROMIDE DPI 5 CAP/KIT (18 MCG/CAP) IH SCH (10:15)
[2017-08-28] MEDS: HYDROCORTISONE 10 MG TABLET PO SCH (10:15)
[2017-08-28] MEDS: NORMAL SALINE 10 ML SDV (SCHEDULED) IV SCH ×2 (10:16→22:00)
--- NOTE | 2017-08-28 11:49 | PDOC PROGRESS REPORT ---
Subjective Progress Note for:: 08/28/17 Subjective:: Patient seen on morning rounds. Patients have episode of the hypoxia last night' s O2 sat go to up to 80% and requiring 6 L oxygens and come back normal to back to the 2 L nasal cannula. Patient daughter at bedside. Discussed that patient too weak to undergo any stress testing or even any invasive evaluation such as cardiac catheterization. Do not feel heart catheterization is indicated in the absence of significant anginal discomfort. It is felt that patient's primary problem is severe COPD. Patient claims to being very weak and debilitated. Patient denying any chest pain. He is noted to be comfortable. Today patient seems oriented to place and person. Telemetry strips reviewed. Telemetry strips shows improving tachycardia. Medications reviewed. Reason For Visit: SEPTIC SHOCK,RESPIRATORY FAILURE,RENAL FAILURE, Physical Exam Vital Signs: Temp Pulse Resp BP Pulse Ox 97.5 F 111 H 15 107/60 96 08/28/17 07:57 08/28/17 08:06 08/28/17 10:54 08/28/17 07:57 08/28/17 10:54 Intake & Output 08/27/17 08/28/17 08/29/17 06:59 06:59 06:59 Intake Total 1658 355 Output Total 360 Balance 1298 355 Weight 66.5 kg 64.6 kg Exam: GENERAL: Looks undernourished but has normal BMI and in no acute distress. Alert and oriented x3 HEAD: Atraumatic, normocephalic. EYES: Pupils equal round and reactive to light, extraocular movements intact, sclera anicteric, conjunctiva are normal. ENT: TMs normal, nares patent, oropharynx clear without exudates. Moist mucous membranes. No oral ulcerations or bleeding gums noted NECK: supple without lymphadenopathy. Trachea is central. No cervical or axillary lymphadenopathy noted. Carotids are 2+, JVD WNL LUNGS: Respiration seems nonlabored, no significant accessory muscle action noted. Bibasilar fine crackles and scattered wheezes rales or rhonchi noted. Bibasilar dullness noted. CHEST: Palpation of the chest wall shows no significant chest wall tenderness. No other significant abnormalities noted. 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 ABDOMEN: Soft, no significant tenderness appreciated, normoactive bowel sounds. No guarding, no rebound. No rigidity noted . No masses appreciated. EXTREMITIES: Pedal pulses are 1-2+, no calf tenderness noted. No clubbing or cyanosis.trace pedal edema noted NEUROLOGICAL: Focused neurological exam showed no significant neurologic deficit. Normal speech, no focal weakness appreciated. PSYCH: Normal mood, normal affect. Judgment and insight within normal limits. SKIN: No significant ecchymosis, skin is noted to be warm. MUSCULOSKELETAL EXAM: No significant acute joint swelling noted. Results Laboratory Results: 08/28/17 05:50 08/28/17 05:50 08/26/17 08/28/17 08/28/17 11:15 05:50 05:50 WBC 6.0 RBC 3.13 L Hgb 8.7 L Hct 26.5 L MCV 85 MCH 27.8 MCHC 32.8 RDW 16.7 H Plt Count 223 Seg Neutrophils % 69.2 Lymphocytes % 13.6 Monocytes % 13.9 H Eosinophils % 2.8 Basophils % 0.5 Absolute Neutrophils 4.2 Absolute Lymphocytes 0.8 Absolute Monocytes 0.8 Absolute Eosinophils 0.2 Absolute Basophils 0.0 Sodium 134.7 L Potassium 3.9 Chloride 92 L Carbon Dioxide 39 H Anion Gap 4 L BUN 10 Creatinine 1.02 Est GFR ( Amer) > 60 Est GFR (Non-Af Amer) > 60 Glucose 81 Calcium 8.3 L Transferrin 95 L 08/10/17 08/10/17 08/10/17 13:15 13:15 20:30 Creatine Kinase 70 41 L CK-MB (CK-2) 2.03 Troponin I 0.271 NT-Pro-B Natriuret Pep 08/10/17 08/11/17 08/11/17 20:30 06:30 06:30 Creatine Kinase 31 L CK-MB (CK-2) 2.61 1.80 Troponin I 0.160 0.087 NT-Pro-B Natriuret Pep 08/16/17 20:30 Creatine Kinase CK-MB (CK-2) Troponin I NT-Pro-B Natriuret Pep 1160 H Impressions: Head CT 08/10/17 09:58 IMPRESSION: CHRONIC CHANGES OF ATROPHY AND MICROVASCULAR ISCHEMIA. NO ACUTE PROCESS. EVIDENCE OF ACUTE STROKE: NO. Abdomen/Pelvis CT 08/15/17 00:00 IMPRESSION: Trace bilateral pleural effusions with partial collapse left lower lobe Nasogastric tube, Colby catheter in good positioning No CT findings to explain history of sepsis Thoracentesis Ultrasound 08/15/17 00:00 IMPRESSION: SUCCESSFUL THORACENTESIS USING ULTRASOUND GUIDANCE. Chest Ultrasound 08/15/17 09:44 IMPRESSION: Bilateral pleural effusions Facial Bones CT 08/18/17 00:00 IMPRESSION: NO ACUTE FINDINGS. KUB X-Ray 08/19/17 00:00 IMPRESSION: STABLE GAS DISTENDED LOOPS OF BOWEL PRESUMABLY REPRESENTING ILEUS. TOOTH AGAIN NOTED WITHIN THE STOMACH. STABLE NASOGASTRIC TUBE AND COLBY CATHETER. Guidance Fluoroscopy 08/24/17 00:00 IMPRESSION: Please see combined report for performance of procedure and radiologic supervision and interpretation. Interventional Vascular Procedure 08/24/17 00:00 IMPRESSION: Please see combined report for performance of procedure and radiologic supervision and interpretation. PICC Line Insertion 08/24/17 00:00 IMPRESSION: SUCCESSFUL PLACEMENT OF A 5 FR pool LUMEN 42 CM PICC IN THE left basilic VEIN. Chest/Abdomen CTA 08/28/17 00:00 IMPRESSION: No PE. Unchanged pleural effusions and lower lobe consolidation. Chest X-Ray 08/28/17 06:00 IMPRESSION: No significant change in the abnormal density in the lung bases. Assessment & Plan - Diagnosis (1) Multifocal atrial tachycardia Is this a current diagnosis for this admission?: Yes (2) Acute on chronic respiratory failure with hypoxia and hypercapnia Is this a current diagnosis for this admission?: Yes (3) Elevated troponin Is this a current diagnosis for this admission?: Yes (4) Chronic obstructive pulmonary disease Qualifiers: Emphysema type: unspecified Is this a current diagnosis for this admission?: Yes (5) Pneumonia Qualifiers: Pneumonia type: due to unspecified organism Laterality: bilateral Lung location: lower lobe of lung Qualified Code(s): J18.1 - Lobar pneumonia, unspecified organism Is this a current diagnosis for this admission?: Yes (6) Septic shock Is this a current diagnosis for this admission?: Yes (7) Non-STEMI (non-ST elevated myocardial infarction) Is this a current diagnosis for this admission?: Yes (8) Hypotension Qualifiers: Hypotension type: unspecified hypotension type Qualified Code(s): I95.9 - Hypotension, unspecified Is this a current diagnosis for this admission?: Yes - Notes Notes: Nuclear stress test which was scheduled was canceled because of hypoxemia. CT scan shows no pulmonary embolism but bilateral pleural effusion. Consider thoracentesis. Tachycardia: Most likely related to metabolic and COPD problems. Patient could be having short run of paroxysmal atrial tachycardia, multifocal atrial tachycardia, cannot rule out short runs of A. fib. Related to COPD. Currently improved with increased dose of Cardizem. Maintain electrolytes within normal limits. CHF: Currently seems compensated clinically. Continue current diuretic therapy. Currently seems stable. Edema probably related to low albumin. This has improved. Non-STEMI: Most likely related to sepsis and metabolic reason, hypoxemia, severe hypotension related rather than acute coronary syndrome. Previous EKG is reviewed shows no significant ST-T changes. Have scheduled patient for a nuclear stress test. Hypotension: Blood pressure was stable. Have reduced Midodrin to 2.5 mg p.o 3 times a day. Acute respiratory failure: Most likely related to pneumonia on top of severe COPD. Continue oxygen supplementation. Elevated troponin I: Most likely related to sepsis, acute respiratory failure. COPD: Continue current therapy and supplemental oxygenation. Pneumonia: Continue with antibiotic therapy. Patient has bilateral pleural effusion. May consider thoracentesis. Septic shock: Continue antibiotics. Resolved. Currently patient is having good perfusion. Recommend DVT prophylaxis with Lovenox or subcu heparin. - Time Time with patient: 15-25 minutes - CODE STATUS was discussed, patient remains full code. Surrogate decision-maker unchanged. Multiple medical problems were addressed. More than 50% of the time spent coordinating care, discussing management plans with involved caregivers. Management plans discussed with involved personnels. Medical decision making was of moderate to high complexity , patient's has multiple comorbidities. Medications reviewed and adjusted accordingly: Yes
[2017-08-28] MEDS ORDERED: DIGOXIN INJ 0.5 MG/2 ML AMPULE IV ONE (14:00)
[2017-08-28] MEDS: FUROSEMIDE INJ/PF 20 MG/2 ML SDV IV SCH (17:41)
[2017-08-28] MEDS: TAMSULOSIN HCL 0.4 MG CAP.SR.24H PO SCH (17:41)
--- NOTE | 2017-08-28 21:21 | EKG REPORT ---
SEVERITY:- BORDERLINE ECG - SINUS RHYTHM, WITH APCs : Confirmed by: Rachel Florian 28-Aug-2017 21:20:55
[2017-08-29] MEDS: LEVALBUTEROL HCL NEB 1.25 MG/3 ML AMPUL NEB SCH ×6 (04:03→23:23)
[2017-08-29] MEDS: IPRATROPIUM BROMIDE 0.02% NEB 0.5 MG/2.5 ML AMPUL NEB SCH ×6 (04:03→23:24)
[2017-08-29] MEDS: DILTIAZEM HCL 60 MG TABLET PO SCH ×3 (06:06→21:16)
[2017-08-29] MEDS: CLINDAMYCIN HCL 150 MG CAPSULE PO SCH ×2 (06:08→15:17)
[2017-08-29] MEDS: HEPARIN SOD (PORCINE) 5,000 UNIT/ML 1 ML SYRINGE SUBCUT SCH ×3 (06:09→21:15)
[2017-08-29] MEDS: FUROSEMIDE INJ/PF 20 MG/2 ML SDV IV SCH ×2 (06:10→18:04)
[2017-08-29] MEDS: FLUTICASONE/SALMETEROL DISKUS 500-50 MCG/DOSE IH SCH ×2 (06:16→18:03)
[2017-08-29 06:28] LABS: ABSOLUTE BASOPHILS # (AUTO) 0.1 10^3/uL (0.0-0.2); ABSOLUTE EOSINOPHILS # (AUTO) 0.2 10^3/uL (0.0-0.6); ABSOLUTE MONOCYTES (AUTO) 1.2 10^3/uL (0.1-1.4); ABSOLUTE NEUT (AUTO) 4.5 10^3/uL (1.7-8.2); BASOPHILS % (AUTO) 0.9 % (0-2); EOSINOPHILS % (AUTO) 2.7 % (0-6); HEMOGLOBIN 8.7 g/dL (13.5-17.0); LYMPHOCYTES % (AUTO) 14.1 % (13-45); MEAN CORPUSCULAR HEMOGLOBIN 28.3 pg (27.0-33.4); MEAN CORPUSCULAR HGB CONC 33.5 g/dL (32.0-36.0); MEAN CORPUSCULAR VOLUME 85 fl (80-97); MONOCYTES % (AUTO) 17.4 % (3-13); PLATELET COUNT 207 10^3/uL (150-450); RED BLOOD COUNT 3.07 10^6/uL (4.35-5.55); RED CELL DISTRIBUTION WIDTH 16.1 % (11.5-14.0); SEGMENTED NEUTROPHILS % (AUTO) 64.9 % (42-78); TOTAL CELLS COUNTED % (AUTO) 100 %; WHITE BLOOD COUNT 6.9 10^3/uL (4.0-10.5)
[2017-08-29 06:41] LABS: BLOOD UREA NITROGEN 11 mg/dL (7-20); CALCIUM 8.4 mg/dL (8.4-10.2); GLUCOSE 94 mg/dL (75-110); POTASSIUM 3.9 mmol/L (3.6-5.0)
[2017-08-29 06:46] LABS: CARBON DIOXIDE 39 mmol/L (22-30); CHLORIDE 91 mmol/L (98-107); SODIUM 132.9 mmol/L (137-145)
[2017-08-29 06:50] LABS: ANION GAP 3 (5-19)
[2017-08-29] MEDS: ONDANSETRON HCL INJ/PF 4 MG/2 ML SDV IV PRN (09:05)
[2017-08-29] MEDS: NORMAL SALINE 10 ML SDV (SCHEDULED) IV SCH ×2 (09:09→21:16)
[2017-08-29] MEDS: FERROUS SULFATE 325 MG TABLET PO SCH ×2 (09:12→18:02)
[2017-08-29] MEDS: MIDODRINE HCL 5 MG TABLET PO SCH ×3 (09:12→18:02)
[2017-08-29] MEDS: HYDROCORTISONE 10 MG TABLET PO SCH (09:13)
[2017-08-29] MEDS: FAMOTIDINE 20 MG TABLET PO SCH ×2 (09:13→21:16)
[2017-08-29] MEDS: TIOTROPIUM BROMIDE DPI 5 CAP/KIT (18 MCG/CAP) IH SCH (09:13)
--- NOTE | 2017-08-29 09:42 | PDOC PROGRESS REPORT ---
Subjective Progress Note for:: 08/29/17 Subjective:: pt is currently doing fair Discussed with the Dr. allen and suggest the Lasix and also putting the digoxin' s with agree with the Dr. Florian Patient still very depressed still very weak Patient still insists to go home Reason For Visit: SEPTIC SHOCK,RESPIRATORY FAILURE,RENAL FAILURE, Physical Exam Vital Signs: Temp Pulse Resp BP Pulse Ox 98.0 F 96 20 101/54 L 98 08/29/17 07:18 08/29/17 07:18 08/29/17 07:18 08/29/17 07:18 08/29/17 07:18 Intake & Output 08/28/17 08/29/17 08/30/17 06:59 06:59 06:59 Intake Total 355 579 Output Total 200 Balance 355 379 Weight 64.6 kg 67.5 kg General appearance: PRESENT: no acute distress, well-developed, well-nourished Head exam: PRESENT: atraumatic, normocephalic Eye exam: PRESENT: conjunctiva pink, EOMI, PERRLA. ABSENT: scleral icterus Ear exam: PRESENT: normal external ear exam Mouth exam: PRESENT: moist, tongue midline Neck exam: PRESENT: full ROM. ABSENT: carotid bruit, JVD, lymphadenopathy, thyromegaly Respiratory exam: PRESENT: clear to auscultation ana Cardiovascular exam: PRESENT: RRR. ABSENT: diastolic murmur, rubs, systolic murmur Pulses: PRESENT: normal dorsalis pedis pul, +2 pedal pulses bilateral Vascular exam: PRESENT: normal capillary refill GI/Abdominal exam: PRESENT: normal bowel sounds, soft. ABSENT: distended, guarding, mass, organolmegaly, rebound, tenderness Rectal exam: PRESENT: deferred Extremities exam: ABSENT: pedal edema Neurological exam: PRESENT: alert, awake, oriented to person, oriented to place , oriented to time, oriented to situation, CN II-XII grossly intact. ABSENT: motor sensory deficit Psychiatric exam: PRESENT: appropriate affect, normal mood. ABSENT: homicidal ideation, suicidal ideation Skin exam: PRESENT: dry, intact, warm. ABSENT: cyanosis, rash Results Laboratory Results: 08/29/17 06:01 08/29/17 06:01 08/29/17 08/29/17 06:01 06:01 WBC 6.9 RBC 3.07 L Hgb 8.7 L Hct 26.0 L MCV 85 MCH 28.3 MCHC 33.5 RDW 16.1 H Plt Count 207 Seg Neutrophils % 64.9 Lymphocytes % 14.1 Monocytes % 17.4 H Eosinophils % 2.7 Basophils % 0.9 Absolute Neutrophils 4.5 Absolute Lymphocytes 1.0 Absolute Monocytes 1.2 Absolute Eosinophils 0.2 Absolute Basophils 0.1 Sodium 132.9 L Potassium 3.9 Chloride 91 L Carbon Dioxide 39 H Anion Gap 3 L BUN 11 Creatinine 0.84 Est GFR ( Amer) > 60 Est GFR (Non-Af Amer) > 60 Glucose 94 Calcium 8.4 08/10/17 08/10/17 08/10/17 13:15 13:15 20:30 Creatine Kinase 70 41 L CK-MB (CK-2) 2.03 Troponin I 0.271 NT-Pro-B Natriuret Pep 08/10/17 08/11/17 08/11/17 20:30 06:30 06:30 Creatine Kinase 31 L CK-MB (CK-2) 2.61 1.80 Troponin I 0.160 0.087 NT-Pro-B Natriuret Pep 08/16/17 08/28/17 20:30 17:02 Creatine Kinase CK-MB (CK-2) Troponin I NT-Pro-B Natriuret Pep 1160 H 1120 H Impressions: Head CT 08/10/17 09:58 IMPRESSION: CHRONIC CHANGES OF ATROPHY AND MICROVASCULAR ISCHEMIA. NO ACUTE PROCESS. EVIDENCE OF ACUTE STROKE: NO. Abdomen/Pelvis CT 08/15/17 00:00 IMPRESSION: Trace bilateral pleural effusions with partial collapse left lower lobe Nasogastric tube, Colby catheter in good positioning No CT findings to explain history of sepsis Thoracentesis Ultrasound 08/15/17 00:00 IMPRESSION: SUCCESSFUL THORACENTESIS USING ULTRASOUND GUIDANCE. Chest Ultrasound 08/15/17 09:44 IMPRESSION: Bilateral pleural effusions Facial Bones CT 08/18/17 00:00 IMPRESSION: NO ACUTE FINDINGS. KUB X-Ray 08/19/17 00:00 IMPRESSION: STABLE GAS DISTENDED LOOPS OF BOWEL PRESUMABLY REPRESENTING ILEUS. TOOTH AGAIN NOTED WITHIN THE STOMACH. STABLE NASOGASTRIC TUBE AND COLBY CATHETER. Guidance Fluoroscopy 08/24/17 00:00 IMPRESSION: Please see combined report for performance of procedure and radiologic supervision and interpretation. Interventional Vascular Procedure 08/24/17 00:00 IMPRESSION: Please see combined report for performance of procedure and radiologic supervision and interpretation. PICC Line Insertion 08/24/17 00:00 IMPRESSION: SUCCESSFUL PLACEMENT OF A 5 FR pool LUMEN 42 CM PICC IN THE left basilic VEIN. Chest/Abdomen CTA 08/28/17 00:00 IMPRESSION: No PE. Unchanged pleural effusions and lower lobe consolidation. Chest X-Ray 08/28/17 06:00 IMPRESSION: No significant change in the abnormal density in the lung bases. Assessment & Plan - Diagnosis (1) Acute on chronic respiratory failure with hypoxia and hypercapnia Is this a current diagnosis for this admission?: Yes Plan: Patient's recent CT angiogram is stable with some bilateral pleural effusion and discussed with the pulmonary and suggest the most likely a from the cardiac issues (2) Septic shock Is this a current diagnosis for this admission?: Yes Plan: Currently resolved (3) Pneumonia Qualifiers: Pneumonia type: due to unspecified organism Laterality: bilateral Lung location: lower lobe of lung Qualified Code(s): J18.9 - Pneumonia, unspecified organism Is this a current diagnosis for this admission?: Yes Plan: Continues the p.o. clindamycin's for 7 days (4) Acute renal failure Qualifiers: Acute renal failure type: unspecified Qualified Code(s): N17.9 - Acute kidney failure, unspecified Is this a current diagnosis for this admission?: Yes Plan: Currently all stable (5) Chronic obstructive pulmonary disease Qualifiers: Emphysema type: unspecified Is this a current diagnosis for this admission?: Yes Plan: Continues to nebulizer treatments (6) Hypertension Qualifiers: Hypertension type: essential hypertension Qualified Code(s): I10 - Essential (primary) hypertension Is this a current diagnosis for this admission?: Yes Plan: Currently hypertension is due to the septic shock (7) Neoplasm of rectum Is this a current diagnosis for this admission?: Yes Plan: Patient's last CEA was all normal and according to the oncology's no need for further evaluations (8) Elevated troponin Is this a current diagnosis for this admission?: Yes Plan: Currently stable patients probably need a stress test as outpatient (9) Leukocytosis Qualifiers: Leukocytosis type: bandemia Qualified Code(s): D72.825 - Bandemia Is this a current diagnosis for this admission?: Yes Plan: Currently all resolved (10) Pleural effusion Is this a current diagnosis for this admission?: Yes Plan: According to the pulmonary most likely from a cardiac lesionContinues to Jose (11) Sinus tachycardia Is this a current diagnosis for this admission?: Yes Plan: Patient CT angiogram repeat is all negatives at the digoxin since he has - Time Time Spent with patient: 15-24 minutes Medications reviewed and adjusted accordingly: Yes Anticipated discharge: Other Within: Other - Inpatient Certification Medical Necessity: Need Close Monitoring Due to Risk of Patient Decompensation Post Hospital Care: D/C Airline Station Agent Documentation - Plan Summary Plan Summary: stable
[2017-08-29] MEDS: TAMSULOSIN HCL 0.4 MG CAP.SR.24H PO SCH (18:02)
[2017-08-29] MEDS ORDERED: DIGOXIN 0.125 MG TABLET PO ONE (21:00)
[2017-08-29] MEDS: LORAZEPAM 0.5 MG TABLET PO PRN (21:15)
--- NOTE | 2017-08-29 21:39 | PROGRESS NOTE E ---
Progress Note NAME: CHRISTOPHER LEBLANC : 1940 AGE: 77Y DATE: 08/29/2017 ROOM: 330 SUBJECTIVE: The patient is a 77-year-old male who came in with acute respiratory failure requiring invasive mechanical ventilation, extubated about a week ago associated with pneumonia, bilateral pleural effusion, congestive heart failure, adrenal insufficiency. Called back yesterday because patient was noted to be increasingly short of breath and desaturating to the lower 80s. The pleural effusion has worsened. Review of patient's record noted diuretic was held for the last few days. The patient has intermittent episodes of tachyarrhythmias on atrial fibrillation. Currently on Cardizem 60 mg q.8 and also on Advair inhaler 500 mcg 1 puff twice a day and Spiriva inhaler 1 capsule daily. No nausea, vomiting, diarrhea. Started on Lasix 20 mg IV q.12 yesterday and was given a dose of 0.125 mg IV digoxin yesterday. The patient currently appears to be feeling better, sleeping well. Not tachypneic. Denies any chest pain, nausea, vomiting, diarrhea. No fever over the last 24 hours, with a T-max of 98.5 degrees Fahrenheit. OBJECTIVE: GENERAL: Currently awake, alert, oriented x3, not in apparent respiratory distress. VITAL SIGNS: Blood pressure of 122/68, temperature is 98 degrees Fahrenheit, heart rate of 98-103 beats per minute, respiratory rate of 17, saturations 98% on 5 liters nasal cannula. EYES: No jaundice or pallor. EARS, NOSE, AND THROAT: No ear drainage. No nasal discharge. HEAD AND NECK: No scalp swelling or tenderness. Neck is supple. CHEST AND LUNGS: No wheezing, no rhonchi, no coarse crackles noted. CARDIOVASCULAR: S1 and S2 is distinct. Normal rate, regular rhythm. ABDOMEN: Flabby, positive bowel sounds. Soft, nondistended, nontender. EXTREMITIES: No joint swelling, no cellulitis. LABORATORY DATA: CBC done today showed a white count of 6.9, hemoglobin 8.7, hematocrit is 26, platelet count is 207, bands of zero. Chemistry done today showed sodium was 132.9, potassium 3.9, chloride 91, carbon dioxide is 39, BUN is 11, creatinine is 0.84, glucose is 94, calcium is 8.4. IMAGING STUDIES: Chest x-ray done yesterday showed mild to moderate amount of pleural effusion bilaterally, right side appeared to be worsened. Status post thoracentesis on the right. ASSESSMENT: 1. COPD/EMPHYSEMA. Currently stable and not in bronchospasm. 2. PLEURAL EFFUSION BILATERAL, MILD TO MODERATE AMOUNT, STATUS POST THORACENTESIS RIGHT SIDE SHOWING TRANSUDATIVE PLEURAL EFFUSION. Most likely due to congestive heart failure. 3. CONGESTIVE HEART FAILURE DECOMPENSATED. PLAN: 1. Continue the Lasix 20 mg IV push every 12 hours. May consider changing it to 20 mg tablet p.o. BID, in the next few days. 2. We will start the patient on digoxin 0.125 mg tablet p.o. daily. Continue Cardizem, adjust dose to prevent hypotension. 3. Recommend optimizing CHF therapy. Consider giving the patient ARB and spironolactone. We will defer to aircraft fueler, Dr. Florian, for that. 4. Continue the Spiriva inhaler 1 capsule daily and Advair 500 mcg Diskus inhaler 1 puff b.i.d. DICTATING PHYSICIAN: MICHAEL GARNER MD,RADHA,MPH [id number] PHY#: [id number] ID: [id number] JOB#: [id number] ACCT: [id number] cc: > SAYRAD
[2017-08-30] MEDS: LEVALBUTEROL HCL NEB 1.25 MG/3 ML AMPUL NEB SCH ×6 (03:35→23:32)
[2017-08-30] MEDS: IPRATROPIUM BROMIDE 0.02% NEB 0.5 MG/2.5 ML AMPUL NEB SCH ×6 (03:35→23:32)
[2017-08-30] MEDS: HEPARIN SOD (PORCINE) 5,000 UNIT/ML 1 ML SYRINGE SUBCUT SCH ×3 (06:04→23:03)
[2017-08-30] MEDS: DILTIAZEM HCL 60 MG TABLET PO SCH ×3 (06:06→23:04)
[2017-08-30] MEDS: FUROSEMIDE INJ/PF 20 MG/2 ML SDV IV SCH (06:06)
[2017-08-30] MEDS: FLUTICASONE/SALMETEROL DISKUS 500-50 MCG/DOSE IH SCH ×2 (06:16→18:39)
[2017-08-30 06:49] LABS: BLOOD UREA NITROGEN 10 mg/dL (7-20); CALCIUM 8.7 mg/dL (8.4-10.2); CHLORIDE 88 mmol/L (98-107); GLUCOSE 94 mg/dL (75-110); POTASSIUM 4.1 mmol/L (3.6-5.0)
[2017-08-30 06:59] LABS: ANION GAP 5 (5-19)
[2017-08-30 07:01] LABS: CARBON DIOXIDE 43 mmol/L (22-30)
[2017-08-30] MEDS: FERROUS SULFATE 325 MG TABLET PO SCH ×2 (08:22→18:33)
--- NOTE | 2017-08-30 09:26 | PDOC PROGRESS REPORT ---
Subjective Progress Note for:: 08/30/17 Subjective:: Patient is still very weak Patient's denied any chest pain denied any shortness of the breath Still insists to go home do not want to go to the rehab Reason For Visit: SEPTIC SHOCK,RESPIRATORY FAILURE,RENAL FAILURE, Physical Exam Vital Signs: Temp Pulse Resp BP Pulse Ox 98.0 F 104 H 20 122/68 94 08/29/17 16:25 08/30/17 07:30 08/30/17 07:30 08/29/17 16:25 08/30/17 07:30 Intake & Output 08/29/17 08/30/17 08/31/17 06:59 06:59 06:59 Intake Total 579 761 Output Total 200 1 Balance 379 760 Weight 67.5 kg 66.9 kg General appearance: PRESENT: no acute distress, well-developed, well-nourished Head exam: PRESENT: atraumatic, normocephalic Eye exam: PRESENT: conjunctiva pink, EOMI, PERRLA. ABSENT: scleral icterus Ear exam: PRESENT: normal external ear exam Mouth exam: PRESENT: moist, tongue midline Neck exam: PRESENT: full ROM. ABSENT: carotid bruit, JVD, lymphadenopathy, thyromegaly Respiratory exam: PRESENT: clear to auscultation ana Cardiovascular exam: PRESENT: RRR. ABSENT: diastolic murmur, rubs, systolic murmur Pulses: PRESENT: normal dorsalis pedis pul, +2 pedal pulses bilateral Vascular exam: PRESENT: normal capillary refill GI/Abdominal exam: PRESENT: normal bowel sounds, soft. ABSENT: distended, guarding, mass, organolmegaly, rebound, tenderness Rectal exam: PRESENT: deferred Extremities exam: ABSENT: pedal edema Neurological exam: PRESENT: alert, awake, oriented to person, oriented to place , oriented to time, oriented to situation, CN II-XII grossly intact. ABSENT: motor sensory deficit Psychiatric exam: PRESENT: appropriate affect, normal mood. ABSENT: homicidal ideation, suicidal ideation Skin exam: PRESENT: dry, intact, warm. ABSENT: cyanosis, rash Results Laboratory Results: 08/29/17 06:01 08/30/17 06:25 08/30/17 06:25 Sodium 136.0 L Potassium 4.1 Chloride 88 L Carbon Dioxide 43 H* Anion Gap 5 BUN 10 Creatinine 0.94 Est GFR ( Amer) > 60 Est GFR (Non-Af Amer) > 60 Glucose 94 Calcium 8.7 08/10/17 08/10/17 08/10/17 13:15 13:15 20:30 Creatine Kinase 70 41 L CK-MB (CK-2) 2.03 Troponin I 0.271 NT-Pro-B Natriuret Pep 08/10/17 08/11/17 08/11/17 20:30 06:30 06:30 Creatine Kinase 31 L CK-MB (CK-2) 2.61 1.80 Troponin I 0.160 0.087 NT-Pro-B Natriuret Pep 08/16/17 08/28/17 20:30 17:02 Creatine Kinase CK-MB (CK-2) Troponin I NT-Pro-B Natriuret Pep 1160 H 1120 H Impressions: Head CT 08/10/17 09:58 IMPRESSION: CHRONIC CHANGES OF ATROPHY AND MICROVASCULAR ISCHEMIA. NO ACUTE PROCESS. EVIDENCE OF ACUTE STROKE: NO. Abdomen/Pelvis CT 08/15/17 00:00 IMPRESSION: Trace bilateral pleural effusions with partial collapse left lower lobe Nasogastric tube, Colby catheter in good positioning No CT findings to explain history of sepsis Thoracentesis Ultrasound 08/15/17 00:00 IMPRESSION: SUCCESSFUL THORACENTESIS USING ULTRASOUND GUIDANCE. Chest Ultrasound 08/15/17 09:44 IMPRESSION: Bilateral pleural effusions Facial Bones CT 08/18/17 00:00 IMPRESSION: NO ACUTE FINDINGS. KUB X-Ray 08/19/17 00:00 IMPRESSION: STABLE GAS DISTENDED LOOPS OF BOWEL PRESUMABLY REPRESENTING ILEUS. TOOTH AGAIN NOTED WITHIN THE STOMACH. STABLE NASOGASTRIC TUBE AND COLBY CATHETER. Guidance Fluoroscopy 08/24/17 00:00 IMPRESSION: Please see combined report for performance of procedure and radiologic supervision and interpretation. Interventional Vascular Procedure 08/24/17 00:00 IMPRESSION: Please see combined report for performance of procedure and radiologic supervision and interpretation. PICC Line Insertion 08/24/17 00:00 IMPRESSION: SUCCESSFUL PLACEMENT OF A 5 FR pool LUMEN 42 CM PICC IN THE left basilic VEIN. Chest/Abdomen CTA 08/28/17 00:00 IMPRESSION: No PE. Unchanged pleural effusions and lower lobe consolidation. Chest X-Ray 08/28/17 06:00 IMPRESSION: No significant change in the abnormal density in the lung bases. Assessment & Plan - Diagnosis (1) Acute on chronic respiratory failure with hypoxia and hypercapnia Is this a current diagnosis for this admission?: Yes Plan: Patient's recent CT angiogram is stable with some bilateral pleural effusion and discussed with the pulmonary and suggest the most likely a from the cardiac issues (2) Septic shock Is this a current diagnosis for this admission?: Yes Plan: Currently resolved (3) Pneumonia Qualifiers: Pneumonia type: due to unspecified organism Laterality: bilateral Lung location: lower lobe of lung Qualified Code(s): J18.9 - Pneumonia, unspecified organism Is this a current diagnosis for this admission?: Yes Plan: Continues the p.o. clindamycin's for 7 days (4) Acute renal failure Qualifiers: Acute renal failure type: unspecified Qualified Code(s): N17.9 - Acute kidney failure, unspecified Is this a current diagnosis for this admission?: Yes Plan: Currently all stable (5) Chronic obstructive pulmonary disease Qualifiers: Emphysema type: unspecified Is this a current diagnosis for this admission?: Yes Plan: Continues to nebulizer treatments (6) Hypertension Qualifiers: Hypertension type: essential hypertension Qualified Code(s): I10 - Essential (primary) hypertension Is this a current diagnosis for this admission?: Yes Plan: Currently hypertension is due to the septic shock (7) Neoplasm of rectum Is this a current diagnosis for this admission?: Yes (8) Elevated troponin Is this a current diagnosis for this admission?: Yes Plan: Currently stable patients probably need a stress test as outpatient (9) Leukocytosis Qualifiers: Leukocytosis type: bandemia Qualified Code(s): D72.825 - Bandemia Is this a current diagnosis for this admission?: Yes (10) Pleural effusion Is this a current diagnosis for this admission?: Yes Plan: According to the pulmonary most likely from a cardiac lesionContinues to Lasix (11) Sinus tachycardia Is this a current diagnosis for this admission?: Yes - Time Time Spent with patient: 15-24 minutes Medications reviewed and adjusted accordingly: Yes Anticipated discharge: Other Within: Other - Inpatient Certification Medical Necessity: Need Close Monitoring Due to Risk of Patient Decompensation Post Hospital Care: D/C Production Grip Documentation - Plan Summary Plan Summary: We will repeat the chest x-rays continues to current medications
[2017-08-30] MEDS: FUROSEMIDE 20 MG TABLET PO SCH (10:23)
[2017-08-30] MEDS: DIGOXIN 0.125 MG TABLET PO SCH (10:24)
[2017-08-30] MEDS: FAMOTIDINE 20 MG TABLET PO SCH ×2 (10:24→23:04)
[2017-08-30] MEDS: MIDODRINE HCL 5 MG TABLET PO SCH ×3 (10:24→18:33)
[2017-08-30] MEDS: TIOTROPIUM BROMIDE DPI 5 CAP/KIT (18 MCG/CAP) IH SCH (10:28)
[2017-08-30] MEDS: NORMAL SALINE 10 ML SDV (AFTER EACH USE) IV PRN (10:29)
[2017-08-30] MEDS: NORMAL SALINE 10 ML SDV (SCHEDULED) IV SCH ×2 (10:30→23:04)
--- NOTE | 2017-08-30 12:25 | RADIOLOGY REPORT (SQ) ---
EXAM DESCRIPTION: CHEST SINGLE VIEW COMPLETED DATE/TIME: 08/30/2017 12:14 pm REASON FOR STUDY: pnu COMPARISON: 08/28/2017. EXAM PARAMETERS: NUMBER OF VIEWS: One view. TECHNIQUE: Single frontal radiographic view of the chest acquired. RADIATION DOSE: NA LIMITATIONS: None. FINDINGS: LUNGS AND PLEURA: Airspace disease in both lower lobes with slight improved aeration. Lef t pleural effusion unchanged. Right pleural effusion visualized on CT is not as clearly demonstrated on x-ray. MEDIASTINUM AND HILAR STRUCTURES: No masses. Contour normal. HEART AND VASCULAR STRUCTURES: Heart normal in size. Normal vasculature. BONES: No acute findings. HARDWARE: None in the chest. OTHER: No other significant finding. IMPRESSION: SLIGHT IMPROVED AERATION IN THE LOWER LOBES. TECHNICAL DOCUMENTATION: JOB ID: [id number] [employer]- All Rights Reserved Reading location - IP/workstation name: [email or web address]
[2017-08-30] MEDS ORDERED: MEGESTROL ACETATE SUSP 400 MG/10 ML UDCUP PO ONE (12:30)
[2017-08-30] MEDS: TAMSULOSIN HCL 0.4 MG CAP.SR.24H PO SCH (18:34)
--- NOTE | 2017-08-30 20:30 | PDOC PROGRESS REPORT ---
Subjective Progress Note for:: 08/29/17 Subjective:: Patient seen on morning rounds. Patients have episode of the hypoxia last night' s O2 sat go to up to 80% and requiring 6 L oxygens and come back normal to back to the 2 L nasal cannula. Patient daughter at bedside. Discussed that patient too weak to undergo any stress testing or even any invasive evaluation such as cardiac catheterization. Do not feel heart catheterization is indicated in the absence of significant anginal discomfort. It is felt that patient's primary problem is severe COPD. Patient claims to being very weak and debilitated. Patient denying any chest pain. He is noted to be comfortable. Today patient seems oriented to place and person. Telemetry strips reviewed. Telemetry strips shows improving tachycardia. Medications reviewed. Reason For Visit: SEPTIC SHOCK,RESPIRATORY FAILURE,RENAL FAILURE, Physical Exam Vital Signs: Temp Pulse Resp BP Pulse Ox 98.0 F 62 17 122/68 98 08/29/17 16:25 08/29/17 19:00 08/29/17 16:25 08/29/17 16:25 08/29/17 16:25 Intake & Output 08/28/17 08/29/17 08/30/17 06:59 06:59 06:59 Intake Total 355 579 494 Output Total 200 Balance 355 379 494 Weight 64.6 kg 67.5 kg Exam: GENERAL: Patient in mild respiratory distress. Alert and oriented x 2 HEAD: Atraumatic, normocephalic. EYES: Pupils equal round and reactive to light, extraocular movements intact, sclera anicteric, conjunctiva are normal. ENT: TMs normal, nares patent, oropharynx clear without exudates. Moist mucous membranes. No oral ulcerations or bleeding gums noted NECK: supple without lymphadenopathy. Trachea is central. No cervical or axillary lymphadenopathy noted. Carotids are 2+, JVD WNL LUNGS: Respiration seems nonlabored, no significant accessory muscle action noted. Bilateral fine crackles and scattered wheezing noted. Dullness noted both bases. CHEST: Palpation of the chest wall shows no significant chest wall tenderness. No other significant abnormalities noted. HEART: [place] [employer], No PSH, 1/6 DOTTY aortic area, 1/6 turk systolic murmur mitral area, no rubs, no gallops. ABDOMEN: Soft, no significant tenderness appreciated, normoactive bowel sounds. No guarding, no rebound. No rigidity noted . No masses appreciated. EXTREMITIES: Pedal pulses are 1-2+, no calf tenderness noted. No clubbing or 1 + pedal edema noted NEUROLOGICAL: Focused neurological exam showed no significant neurologic deficit. Generalized weakness noted. Speech is low volume.. PSYCH: No behavioral abnormalities noted. SKIN: No significant ecchymosis, skin is noted to be warm. MUSCULOSKELETAL EXAM: No significant acute joint swelling noted. Results Laboratory Results: 08/29/17 06:01 08/29/17 06:01 08/29/17 08/29/17 06:01 06:01 WBC 6.9 RBC 3.07 L Hgb 8.7 L Hct 26.0 L MCV 85 MCH 28.3 MCHC 33.5 RDW 16.1 H Plt Count 207 Seg Neutrophils % 64.9 Lymphocytes % 14.1 Monocytes % 17.4 H Eosinophils % 2.7 Basophils % 0.9 Absolute Neutrophils 4.5 Absolute Lymphocytes 1.0 Absolute Monocytes 1.2 Absolute Eosinophils 0.2 Absolute Basophils 0.1 Sodium 132.9 L Potassium 3.9 Chloride 91 L Carbon Dioxide 39 H Anion Gap 3 L BUN 11 Creatinine 0.84 Est GFR ( Amer) > 60 Est GFR (Non-Af Amer) > 60 Glucose 94 Calcium 8.4 08/10/17 08/10/17 08/10/17 13:15 13:15 20:30 Creatine Kinase 70 41 L CK-MB (CK-2) 2.03 Troponin I 0.271 NT-Pro-B Natriuret Pep 08/10/17 08/11/17 08/11/17 20:30 06:30 06:30 Creatine Kinase 31 L CK-MB (CK-2) 2.61 1.80 Troponin I 0.160 0.087 NT-Pro-B Natriuret Pep 08/16/17 08/28/17 20:30 17:02 Creatine Kinase CK-MB (CK-2) Troponin I NT-Pro-B Natriuret Pep 1160 H 1120 H Impressions: Head CT 08/10/17 09:58 IMPRESSION: CHRONIC CHANGES OF ATROPHY AND MICROVASCULAR ISCHEMIA. NO ACUTE PROCESS. EVIDENCE OF ACUTE STROKE: NO. Abdomen/Pelvis CT 08/15/17 00:00 IMPRESSION: Trace bilateral pleural effusions with partial collapse left lower lobe Nasogastric tube, Colby catheter in good positioning No CT findings to explain history of sepsis Thoracentesis Ultrasound 08/15/17 00:00 IMPRESSION: SUCCESSFUL THORACENTESIS USING ULTRASOUND GUIDANCE. Chest Ultrasound 08/15/17 09:44 IMPRESSION: Bilateral pleural effusions Facial Bones CT 08/18/17 00:00 IMPRESSION: NO ACUTE FINDINGS. KUB X-Ray 08/19/17 00:00 IMPRESSION: STABLE GAS DISTENDED LOOPS OF BOWEL PRESUMABLY REPRESENTING ILEUS. TOOTH AGAIN NOTED WITHIN THE STOMACH. STABLE NASOGASTRIC TUBE AND COLBY CATHETER. Guidance Fluoroscopy 08/24/17 00:00 IMPRESSION: Please see combined report for performance of procedure and radiologic supervision and interpretation. Interventional Vascular Procedure 08/24/17 00:00 IMPRESSION: Please see combined report for performance of procedure and radiologic supervision and interpretation. PICC Line Insertion 08/24/17 00:00 IMPRESSION: SUCCESSFUL PLACEMENT OF A 5 FR pool LUMEN 42 CM PICC IN THE left basilic VEIN. Chest/Abdomen CTA 08/28/17 00:00 IMPRESSION: No PE. Unchanged pleural effusions and lower lobe consolidation. Chest X-Ray 08/28/17 06:00 IMPRESSION: No significant change in the abnormal density in the lung bases. Assessment & Plan - Diagnosis (1) Multifocal atrial tachycardia Is this a current diagnosis for this admission?: Yes (2) Acute on chronic respiratory failure with hypoxia and hypercapnia Is this a current diagnosis for this admission?: Yes (3) Elevated troponin Is this a current diagnosis for this admission?: Yes (4) Chronic obstructive pulmonary disease Qualifiers: Emphysema type: unspecified Is this a current diagnosis for this admission?: Yes (5) Pneumonia Qualifiers: Pneumonia type: due to unspecified organism Laterality: bilateral Lung location: lower lobe of lung Qualified Code(s): J18.1 - Lobar pneumonia, unspecified organism Is this a current diagnosis for this admission?: Yes (6) Septic shock Is this a current diagnosis for this admission?: Yes (7) Non-STEMI (non-ST elevated myocardial infarction) Is this a current diagnosis for this admission?: Yes (8) Hypotension Qualifiers: Hypotension type: unspecified hypotension type Qualified Code(s): I95.9 - Hypotension, unspecified Is this a current diagnosis for this admission?: Yes - Notes Notes: Tachycardia: Currently improved with increased dose of Cardizem. Maintain electrolytes within normal limits. CHF: Currently seems compensated clinically. Continue current diuretic therapy. Currently seems stable. Patient to get additional IV Lasix. Pulmonary to see patient. Non-STEMI: Most likely related to sepsis and metabolic reason, hypoxemia, severe hypotension related rather than acute coronary syndrome. Previous EKG is reviewed shows no significant ST-T changes. Patient currently too weak to undergo a stress test. Will address this as outpatient. Hypotension: Blood pressure was stable. Will stop Midodrin since blood pressure has been stable. Acute respiratory failure: Most likely related to pneumonia on top of severe COPD. Continue oxygen supplementation. Elevated troponin I: Most likely related to sepsis, acute respiratory failure. COPD: Continue current therapy and supplemental oxygenation. Pneumonia: Continue with antibiotic therapy. Pleural effusion: Thoracentesis results reviewed. Most likely related to CHF, right heart failure, pulmonary hypertension etc. Septic shock: Continue antibiotics. Resolved. Currently patient is having good perfusion. Recommend DVT prophylaxis with Lovenox or subcu heparin. - Time Time with patient: 15-25 minutes - CODE STATUS was discussed, patient remains full code. Surrogate decision-maker unchanged. Multiple medical problems were addressed. More than 50% of the time spent coordinating care, discussing management plans with involved caregivers. Management plans discussed with involved personnels. Medical decision making was of moderate to high complexity , patient's has multiple comorbidities. Medications reviewed and adjusted accordingly: Yes
--- NOTE | 2017-08-30 20:34 | PDOC PROGRESS REPORT ---
Subjective Progress Note for:: 08/30/17 Subjective:: Patient seen on morning rounds. Patient claims to feeling better. Patient denying any chest pain. He is noted to be comfortable. Today patient seems oriented to place and person. Telemetry strips reviewed. Telemetry strips shows improving tachycardia. Medications reviewed. Reason For Visit: SEPTIC SHOCK,RESPIRATORY FAILURE,RENAL FAILURE, Physical Exam Vital Signs: Temp Pulse Resp BP Pulse Ox 98.2 F 100 20 119/53 L 92 08/30/17 15:00 08/30/17 19:00 08/30/17 16:04 08/30/17 15:00 08/30/17 16:04 Intake & Output 08/29/17 08/30/17 08/31/17 06:59 06:59 06:59 Intake Total 579 761 250 Output Total 200 1 100 Balance 379 760 150 Weight 67.5 kg 66.9 kg Exam: GENERAL: well-nourished and in no acute distress. Alert and oriented x2 HEAD: Atraumatic, normocephalic. EYES: Pupils equal round and reactive to light, extraocular movements intact, sclera anicteric, conjunctiva are normal. ENT: TMs normal, nares patent, oropharynx clear without exudates. Moist mucous membranes. No oral ulcerations or bleeding gums noted NECK: supple without lymphadenopathy. Trachea is central. No cervical or axillary lymphadenopathy noted. Carotids are 2+, JVD WNL LUNGS: Respiration seems nonlabored, no significant accessory muscle action noted. Bibasilar fine crackles, scattered wheezing noted. Mild bilateral dullness noted. CHEST: Palpation of the chest wall shows no significant chest wall tenderness. No other significant abnormalities noted. HEART: [place] [employer], No PSH, 1/6 DOTTY aortic area, 1/6 turk systolic murmur mitral area, no rubs, no gallops. ABDOMEN: Soft, no significant tenderness appreciated, normoactive bowel sounds. No guarding, no rebound. No rigidity noted . No masses appreciated. EXTREMITIES: Pedal pulses are 1-2+, no calf tenderness noted. No clubbing or cyanosis.trace to 1+ pedal edema noted NEUROLOGICAL: Focused neurological exam showed no significant neurologic deficit. Normal speech, no focal weakness appreciated. PSYCH: Normal mood, normal affect. Judgment and insight within normal limits. SKIN: No significant ecchymosis, skin is noted to be warm. MUSCULOSKELETAL EXAM: No significant acute joint swelling noted. Results Laboratory Results: 08/29/17 06:01 08/30/17 06:25 08/30/17 06:25 Sodium 136.0 L Potassium 4.1 Chloride 88 L Carbon Dioxide 43 H* Anion Gap 5 BUN 10 Creatinine 0.94 Est GFR ( Amer) > 60 Est GFR (Non-Af Amer) > 60 Glucose 94 Calcium 8.7 08/10/17 08/10/17 08/10/17 13:15 13:15 20:30 Creatine Kinase 70 41 L CK-MB (CK-2) 2.03 Troponin I 0.271 NT-Pro-B Natriuret Pep 08/10/17 08/11/17 08/11/17 20:30 06:30 06:30 Creatine Kinase 31 L CK-MB (CK-2) 2.61 1.80 Troponin I 0.160 0.087 NT-Pro-B Natriuret Pep 08/16/17 08/28/17 20:30 17:02 Creatine Kinase CK-MB (CK-2) Troponin I NT-Pro-B Natriuret Pep 1160 H 1120 H EKG Comments: Telemetry shows sinus rhythm with mild intermittent sinus tachycardia Impressions: Head CT 08/10/17 09:58 IMPRESSION: CHRONIC CHANGES OF ATROPHY AND MICROVASCULAR ISCHEMIA. NO ACUTE PROCESS. EVIDENCE OF ACUTE STROKE: NO. Abdomen/Pelvis CT 08/15/17 00:00 IMPRESSION: Trace bilateral pleural effusions with partial collapse left lower lobe Nasogastric tube, Cob[place] catheter in good positioning No CT findings to explain history of sepsis Thoracentesis Ultrasound 08/15/17 00:00 IMPRESSION: SUCCESSFUL THORACENTESIS USING ULTRASOUND GUIDANCE. Chest Ultrasound 08/15/17 09:44 IMPRESSION: Bilateral pleural effusions Facial Bones CT 08/18/17 00:00 IMPRESSION: NO ACUTE FINDINGS. KUB X-Ray 08/19/17 00:00 IMPRESSION: STABLE GAS DISTENDED LOOPS OF BOWEL PRESUMABLY REPRESENTING ILEUS. TOOTH AGAIN NOTED WITHIN THE STOMACH. STABLE NASOGASTRIC TUBE AND COLBY CATHETER. Guidance Fluoroscopy 08/24/17 00:00 IMPRESSION: Please see combined report for performance of procedure and radiologic supervision and interpretation. Interventional Vascular Procedure 08/24/17 00:00 IMPRESSION: Please see combined report for performance of procedure and radiologic supervision and interpretation. PICC Line Insertion 08/24/17 00:00 IMPRESSION: SUCCESSFUL PLACEMENT OF A 5 FR pool LUMEN 42 CM PICC IN THE left basilic VEIN. Chest/Abdomen CTA 08/28/17 00:00 IMPRESSION: No PE. Unchanged pleural effusions and lower lobe consolidation. Chest X-Ray 08/30/17 00:00 IMPRESSION: SLIGHT IMPROVED AERATION IN THE LOWER LOBES. Assessment & Plan - Diagnosis (1) Multifocal atrial tachycardia Is this a current diagnosis for this admission?: Yes (2) Acute on chronic respiratory failure with hypoxia and hypercapnia Is this a current diagnosis for this admission?: Yes (3) Elevated troponin Is this a current diagnosis for this admission?: Yes (4) Chronic obstructive pulmonary disease Qualifiers: Emphysema type: unspecified Is this a current diagnosis for this admission?: Yes (5) Pneumonia Qualifiers: Pneumonia type: due to unspecified organism Laterality: bilateral Lung location: lower lobe of lung Qualified Code(s): J18.1 - Lobar pneumonia, unspecified organism Is this a current diagnosis for this admission?: Yes (6) Septic shock Is this a current diagnosis for this admission?: Yes (7) Non-STEMI (non-ST elevated myocardial infarction) Is this a current diagnosis for this admission?: Yes (8) Hypotension Qualifiers: Hypotension type: unspecified hypotension type Qualified Code(s): I95.9 - Hypotension, unspecified Is this a current diagnosis for this admission?: Yes - Notes Notes: Patient seems to be slowly improving. No new changes made. Tachycardia: Currently improved with increased dose of Cardizem. Maintain electrolytes within normal limits. CHF: Currently seems compensated clinically. Continue current diuretic therapy. Currently seems stable. This has improved. Recommend checking chest x-ray and BNP level periodically. Non-STEMI: Most likely related to sepsis and metabolic reason, hypoxemia, severe hypotension related rather than acute coronary syndrome. Previous EKG is reviewed shows no significant ST-T changes. Patient currently too weak to undergo a stress test. Will address this as outpatient. Hypotension: Blood pressure was stable. Will stop Midodrin since blood pressure has been stable. Acute respiratory failure: Most likely related to pneumonia on top of severe COPD. Continue oxygen supplementation. Elevated troponin I: Most likely related to sepsis, acute respiratory failure. COPD: Continue current therapy and supplemental oxygenation. Pneumonia: Continue with antibiotic therapy. Pleural effusion: Follow with chest x-ray and BNP level. Septic shock: Continue antibiotics. Resolved. Currently patient is having good perfusion. Recommend DVT prophylaxis with Lovenox or subcu heparin. No other new recommendations. - Time Time with patient: 15-25 minutes - CODE STATUS was discussed, patient remains full code. Surrogate decision-maker unchanged. Multiple medical problems were addressed. More than 50% of the time spent coordinating care, discussing management plans with involved caregivers. Management plans discussed with involved personnels. Medical decision making was of moderate to high complexity , patient's has multiple comorbidities. Medications reviewed and adjusted accordingly: Yes
[2017-08-31] MEDS: LEVALBUTEROL HCL NEB 1.25 MG/3 ML AMPUL NEB SCH ×5 (03:02→20:10)
[2017-08-31] MEDS: IPRATROPIUM BROMIDE 0.02% NEB 0.5 MG/2.5 ML AMPUL NEB SCH ×5 (03:02→20:10)
[2017-08-31] MEDS: DILTIAZEM HCL 60 MG TABLET PO SCH ×3 (05:46→21:44)
[2017-08-31] MEDS: HEPARIN SOD (PORCINE) 5,000 UNIT/ML 1 ML SYRINGE SUBCUT SCH ×3 (05:46→21:44)
[2017-08-31] MEDS: FLUTICASONE/SALMETEROL DISKUS 500-50 MCG/DOSE IH SCH ×2 (05:46→18:47)
[2017-08-31 06:51] LABS: ABSOLUTE BASOPHILS # (AUTO) 0.1 10^3/uL (0.0-0.2); ABSOLUTE EOSINOPHILS # (AUTO) 0.3 10^3/uL (0.0-0.6); ABSOLUTE LYMPHOCYTES (AUTO) 1.4 10^3/uL (0.5-4.7); ABSOLUTE MONOCYTES (AUTO) 1.3 10^3/uL (0.1-1.4); ABSOLUTE NEUT (AUTO) 4.5 10^3/uL (1.7-8.2); EOSINOPHILS % (AUTO) 3.4 % (0-6); HEMATOCRIT 30.8 % (37.9-51.0); HEMOGLOBIN 10.2 g/dL (13.5-17.0); LYMPHOCYTES % (AUTO) 18.3 % (13-45); MEAN CORPUSCULAR HEMOGLOBIN 27.9 pg (27.0-33.4); MEAN CORPUSCULAR HGB CONC 33.1 g/dL (32.0-36.0); MEAN CORPUSCULAR VOLUME 84 fl (80-97); MONOCYTES % (AUTO) 16.8 % (3-13); PLATELET COUNT 251 10^3/uL (150-450); RED BLOOD COUNT 3.66 10^6/uL (4.35-5.55); RED CELL DISTRIBUTION WIDTH 16.4 % (11.5-14.0); SEGMENTED NEUTROPHILS % (AUTO) 60.5 % (42-78); TOTAL CELLS COUNTED % (AUTO) 100 %; WHITE BLOOD COUNT 7.5 10^3/uL (4.0-10.5)
[2017-08-31 07:18] LABS: BLOOD UREA NITROGEN 14 mg/dL (7-20); CALCIUM 9.1 mg/dL (8.4-10.2); CHLORIDE 84 mmol/L (98-107); GLUCOSE 97 mg/dL (75-110); SODIUM 133.1 mmol/L (137-145)
[2017-08-31 07:30] LABS: ANION GAP 5 (5-19)
[2017-08-31 07:54] LABS: CARBON DIOXIDE 44 mmol/L (22-30)
--- NOTE | 2017-08-31 08:45 | PDOC PROGRESS REPORT ---
Subjective Progress Note for:: 08/31/17 Subjective:: Patient is currently still weak and very depressed Patient's denied any chest pain denied any shortness of the breath Patient still unable to walk yesterday with the physical therapy Patient appetite is still very poor Patient's denied any chest pain denied any shortness of the breath denied any abdominal pain Reason For Visit: SEPTIC SHOCK,RESPIRATORY FAILURE,RENAL FAILURE, Physical Exam Vital Signs: Temp Pulse Resp BP Pulse Ox 97.6 F 84 18 119/59 L 98 08/31/17 04:24 08/31/17 08:11 08/31/17 08:11 08/31/17 04:24 08/31/17 08:11 Intake & Output 08/30/17 08/31/17 09/01/17 06:59 06:59 06:59 Intake Total 761 517 Output Total 1 102 Balance 760 415 Weight 66.9 kg 67.4 kg General appearance: PRESENT: no acute distress, well-developed, well-nourished Head exam: PRESENT: atraumatic, normocephalic Eye exam: PRESENT: conjunctiva pink, EOMI, PERRLA. ABSENT: scleral icterus Ear exam: PRESENT: normal external ear exam Mouth exam: PRESENT: moist, tongue midline Neck exam: PRESENT: full ROM. ABSENT: carotid bruit, JVD, lymphadenopathy, thyromegaly Respiratory exam: PRESENT: clear to auscultation ana Cardiovascular exam: PRESENT: RRR. ABSENT: diastolic murmur, rubs, systolic murmur Pulses: PRESENT: normal dorsalis pedis pul, +2 pedal pulses bilateral Vascular exam: PRESENT: normal capillary refill GI/Abdominal exam: PRESENT: normal bowel sounds, soft. ABSENT: distended, guarding, mass, organolmegaly, rebound, tenderness Rectal exam: PRESENT: deferred Extremities exam: ABSENT: pedal edema Neurological exam: PRESENT: alert, awake, oriented to person, oriented to place , oriented to time, oriented to situation, CN II-XII grossly intact. ABSENT: motor sensory deficit Psychiatric exam: PRESENT: appropriate affect, normal mood. ABSENT: homicidal ideation, suicidal ideation Skin exam: PRESENT: dry, intact, warm. ABSENT: cyanosis, rash Results Laboratory Results: 08/31/17 06:14 08/31/17 06:14 08/31/17 08/31/17 06:14 06:14 WBC 7.5 RBC 3.66 L Hgb 10.2 L Hct 30.8 L MCV 84 MCH 27.9 MCHC 33.1 RDW 16.4 H Plt Count 251 Seg Neutrophils % 60.5 Lymphocytes % 18.3 Monocytes % 16.8 H Eosinophils % 3.4 Basophils % 1.0 Absolute Neutrophils 4.5 Absolute Lymphocytes 1.4 Absolute Monocytes 1.3 Absolute Eosinophils 0.3 Absolute Basophils 0.1 Sodium 133.1 L Potassium 4.0 Chloride 84 L Carbon Dioxide 44 H* Anion Gap 5 BUN 14 Creatinine 1.01 Est GFR ( Amer) > 60 Est GFR (Non-Af Amer) > 60 Glucose 97 Calcium 9.1 08/10/17 08/10/17 08/10/17 13:15 13:15 20:30 Creatine Kinase 70 41 L CK-MB (CK-2) 2.03 Troponin I 0.271 NT-Pro-B Natriuret Pep 08/10/17 08/11/17 08/11/17 20:30 06:30 06:30 Creatine Kinase 31 L CK-MB (CK-2) 2.61 1.80 Troponin I 0.160 0.087 NT-Pro-B Natriuret Pep 08/16/17 08/28/17 20:30 17:02 Creatine Kinase CK-MB (CK-2) Troponin I NT-Pro-B Natriuret Pep 1160 H 1120 H Impressions: Head CT 08/10/17 09:58 IMPRESSION: CHRONIC CHANGES OF ATROPHY AND MICROVASCULAR ISCHEMIA. NO ACUTE PROCESS. EVIDENCE OF ACUTE STROKE: NO. Abdomen/Pelvis CT 08/15/17 00:00 IMPRESSION: Trace bilateral pleural effusions with partial collapse left lower lobe Nasogastric tube, Colby catheter in good positioning No CT findings to explain history of sepsis Thoracentesis Ultrasound 08/15/17 00:00 IMPRESSION: SUCCESSFUL THORACENTESIS USING ULTRASOUND GUIDANCE. Chest Ultrasound 08/15/17 09:44 IMPRESSION: Bilateral pleural effusions Facial Bones CT 08/18/17 00:00 IMPRESSION: NO ACUTE FINDINGS. KUB X-Ray 08/19/17 00:00 IMPRESSION: STABLE GAS DISTENDED LOOPS OF BOWEL PRESUMABLY REPRESENTING ILEUS. TOOTH AGAIN NOTED WITHIN THE STOMACH. STABLE NASOGASTRIC TUBE AND COLBY CATHETER. Guidance Fluoroscopy 08/24/17 00:00 IMPRESSION: Please see combined report for performance of procedure and radiologic supervision and interpretation. Interventional Vascular Procedure 08/24/17 00:00 IMPRESSION: Please see combined report for performance of procedure and radiologic supervision and interpretation. PICC Line Insertion 08/24/17 00:00 IMPRESSION: SUCCESSFUL PLACEMENT OF A 5 FR pool LUMEN 42 CM PICC IN THE left basilic VEIN. Chest/Abdomen CTA 08/28/17 00:00 IMPRESSION: No PE. Unchanged pleural effusions and lower lobe consolidation. Chest X-Ray 08/30/17 00:00 IMPRESSION: SLIGHT IMPROVED AERATION IN THE LOWER LOBES. Assessment & Plan - Diagnosis (1) Acute on chronic respiratory failure with hypoxia and hypercapnia Is this a current diagnosis for this admission?: Yes Plan: Patient's recent CT angiogram is stable with some bilateral pleural effusion and discussed with the pulmonary and suggest the most likely a from the cardiac issues (2) Septic shock Is this a current diagnosis for this admission?: Yes Plan: Currently resolved (3) Pneumonia Qualifiers: Pneumonia type: due to unspecified organism Laterality: bilateral Lung location: lower lobe of lung Qualified Code(s): J18.9 - Pneumonia, unspecified organism Is this a current diagnosis for this admission?: Yes Plan: Continues the p.o. clindamycin's for 7 days (4) Acute renal failure Qualifiers: Acute renal failure type: unspecified Qualified Code(s): N17.9 - Acute kidney failure, unspecified Is this a current diagnosis for this admission?: Yes Plan: Currently all stable (5) Chronic obstructive pulmonary disease Qualifiers: Emphysema type: unspecified Is this a current diagnosis for this admission?: Yes Plan: Continues to nebulizer treatments (6) Hypertension Qualifiers: Hypertension type: essential hypertension Qualified Code(s): I10 - Essential (primary) hypertension Is this a current diagnosis for this admission?: Yes Plan: Currently hypertension is due to the septic shock (7) Neoplasm of rectum Is this a current diagnosis for this admission?: Yes (8) Elevated troponin Is this a current diagnosis for this admission?: Yes Plan: Currently stable patients probably need a stress test as outpatient (9) Leukocytosis Qualifiers: Leukocytosis type: bandemia Qualified Code(s): D72.825 - Bandemia Is this a current diagnosis for this admission?: Yes (10) Pleural effusion Is this a current diagnosis for this admission?: Yes Plan: According to the pulmonary most likely from a cardiac lesionContinues to Lasix (11) Sinus tachycardia Is this a current diagnosis for this admission?: Yes - Time Time Spent with patient: 15-24 minutes Medications reviewed and adjusted accordingly: Yes Anticipated discharge: SNF Within: Other - Inpatient Certification Medical Necessity: Need Close Monitoring Due to Risk of Patient Decompensation Post Hospital Care: D/C Configuration Consultant Documentation - Plan Summary Plan Summary: I think patient should be a benefit to go to the alf rather than going home because patient still very weak
[2017-08-31] MEDS: DIGOXIN 0.125 MG TABLET PO SCH (10:54)
[2017-08-31] MEDS: FUROSEMIDE 20 MG TABLET PO SCH (10:54)
[2017-08-31] MEDS: FERROUS SULFATE 325 MG TABLET PO SCH ×2 (10:54→18:48)
[2017-08-31] MEDS: FAMOTIDINE 20 MG TABLET PO SCH ×2 (10:55→21:44)
[2017-08-31] MEDS: MEGESTROL ACETATE SUSP 400 MG/10 ML UDCUP PO SCH (10:55)
[2017-08-31] MEDS: TIOTROPIUM BROMIDE DPI 5 CAP/KIT (18 MCG/CAP) IH SCH (10:56)
[2017-08-31] MEDS: NORMAL SALINE 10 ML SDV (SCHEDULED) IV SCH ×2 (10:57→21:45)
[2017-08-31] MEDS: NORMAL SALINE 10 ML SDV (AFTER EACH USE) IV PRN (10:57)
[2017-08-31 11:22] LABS: ARTERIAL BLOOD BASE EXCESS 15.6 mmol/L; ARTERIAL BLOOD H2CO3 1.85 mmol/L (1.05-1.35); ARTERIAL BLOOD HCO3 42.3 mmol/L (20-26); ARTERIAL BLOOD O2 SATURATION 89.3 % (94-98); ARTERIAL BLOOD PCO2 61.4 mmHg (35-45); ARTERIAL BLOOD PH 7.46 (7.35-7.45); ARTERIAL BLOOD PO2 55.4 mmHg (80-100); ARTERIAL BLOOD TOTAL CO2 44.2 mmol/L (23-27)
[2017-08-31 11:23] LABS: ARTERIAL BLOOD FIO2 4L
[2017-08-31] MEDS: TAMSULOSIN HCL 0.4 MG CAP.SR.24H PO SCH (18:48)
[2017-08-31] MEDS: CLINDAMYCIN HCL 150 MG CAPSULE PO SCH (21:44)
[2017-09-01] MEDS: IPRATROPIUM BROMIDE 0.02% NEB 0.5 MG/2.5 ML AMPUL NEB SCH ×7 (00:54→23:41)
[2017-09-01] MEDS: LEVALBUTEROL HCL NEB 1.25 MG/3 ML AMPUL NEB SCH ×7 (00:54→23:41)
[2017-09-01] MEDS: FLUTICASONE/SALMETEROL DISKUS 500-50 MCG/DOSE IH SCH ×2 (05:18→17:18)
[2017-09-01] MEDS: DILTIAZEM HCL 60 MG TABLET PO SCH ×3 (05:19→21:34)
[2017-09-01] MEDS: CLINDAMYCIN HCL 150 MG CAPSULE PO SCH ×3 (05:19→21:34)
[2017-09-01] MEDS: HEPARIN SOD (PORCINE) 5,000 UNIT/ML 1 ML SYRINGE SUBCUT SCH ×3 (05:19→21:33)
[2017-09-01 07:35] LABS: ABSOLUTE EOSINOPHILS # (AUTO) 0.2 10^3/uL (0.0-0.6); ABSOLUTE LYMPHOCYTES (AUTO) 1.3 10^3/uL (0.5-4.7); ABSOLUTE MONOCYTES (AUTO) 1.5 10^3/uL (0.1-1.4); ABSOLUTE NEUT (AUTO) 4.7 10^3/uL (1.7-8.2); BASOPHILS % (AUTO) 0.1 % (0-2); EOSINOPHILS % (AUTO) 2.6 % (0-6); HEMOGLOBIN 9.9 g/dL (13.5-17.0); LYMPHOCYTES % (AUTO) 17.4 % (13-45); MEAN CORPUSCULAR HEMOGLOBIN 27.7 pg (27.0-33.4); MEAN CORPUSCULAR HGB CONC 32.9 g/dL (32.0-36.0); MEAN CORPUSCULAR VOLUME 84 fl (80-97); MONOCYTES % (AUTO) 19.4 % (3-13); PLATELET COUNT 245 10^3/uL (150-450); RED BLOOD COUNT 3.56 10^6/uL (4.35-5.55); RED CELL DISTRIBUTION WIDTH 16.5 % (11.5-14.0); SEGMENTED NEUTROPHILS % (AUTO) 60.5 % (42-78); TOTAL CELLS COUNTED % (AUTO) 100 %; WHITE BLOOD COUNT 7.7 10^3/uL (4.0-10.5)
[2017-09-01 07:52] LABS: BLOOD UREA NITROGEN 17 mg/dL (7-20); CALCIUM 9.1 mg/dL (8.4-10.2); CHLORIDE 89 mmol/L (98-107); GLUCOSE 107 mg/dL (75-110); SODIUM 133.7 mmol/L (137-145)
[2017-09-01 08:02] LABS: ANION GAP 4 (5-19)
[2017-09-01 08:03] LABS: CARBON DIOXIDE 41 mmol/L (22-30)
[2017-09-01] MEDS: FERROUS SULFATE 325 MG TABLET PO SCH ×2 (08:32→17:17)
--- NOTE | 2017-09-01 09:22 | RADIOLOGY REPORT (SQ) ---
EXAM DESCRIPTION: CHEST SINGLE VIEW COMPLETED DATE/TIME: 09/01/2017 9:02 am REASON FOR STUDY: increase co2 COMPARISON: 08/30/2017. FINDINGS: AP portable upright single view chest. Consolidation and volume loss in the left base per sists. Small bilateral effusions, as before. Otherwise hyperinflated lungs suggesting COPD. Left PICC line remains in place. IMPRESSION: Stable exam. TECHNICAL DOCUMENTATION: JOB ID: [id number] Reading location - IP/workstation name: [email or web address]
[2017-09-01] MEDS: FAMOTIDINE 20 MG TABLET PO SCH ×2 (10:33→21:34)
[2017-09-01] MEDS: FUROSEMIDE 20 MG TABLET PO SCH (10:33)
[2017-09-01] MEDS: DIGOXIN 0.125 MG TABLET PO SCH (10:33)
[2017-09-01] MEDS: TIOTROPIUM BROMIDE DPI 5 CAP/KIT (18 MCG/CAP) IH SCH (10:34)
[2017-09-01] MEDS: MEGESTROL ACETATE SUSP 400 MG/10 ML UDCUP PO SCH (10:34)
[2017-09-01] MEDS: NORMAL SALINE 10 ML SDV (AFTER EACH USE) IV PRN (10:35)
[2017-09-01] MEDS: NORMAL SALINE 10 ML SDV (SCHEDULED) IV SCH ×2 (10:35→21:34)
--- NOTE | 2017-09-01 14:42 | PDOC PROGRESS REPORT ---
Subjective Progress Note for:: 09/01/17 Subjective:: He was seen by the bedside, status post extubation Reason For Visit: SEPTIC SHOCK,RESPIRATORY FAILURE,RENAL FAILURE, Physical Exam Vital Signs: Temp Pulse Resp BP Pulse Ox 98.2 F 99 20 103/54 L 96 09/01/17 07:16 09/01/17 12:04 09/01/17 12:04 09/01/17 07:16 09/01/17 12:04 Intake & Output 08/31/17 09/01/17 09/02/17 06:59 06:59 07:59 Intake Total 517 926 457 Output Total 102 Balance 415 926 457 Weight 67.4 kg 67.5 kg General appearance: PRESENT: no acute distress Eye exam: PRESENT: PERRLA Respiratory exam: PRESENT: clear to auscultation ana Cardiovascular exam: PRESENT: +S1, +S2 GI/Abdominal exam: PRESENT: soft Neurological exam: PRESENT: alert Results Laboratory Results: 09/01/17 07:04 09/01/17 07:04 09/01/17 09/01/17 07:04 07:04 WBC 7.7 RBC 3.56 L Hgb 9.9 L Hct 30.0 L MCV 84 MCH 27.7 MCHC 32.9 RDW 16.5 H Plt Count 245 Seg Neutrophils % 60.5 Lymphocytes % 17.4 Monocytes % 19.4 H Eosinophils % 2.6 Basophils % 0.1 Absolute Neutrophils 4.7 Absolute Lymphocytes 1.3 Absolute Monocytes 1.5 H Absolute Eosinophils 0.2 Absolute Basophils 0.0 Sodium 133.7 L Potassium 4.0 Chloride 89 L Carbon Dioxide 41 H* Anion Gap 4 L BUN 17 Creatinine 0.97 Est GFR ( Amer) > 60 Est GFR (Non-Af Amer) > 60 Glucose 107 Calcium 9.1 08/10/17 08/10/17 08/10/17 13:15 13:15 20:30 Creatine Kinase 70 41 L CK-MB (CK-2) 2.03 Troponin I 0.271 NT-Pro-B Natriuret Pep 08/10/17 08/11/17 08/11/17 20:30 06:30 06:30 Creatine Kinase 31 L CK-MB (CK-2) 2.61 1.80 Troponin I 0.160 0.087 NT-Pro-B Natriuret Pep 08/16/17 08/28/17 20:30 17:02 Creatine Kinase CK-MB (CK-2) Troponin I NT-Pro-B Natriuret Pep 1160 H 1120 H Impressions: Head CT 08/10/17 09:58 IMPRESSION: CHRONIC CHANGES OF ATROPHY AND MICROVASCULAR ISCHEMIA. NO ACUTE PROCESS. EVIDENCE OF ACUTE STROKE: NO. Abdomen/Pelvis CT 08/15/17 00:00 IMPRESSION: Trace bilateral pleural effusions with partial collapse left lower lobe Nasogastric tube, Colby catheter in good positioning No CT findings to explain history of sepsis Thoracentesis Ultrasound 08/15/17 00:00 IMPRESSION: SUCCESSFUL THORACENTESIS USING ULTRASOUND GUIDANCE. Chest Ultrasound 08/15/17 09:44 IMPRESSION: Bilateral pleural effusions Facial Bones CT 08/18/17 00:00 IMPRESSION: NO ACUTE FINDINGS. KUB X-Ray 08/19/17 00:00 IMPRESSION: STABLE GAS DISTENDED LOOPS OF BOWEL PRESUMABLY REPRESENTING ILEUS. TOOTH AGAIN NOTED WITHIN THE STOMACH. STABLE NASOGASTRIC TUBE AND COLBY CATHETER. Guidance Fluoroscopy 08/24/17 00:00 IMPRESSION: Please see combined report for performance of procedure and radiologic supervision and interpretation. Interventional Vascular Procedure 08/24/17 00:00 IMPRESSION: Please see combined report for performance of procedure and radiologic supervision and interpretation. PICC Line Insertion 08/24/17 00:00 IMPRESSION: SUCCESSFUL PLACEMENT OF A 5 FR pool LUMEN 42 CM PICC IN THE left basilic VEIN. Chest/Abdomen CTA 08/28/17 00:00 IMPRESSION: No PE. Unchanged pleural effusions and lower lobe consolidation. Chest X-Ray 09/01/17 00:00 IMPRESSION: Stable exam. Assessment & Plan - Diagnosis (1) Septic shock Is this a current diagnosis for this admission?: Yes (2) CHF (congestive heart failure) Qualifiers: Heart failure type: systolic Heart failure chronicity: acute Qualified Code(s): I50.21 - Acute systolic (congestive) heart failure (3) Acute on chronic respiratory failure with hypoxia and hypercapnia Is this a current diagnosis for this admission?: Yes (4) Pneumonia Qualifiers: Pneumonia type: due to unspecified organism Laterality: bilateral Lung location: lower lobe of lung Qualified Code(s): J18.9 - Pneumonia, unspecified organism Is this a current diagnosis for this admission?: Yes (5) Non-STEMI (non-ST elevated myocardial infarction) Is this a current diagnosis for this admission?: Yes
--- NOTE | 2017-09-01 15:38 | PDOC PROGRESS REPORT ---
Subjective Progress Note for:: 09/01/17 Subjective:: Patient seen on morning rounds. Patient noted to be in mild respiratory distress. A chest x-ray will be ordered. An EKG will be ordered. Patient denying any chest pain. Today patient seems oriented to place and person. Patient remains not oriented to time. Telemetry strips reviewed. Medications reviewed. Reason For Visit: SEPTIC SHOCK,RESPIRATORY FAILURE,RENAL FAILURE, Physical Exam Vital Signs: Temp Pulse Resp BP Pulse Ox 98.2 F 106 H 20 103/54 L 96 09/01/17 07:16 09/01/17 14:00 09/01/17 12:04 09/01/17 07:16 09/01/17 12:04 Intake & Output 08/31/17 09/01/17 09/02/17 06:59 06:59 07:59 Intake Total 517 926 457 Output Total 102 Balance 415 926 457 Weight 67.4 kg 67.5 kg Exam: GENERAL: well-nourished and in no acute distress. Alert and oriented x2 HEAD: Atraumatic, normocephalic. EYES: Pupils equal round and reactive to light, extraocular movements intact, sclera anicteric, conjunctiva are normal. ENT: TMs normal, nares patent, oropharynx clear without exudates. Moist mucous membranes. No oral ulcerations or bleeding gums noted NECK: supple without lymphadenopathy. Trachea is central. No cervical or axillary lymphadenopathy noted. Carotids are 2+, JVD WNL LUNGS: Respiration seems nonlabored, no significant accessory muscle action noted. Bibasilar fine crackles and mild dullness noted both bases. Occasional scattered wheezing noted. CHEST: Palpation of the chest wall shows no significant chest wall tenderness. No other significant abnormalities noted. HEART: [place] [employer], No PSH, 1/6 DOTTY aortic area, 1/6 turk systolic murmur mitral area, no rubs, no gallops. ABDOMEN: Soft, no significant tenderness appreciated, normoactive bowel sounds. No guarding, no rebound. No rigidity noted . No masses appreciated. EXTREMITIES: Pedal pulses are 1-2+, no calf tenderness noted. No clubbing or cyanosis.trace to 1+ pedal edema noted NEUROLOGICAL: Focused neurological exam showed no significant neurologic deficit. Normal speech, generalized weakness appreciated. PSYCH: Normal mood, affect possibly depressed. Judgment and insight not checked. SKIN: No significant ecchymosis, skin is noted to be warm. MUSCULOSKELETAL EXAM: No significant acute joint swelling noted. Results Laboratory Results: 09/01/17 07:04 09/01/17 07:04 09/01/17 09/01/17 07:04 07:04 WBC 7.7 RBC 3.56 L Hgb 9.9 L Hct 30.0 L MCV 84 MCH 27.7 MCHC 32.9 RDW 16.5 H Plt Count 245 Seg Neutrophils % 60.5 Lymphocytes % 17.4 Monocytes % 19.4 H Eosinophils % 2.6 Basophils % 0.1 Absolute Neutrophils 4.7 Absolute Lymphocytes 1.3 Absolute Monocytes 1.5 H Absolute Eosinophils 0.2 Absolute Basophils 0.0 Sodium 133.7 L Potassium 4.0 Chloride 89 L Carbon Dioxide 41 H* Anion Gap 4 L BUN 17 Creatinine 0.97 Est GFR ( Amer) > 60 Est GFR (Non-Af Amer) > 60 Glucose 107 Calcium 9.1 08/10/17 08/10/17 08/10/17 13:15 13:15 20:30 Creatine Kinase 70 41 L CK-MB (CK-2) 2.03 Troponin I 0.271 NT-Pro-B Natriuret Pep 08/10/17 08/11/17 08/11/17 20:30 06:30 06:30 Creatine Kinase 31 L CK-MB (CK-2) 2.61 1.80 Troponin I 0.160 0.087 NT-Pro-B Natriuret Pep 08/16/17 08/28/17 20:30 17:02 Creatine Kinase CK-MB (CK-2) Troponin I NT-Pro-B Natriuret Pep 1160 H 1120 H Impressions: Head CT 08/10/17 09:58 IMPRESSION: CHRONIC CHANGES OF ATROPHY AND MICROVASCULAR ISCHEMIA. NO ACUTE PROCESS. EVIDENCE OF ACUTE STROKE: NO. Abdomen/Pelvis CT 08/15/17 00:00 IMPRESSION: Trace bilateral pleural effusions with partial collapse left lower lobe Nasogastric tube, Colby catheter in good positioning No CT findings to explain history of sepsis Thoracentesis Ultrasound 08/15/17 00:00 IMPRESSION: SUCCESSFUL THORACENTESIS USING ULTRASOUND GUIDANCE. Chest Ultrasound 08/15/17 09:44 IMPRESSION: Bilateral pleural effusions Facial Bones CT 08/18/17 00:00 IMPRESSION: NO ACUTE FINDINGS. KUB X-Ray 08/19/17 00:00 IMPRESSION: STABLE GAS DISTENDED LOOPS OF BOWEL PRESUMABLY REPRESENTING ILEUS. TOOTH AGAIN NOTED WITHIN THE STOMACH. STABLE NASOGASTRIC TUBE AND COLBY CATHETER. Guidance Fluoroscopy 08/24/17 00:00 IMPRESSION: Please see combined report for performance of procedure and radiologic supervision and interpretation. Interventional Vascular Procedure 08/24/17 00:00 IMPRESSION: Please see combined report for performance of procedure and radiologic supervision and interpretation. PICC Line Insertion 08/24/17 00:00 IMPRESSION: SUCCESSFUL PLACEMENT OF A 5 FR pool LUMEN 42 CM PICC IN THE left basilic VEIN. Chest/Abdomen CTA 08/28/17 00:00 IMPRESSION: No PE. Unchanged pleural effusions and lower lobe consolidation. Chest X-Ray 09/01/17 00:00 IMPRESSION: Stable exam. Assessment & Plan - Diagnosis (1) Multifocal atrial tachycardia Is this a current diagnosis for this admission?: Yes (2) Acute on chronic respiratory failure with hypoxia and hypercapnia Is this a current diagnosis for this admission?: Yes (3) Elevated troponin Is this a current diagnosis for this admission?: Yes (4) Chronic obstructive pulmonary disease Qualifiers: Emphysema type: unspecified Is this a current diagnosis for this admission?: Yes (5) Pneumonia Qualifiers: Pneumonia type: due to unspecified organism Laterality: bilateral Lung location: lower lobe of lung Qualified Code(s): J18.9 - Pneumonia, unspecified organism Is this a current diagnosis for this admission?: Yes (6) Septic shock Is this a current diagnosis for this admission?: Yes (7) Non-STEMI (non-ST elevated myocardial infarction) Is this a current diagnosis for this admission?: Yes (8) Hypotension Qualifiers: Hypotension type: unspecified hypotension type Qualified Code(s): I95.9 - Hypotension, unspecified Is this a current diagnosis for this admission?: Yes - Notes Notes: Tachycardia: Currently improved with increased dose of Cardizem. Maintain electrolytes within normal limits. Continue digoxin. CHF: Currently seems compensated clinically. Continue current diuretic therapy. Currently seems stable. Continue digoxin and diuretic therapy. Non-STEMI: Most likely related to sepsis and metabolic reason, hypoxemia, severe hypotension related rather than acute coronary syndrome. Previous EKG is reviewed shows no significant ST-T changes. Patient currently too weak to undergo a stress test. Will address this as outpatient. Hypotension: Blood pressure was stable. Midrin was stopped and blood pressure has been stable. Acute respiratory failure: Most likely related to pneumonia on top of severe COPD. Continue oxygen supplementation. Elevated troponin I: Most likely related to sepsis, acute respiratory failure. COPD: Continue current therapy and supplemental oxygenation. Pneumonia: Continue with antibiotic therapy. Pleural effusion: Possibly related to CHF. Continue current therapy. Will review chest x-ray once done. Septic shock: Continue antibiotics. Resolved. Currently patient is having good perfusion. Recommend DVT prophylaxis with Lovenox or subcu heparin. Ordered an EKG. - Time Time with patient: 15-25 minutes - CODE STATUS was discussed, patient remains full code. Surrogate decision-maker unchanged. Multiple medical problems were addressed. More than 50% of the time spent coordinating care, discussing management plans with involved caregivers. Management plans discussed with involved personnels. Medical decision making was of moderate to high complexity , patient's has multiple comorbidities. Medications reviewed and adjusted accordingly: Yes
--- NOTE | 2017-09-01 15:40 | PDOC PROGRESS REPORT ---
Subjective Progress Note for:: 08/31/17 Subjective:: Patient seen on morning rounds. Patient claims to feeling better. Patient denying any chest pain. He is noted to be comfortable. Today patient seems oriented to place and person. Telemetry strips reviewed. Telemetry strips shows improving tachycardia. Medications reviewed. Reason For Visit: SEPTIC SHOCK,RESPIRATORY FAILURE,RENAL FAILURE, Physical Exam Vital Signs: Temp Pulse Resp BP Pulse Ox 98.4 F 98 12 102/59 L 96 08/31/17 20:00 08/31/17 20:00 08/31/17 20:00 08/31/17 20:00 08/31/17 20:00 Intake & Output 08/30/17 08/31/17 09/01/17 06:59 06:59 06:59 Intake Total 761 517 650 Output Total 1 102 Balance 760 415 650 Weight 66.9 kg 67.4 kg Exam: GENERAL: well-nourished and in no acute distress. Alert and oriented x 2. Patient not oriented to time. HEAD: Atraumatic, normocephalic. EYES: Pupils equal round and reactive to light, extraocular movements intact, sclera anicteric, conjunctiva are normal. ENT: TMs normal, nares patent, oropharynx clear without exudates. Moist mucous membranes. No oral ulcerations or bleeding gums noted NECK: supple without lymphadenopathy. Trachea is central. No cervical or axillary lymphadenopathy noted. Carotids are 2+, JVD WNL LUNGS: Respiration seems nonlabored, no significant accessory muscle action noted. Bibasilar fine crackles and scattered wheezing noted. Mild dullness noted both bases. CHEST: Palpation of the chest wall shows no significant chest wall tenderness. No other significant abnormalities noted. 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 ABDOMEN: Soft, no significant tenderness appreciated, normoactive bowel sounds. No guarding, no rebound. No rigidity noted . No masses appreciated. EXTREMITIES: Pedal pulses are 1-2+, no calf tenderness noted. No clubbing or cyanosis. 1+ pedal edema noted NEUROLOGICAL: Focused neurological exam showed no significant neurologic deficit. Speech low volume and generalized weakness appreciated. PSYCH: Not assessed, patient has no behavioral abnormalities. SKIN: No significant ecchymosis, skin is noted to be warm. MUSCULOSKELETAL EXAM: No significant acute joint swelling noted. Results Laboratory Results: 08/31/17 06:14 08/31/17 06:14 08/31/17 08/31/17 08/31/17 06:14 06:14 11:05 WBC 7.5 RBC 3.66 L Hgb 10.2 L Hct 30.8 L MCV 84 MCH 27.9 MCHC 33.1 RDW 16.4 H Plt Count 251 Seg Neutrophils % 60.5 Lymphocytes % 18.3 Monocytes % 16.8 H Eosinophils % 3.4 Basophils % 1.0 Absolute Neutrophils 4.5 Absolute Lymphocytes 1.4 Absolute Monocytes 1.3 Absolute Eosinophils 0.3 Absolute Basophils 0.1 Carbonic Acid 1.85 H HCO3/H2CO3 Ratio 22:1 ABG pH 7.46 H ABG pCO2 61.4 H ABG pO2 55.4 L ABG HCO3 42.3 H ABG O2 Saturation 89.3 L ABG Base Excess 15.6 FiO2 4L Sodium 133.1 L Potassium 4.0 Chloride 84 L Carbon Dioxide 44 H* Anion Gap 5 BUN 14 Creatinine 1.01 Est GFR ( Amer) > 60 Est GFR (Non-Af Amer) > 60 Glucose 97 Calcium 9.1 08/10/17 08/10/17 08/10/17 13:15 13:15 20:30 Creatine Kinase 70 41 L CK-MB (CK-2) 2.03 Troponin I 0.271 NT-Pro-B Natriuret Pep 08/10/17 08/11/17 08/11/17 20:30 06:30 06:30 Creatine Kinase 31 L CK-MB (CK-2) 2.61 1.80 Troponin I 0.160 0.087 NT-Pro-B Natriuret Pep 08/16/17 08/28/17 20:30 17:02 Creatine Kinase CK-MB (CK-2) Troponin I NT-Pro-B Natriuret Pep 1160 H 1120 H EKG Comments: Intermittent tachycardia, sinus noted. Impressions: Head CT 08/10/17 09:58 IMPRESSION: CHRONIC CHANGES OF ATROPHY AND MICROVASCULAR ISCHEMIA. NO ACUTE PROCESS. EVIDENCE OF ACUTE STROKE: NO. Abdomen/Pelvis CT 08/15/17 00:00 IMPRESSION: Trace bilateral pleural effusions with partial collapse left lower lobe Nasogastric tube, Colby catheter in good positioning No CT findings to explain history of sepsis Thoracentesis Ultrasound 08/15/17 00:00 IMPRESSION: SUCCESSFUL THORACENTESIS USING ULTRASOUND GUIDANCE. Chest Ultrasound 08/15/17 09:44 IMPRESSION: Bilateral pleural effusions Facial Bones CT 08/18/17 00:00 IMPRESSION: NO ACUTE FINDINGS. KUB X-Ray 08/19/17 00:00 IMPRESSION: STABLE GAS DISTENDED LOOPS OF BOWEL PRESUMABLY REPRESENTING ILEUS. TOOTH AGAIN NOTED WITHIN THE STOMACH. STABLE NASOGASTRIC TUBE AND COLBY CATHETER. Guidance Fluoroscopy 08/24/17 00:00 IMPRESSION: Please see combined report for performance of procedure and radiologic supervision and interpretation. Interventional Vascular Procedure 08/24/17 00:00 IMPRESSION: Please see combined report for performance of procedure and radiologic supervision and interpretation. PICC Line Insertion 08/24/17 00:00 IMPRESSION: SUCCESSFUL PLACEMENT OF A 5 FR pool LUMEN 42 CM PICC IN THE left basilic VEIN. Chest/Abdomen CTA 08/28/17 00:00 IMPRESSION: No PE. Unchanged pleural effusions and lower lobe consolidation. Chest X-Ray 08/30/17 00:00 IMPRESSION: SLIGHT IMPROVED AERATION IN THE LOWER LOBES. Assessment & Plan - Diagnosis (1) Multifocal atrial tachycardia Is this a current diagnosis for this admission?: Yes (2) Acute on chronic respiratory failure with hypoxia and hypercapnia Is this a current diagnosis for this admission?: Yes (3) Elevated troponin Is this a current diagnosis for this admission?: Yes (4) Chronic obstructive pulmonary disease Qualifiers: Emphysema type: unspecified Is this a current diagnosis for this admission?: Yes (5) Pneumonia Qualifiers: Pneumonia type: due to unspecified organism Laterality: bilateral Lung location: lower lobe of lung Qualified Code(s): J18.1 - Lobar pneumonia, unspecified organism Is this a current diagnosis for this admission?: Yes (6) Septic shock Is this a current diagnosis for this admission?: Yes (7) Non-STEMI (non-ST elevated myocardial infarction) Is this a current diagnosis for this admission?: Yes (8) Hypotension Qualifiers: Hypotension type: unspecified hypotension type Qualified Code(s): I95.9 - Hypotension, unspecified Is this a current diagnosis for this admission?: Yes - Notes Notes: Tachycardia: Currently improved with increased dose of Cardizem. Maintain electrolytes within normal limits. Continue digoxin. Check digoxin level in a.m. CHF: Currently seems compensated clinically. Continue current diuretic therapy. Currently seems stable. Continue digoxin and diuretic therapy. Non-STEMI: Most likely related to sepsis and metabolic reason, hypoxemia, severe hypotension related rather than acute coronary syndrome. Previous EKG is reviewed shows no significant ST-T changes. Patient currently too weak to undergo a stress test. Will address this as outpatient. Hypotension: Blood pressure was stable. Midrin was stopped and blood pressure has been stable. Acute respiratory failure: Most likely related to pneumonia on top of severe COPD. Continue oxygen supplementation. Elevated troponin I: Most likely related to sepsis, acute respiratory failure. COPD: Continue current therapy and supplemental oxygenation. Pneumonia: Continue with antibiotic therapy. Pleural effusion: Possibly related to CHF. Continue current therapy. Will review chest x-ray once done. Septic shock: Continue antibiotics. Resolved. Currently patient is having good perfusion. Recommend DVT prophylaxis with Lovenox or subcu heparin. - Time Time with patient: 15-25 minutes - CODE STATUS was discussed, patient remains full code. Surrogate decision-maker unchanged. Multiple medical problems were addressed. More than 50% of the time spent coordinating care, discussing management plans with involved caregivers. Management plans discussed with involved personnels. Medical decision making was of moderate to high complexity , patient's has multiple comorbidities. Medications reviewed and adjusted accordingly: Yes
[2017-09-01] MEDS: TAMSULOSIN HCL 0.4 MG CAP.SR.24H PO SCH (17:16)
[2017-09-02] MEDS: IPRATROPIUM BROMIDE 0.02% NEB 0.5 MG/2.5 ML AMPUL NEB SCH ×5 (03:37→20:19)
[2017-09-02] MEDS: LEVALBUTEROL HCL NEB 1.25 MG/3 ML AMPUL NEB SCH ×5 (03:37→20:19)
[2017-09-02] MEDS: CLINDAMYCIN HCL 150 MG CAPSULE PO SCH ×3 (05:13→21:50)
[2017-09-02] MEDS: FLUTICASONE/SALMETEROL DISKUS 500-50 MCG/DOSE IH SCH ×2 (05:13→19:41)
[2017-09-02] MEDS: HEPARIN SOD (PORCINE) 5,000 UNIT/ML 1 ML SYRINGE SUBCUT SCH ×3 (05:13→21:51)
[2017-09-02] MEDS: DILTIAZEM HCL 60 MG TABLET PO SCH ×3 (05:13→21:50)
[2017-09-02 06:50] LABS: BLOOD UREA NITROGEN 14 mg/dL (7-20); CALCIUM 9.1 mg/dL (8.4-10.2); CARBON DIOXIDE 37 mmol/L (22-30); GLUCOSE 103 mg/dL (75-110)
[2017-09-02 06:56] LABS: ANION GAP 4 (5-19); CHLORIDE 93 mmol/L (98-107); SODIUM 133.6 mmol/L (137-145)
[2017-09-02] MEDS: ONDANSETRON HCL INJ/PF 4 MG/2 ML SDV IV PRN (09:15)
[2017-09-02] MEDS: FUROSEMIDE 20 MG TABLET PO SCH (10:07)
[2017-09-02] MEDS: DIGOXIN 0.125 MG TABLET PO SCH (10:07)
[2017-09-02] MEDS: FAMOTIDINE 20 MG TABLET PO SCH ×2 (10:07→21:40)
[2017-09-02] MEDS: FERROUS SULFATE 325 MG TABLET PO SCH ×2 (10:09→19:41)
[2017-09-02] MEDS: MEGESTROL ACETATE SUSP 400 MG/10 ML UDCUP PO SCH (10:09)
[2017-09-02] MEDS: TIOTROPIUM BROMIDE DPI 5 CAP/KIT (18 MCG/CAP) IH SCH (10:10)
[2017-09-02] MEDS: NORMAL SALINE 10 ML SDV (SCHEDULED) IV SCH ×2 (10:11→21:50)
--- NOTE | 2017-09-02 10:47 | EKG REPORT ---
SEVERITY:- BORDERLINE ECG - SINUS TACHYCARDIA ATRIAL PREMATURE COMPLEX BORDERLINE T WAVE ABNORMALITIES : Confirmed by: Rachel Florian 02-Sep-2017 10:45:42
--- NOTE | 2017-09-02 13:01 | PDOC PROGRESS REPORT ---
Subjective Progress Note for:: 09/09/17 Subjective:: He was seen by the bedside, status post extubation Reason For Visit: SEPTIC SHOCK,RESPIRATORY FAILURE,RENAL FAILURE, Physical Exam Vital Signs: Temp Pulse Resp BP Pulse Ox 98.9 F 82 16 117/63 95 09/02/17 04:57 09/02/17 11:48 09/02/17 11:48 09/02/17 04:57 09/02/17 11:48 Intake & Output 09/01/17 09/02/17 09/03/17 05:59 06:59 06:59 Intake Total Balance Weight General appearance: PRESENT: no acute distress Eye exam: PRESENT: PERRLA Respiratory exam: PRESENT: decreased breath sounds Cardiovascular exam: PRESENT: +S1, +S2 GI/Abdominal exam: PRESENT: soft Neurological exam: PRESENT: alert Results Laboratory Results: 09/01/17 07:04 09/02/17 05:58 09/02/17 05:58 Sodium 133.6 L Potassium 4.0 Chloride 93 L Carbon Dioxide 37 H Anion Gap 4 L BUN 14 Creatinine 1.05 Est GFR ( Amer) > 60 Est GFR (Non-Af Amer) > 60 Glucose 103 Calcium 9.1 08/10/17 08/10/17 08/10/17 13:15 13:15 20:30 Creatine Kinase 70 41 L CK-MB (CK-2) 2.03 Troponin I 0.271 NT-Pro-B Natriuret Pep 08/10/17 08/11/17 08/11/17 20:30 06:30 06:30 Creatine Kinase 31 L CK-MB (CK-2) 2.61 1.80 Troponin I 0.160 0.087 NT-Pro-B Natriuret Pep 08/16/17 08/28/17 09/02/17 20:30 17:02 09:06 Creatine Kinase CK-MB (CK-2) Troponin I NT-Pro-B Natriuret Pep 1160 H 1120 H 597 H Impressions: Head CT 08/10/17 09:58 IMPRESSION: CHRONIC CHANGES OF ATROPHY AND MICROVASCULAR ISCHEMIA. NO ACUTE PROCESS. EVIDENCE OF ACUTE STROKE: NO. Abdomen/Pelvis CT 08/15/17 00:00 IMPRESSION: Trace bilateral pleural effusions with partial collapse left lower lobe Nasogastric tube, Colby catheter in good positioning No CT findings to explain history of sepsis Thoracentesis Ultrasound 08/15/17 00:00 IMPRESSION: SUCCESSFUL THORACENTESIS USING ULTRASOUND GUIDANCE. Chest Ultrasound 08/15/17 09:44 IMPRESSION: Bilateral pleural effusions Facial Bones CT 08/18/17 00:00 IMPRESSION: NO ACUTE FINDINGS. KUB X-Ray 08/19/17 00:00 IMPRESSION: STABLE GAS DISTENDED LOOPS OF BOWEL PRESUMABLY REPRESENTING ILEUS. TOOTH AGAIN NOTED WITHIN THE STOMACH. STABLE NASOGASTRIC TUBE AND COLBY CATHETER. Guidance Fluoroscopy 08/24/17 00:00 IMPRESSION: Please see combined report for performance of procedure and radiologic supervision and interpretation. Interventional Vascular Procedure 08/24/17 00:00 IMPRESSION: Please see combined report for performance of procedure and radiologic supervision and interpretation. PICC Line Insertion 08/24/17 00:00 IMPRESSION: SUCCESSFUL PLACEMENT OF A 5 FR pool LUMEN 42 CM PICC IN THE left basilic VEIN. Chest/Abdomen CTA 08/28/17 00:00 IMPRESSION: No PE. Unchanged pleural effusions and lower lobe consolidation. Chest X-Ray 09/01/17 00:00 IMPRESSION: Stable exam. Assessment & Plan - Diagnosis (1) Septic shock Is this a current diagnosis for this admission?: Yes (2) CHF (congestive heart failure) Qualifiers: Heart failure type: systolic Heart failure chronicity: acute Qualified Code(s): I50.21 - Acute systolic (congestive) heart failure (3) Acute on chronic respiratory failure with hypoxia and hypercapnia Is this a current diagnosis for this admission?: Yes (4) Pneumonia Qualifiers: Pneumonia type: due to unspecified organism Laterality: bilateral Lung location: lower lobe of lung Qualified Code(s): J18.1 - Lobar pneumonia, unspecified organism Is this a current diagnosis for this admission?: Yes (5) Non-STEMI (non-ST elevated myocardial infarction) Is this a current diagnosis for this admission?: Yes
--- NOTE | 2017-09-02 14:30 | PDOC PROGRESS REPORT ---
Subjective Progress Note for:: 09/02/17 Subjective:: Patient seen on morning rounds. Patient doing much better today. Patient denying any chest pain. He is noted to be comfortable. Today patient seems oriented to place and person. Telemetry strips reviewed. Telemetry strips shows improving tachycardia. Currently on oxygen supplementation and getting some breathing treatment. He is wanting to go home but has not ambulated much. He also did not have much physical therapy. Medications reviewed. Reason For Visit: SEPTIC SHOCK,RESPIRATORY FAILURE,RENAL FAILURE, Physical Exam Vital Signs: Temp Pulse Resp BP Pulse Ox 98.3 F 82 16 110/56 L 95 09/02/17 11:24 09/02/17 11:48 09/02/17 11:48 09/02/17 11:24 09/02/17 11:48 Intake & Output 09/01/17 09/02/17 09/03/17 05:59 06:59 06:59 Intake Total 100 Balance 100 Weight Exam: GENERAL: well-nourished and in no acute distress. Alert and oriented x3 HEAD: Atraumatic, normocephalic. EYES: Pupils equal round and reactive to light, extraocular movements intact, sclera anicteric, conjunctiva are normal. ENT: TMs normal, nares patent, oropharynx clear without exudates. Moist mucous membranes. No oral ulcerations or bleeding gums noted NECK: supple without lymphadenopathy. Trachea is central. No cervical or axillary lymphadenopathy noted. Carotids are 2+, JVD WNL LUNGS: Respiration seems nonlabored, no significant accessory muscle action noted. Bibasilar fine crackles noted with few scattered wheezes rales or rhonchi noted. No significant dullness noted on percussion. CHEST: Palpation of the chest wall shows no significant chest wall tenderness. No other significant abnormalities noted. 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 ABDOMEN: Soft, no significant tenderness appreciated, normoactive bowel sounds. No guarding, no rebound. No rigidity noted . No masses appreciated. EXTREMITIES: Pedal pulses are 1-2+, no calf tenderness noted. No clubbing or cyanosis.trace to 1+ pedal edema noted NEUROLOGICAL: Focused neurological exam showed no significant neurologic deficit. Normal speech, no focal weakness appreciated. PSYCH: Normal mood, normal affect. Judgment and insight within normal limits. SKIN: No significant ecchymosis, skin is noted to be warm. MUSCULOSKELETAL EXAM: No significant acute joint swelling noted. Results Laboratory Results: 09/01/17 07:04 09/02/17 05:58 09/02/17 05:58 Sodium 133.6 L Potassium 4.0 Chloride 93 L Carbon Dioxide 37 H Anion Gap 4 L BUN 14 Creatinine 1.05 Est GFR ( Amer) > 60 Est GFR (Non-Af Amer) > 60 Glucose 103 Calcium 9.1 08/10/17 08/10/17 08/10/17 13:15 13:15 20:30 Creatine Kinase 70 41 L CK-MB (CK-2) 2.03 Troponin I 0.271 NT-Pro-B Natriuret Pep 08/10/17 08/11/17 08/11/17 20:30 06:30 06:30 Creatine Kinase 31 L CK-MB (CK-2) 2.61 1.80 Troponin I 0.160 0.087 NT-Pro-B Natriuret Pep 08/16/17 08/28/17 09/02/17 20:30 17:02 09:06 Creatine Kinase CK-MB (CK-2) Troponin I NT-Pro-B Natriuret Pep 1160 H 1120 H 597 H EKG Comments: Telemetry strips shows mild sinus tachycardia but improving. Impressions: Head CT 08/10/17 09:58 IMPRESSION: CHRONIC CHANGES OF ATROPHY AND MICROVASCULAR ISCHEMIA. NO ACUTE PROCESS. EVIDENCE OF ACUTE STROKE: NO. Abdomen/Pelvis CT 08/15/17 00:00 IMPRESSION: Trace bilateral pleural effusions with partial collapse left lower lobe Nasogastric tube, Colby catheter in good positioning No CT findings to explain history of sepsis Thoracentesis Ultrasound 08/15/17 00:00 IMPRESSION: SUCCESSFUL THORACENTESIS USING ULTRASOUND GUIDANCE. Chest Ultrasound 08/15/17 09:44 IMPRESSION: Bilateral pleural effusions Facial Bones CT 08/18/17 00:00 IMPRESSION: NO ACUTE FINDINGS. KUB X-Ray 08/19/17 00:00 IMPRESSION: STABLE GAS DISTENDED LOOPS OF BOWEL PRESUMABLY REPRESENTING ILEUS. TOOTH AGAIN NOTED WITHIN THE STOMACH. STABLE NASOGASTRIC TUBE AND COLBY CATHETER. Guidance Fluoroscopy 08/24/17 00:00 IMPRESSION: Please see combined report for performance of procedure and radiologic supervision and interpretation. Interventional Vascular Procedure 08/24/17 00:00 IMPRESSION: Please see combined report for performance of procedure and radiologic supervision and interpretation. PICC Line Insertion 08/24/17 00:00 IMPRESSION: SUCCESSFUL PLACEMENT OF A 5 FR pool LUMEN 42 CM PICC IN THE left basilic VEIN. Chest/Abdomen CTA 08/28/17 00:00 IMPRESSION: No PE. Unchanged pleural effusions and lower lobe consolidation. Chest X-Ray 09/01/17 00:00 IMPRESSION: Stable exam. Assessment & Plan - Diagnosis (1) Multifocal atrial tachycardia Is this a current diagnosis for this admission?: Yes (2) Acute on chronic respiratory failure with hypoxia and hypercapnia Is this a current diagnosis for this admission?: Yes (3) Elevated troponin Is this a current diagnosis for this admission?: Yes (4) Chronic obstructive pulmonary disease Qualifiers: Emphysema type: unspecified Is this a current diagnosis for this admission?: Yes (5) Pneumonia Qualifiers: Pneumonia type: due to unspecified organism Laterality: bilateral Lung location: lower lobe of lung Qualified Code(s): J18.1 - Lobar pneumonia, unspecified organism Is this a current diagnosis for this admission?: Yes (6) Septic shock Is this a current diagnosis for this admission?: Yes (7) Non-STEMI (non-ST elevated myocardial infarction) Is this a current diagnosis for this admission?: Yes (8) Hypotension Qualifiers: Hypotension type: unspecified hypotension type Qualified Code(s): I95.9 - Hypotension, unspecified Is this a current diagnosis for this admission?: Yes - Notes Notes: Tachycardia: Currently improved with increased dose of Cardizem. Maintain electrolytes within normal limits. Continue digoxin. CHF: Currently seems compensated clinically. Continue current diuretic therapy. Currently seems stable. Continue digoxin and diuretic therapy. BNP is much improved. Chest x-ray shows left basilar infiltrate and possible minimal residual pleural effusion. It may be worthwhile to consider a chest x- ray PA and lateral prior to discharge for baseline purposes. Non-STEMI: Most likely related to sepsis and metabolic reason, hypoxemia, severe hypotension related rather than acute coronary syndrome. Previous EKG is reviewed shows no significant ST-T changes. Patient currently too weak to undergo a stress test. Will address this as outpatient. Hypotension: Blood pressure was stable. Midrin was stopped and blood pressure has been stable. Acute respiratory failure: Most likely related to pneumonia on top of severe COPD. Continue oxygen supplementation. Elevated troponin I: Most likely related to sepsis, acute respiratory failure. COPD: Continue current therapy and supplemental oxygenation. Pneumonia: Continue with antibiotic therapy. Pleural effusion: Possibly related to CHF. Continue current therapy. Chest x- ray shows improved left pleural effusion. Right pleural effusion resolved. However this was a AP film therefore could miss basal pleural effusion. Septic shock: Continue antibiotics. Resolved. Currently patient is having good perfusion. Recommend DVT prophylaxis with Lovenox or subcu heparin. EKG from yesterday reviewed. Shows no acute ST-T wave changes or ischemic changes. Progress of the patient overall reviewed with patient's daughter was at bedside today. - Time Time with patient: 15-25 minutes - CODE STATUS was discussed, patient remains full code. Surrogate decision-maker unchanged. Multiple medical problems were addressed. More than 50% of the time spent coordinating care, discussing management plans with involved caregivers. Management plans discussed with involved personnels. Medical decision making was of moderate to high complexity , patient's has multiple comorbidities. Medications reviewed and adjusted accordingly: Yes
[2017-09-02] MEDS: TAMSULOSIN HCL 0.4 MG CAP.SR.24H PO SCH (19:41)
[2017-09-03] MEDS: LEVALBUTEROL HCL NEB 1.25 MG/3 ML AMPUL NEB SCH ×7 (00:07→23:30)
[2017-09-03] MEDS: IPRATROPIUM BROMIDE 0.02% NEB 0.5 MG/2.5 ML AMPUL NEB SCH ×7 (00:08→23:30)
[2017-09-03] MEDS: CLINDAMYCIN HCL 150 MG CAPSULE PO SCH ×3 (06:36→21:31)
[2017-09-03] MEDS: FLUTICASONE/SALMETEROL DISKUS 500-50 MCG/DOSE IH SCH ×2 (06:36→18:10)
[2017-09-03] MEDS: HEPARIN SOD (PORCINE) 5,000 UNIT/ML 1 ML SYRINGE SUBCUT SCH ×3 (06:36→21:31)
[2017-09-03] MEDS: DILTIAZEM HCL 60 MG TABLET PO SCH ×3 (06:36→21:31)
[2017-09-03 09:01] LABS: ARTERIAL BLOOD BASE EXCESS 10.1 mmol/L; ARTERIAL BLOOD FIO2 4L; ARTERIAL BLOOD H2CO3 1.34 mmol/L (1.05-1.35); ARTERIAL BLOOD HCO3 34.2 mmol/L (20-26); ARTERIAL BLOOD O2 SATURATION 91.4 % (94-98); ARTERIAL BLOOD PCO2 44.4 mmHg (35-45); ARTERIAL BLOOD PH 7.51 (7.35-7.45); ARTERIAL BLOOD PO2 55.8 mmHg (80-100); ARTERIAL BLOOD TOTAL CO2 35.6 mmol/L (23-27)
[2017-09-03] MEDS: FUROSEMIDE 20 MG TABLET PO SCH (09:29)
[2017-09-03] MEDS: FAMOTIDINE 20 MG TABLET PO SCH ×2 (09:29→21:31)
[2017-09-03] MEDS: FERROUS SULFATE 325 MG TABLET PO SCH ×2 (09:29→18:12)
[2017-09-03] MEDS: DIGOXIN 0.125 MG TABLET PO SCH (09:32)
[2017-09-03] MEDS: TIOTROPIUM BROMIDE DPI 5 CAP/KIT (18 MCG/CAP) IH SCH (09:32)
[2017-09-03] MEDS: NORMAL SALINE 10 ML SDV (SCHEDULED) IV SCH ×2 (09:34→21:30)
[2017-09-03] MEDS: MEGESTROL ACETATE SUSP 400 MG/10 ML UDCUP PO SCH (09:35)
--- NOTE | 2017-09-03 12:06 | PDOC PROGRESS REPORT ---
Subjective Progress Note for:: 09/03/17 Subjective:: Patient is currently doing fair Patient still very weak Since denied any chest pain denied any shortness of the breath I do not think so patients able to participate the physical therapy and a weekend and patient still very weak patient still insists to go home but I do not think some patients can go home required of a lot of physical therapy Reason For Visit: SEPTIC SHOCK,RESPIRATORY FAILURE,RENAL FAILURE, Physical Exam Vital Signs: Temp Pulse Resp BP Pulse Ox 98.1 F 98 18 107/57 L 96 09/03/17 11:26 09/03/17 11:35 09/03/17 11:35 09/03/17 11:26 09/03/17 11:35 Intake & Output 09/02/17 09/03/17 09/04/17 06:59 06:59 06:59 Intake Total 460 100 Output Total 400 Balance 60 100 Weight 66 kg General appearance: PRESENT: no acute distress, well-developed, well-nourished Head exam: PRESENT: atraumatic, normocephalic Eye exam: PRESENT: conjunctiva pink, EOMI, PERRLA. ABSENT: scleral icterus Ear exam: PRESENT: normal external ear exam Mouth exam: PRESENT: moist, tongue midline Neck exam: PRESENT: full ROM. ABSENT: carotid bruit, JVD, lymphadenopathy, thyromegaly Respiratory exam: PRESENT: clear to auscultation ana Cardiovascular exam: PRESENT: RRR. ABSENT: diastolic murmur, rubs, systolic murmur Pulses: PRESENT: normal dorsalis pedis pul, +2 pedal pulses bilateral Vascular exam: PRESENT: normal capillary refill GI/Abdominal exam: PRESENT: normal bowel sounds, soft. ABSENT: distended, guarding, mass, organolmegaly, rebound, tenderness Rectal exam: PRESENT: deferred Extremities exam: ABSENT: pedal edema Neurological exam: PRESENT: alert, awake, oriented to person, oriented to place , oriented to time, oriented to situation, CN II-XII grossly intact. ABSENT: motor sensory deficit Psychiatric exam: PRESENT: appropriate affect, normal mood. ABSENT: homicidal ideation, suicidal ideation Skin exam: PRESENT: dry, intact, warm. ABSENT: cyanosis, rash Results Laboratory Results: 09/01/17 07:04 09/02/17 05:58 09/03/17 08:20 Carbonic Acid 1.34 HCO3/H2CO3 Ratio 25:1 ABG pH 7.51 H ABG pCO2 44.4 ABG pO2 55.8 L ABG HCO3 34.2 H ABG O2 Saturation 91.4 L ABG Base Excess 10.1 FiO2 4L 08/10/17 08/10/17 08/10/17 13:15 13:15 20:30 Creatine Kinase 70 41 L CK-MB (CK-2) 2.03 Troponin I 0.271 NT-Pro-B Natriuret Pep 08/10/17 08/11/17 08/11/17 20:30 06:30 06:30 Creatine Kinase 31 L CK-MB (CK-2) 2.61 1.80 Troponin I 0.160 0.087 NT-Pro-B Natriuret Pep 08/16/17 08/28/17 09/02/17 20:30 17:02 09:06 Creatine Kinase CK-MB (CK-2) Troponin I NT-Pro-B Natriuret Pep 1160 H 1120 H 597 H Impressions: Head CT 08/10/17 09:58 IMPRESSION: CHRONIC CHANGES OF ATROPHY AND MICROVASCULAR ISCHEMIA. NO ACUTE PROCESS. EVIDENCE OF ACUTE STROKE: NO. Abdomen/Pelvis CT 08/15/17 00:00 IMPRESSION: Trace bilateral pleural effusions with partial collapse left lower lobe Nasogastric tube, Colby catheter in good positioning No CT findings to explain history of sepsis Thoracentesis Ultrasound 08/15/17 00:00 IMPRESSION: SUCCESSFUL THORACENTESIS USING ULTRASOUND GUIDANCE. Chest Ultrasound 08/15/17 09:44 IMPRESSION: Bilateral pleural effusions Facial Bones CT 08/18/17 00:00 IMPRESSION: NO ACUTE FINDINGS. KUB X-Ray 08/19/17 00:00 IMPRESSION: STABLE GAS DISTENDED LOOPS OF BOWEL PRESUMABLY REPRESENTING ILEUS. TOOTH AGAIN NOTED WITHIN THE STOMACH. STABLE NASOGASTRIC TUBE AND COLBY CATHETER. Guidance Fluoroscopy 08/24/17 00:00 IMPRESSION: Please see combined report for performance of procedure and radiologic supervision and interpretation. Interventional Vascular Procedure 08/24/17 00:00 IMPRESSION: Please see combined report for performance of procedure and radiologic supervision and interpretation. PICC Line Insertion 08/24/17 00:00 IMPRESSION: SUCCESSFUL PLACEMENT OF A 5 FR pool LUMEN 42 CM PICC IN THE left basilic VEIN. Chest/Abdomen CTA 08/28/17 00:00 IMPRESSION: No PE. Unchanged pleural effusions and lower lobe consolidation. Chest X-Ray 09/01/17 00:00 IMPRESSION: Stable exam. Assessment & Plan - Diagnosis (1) Acute on chronic respiratory failure with hypoxia and hypercapnia Is this a current diagnosis for this admission?: Yes Plan: stable (2) Septic shock Is this a current diagnosis for this admission?: Yes Plan: Currently resolved (3) Pneumonia Qualifiers: Pneumonia type: due to unspecified organism Laterality: bilateral Lung location: lower lobe of lung Qualified Code(s): J18.1 - Lobar pneumonia, unspecified organism Is this a current diagnosis for this admission?: Yes Plan: Continues the p.o. clindamycin's for 7 days (4) Acute renal failure Qualifiers: Acute renal failure type: unspecified Qualified Code(s): N17.9 - Acute kidney failure, unspecified Is this a current diagnosis for this admission?: Yes Plan: Currently all stable (5) Chronic obstructive pulmonary disease Qualifiers: Emphysema type: unspecified Is this a current diagnosis for this admission?: Yes Plan: Continues to nebulizer treatments (6) Hypertension Qualifiers: Hypertension type: essential hypertension Qualified Code(s): I10 - Essential (primary) hypertension Is this a current diagnosis for this admission?: Yes Plan: Currently hypertension is due to the septic shock (7) Neoplasm of rectum Is this a current diagnosis for this admission?: Yes Plan: Patient's last CEA was all normal and according to the oncology's no need for further evaluations (8) Elevated troponin Is this a current diagnosis for this admission?: Yes Plan: Currently stable patients probably need a stress test as outpatient (9) Leukocytosis Qualifiers: Leukocytosis type: bandemia Qualified Code(s): D72.825 - Bandemia Is this a current diagnosis for this admission?: Yes (10) Pleural effusion Is this a current diagnosis for this admission?: Yes (11) Sinus tachycardia Is this a current diagnosis for this admission?: Yes - Time Time Spent with patient: 15-24 minutes Medications reviewed and adjusted accordingly: Yes Anticipated discharge: Other Within: Other - Inpatient Certification Medical Necessity: Need Close Monitoring Due to Risk of Patient Decompensation 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
--- NOTE | 2017-09-03 14:59 | RADIOLOGY REPORT (SQ) ---
EXAM DESCRIPTION: CHEST PA/LAT COMPLETED DATE/TIME: 09/03/2017 2:25 pm REASON FOR STUDY: pnemonia/chf COMPARISON: 09/01/2017. EXAM PARAMETERS: NUMBER OF VIEWS: two views TECHNIQUE: Digital Frontal and Lateral radiographic views of the chest acquired. RADIATION DOSE: NA LIMITATIONS: none FINDINGS: LUNGS AND PLEURA: Scattered basilar densities, left greater than right. Moderate bilatera l pleural effusions. MEDIASTINUM AND HILAR STRUCTURES: No masses or contour abnormalities. HEART AND VASCULAR STRUCTURES: Heart normal size. No evidence for failure. BONES: No acute findings. HARDWARE: The endotracheal tube is been removed. PICC line remains in place. OTHER: No other significant finding. IMPRESSION: NO CHANGE IN APPEARANCE OF THE CHEST. INTERVAL REMOVAL OF THE ENDOTRACHEAL TUBE. TECHNICAL DOCUMENTATION: JOB ID: [id number] [employer]- All Rights Reserved Reading location - IP/workstation name: [email or web address]
[2017-09-03] MEDS: TAMSULOSIN HCL 0.4 MG CAP.SR.24H PO SCH (18:12)
--- NOTE | 2017-09-03 20:08 | PDOC PROGRESS REPORT ---
Subjective Progress Note for:: 09/03/17 Subjective:: Patient seen on morning rounds. Patient laying in bed comfortable. Patient denying any chest pain. He is noted to be comfortable. Today patient seems oriented to place and person. Telemetry strips reviewed. Telemetry strips shows improving tachycardia. Currently on oxygen supplementation and getting some breathing treatment. He is wanting to go home but has not ambulated much. He also did not have much physical therapy. Rehab transfer has been offered but so far he is declining. Medications reviewed. Reason For Visit: SEPTIC SHOCK,RESPIRATORY FAILURE,RENAL FAILURE, Physical Exam Vital Signs: Temp Pulse Resp BP Pulse Ox 98.2 F 103 H 18 108/59 L 95 09/03/17 14:52 09/03/17 19:00 09/03/17 16:09 09/03/17 14:52 09/03/17 16:09 Intake & Output 09/02/17 09/03/17 09/04/17 06:59 06:59 06:59 Intake Total 460 320 Output Total 400 Balance 60 320 Weight 66 kg Exam: GENERAL: well-nourished and in no acute distress. Alert and oriented x3 HEAD: Atraumatic, normocephalic. EYES: Pupils equal round and reactive to light, extraocular movements intact, sclera anicteric, conjunctiva are normal. ENT: TMs normal, nares patent, oropharynx clear without exudates. Moist mucous membranes. No oral ulcerations or bleeding gums noted NECK: supple without lymphadenopathy. Trachea is central. No cervical or axillary lymphadenopathy noted. Carotids are 2+, JVD WNL LUNGS: Respiration seems nonlabored, no significant accessory muscle action noted. Bibasilar fine crackles and scattered wheezing noted. Wheezes rales or rhonchi noted. Bilateral dullness noted on percussion. CHEST: Palpation of the chest wall shows no significant chest wall tenderness. No other significant abnormalities noted. 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 ABDOMEN: Soft, no significant tenderness appreciated, normoactive bowel sounds. No guarding, no rebound. No rigidity noted . No masses appreciated. EXTREMITIES: Pedal pulses are 1-2+, no calf tenderness noted. No clubbing or cyanosis. 1+ pedal edema noted NEUROLOGICAL: Focused neurological exam showed no significant neurologic deficit. Normal speech, no focal weakness appreciated. PSYCH: Normal mood, normal affect. Judgment and insight within normal limits. SKIN: No significant ecchymosis, skin is noted to be warm. MUSCULOSKELETAL EXAM: No significant acute joint swelling noted. Results Laboratory Results: 09/01/17 07:04 09/02/17 05:58 09/03/17 08:20 Carbonic Acid 1.34 HCO3/H2CO3 Ratio 25:1 ABG pH 7.51 H ABG pCO2 44.4 ABG pO2 55.8 L ABG HCO3 34.2 H ABG O2 Saturation 91.4 L ABG Base Excess 10.1 FiO2 4L 08/10/17 08/10/17 08/10/17 13:15 13:15 20:30 Creatine Kinase 70 41 L CK-MB (CK-2) 2.03 Troponin I 0.271 NT-Pro-B Natriuret Pep 08/10/17 08/11/17 08/11/17 20:30 06:30 06:30 Creatine Kinase 31 L CK-MB (CK-2) 2.61 1.80 Troponin I 0.160 0.087 NT-Pro-B Natriuret Pep 08/16/17 08/28/17 09/02/17 20:30 17:02 09:06 Creatine Kinase CK-MB (CK-2) Troponin I NT-Pro-B Natriuret Pep 1160 H 1120 H 597 H EKG Comments: Telemetry shows sinus rhythm without any sustained tacky or bradycardia arrhythmias. Impressions: Head CT 08/10/17 09:58 IMPRESSION: CHRONIC CHANGES OF ATROPHY AND MICROVASCULAR ISCHEMIA. NO ACUTE PROCESS. EVIDENCE OF ACUTE STROKE: NO. Abdomen/Pelvis CT 08/15/17 00:00 IMPRESSION: Trace bilateral pleural effusions with partial collapse left lower lobe Nasogastric tube, Colby catheter in good positioning No CT findings to explain history of sepsis Thoracentesis Ultrasound 08/15/17 00:00 IMPRESSION: SUCCESSFUL THORACENTESIS USING ULTRASOUND GUIDANCE. Chest Ultrasound 08/15/17 09:44 IMPRESSION: Bilateral pleural effusions Facial Bones CT 08/18/17 00:00 IMPRESSION: NO ACUTE FINDINGS. KUB X-Ray 08/19/17 00:00 IMPRESSION: STABLE GAS DISTENDED LOOPS OF BOWEL PRESUMABLY REPRESENTING ILEUS. TOOTH AGAIN NOTED WITHIN THE STOMACH. STABLE NASOGASTRIC TUBE AND COLBY CATHETER. Guidance Fluoroscopy 08/24/17 00:00 IMPRESSION: Please see combined report for performance of procedure and radiologic supervision and interpretation. Interventional Vascular Procedure 08/24/17 00:00 IMPRESSION: Please see combined report for performance of procedure and radiologic supervision and interpretation. PICC Line Insertion 08/24/17 00:00 IMPRESSION: SUCCESSFUL PLACEMENT OF A 5 FR pool LUMEN 42 CM PICC IN THE left basilic VEIN. Chest/Abdomen CTA 08/28/17 00:00 IMPRESSION: No PE. Unchanged pleural effusions and lower lobe consolidation. Chest X-Ray 09/03/17 00:00 IMPRESSION: NO CHANGE IN APPEARANCE OF THE CHEST. INTERVAL REMOVAL OF THE ENDOTRACHEAL TUBE. Assessment & Plan - Diagnosis (1) Multifocal atrial tachycardia Is this a current diagnosis for this admission?: Yes (2) Acute on chronic respiratory failure with hypoxia and hypercapnia Is this a current diagnosis for this admission?: Yes (3) Elevated troponin Is this a current diagnosis for this admission?: Yes (4) Chronic obstructive pulmonary disease Qualifiers: Emphysema type: unspecified Is this a current diagnosis for this admission?: Yes (5) Pneumonia Qualifiers: Pneumonia type: due to unspecified organism Laterality: bilateral Lung location: lower lobe of lung Qualified Code(s): J18.1 - Lobar pneumonia, unspecified organism Is this a current diagnosis for this admission?: Yes (6) Septic shock Is this a current diagnosis for this admission?: Yes (7) Non-STEMI (non-ST elevated myocardial infarction) Is this a current diagnosis for this admission?: Yes (8) Hypotension Qualifiers: Hypotension type: unspecified hypotension type Qualified Code(s): I95.9 - Hypotension, unspecified Is this a current diagnosis for this admission?: Yes - Notes Notes: Chest x-ray showing increasing bilateral pleural effusion. Will recheck a BNP level and if needed increase Lasix. Continue all other supportive care. Overall prognosis is guarded because of marked general debility, severe COPD and possibly significant RV dysfunction. - Time Time with patient: 15-25 minutes - CODE STATUS was discussed, patient remains full code. Surrogate decision-maker unchanged. Multiple medical problems were addressed. More than 50% of the time spent coordinating care, discussing management plans with involved caregivers. Management plans discussed with involved personnels. Medical decision making was of moderate to high complexity , patient's has multiple comorbidities. Medications reviewed and adjusted accordingly: Yes
[2017-09-04] MEDS: ONDANSETRON HCL INJ/PF 4 MG/2 ML SDV IV PRN (00:34)
[2017-09-04] MEDS: IPRATROPIUM BROMIDE 0.02% NEB 0.5 MG/2.5 ML AMPUL NEB SCH ×6 (04:13→23:58)
[2017-09-04] MEDS: LEVALBUTEROL HCL NEB 1.25 MG/3 ML AMPUL NEB SCH ×6 (04:13→23:59)
[2017-09-04] MEDS: FLUTICASONE/SALMETEROL DISKUS 500-50 MCG/DOSE IH SCH ×2 (05:50→18:28)
[2017-09-04] MEDS: HEPARIN SOD (PORCINE) 5,000 UNIT/ML 1 ML SYRINGE SUBCUT SCH ×3 (05:50→22:46)
[2017-09-04] MEDS: DILTIAZEM HCL 60 MG TABLET PO SCH ×3 (05:50→22:45)
[2017-09-04] MEDS: CLINDAMYCIN HCL 150 MG CAPSULE PO SCH ×3 (05:50→22:45)
[2017-09-04] MEDS: FERROUS SULFATE 325 MG TABLET PO SCH ×2 (09:15→18:28)
[2017-09-04] MEDS: TIOTROPIUM BROMIDE DPI 5 CAP/KIT (18 MCG/CAP) IH SCH (09:15)
[2017-09-04] MEDS: FUROSEMIDE 20 MG TABLET PO SCH (09:15)
[2017-09-04] MEDS: FAMOTIDINE 20 MG TABLET PO SCH ×2 (09:15→22:45)
[2017-09-04] MEDS: MEGESTROL ACETATE SUSP 400 MG/10 ML UDCUP PO SCH (09:16)
[2017-09-04] MEDS: NORMAL SALINE 10 ML SDV (SCHEDULED) IV SCH ×2 (09:16→22:45)
[2017-09-04] MEDS: DIGOXIN 0.125 MG TABLET PO SCH (09:16)
--- NOTE | 2017-09-04 12:25 | PDOC PROGRESS REPORT ---
Subjective Progress Note for:: 09/04/17 Subjective:: Is currently doing still the same required a BiPAP at nighttime Still unable to participate in the physical therapy yesterday As per discussed with the family still not sure about going to the nursing homes Patient's denied any chest pain denied any shortness of the breath Reason For Visit: SEPTIC SHOCK,RESPIRATORY FAILURE,RENAL FAILURE, Physical Exam Vital Signs: Temp Pulse Resp BP Pulse Ox 98.1 F 98 18 103/60 95 09/04/17 10:42 09/04/17 10:42 09/04/17 10:42 09/04/17 10:42 09/04/17 10:42 Intake & Output 09/03/17 09/04/17 09/05/17 06:59 06:59 06:59 Intake Total 460 438 150 Output Total 400 Balance 60 438 150 Weight 66 kg 66.8 kg General appearance: PRESENT: no acute distress, well-developed, well-nourished Head exam: PRESENT: atraumatic, normocephalic Eye exam: PRESENT: conjunctiva pink, EOMI, PERRLA. ABSENT: scleral icterus Ear exam: PRESENT: normal external ear exam Mouth exam: PRESENT: moist, tongue midline Neck exam: PRESENT: full ROM. ABSENT: carotid bruit, JVD, lymphadenopathy, thyromegaly Respiratory exam: PRESENT: clear to auscultation ana Cardiovascular exam: PRESENT: RRR. ABSENT: diastolic murmur, rubs, systolic murmur Pulses: PRESENT: normal dorsalis pedis pul, +2 pedal pulses bilateral Vascular exam: PRESENT: normal capillary refill GI/Abdominal exam: PRESENT: normal bowel sounds, soft. ABSENT: distended, guarding, mass, organolmegaly, rebound, tenderness Rectal exam: PRESENT: deferred Extremities exam: ABSENT: pedal edema Neurological exam: PRESENT: alert, awake, oriented to person, oriented to place , oriented to time, oriented to situation, CN II-XII grossly intact. ABSENT: motor sensory deficit Psychiatric exam: PRESENT: appropriate affect, normal mood. ABSENT: homicidal ideation, suicidal ideation Skin exam: PRESENT: dry, intact, warm. ABSENT: cyanosis, rash Results Laboratory Results: 09/01/17 07:04 09/02/17 05:58 08/10/17 08/10/17 08/10/17 13:15 13:15 20:30 Creatine Kinase 70 41 L CK-MB (CK-2) 2.03 Troponin I 0.271 NT-Pro-B Natriuret Pep 08/10/17 08/11/17 08/11/17 20:30 06:30 06:30 Creatine Kinase 31 L CK-MB (CK-2) 2.61 1.80 Troponin I 0.160 0.087 NT-Pro-B Natriuret Pep 08/16/17 08/28/17 09/02/17 20:30 17:02 09:06 Creatine Kinase CK-MB (CK-2) Troponin I NT-Pro-B Natriuret Pep 1160 H 1120 H 597 H 09/04/17 11:05 Creatine Kinase CK-MB (CK-2) Troponin I NT-Pro-B Natriuret Pep 516 H Impressions: Head CT 08/10/17 09:58 IMPRESSION: CHRONIC CHANGES OF ATROPHY AND MICROVASCULAR ISCHEMIA. NO ACUTE PROCESS. EVIDENCE OF ACUTE STROKE: NO. Abdomen/Pelvis CT 08/15/17 00:00 IMPRESSION: Trace bilateral pleural effusions with partial collapse left lower lobe Nasogastric tube, Colby catheter in good positioning No CT findings to explain history of sepsis Thoracentesis Ultrasound 08/15/17 00:00 IMPRESSION: SUCCESSFUL THORACENTESIS USING ULTRASOUND GUIDANCE. Chest Ultrasound 08/15/17 09:44 IMPRESSION: Bilateral pleural effusions Facial Bones CT 08/18/17 00:00 IMPRESSION: NO ACUTE FINDINGS. KUB X-Ray 08/19/17 00:00 IMPRESSION: STABLE GAS DISTENDED LOOPS OF BOWEL PRESUMABLY REPRESENTING ILEUS. TOOTH AGAIN NOTED WITHIN THE STOMACH. STABLE NASOGASTRIC TUBE AND COLBY CATHETER. Guidance Fluoroscopy 08/24/17 00:00 IMPRESSION: Please see combined report for performance of procedure and radiologic supervision and interpretation. Interventional Vascular Procedure 08/24/17 00:00 IMPRESSION: Please see combined report for performance of procedure and radiologic supervision and interpretation. PICC Line Insertion 08/24/17 00:00 IMPRESSION: SUCCESSFUL PLACEMENT OF A 5 FR pool LUMEN 42 CM PICC IN THE left basilic VEIN. Chest/Abdomen CTA 08/28/17 00:00 IMPRESSION: No PE. Unchanged pleural effusions and lower lobe consolidation. Chest X-Ray 09/03/17 00:00 IMPRESSION: NO CHANGE IN APPEARANCE OF THE CHEST. INTERVAL REMOVAL OF THE ENDOTRACHEAL TUBE. Assessment & Plan - Diagnosis (1) Acute on chronic respiratory failure with hypoxia and hypercapnia Is this a current diagnosis for this admission?: Yes Plan: stable (2) Septic shock Is this a current diagnosis for this admission?: Yes Plan: Currently resolved (3) Pneumonia Qualifiers: Pneumonia type: due to unspecified organism Laterality: bilateral Lung location: lower lobe of lung Qualified Code(s): J18.1 - Lobar pneumonia, unspecified organism Is this a current diagnosis for this admission?: Yes Plan: Continues the p.o. clindamycin's for 7 days (4) Acute renal failure Qualifiers: Acute renal failure type: unspecified Qualified Code(s): N17.9 - Acute kidney failure, unspecified Is this a current diagnosis for this admission?: Yes Plan: Currently all stable (5) Chronic obstructive pulmonary disease Qualifiers: Emphysema type: unspecified Is this a current diagnosis for this admission?: Yes Plan: Continues to nebulizer treatments (6) Hypertension Qualifiers: Hypertension type: essential hypertension Qualified Code(s): I10 - Essential (primary) hypertension Is this a current diagnosis for this admission?: Yes Plan: Currently hypertension is due to the septic shock (7) Neoplasm of rectum Is this a current diagnosis for this admission?: Yes (8) Elevated troponin Is this a current diagnosis for this admission?: Yes Plan: Currently stable patients probably need a stress test as outpatient (9) Leukocytosis Qualifiers: Leukocytosis type: bandemia Qualified Code(s): D72.825 - Bandemia Is this a current diagnosis for this admission?: Yes (10) Pleural effusion Is this a current diagnosis for this admission?: Yes Plan: Will get the ultrasound of the chest to see with the patient's can have a thoracocentesis (11) Sinus tachycardia Is this a current diagnosis for this admission?: Yes - Time Time Spent with patient: 15-24 minutes Medications reviewed and adjusted accordingly: Yes Anticipated discharge: Other Within: Other - Inpatient Certification Medical Necessity: Need Close Monitoring Due to Risk of Patient Decompensation 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
[2017-09-04] MEDS ORDERED: FUROSEMIDE 20 MG TABLET PO SCH (18:00)
[2017-09-04] MEDS: TAMSULOSIN HCL 0.4 MG CAP.SR.24H PO SCH (18:28)
--- NOTE | 2017-09-04 18:56 | PDOC PROGRESS REPORT ---
Subjective Progress Note for:: 09/04/17 Subjective:: Patient seen on morning rounds. Patient just looks very debilitated and weak. Chest x-ray shows possible increasing bilateral pleural effusion. Have increased Lasix to 40 mg p.o. twice daily after discussion with Dr. Kline. Patient laying in bed comfortable. Patient denying any chest pain. He is noted to be comfortable. Today patient seems oriented to place and person. Telemetry strips reviewed. Telemetry strips shows improving tachycardia. Currently on oxygen supplementation and getting some breathing treatment. He is wanting to go home but has not ambulated much. He also did not have much physical therapy. Rehab transfer has been offered but so far he is declining. Medications reviewed. Reason For Visit: SEPTIC SHOCK,RESPIRATORY FAILURE,RENAL FAILURE, Physical Exam Vital Signs: Temp Pulse Resp BP Pulse Ox 97.5 F 95 19 123/60 97 09/04/17 07:15 09/04/17 08:15 09/04/17 08:15 09/04/17 07:15 09/04/17 08:15 Intake & Output 09/03/17 09/04/17 09/05/17 06:59 06:59 06:59 Intake Total 460 438 150 Output Total 400 Balance 60 438 150 Weight 66 kg 66.8 kg Exam: GENERAL: well-nourished and in no acute distress. Alert and oriented x3 HEAD: Atraumatic, normocephalic. EYES: Pupils equal round and reactive to light, extraocular movements intact, sclera anicteric, conjunctiva are normal. ENT: TMs normal, nares patent, oropharynx clear without exudates. Moist mucous membranes. No oral ulcerations or bleeding gums noted NECK: supple without lymphadenopathy. Trachea is central. No cervical or axillary lymphadenopathy noted. Carotids are 2+, JVD WNL LUNGS: Respiration seems nonlabored, no significant accessory muscle action noted. Bibasilar fine crackles with scattered wheezing and mild bilateral significant dullness noted on percussion. CHEST: Palpation of the chest wall shows no significant chest wall tenderness. No other significant abnormalities noted. 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 ABDOMEN: Soft, no significant tenderness appreciated, normoactive bowel sounds. No guarding, no rebound. No rigidity noted . No masses appreciated. EXTREMITIES: Pedal pulses are 1-2+, no calf tenderness noted. No clubbing or cyanosis.1+ pedal edema noted NEUROLOGICAL: Focused neurological exam showed no significant neurologic deficit. Normal speech, no focal weakness appreciated. PSYCH: Normal mood, normal affect. Judgment and insight within normal limits. SKIN: No significant ecchymosis, skin is noted to be warm. MUSCULOSKELETAL EXAM: No significant acute joint swelling noted. Results Laboratory Results: 09/01/17 07:04 09/02/17 05:58 08/10/17 08/10/17 08/10/17 13:15 13:15 20:30 Creatine Kinase 70 41 L CK-MB (CK-2) 2.03 Troponin I 0.271 NT-Pro-B Natriuret Pep 08/10/17 08/11/17 08/11/17 20:30 06:30 06:30 Creatine Kinase 31 L CK-MB (CK-2) 2.61 1.80 Troponin I 0.160 0.087 NT-Pro-B Natriuret Pep 08/16/17 08/28/17 09/02/17 20:30 17:02 09:06 Creatine Kinase CK-MB (CK-2) Troponin I NT-Pro-B Natriuret Pep 1160 H 1120 H 597 H Impressions: Head CT 08/10/17 09:58 IMPRESSION: CHRONIC CHANGES OF ATROPHY AND MICROVASCULAR ISCHEMIA. NO ACUTE PROCESS. EVIDENCE OF ACUTE STROKE: NO. Abdomen/Pelvis CT 08/15/17 00:00 IMPRESSION: Trace bilateral pleural effusions with partial collapse left lower lobe Nasogastric tube, Colby catheter in good positioning No CT findings to explain history of sepsis Thoracentesis Ultrasound 08/15/17 00:00 IMPRESSION: SUCCESSFUL THORACENTESIS USING ULTRASOUND GUIDANCE. Chest Ultrasound 08/15/17 09:44 IMPRESSION: Bilateral pleural effusions Facial Bones CT 08/18/17 00:00 IMPRESSION: NO ACUTE FINDINGS. KUB X-Ray 08/19/17 00:00 IMPRESSION: STABLE GAS DISTENDED LOOPS OF BOWEL PRESUMABLY REPRESENTING ILEUS. TOOTH AGAIN NOTED WITHIN THE STOMACH. STABLE NASOGASTRIC TUBE AND COLBY CATHETER. Guidance Fluoroscopy 08/24/17 00:00 IMPRESSION: Please see combined report for performance of procedure and radiologic supervision and interpretation. Interventional Vascular Procedure 08/24/17 00:00 IMPRESSION: Please see combined report for performance of procedure and radiologic supervision and interpretation. PICC Line Insertion 08/24/17 00:00 IMPRESSION: SUCCESSFUL PLACEMENT OF A 5 FR pool LUMEN 42 CM PICC IN THE left basilic VEIN. Chest/Abdomen CTA 08/28/17 00:00 IMPRESSION: No PE. Unchanged pleural effusions and lower lobe consolidation. Chest X-Ray 09/03/17 00:00 IMPRESSION: NO CHANGE IN APPEARANCE OF THE CHEST. INTERVAL REMOVAL OF THE ENDOTRACHEAL TUBE. Assessment & Plan - Diagnosis (1) Multifocal atrial tachycardia Is this a current diagnosis for this admission?: Yes (2) Acute on chronic respiratory failure with hypoxia and hypercapnia Is this a current diagnosis for this admission?: Yes (3) Elevated troponin Is this a current diagnosis for this admission?: Yes (4) Chronic obstructive pulmonary disease Qualifiers: Emphysema type: unspecified Is this a current diagnosis for this admission?: Yes (5) Pneumonia Qualifiers: Pneumonia type: due to unspecified organism Laterality: bilateral Lung location: lower lobe of lung Qualified Code(s): J18.1 - Lobar pneumonia, unspecified organism Is this a current diagnosis for this admission?: Yes (6) Septic shock Is this a current diagnosis for this admission?: Yes (7) Non-STEMI (non-ST elevated myocardial infarction) Is this a current diagnosis for this admission?: Yes (8) Hypotension Qualifiers: Hypotension type: unspecified hypotension type Qualified Code(s): I95.9 - Hypotension, unspecified Is this a current diagnosis for this admission?: Yes - Notes Notes: Tachycardia: Currently improved with increased dose of Cardizem. Maintain electrolytes within normal limits. Continue digoxin. Currently it has not been a problem for last several days. CHF: Noted to have increasing bilateral pleural effusion. BNP level statistically unchanged. Have increased her Lasix to 40 mg p.o. twice daily. Non-STEMI: No evidence of any chest pain. Patient has been stable. Not a candidate for stress testing at this point due to general weakness. Hypotension: This has resolved. Acute respiratory failure: Most likely related to pneumonia on top of severe COPD. Continue oxygen supplementation. Elevated troponin I: Most likely related to sepsis, acute respiratory failure. COPD: Continue current therapy and supplemental oxygenation. Pneumonia: Continue with antibiotic therapy. Pleural effusion: Possibly related to CHF. Continue current therapy. Diuretics increased. Septic shock: Resolved Recommend DVT prophylaxis with Lovenox or subcu heparin. - Time Time with patient: 15-25 minutes - CODE STATUS was discussed, patient remains full code. Surrogate decision-maker unchanged. Multiple medical problems were addressed. More than 50% of the time spent coordinating care, discussing management plans with involved caregivers. Management plans discussed with involved personnels. Medical decision making was of moderate to high complexity , patient's has multiple comorbidities. Medications reviewed and adjusted accordingly: Yes
--- NOTE | 2017-09-04 22:16 | RADIOLOGY REPORT (SQ) ---
EXAM DESCRIPTION: U/S CHEST COMPLETED DATE/TIME: 09/04/2017 9:58 pm REASON FOR STUDY: Pleural effusion COMPARISON: Two-view chest 09/03/2017 AP chest 09/01/2017, 318, 08/24/2017 CT chest 08/28/2017 TECHNIQUE: Ultrasound of the right and left chest was performed to evaluate for pleural fluid. LIMITATIONS: None. FINDINGS: Trace right pleural effusion, not significant amounts to perform thoracentesis. Small left pleural effusion in the posterior chest, similar compared to the CT exam 08/28/2017. IMPRESSION: Trace right pleural effusion, improved compared to previous studies. Stable small left pleural effusion compared to 08/28/2017 TECHNICAL DOCUMENTATION: JOB ID: [id number] [employer]- All Rights Reserved Reading location - IP/workstation name: [email or web address]
[2017-09-05] MEDS: IPRATROPIUM BROMIDE 0.02% NEB 0.5 MG/2.5 ML AMPUL NEB SCH ×5 (04:13→20:41)
[2017-09-05] MEDS: LEVALBUTEROL HCL NEB 1.25 MG/3 ML AMPUL NEB SCH ×5 (04:13→20:41)
[2017-09-05] MEDS: FLUTICASONE/SALMETEROL DISKUS 500-50 MCG/DOSE IH SCH ×2 (05:39→17:33)
[2017-09-05] MEDS: DILTIAZEM HCL 60 MG TABLET PO SCH ×3 (05:39→22:01)
[2017-09-05] MEDS: HEPARIN SOD (PORCINE) 5,000 UNIT/ML 1 ML SYRINGE SUBCUT SCH ×3 (05:40→22:01)
[2017-09-05] MEDS: CLINDAMYCIN HCL 150 MG CAPSULE PO SCH ×3 (05:40→22:01)
[2017-09-05 06:57] LABS: ANION GAP 7 (5-19); BLOOD UREA NITROGEN 17 mg/dL (7-20); CALCIUM 9.3 mg/dL (8.4-10.2); CARBON DIOXIDE 28 mmol/L (22-30); CHLORIDE 99 mmol/L (98-107); GLUCOSE 104 mg/dL (75-110); POTASSIUM 4.9 mmol/L (3.6-5.0); SODIUM 133.9 mmol/L (137-145)
[2017-09-05] MEDS: FUROSEMIDE 40 MG TABLET PO SCH ×2 (09:38→17:33)
[2017-09-05] MEDS: DIGOXIN 0.125 MG TABLET PO SCH (09:38)
[2017-09-05] MEDS: FAMOTIDINE 20 MG TABLET PO SCH ×2 (09:38→22:01)
[2017-09-05] MEDS: FERROUS SULFATE 325 MG TABLET PO SCH ×2 (09:38→17:33)
[2017-09-05] MEDS: NORMAL SALINE 10 ML SDV (SCHEDULED) IV SCH ×2 (09:39→22:01)
[2017-09-05] MEDS: MEGESTROL ACETATE SUSP 400 MG/10 ML UDCUP PO SCH (09:40)
[2017-09-05] MEDS: TIOTROPIUM BROMIDE DPI 5 CAP/KIT (18 MCG/CAP) IH SCH (09:41)
--- NOTE | 2017-09-05 10:27 | PDOC PROGRESS REPORT ---
Subjective Progress Note for:: 09/05/17 Subjective:: Patient is currently doing fair still very weak Patients participated in physical therapy yesterday but not enough Patient's ultrasound of the chest was some mild effusions but no need for thoracocentesis Patient's denied any chest pain denied any shortness of the breath Family still not at it about sending to the rehab and the patient is still very weak if the patient absolutely did not want to go maybe needs to send for the home health and physical therapy Reason For Visit: SEPTIC SHOCK,RESPIRATORY FAILURE,RENAL FAILURE, Physical Exam Vital Signs: Temp Pulse Resp BP Pulse Ox 97.9 F 102 H 28 H 106/56 L 93 09/05/17 08:00 09/05/17 08:00 09/05/17 08:00 09/05/17 08:00 09/05/17 08:00 Intake & Output 09/04/17 09/05/17 09/06/17 06:59 06:59 06:59 Intake Total 438 480 Balance 438 480 Weight 66.8 kg 59.6 kg General appearance: PRESENT: no acute distress, well-developed, well-nourished Head exam: PRESENT: atraumatic, normocephalic Eye exam: PRESENT: conjunctiva pink, EOMI, PERRLA. ABSENT: scleral icterus Ear exam: PRESENT: normal external ear exam Mouth exam: PRESENT: moist, tongue midline Neck exam: PRESENT: full ROM. ABSENT: carotid bruit, JVD, lymphadenopathy, thyromegaly Respiratory exam: PRESENT: clear to auscultation ana Cardiovascular exam: PRESENT: RRR. ABSENT: diastolic murmur, rubs, systolic murmur Pulses: PRESENT: normal dorsalis pedis pul, +2 pedal pulses bilateral Vascular exam: PRESENT: normal capillary refill GI/Abdominal exam: PRESENT: normal bowel sounds, soft. ABSENT: distended, guarding, mass, organolmegaly, rebound, tenderness Rectal exam: PRESENT: deferred Extremities exam: ABSENT: pedal edema Neurological exam: PRESENT: alert, awake, oriented to person, oriented to place. ABSENT: motor sensory deficit Psychiatric exam: PRESENT: appropriate affect, normal mood. ABSENT: homicidal ideation, suicidal ideation Skin exam: PRESENT: dry, intact, warm. ABSENT: cyanosis, rash Results Laboratory Results: 09/01/17 07:04 09/05/17 05:29 09/05/17 05:29 Sodium 133.9 L Potassium 4.9 Chloride 99 Carbon Dioxide 28 Anion Gap 7 BUN 17 Creatinine 1.33 H Est GFR ( Amer) > 60 Est GFR (Non-Af Amer) 52 L Glucose 104 Calcium 9.3 08/10/17 08/10/17 08/10/17 13:15 13:15 20:30 Creatine Kinase 70 41 L CK-MB (CK-2) 2.03 Troponin I 0.271 NT-Pro-B Natriuret Pep 08/10/17 08/11/17 08/11/17 20:30 06:30 06:30 Creatine Kinase 31 L CK-MB (CK-2) 2.61 1.80 Troponin I 0.160 0.087 NT-Pro-B Natriuret Pep 08/16/17 08/28/17 09/02/17 20:30 17:02 09:06 Creatine Kinase CK-MB (CK-2) Troponin I NT-Pro-B Natriuret Pep 1160 H 1120 H 597 H 09/04/17 11:05 Creatine Kinase CK-MB (CK-2) Troponin I NT-Pro-B Natriuret Pep 516 H Impressions: Head CT 08/10/17 09:58 IMPRESSION: CHRONIC CHANGES OF ATROPHY AND MICROVASCULAR ISCHEMIA. NO ACUTE PROCESS. EVIDENCE OF ACUTE STROKE: NO. Abdomen/Pelvis CT 08/15/17 00:00 IMPRESSION: Trace bilateral pleural effusions with partial collapse left lower lobe Nasogastric tube, Colby catheter in good positioning No CT findings to explain history of sepsis Thoracentesis Ultrasound 08/15/17 00:00 IMPRESSION: SUCCESSFUL THORACENTESIS USING ULTRASOUND GUIDANCE. Facial Bones CT 08/18/17 00:00 IMPRESSION: NO ACUTE FINDINGS. KUB X-Ray 08/19/17 00:00 IMPRESSION: STABLE GAS DISTENDED LOOPS OF BOWEL PRESUMABLY REPRESENTING ILEUS. TOOTH AGAIN NOTED WITHIN THE STOMACH. STABLE NASOGASTRIC TUBE AND COLBY CATHETER. Guidance Fluoroscopy 08/24/17 00:00 IMPRESSION: Please see combined report for performance of procedure and radiologic supervision and interpretation. Interventional Vascular Procedure 08/24/17 00:00 IMPRESSION: Please see combined report for performance of procedure and radiologic supervision and interpretation. PICC Line Insertion 08/24/17 00:00 IMPRESSION: SUCCESSFUL PLACEMENT OF A 5 FR pool LUMEN 42 CM PICC IN THE left basilic VEIN. Chest/Abdomen CTA 08/28/17 00:00 IMPRESSION: No PE. Unchanged pleural effusions and lower lobe consolidation. Chest X-Ray 09/03/17 00:00 IMPRESSION: NO CHANGE IN APPEARANCE OF THE CHEST. INTERVAL REMOVAL OF THE ENDOTRACHEAL TUBE. Chest Ultrasound 09/04/17 12:22 IMPRESSION: Trace right pleural effusion, improved compared to previous studies. Stable small left pleural effusion compared to 08/28/2017 Assessment & Plan - Diagnosis (1) Acute on chronic respiratory failure with hypoxia and hypercapnia Is this a current diagnosis for this admission?: Yes Plan: stable (2) Septic shock Is this a current diagnosis for this admission?: Yes Plan: Currently resolved (3) Pneumonia Qualifiers: Pneumonia type: due to unspecified organism Laterality: bilateral Lung location: lower lobe of lung Qualified Code(s): J18.1 - Lobar pneumonia, unspecified organism Is this a current diagnosis for this admission?: Yes Plan: Continues the p.o. clindamycin's for 7 days (4) Acute renal failure Qualifiers: Acute renal failure type: unspecified Qualified Code(s): N17.9 - Acute kidney failure, unspecified Is this a current diagnosis for this admission?: Yes Plan: Currently all stable (5) Chronic obstructive pulmonary disease Qualifiers: Emphysema type: unspecified Is this a current diagnosis for this admission?: Yes Plan: Continues to nebulizer treatments (6) Hypertension Qualifiers: Hypertension type: essential hypertension Qualified Code(s): I10 - Essential (primary) hypertension Is this a current diagnosis for this admission?: Yes Plan: Currently hypertension is due to the septic shock (7) Neoplasm of rectum Is this a current diagnosis for this admission?: Yes (8) Elevated troponin Is this a current diagnosis for this admission?: Yes Plan: Currently stable patients probably need a stress test as outpatient (9) Leukocytosis Qualifiers: Leukocytosis type: bandemia Qualified Code(s): D72.825 - Bandemia Is this a current diagnosis for this admission?: Yes (10) Pleural effusion Is this a current diagnosis for this admission?: Yes Plan: Ultrasound did not suggest to require any thoracocentesis (11) Sinus tachycardia Is this a current diagnosis for this admission?: Yes - Time Time Spent with patient: 15-24 minutes Medications reviewed and adjusted accordingly: Yes Anticipated discharge: Other Within: Other - Inpatient Certification Medical Necessity: Need Close Monitoring Due to Risk of Patient Decompensation Post Hospital Care: D/C Pricing Analyst Documentation - Plan Summary Plan Summary: Patient at this point's medically stable discussed with the cardiology suggest no need to any all 4 and he thinks and the discussed with the pulmonary and suggest the pretty much continues to current medications and probably discharge to the rehab
[2017-09-05] MEDS: TAMSULOSIN HCL 0.4 MG CAP.SR.24H PO SCH (17:33)
--- NOTE | 2017-09-05 20:00 | PDOC PROGRESS REPORT ---
Subjective Progress Note for:: 09/05/17 Subjective:: Patient seen on morning rounds. Patient just looks very debilitated and weak. 6 dose was increased I believe day before yesterday. Recommend a predischarge chest x-ray. It should be PA and lateral. Patient laying in bed comfortable. Patient denying any chest pain. He is noted to be comfortable. Today patient seems oriented to place and person. Telemetry strips reviewed. Telemetry strips shows improving tachycardia. Currently on oxygen supplementation and getting some breathing treatment. He is wanting to go home but has not ambulated much. He also did not have much physical therapy. Rehab transfer has been offered but so far he is declining. Medications reviewed. Reason For Visit: SEPTIC SHOCK,RESPIRATORY FAILURE,RENAL FAILURE, Physical Exam Vital Signs: Temp Pulse Resp BP Pulse Ox 97.5 F 110 H 20 102/59 L 95 09/05/17 15:52 09/05/17 16:52 09/05/17 16:52 09/05/17 15:52 09/05/17 16:52 Intake & Output 09/04/17 09/05/17 09/06/17 06:59 06:59 06:59 Intake Total 438 480 327 Output Total 50 Balance 438 480 277 Weight 66.8 kg 59.6 kg Exam: GENERAL: well-nourished and in no acute distress. Alert and oriented x3 HEAD: Atraumatic, normocephalic. EYES: Pupils equal round and reactive to light, extraocular movements intact, sclera anicteric, conjunctiva are normal. ENT: TMs normal, nares patent, oropharynx clear without exudates. Moist mucous membranes. No oral ulcerations or bleeding gums noted NECK: supple without lymphadenopathy. Trachea is central. No cervical or axillary lymphadenopathy noted. Carotids are 2+, JVD WNL LUNGS: Respiration seems nonlabored, no significant accessory muscle action noted. Few bibasilar coarse crackles noted. No significant dullness noted on percussion. CHEST: Palpation of the chest wall shows no significant chest wall tenderness. No other significant abnormalities noted. 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 ABDOMEN: Soft, no significant tenderness appreciated, normoactive bowel sounds. No guarding, no rebound. No rigidity noted . No masses appreciated. EXTREMITIES: Pedal pulses are 1-2+, no calf tenderness noted. No clubbing or cyanosis. Trace pedal edema noted NEUROLOGICAL: Focused neurological exam showed no significant neurologic deficit. Normal speech, no focal weakness appreciated. PSYCH: Normal mood, normal affect. Judgment and insight within normal limits. SKIN: No significant ecchymosis, skin is noted to be warm. MUSCULOSKELETAL EXAM: No significant acute joint swelling noted. Results Laboratory Results: 09/01/17 07:04 09/05/17 05:29 09/05/17 05:29 Sodium 133.9 L Potassium 4.9 Chloride 99 Carbon Dioxide 28 Anion Gap 7 BUN 17 Creatinine 1.33 H Est GFR ( Amer) > 60 Est GFR (Non-Af Amer) 52 L Glucose 104 Calcium 9.3 08/10/17 08/10/17 08/10/17 13:15 13:15 20:30 Creatine Kinase 70 41 L CK-MB (CK-2) 2.03 Troponin I 0.271 NT-Pro-B Natriuret Pep 08/10/17 08/11/17 08/11/17 20:30 06:30 06:30 Creatine Kinase 31 L CK-MB (CK-2) 2.61 1.80 Troponin I 0.160 0.087 NT-Pro-B Natriuret Pep 08/16/17 08/28/17 09/02/17 20:30 17:02 09:06 Creatine Kinase CK-MB (CK-2) Troponin I NT-Pro-B Natriuret Pep 1160 H 1120 H 597 H 09/04/17 11:05 Creatine Kinase CK-MB (CK-2) Troponin I NT-Pro-B Natriuret Pep 516 H EKG Comments: Telemetry shows sinus rhythm without any sustained tachycardia or bradycardia. Impressions: Head CT 08/10/17 09:58 IMPRESSION: CHRONIC CHANGES OF ATROPHY AND MICROVASCULAR ISCHEMIA. NO ACUTE PROCESS. EVIDENCE OF ACUTE STROKE: NO. Abdomen/Pelvis CT 08/15/17 00:00 IMPRESSION: Trace bilateral pleural effusions with partial collapse left lower lobe Nasogastric tube, Colby catheter in good positioning No CT findings to explain history of sepsis Thoracentesis Ultrasound 08/15/17 00:00 IMPRESSION: SUCCESSFUL THORACENTESIS USING ULTRASOUND GUIDANCE. Facial Bones CT 08/18/17 00:00 IMPRESSION: NO ACUTE FINDINGS. KUB X-Ray 08/19/17 00:00 IMPRESSION: STABLE GAS DISTENDED LOOPS OF BOWEL PRESUMABLY REPRESENTING ILEUS. TOOTH AGAIN NOTED WITHIN THE STOMACH. STABLE NASOGASTRIC TUBE AND COLBY CATHETER. Guidance Fluoroscopy 08/24/17 00:00 IMPRESSION: Please see combined report for performance of procedure and radiologic supervision and interpretation. Interventional Vascular Procedure 08/24/17 00:00 IMPRESSION: Please see combined report for performance of procedure and radiologic supervision and interpretation. PICC Line Insertion 08/24/17 00:00 IMPRESSION: SUCCESSFUL PLACEMENT OF A 5 FR pool LUMEN 42 CM PICC IN THE left basilic VEIN. Chest/Abdomen CTA 08/28/17 00:00 IMPRESSION: No PE. Unchanged pleural effusions and lower lobe consolidation. Chest X-Ray 09/03/17 00:00 IMPRESSION: NO CHANGE IN APPEARANCE OF THE CHEST. INTERVAL REMOVAL OF THE ENDOTRACHEAL TUBE. Chest Ultrasound 09/04/17 12:22 IMPRESSION: Trace right pleural effusion, improved compared to previous studies. Stable small left pleural effusion compared to 08/28/2017 Assessment & Plan - Diagnosis (1) Multifocal atrial tachycardia Is this a current diagnosis for this admission?: Yes (2) Acute on chronic respiratory failure with hypoxia and hypercapnia Is this a current diagnosis for this admission?: Yes (3) Elevated troponin Is this a current diagnosis for this admission?: Yes (4) Chronic obstructive pulmonary disease Qualifiers: Emphysema type: unspecified Is this a current diagnosis for this admission?: Yes (5) Pneumonia Qualifiers: Pneumonia type: due to unspecified organism Laterality: bilateral Lung location: lower lobe of lung Qualified Code(s): J18.1 - Lobar pneumonia, unspecified organism Is this a current diagnosis for this admission?: Yes (6) Septic shock Is this a current diagnosis for this admission?: Yes (7) Non-STEMI (non-ST elevated myocardial infarction) Is this a current diagnosis for this admission?: Yes (8) Hypotension Qualifiers: Hypotension type: unspecified hypotension type Qualified Code(s): I95.9 - Hypotension, unspecified Is this a current diagnosis for this admission?: Yes - Notes Notes: Lasix dose was increased to 40 mg p.o. twice daily. Patient remains very debilitated and weak. So far tolerating this. Tachycardia: Currently improved with increased dose of Cardizem. Maintain electrolytes within normal limits. Continue digoxin. Currently it has not been a problem for last several days. CHF: Noted to have increasing bilateral pleural effusion. BNP level statistically unchanged. Have increased her Lasix to 40 mg p.o. twice daily. Non-STEMI: No evidence of any chest pain. Patient has been stable. Not a candidate for stress testing at this point due to general weakness. Hypotension: This has resolved. Acute respiratory failure: Most likely related to pneumonia on top of severe COPD. Continue oxygen supplementation. Elevated troponin I: Most likely related to sepsis, acute respiratory failure. COPD: Continue current therapy and supplemental oxygenation. Pneumonia: Continue with antibiotic therapy. Pleural effusion: Possibly related to CHF. Continue current therapy. Diuretics increased. Septic shock: Resolved Recommend DVT prophylaxis with Lovenox or subcu heparin. - Time Time with patient: 15-25 minutes - CODE STATUS was discussed, patient remains full code. Surrogate decision-maker unchanged. Multiple medical problems were addressed. More than 50% of the time spent coordinating care, discussing management plans with involved caregivers. Management plans discussed with involved personnels. Medical decision making was of moderate to high complexity , patient's has multiple comorbidities. Will sign off. Please reconsult if needed. Medications reviewed and adjusted accordingly: Yes
[2017-09-06] MEDS: IPRATROPIUM BROMIDE 0.02% NEB 0.5 MG/2.5 ML AMPUL NEB SCH ×6 (00:26→21:02)
[2017-09-06] MEDS: LEVALBUTEROL HCL NEB 1.25 MG/3 ML AMPUL NEB SCH ×6 (00:26→21:02)
[2017-09-06 06:34] LABS: ABSOLUTE BASOPHILS # (AUTO) 0.1 10^3/uL (0.0-0.2); ABSOLUTE EOSINOPHILS # (AUTO) 0.3 10^3/uL (0.0-0.6); ABSOLUTE LYMPHOCYTES (AUTO) 1.7 10^3/uL (0.5-4.7); BASOPHILS % (AUTO) 0.8 % (0-2); EOSINOPHILS % (AUTO) 2.8 % (0-6); HEMATOCRIT 32.1 % (37.9-51.0); HEMOGLOBIN 10.4 g/dL (13.5-17.0); LYMPHOCYTES % (AUTO) 15.5 % (13-45); MEAN CORPUSCULAR HEMOGLOBIN 27.3 pg (27.0-33.4); MEAN CORPUSCULAR HGB CONC 32.5 g/dL (32.0-36.0); MEAN CORPUSCULAR VOLUME 84 fl (80-97); MONOCYTES % (AUTO) 17.7 % (3-13); PLATELET COUNT 281 10^3/uL (150-450); RED BLOOD COUNT 3.81 10^6/uL (4.35-5.55); RED CELL DISTRIBUTION WIDTH 17.4 % (11.5-14.0); SEGMENTED NEUTROPHILS % (AUTO) 63.2 % (42-78); TOTAL CELLS COUNTED % (AUTO) 100 %
[2017-09-06 06:49] LABS: ANION GAP 9 (5-19); BLOOD UREA NITROGEN 23 mg/dL (7-20); CALCIUM 9.6 mg/dL (8.4-10.2); CARBON DIOXIDE 29 mmol/L (22-30); CHLORIDE 96 mmol/L (98-107); GLUCOSE 100 mg/dL (75-110); POTASSIUM 4.9 mmol/L (3.6-5.0); SODIUM 133.8 mmol/L (137-145)
[2017-09-06] MEDS: HEPARIN SOD (PORCINE) 5,000 UNIT/ML 1 ML SYRINGE SUBCUT SCH ×3 (08:47→22:14)
[2017-09-06] MEDS: DILTIAZEM HCL 60 MG TABLET PO SCH ×3 (08:48→22:15)
[2017-09-06] MEDS: FLUTICASONE/SALMETEROL DISKUS 500-50 MCG/DOSE IH SCH ×2 (08:48→17:24)
[2017-09-06] MEDS: NORMAL SALINE 10 ML SDV (SCHEDULED) IV SCH ×2 (10:00→22:15)
[2017-09-06] MEDS: FERROUS SULFATE 325 MG TABLET PO SCH ×2 (10:11→17:22)
[2017-09-06] MEDS: DIGOXIN 0.125 MG TABLET PO SCH (10:12)
[2017-09-06] MEDS: FAMOTIDINE 20 MG TABLET PO SCH ×2 (10:13→22:15)
[2017-09-06] MEDS: NORMAL SALINE 10 ML SDV (AFTER EACH USE) IV PRN (10:16)
[2017-09-06] MEDS: MEGESTROL ACETATE SUSP 400 MG/10 ML UDCUP PO SCH (10:16)
[2017-09-06] MEDS: FUROSEMIDE 40 MG TABLET PO SCH ×2 (10:16→17:23)
[2017-09-06] MEDS: TIOTROPIUM BROMIDE DPI 5 CAP/KIT (18 MCG/CAP) IH SCH (10:17)
--- NOTE | 2017-09-06 12:52 | PDOC PROGRESS REPORT ---
Subjective Progress Note for:: 09/06/17 Subjective:: Patient is currently doing fair Patient's currently denied any chest pain denied any shortness of the breath Very extensive discussions with the patient's family and the talking to the other family member about going to the rehab while patient still very weak to go to the home they want to keep the patient's for the next 2 3 days in the hospitals Family questioning about that patient is not getting the physical therapy because they thought we do not order the physical therapy told by some nurses but physical therapy as order every day do not know how this nurses told the patient's family about Reason For Visit: SEPTIC SHOCK,RESPIRATORY FAILURE,RENAL FAILURE, Physical Exam Vital Signs: Temp Pulse Resp BP Pulse Ox 97.9 F 92 16 106/70 94 09/06/17 07:53 09/06/17 11:42 09/06/17 11:42 09/06/17 07:53 09/06/17 11:42 Intake & Output 09/05/17 09/06/17 09/07/17 06:59 06:59 06:59 Intake Total 480 327 Output Total 50 Balance 480 277 Weight 59.6 kg 57.1 kg General appearance: PRESENT: no acute distress, well-developed, well-nourished Head exam: PRESENT: atraumatic, normocephalic Eye exam: PRESENT: conjunctiva pink, EOMI, PERRLA. ABSENT: scleral icterus Ear exam: PRESENT: normal external ear exam Mouth exam: PRESENT: moist, tongue midline Neck exam: PRESENT: full ROM. ABSENT: carotid bruit, JVD, lymphadenopathy, thyromegaly Respiratory exam: PRESENT: clear to auscultation ana Cardiovascular exam: PRESENT: RRR. ABSENT: diastolic murmur, rubs, systolic murmur Pulses: PRESENT: normal dorsalis pedis pul, +2 pedal pulses bilateral Vascular exam: PRESENT: normal capillary refill GI/Abdominal exam: PRESENT: normal bowel sounds, soft. ABSENT: distended, guarding, mass, organolmegaly, rebound, tenderness Rectal exam: PRESENT: deferred Extremities exam: ABSENT: pedal edema Neurological exam: PRESENT: alert, awake, oriented to person, oriented to place , oriented to time, oriented to situation, CN II-XII grossly intact. ABSENT: motor sensory deficit Psychiatric exam: PRESENT: appropriate affect, normal mood. ABSENT: homicidal ideation, suicidal ideation Skin exam: PRESENT: dry, intact, warm. ABSENT: cyanosis, rash Results Laboratory Results: 09/06/17 05:24 09/06/17 05:24 09/06/17 09/06/17 05:24 05:24 WBC 11.0 H RBC 3.81 L Hgb 10.4 L Hct 32.1 L MCV 84 MCH 27.3 MCHC 32.5 RDW 17.4 H Plt Count 281 Seg Neutrophils % 63.2 Lymphocytes % 15.5 Monocytes % 17.7 H Eosinophils % 2.8 Basophils % 0.8 Absolute Neutrophils 7.0 Absolute Lymphocytes 1.7 Absolute Monocytes 2.0 H Absolute Eosinophils 0.3 Absolute Basophils 0.1 Sodium 133.8 L Potassium 4.9 Chloride 96 L Carbon Dioxide 29 Anion Gap 9 BUN 23 H Creatinine 1.39 H Est GFR ( Amer) > 60 Est GFR (Non-Af Amer) 49 L Glucose 100 Calcium 9.6 08/10/17 08/10/17 08/10/17 13:15 13:15 20:30 Creatine Kinase 70 41 L CK-MB (CK-2) 2.03 Troponin I 0.271 NT-Pro-B Natriuret Pep 08/10/17 08/11/17 08/11/17 20:30 06:30 06:30 Creatine Kinase 31 L CK-MB (CK-2) 2.61 1.80 Troponin I 0.160 0.087 NT-Pro-B Natriuret Pep 08/16/17 08/28/17 09/02/17 20:30 17:02 09:06 Creatine Kinase CK-MB (CK-2) Troponin I NT-Pro-B Natriuret Pep 1160 H 1120 H 597 H 09/04/17 11:05 Creatine Kinase CK-MB (CK-2) Troponin I NT-Pro-B Natriuret Pep 516 H Impressions: Head CT 08/10/17 09:58 IMPRESSION: CHRONIC CHANGES OF ATROPHY AND MICROVASCULAR ISCHEMIA. NO ACUTE PROCESS. EVIDENCE OF ACUTE STROKE: NO. Abdomen/Pelvis CT 08/15/17 00:00 IMPRESSION: Trace bilateral pleural effusions with partial collapse left lower lobe Nasogastric tube, Colby catheter in good positioning No CT findings to explain history of sepsis Thoracentesis Ultrasound 08/15/17 00:00 IMPRESSION: SUCCESSFUL THORACENTESIS USING ULTRASOUND GUIDANCE. Facial Bones CT 08/18/17 00:00 IMPRESSION: NO ACUTE FINDINGS. KUB X-Ray 08/19/17 00:00 IMPRESSION: STABLE GAS DISTENDED LOOPS OF BOWEL PRESUMABLY REPRESENTING ILEUS. TOOTH AGAIN NOTED WITHIN THE STOMACH. STABLE NASOGASTRIC TUBE AND COLBY CATHETER. Guidance Fluoroscopy 08/24/17 00:00 IMPRESSION: Please see combined report for performance of procedure and radiologic supervision and interpretation. Interventional Vascular Procedure 08/24/17 00:00 IMPRESSION: Please see combined report for performance of procedure and radiologic supervision and interpretation. PICC Line Insertion 08/24/17 00:00 IMPRESSION: SUCCESSFUL PLACEMENT OF A 5 FR pool LUMEN 42 CM PICC IN THE left basilic VEIN. Chest/Abdomen CTA 08/28/17 00:00 IMPRESSION: No PE. Unchanged pleural effusions and lower lobe consolidation. Chest X-Ray 09/03/17 00:00 IMPRESSION: NO CHANGE IN APPEARANCE OF THE CHEST. INTERVAL REMOVAL OF THE ENDOTRACHEAL TUBE. Chest Ultrasound 09/04/17 12:22 IMPRESSION: Trace right pleural effusion, improved compared to previous studies. Stable small left pleural effusion compared to 08/28/2017 Assessment & Plan - Diagnosis (1) Acute on chronic respiratory failure with hypoxia and hypercapnia Is this a current diagnosis for this admission?: Yes Plan: stable (2) Septic shock Is this a current diagnosis for this admission?: Yes Plan: Currently resolved (3) Pneumonia Qualifiers: Pneumonia type: due to unspecified organism Laterality: bilateral Lung location: lower lobe of lung Qualified Code(s): J18.1 - Lobar pneumonia, unspecified organism Is this a current diagnosis for this admission?: Yes Plan: Currently all results may be just subsequent discontinues the antibiotic at this point (4) Acute renal failure Qualifiers: Acute renal failure type: unspecified Qualified Code(s): N17.9 - Acute kidney failure, unspecified Is this a current diagnosis for this admission?: Yes Plan: Currently all stable (5) Chronic obstructive pulmonary disease Qualifiers: Emphysema type: unspecified Is this a current diagnosis for this admission?: Yes Plan: Continues to nebulizer treatments (6) Hypertension Qualifiers: Hypertension type: essential hypertension Qualified Code(s): I10 - Essential (primary) hypertension Is this a current diagnosis for this admission?: Yes Plan: Currently hypertension is due to the septic shock (7) Neoplasm of rectum Is this a current diagnosis for this admission?: Yes (8) Elevated troponin Is this a current diagnosis for this admission?: Yes (9) Leukocytosis Qualifiers: Leukocytosis type: bandemia Qualified Code(s): D72.825 - Bandemia Is this a current diagnosis for this admission?: Yes Plan: Currently all resolved (10) Pleural effusion Is this a current diagnosis for this admission?: Yes Plan: Ultrasound did not suggest to require any thoracocentesis (11) Sinus tachycardia Is this a current diagnosis for this admission?: Yes Plan: Patient CT angiogram repeat is all negatives at the [facility] since he has - Time Time Spent with patient: 15-24 minutes Medications reviewed and adjusted accordingly: Yes Anticipated discharge: Other Within: Other - Inpatient Certification Medical Necessity: Need Close Monitoring Due to Risk of Patient Decompensation 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
[2017-09-06] MEDS: TAMSULOSIN HCL 0.4 MG CAP.SR.24H PO SCH (17:23)
[2017-09-07] MEDS: LEVALBUTEROL HCL NEB 1.25 MG/3 ML AMPUL NEB SCH ×6 (00:52→20:45)
[2017-09-07] MEDS: IPRATROPIUM BROMIDE 0.02% NEB 0.5 MG/2.5 ML AMPUL NEB SCH ×6 (00:52→20:45)
[2017-09-07] MEDS: HEPARIN SOD (PORCINE) 5,000 UNIT/ML 1 ML SYRINGE SUBCUT SCH ×3 (05:22→22:11)
[2017-09-07] MEDS: DILTIAZEM HCL 60 MG TABLET PO SCH ×3 (05:22→22:11)
[2017-09-07] MEDS: FLUTICASONE/SALMETEROL DISKUS 500-50 MCG/DOSE IH SCH ×2 (05:22→17:42)
[2017-09-07 06:29] LABS: ANION GAP 9 (5-19); BLOOD UREA NITROGEN 24 mg/dL (7-20); CALCIUM 9.8 mg/dL (8.4-10.2); CARBON DIOXIDE 29 mmol/L (22-30); CHLORIDE 97 mmol/L (98-107); GLUCOSE 115 mg/dL (75-110); POTASSIUM 4.8 mmol/L (3.6-5.0); SODIUM 134.5 mmol/L (137-145)
--- NOTE | 2017-09-07 08:11 | RADIOLOGY REPORT (SQ) ---
EXAM DESCRIPTION: CHEST PA/LAT COMPLETED DATE/TIME: 09/07/2017 7:57 am REASON FOR STUDY: sob COMPARISON: 09/03/2017. EXAM PARAMETERS: NUMBER OF VIEWS: two views TECHNIQUE: Digital Frontal and Lateral radiographic views of the chest acquired. RADIATION DOSE: NA LIMITATIONS: none FINDINGS: LUNGS AND PLEURA: Improved aeration in the lung bases with decrease in the pleural effusio ns. MEDIASTINUM AND HILAR STRUCTURES: No masses or contour abnormalities. HEART AND VASCULAR STRUCTURES: Heart normal size. No evidence for failure. BONES: No acute findings. HARDWARE: None in the chest. OTHER: No other significant finding. IMPRESSION: IMPROVED AERATION WITH DECREASE IN THE PLEURAL EFFUSIONS. TECHNICAL DOCUMENTATION: JOB ID: [id number] [employer]- All Rights Reserved Reading location - IP/workstation name: [email or web address]
[2017-09-07] MEDS: FERROUS SULFATE 325 MG TABLET PO SCH ×2 (10:05→17:39)
[2017-09-07] MEDS: DIGOXIN 0.125 MG TABLET PO SCH (10:05)
[2017-09-07] MEDS: FAMOTIDINE 20 MG TABLET PO SCH ×2 (10:06→22:11)
[2017-09-07] MEDS: FUROSEMIDE 40 MG TABLET PO SCH ×2 (10:07→17:40)
[2017-09-07] MEDS: MEGESTROL ACETATE SUSP 400 MG/10 ML UDCUP PO SCH (10:07)
[2017-09-07] MEDS: TIOTROPIUM BROMIDE DPI 5 CAP/KIT (18 MCG/CAP) IH SCH (10:08)
[2017-09-07] MEDS: NORMAL SALINE 10 ML SDV (SCHEDULED) IV SCH ×2 (10:09→22:11)
--- NOTE | 2017-09-07 11:30 | PDOC PROGRESS REPORT ---
Subjective Progress Note for:: 09/07/17 Subjective:: Patient is currently doing fair No chest pain no shortness of the breath No fever Patient is a at this point very extensive discussions with the family and family still do not want to send to the rehab and do not want to take at home and patient still very weak to unable to go home anyway and the family was to keep and the patient in the hospital for another 3 days Discussed with the family about the hospital is not the safest environment for the patient chances to increase the more infections in the hospital unable to get that physical therapy with the rehab usually able to give it the patient and very extensive discussions with the family about that patient might get more sicker in the hospital while the patient really need rehab but the family still does not want to transfer the patient at this point and want to keep it in the hospital Patient's currently otherwise denied any chest pain denied any shortness of the breath Patient's chest x-ray is all stable As per discussed with the pulmonary and cardiology patient is all stable to discharge Reason For Visit: SEPTIC SHOCK,RESPIRATORY FAILURE,RENAL FAILURE, Physical Exam Vital Signs: Temp Pulse Resp BP Pulse Ox 98.7 F 94 20 106/55 L 94 09/06/17 23:26 09/07/17 09:25 09/07/17 09:25 09/06/17 23:26 09/07/17 09:25 Intake & Output 09/06/17 09/07/17 09/08/17 06:59 06:59 06:59 Intake Total 327 548 Output Total 50 Balance 277 548 Weight 57.1 kg 58.8 kg General appearance: PRESENT: no acute distress, well-developed, well-nourished Head exam: PRESENT: atraumatic, normocephalic Eye exam: PRESENT: conjunctiva pink, EOMI, PERRLA. ABSENT: scleral icterus Ear exam: PRESENT: normal external ear exam Mouth exam: PRESENT: moist, tongue midline Neck exam: PRESENT: full ROM. ABSENT: carotid bruit, JVD, lymphadenopathy, thyromegaly Respiratory exam: PRESENT: clear to auscultation ana Cardiovascular exam: PRESENT: RRR. ABSENT: diastolic murmur, rubs, systolic murmur Pulses: PRESENT: normal dorsalis pedis pul, +2 pedal pulses bilateral Vascular exam: PRESENT: normal capillary refill GI/Abdominal exam: PRESENT: normal bowel sounds, soft. ABSENT: distended, guarding, mass, organolmegaly, rebound, tenderness Rectal exam: PRESENT: deferred Extremities exam: ABSENT: pedal edema Neurological exam: PRESENT: alert, awake, oriented to person, oriented to place , oriented to time, oriented to situation, CN II-XII grossly intact. ABSENT: motor sensory deficit Psychiatric exam: PRESENT: appropriate affect, normal mood. ABSENT: homicidal ideation, suicidal ideation Skin exam: PRESENT: dry, intact, warm. ABSENT: cyanosis, rash Results Laboratory Results: 09/06/17 05:24 09/07/17 05:53 09/07/17 05:53 Sodium 134.5 L Potassium 4.8 Chloride 97 L Carbon Dioxide 29 Anion Gap 9 BUN 24 H Creatinine 1.34 H Est GFR ( Amer) > 60 Est GFR (Non-Af Amer) 51 L Glucose 115 H Calcium 9.8 08/10/17 08/10/17 08/10/17 13:15 13:15 20:30 Creatine Kinase 70 41 L CK-MB (CK-2) 2.03 Troponin I 0.271 NT-Pro-B Natriuret Pep 08/10/17 08/11/17 08/11/17 20:30 06:30 06:30 Creatine Kinase 31 L CK-MB (CK-2) 2.61 1.80 Troponin I 0.160 0.087 NT-Pro-B Natriuret Pep 08/16/17 08/28/17 09/02/17 20:30 17:02 09:06 Creatine Kinase CK-MB (CK-2) Troponin I NT-Pro-B Natriuret Pep 1160 H 1120 H 597 H 09/04/17 11:05 Creatine Kinase CK-MB (CK-2) Troponin I NT-Pro-B Natriuret Pep 516 H Impressions: Head CT 08/10/17 09:58 IMPRESSION: CHRONIC CHANGES OF ATROPHY AND MICROVASCULAR ISCHEMIA. NO ACUTE PROCESS. EVIDENCE OF ACUTE STROKE: NO. Abdomen/Pelvis CT 08/15/17 00:00 IMPRESSION: Trace bilateral pleural effusions with partial collapse left lower lobe Nasogastric tube, Colby catheter in good positioning No CT findings to explain history of sepsis Thoracentesis Ultrasound 08/15/17 00:00 IMPRESSION: SUCCESSFUL THORACENTESIS USING ULTRASOUND GUIDANCE. Facial Bones CT 08/18/17 00:00 IMPRESSION: NO ACUTE FINDINGS. KUB X-Ray 08/19/17 00:00 IMPRESSION: STABLE GAS DISTENDED LOOPS OF BOWEL PRESUMABLY REPRESENTING ILEUS. TOOTH AGAIN NOTED WITHIN THE STOMACH. STABLE NASOGASTRIC TUBE AND COLBY CATHETER. Guidance Fluoroscopy 08/24/17 00:00 IMPRESSION: Please see combined report for performance of procedure and radiologic supervision and interpretation. Interventional Vascular Procedure 08/24/17 00:00 IMPRESSION: Please see combined report for performance of procedure and radiologic supervision and interpretation. PICC Line Insertion 08/24/17 00:00 IMPRESSION: SUCCESSFUL PLACEMENT OF A 5 FR pool LUMEN 42 CM PICC IN THE left basilic VEIN. Chest/Abdomen CTA 08/28/17 00:00 IMPRESSION: No PE. Unchanged pleural effusions and lower lobe consolidation. Chest Ultrasound 09/04/17 12:22 IMPRESSION: Trace right pleural effusion, improved compared to previous studies. Stable small left pleural effusion compared to 08/28/2017 Chest X-Ray 09/07/17 08:00 IMPRESSION: IMPROVED AERATION WITH DECREASE IN THE PLEURAL EFFUSIONS. Assessment & Plan - Diagnosis (1) Acute on chronic respiratory failure with hypoxia and hypercapnia Is this a current diagnosis for this admission?: Yes Plan: Currently all resolved (2) Septic shock Is this a current diagnosis for this admission?: Yes Plan: Currently all resolved (3) Pneumonia Qualifiers: Pneumonia type: due to unspecified organism Laterality: bilateral Lung location: lower lobe of lung Qualified Code(s): J18.1 - Lobar pneumonia, unspecified organism Is this a current diagnosis for this admission?: Yes Plan: Currently all resolved (4) Acute renal failure Qualifiers: Acute renal failure type: unspecified Qualified Code(s): N17.9 - Acute kidney failure, unspecified Is this a current diagnosis for this admission?: Yes Plan: Currently all stable (5) Chronic obstructive pulmonary disease Qualifiers: Emphysema type: unspecified Is this a current diagnosis for this admission?: Yes Plan: Continues to nebulizer treatments (6) Hypertension Qualifiers: Hypertension type: essential hypertension Qualified Code(s): I10 - Essential (primary) hypertension Is this a current diagnosis for this admission?: Yes Plan: Currently hypertension is due to the septic shock (7) Neoplasm of rectum Is this a current diagnosis for this admission?: Yes (8) Elevated troponin Is this a current diagnosis for this admission?: Yes Plan: Currently stable patients probably need a stress test as outpatient (9) Leukocytosis Qualifiers: Leukocytosis type: bandemia Qualified Code(s): D72.825 - Bandemia Is this a current diagnosis for this admission?: Yes Plan: Currently all resolved (10) Pleural effusion Is this a current diagnosis for this admission?: Yes Plan: Resolved (11) Sinus tachycardia Is this a current diagnosis for this admission?: Yes (12) CHF (congestive heart failure) Qualifiers: Heart failure type: systolic Heart failure chronicity: acute Qualified Code(s): I50.21 - Acute systolic (congestive) heart failure Is this a current diagnosis for this admission?: Yes Plan: Continues to Lasix per cardiology - Time Time Spent with patient: 15-24 minutes Medications reviewed and adjusted accordingly: Yes Anticipated discharge: Other Within: Other - Inpatient Certification Medical Necessity: Need Close Monitoring Due to Risk of Patient Decompensation 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
[2017-09-07] MEDS: TAMSULOSIN HCL 0.4 MG CAP.SR.24H PO SCH (17:41)
[2017-09-08] MEDS: IPRATROPIUM BROMIDE 0.02% NEB 0.5 MG/2.5 ML AMPUL NEB SCH ×6 (00:20→20:43)
[2017-09-08] MEDS: LEVALBUTEROL HCL NEB 1.25 MG/3 ML AMPUL NEB SCH ×6 (00:20→20:43)
[2017-09-08] MEDS: DILTIAZEM HCL 60 MG TABLET PO SCH ×3 (05:44→22:50)
[2017-09-08] MEDS: FLUTICASONE/SALMETEROL DISKUS 500-50 MCG/DOSE IH SCH ×2 (05:44→18:26)
[2017-09-08] MEDS: HEPARIN SOD (PORCINE) 5,000 UNIT/ML 1 ML SYRINGE SUBCUT SCH ×3 (05:44→22:50)
[2017-09-08 07:02] LABS: HEMATOCRIT 31.4 % (37.9-51.0); HEMOGLOBIN 10.3 g/dL (13.5-17.0); MEAN CORPUSCULAR HEMOGLOBIN 27.8 pg (27.0-33.4); MEAN CORPUSCULAR HGB CONC 32.9 g/dL (32.0-36.0); MEAN CORPUSCULAR VOLUME 85 fl (80-97); PLATELET COUNT 288 10^3/uL (150-450); RED BLOOD COUNT 3.71 10^6/uL (4.35-5.55); RED CELL DISTRIBUTION WIDTH 17.8 % (11.5-14.0); WHITE BLOOD COUNT 10.5 10^3/uL (4.0-10.5)
[2017-09-08 07:32] LABS: ANION GAP 9 (5-19); BLOOD UREA NITROGEN 34 mg/dL (7-20); CALCIUM 9.7 mg/dL (8.4-10.2); CARBON DIOXIDE 29 mmol/L (22-30); CHLORIDE 99 mmol/L (98-107); GLUCOSE 108 mg/dL (75-110); POTASSIUM 4.8 mmol/L (3.6-5.0)
[2017-09-08 07:43] LABS: ABSOLUTE LYMPHOCYTES# (MANUAL) 1.8 10^3/uL (0.5-4.7); ABSOLUTE MONOCYTES # (MANUAL) 1.1 10^3/uL (0.1-1.4); ABSOLUTE NEUTROPHILS# (MANUAL) 7.7 10^3/uL (1.7-8.2); BAND NEUTROPHILS % (MANUAL) 1 % (3-5); BASOPHILS % (MANUAL) 0 % (0-2); EOSINOPHILS % (MANUAL) 0 % (0-6); LYMPHOCYTES % (MANUAL) 17 % (13-45); MONOCYTES % (MANUAL) 10 % (3-13); SEGMENTED NEUTROPHILS % (MAN) 72 % (42-78); TOTAL CELLS COUNTED 100
[2017-09-08 07:44] LABS: ANISOCYTOSIS 2+; PLATELET COMMENT ADEQUATE; TOXIC GRANULATION SLIGHT; TOXIC VACUOLATION PRESENT
[2017-09-08] MEDS: NORMAL SALINE 10 ML SDV (SCHEDULED) IV SCH ×2 (09:27→22:50)
[2017-09-08] MEDS: FERROUS SULFATE 325 MG TABLET PO SCH ×2 (09:30→18:24)
[2017-09-08] MEDS: FAMOTIDINE 20 MG TABLET PO SCH ×2 (09:31→22:50)
[2017-09-08] MEDS: FUROSEMIDE 40 MG TABLET PO SCH ×2 (09:32→18:23)
[2017-09-08] MEDS: DIGOXIN 0.125 MG TABLET PO SCH (09:34)
[2017-09-08] MEDS: MEGESTROL ACETATE SUSP 400 MG/10 ML UDCUP PO SCH (09:34)
[2017-09-08] MEDS: TIOTROPIUM BROMIDE DPI 5 CAP/KIT (18 MCG/CAP) IH SCH (09:35)
--- NOTE | 2017-09-08 12:53 | PDOC PROGRESS REPORT ---
Subjective Progress Note for:: 09/08/17 Subjective:: OOB in chair. Receiving breathing treatment. Denied any chest pain. No nausea or vomiting. Tolerating oral feeding. Appetite and PO intake improving. Daughter at bedside without any question. Reason For Visit: SEPTIC SHOCK,RESPIRATORY FAILURE,RENAL FAILURE, Physical Exam Vital Signs: Temp Pulse Resp BP Pulse Ox 97.9 F 118 H 18 110/59 L 93 09/08/17 07:23 09/08/17 09:05 09/08/17 09:05 09/08/17 07:23 09/08/17 09:05 Intake & Output 09/07/17 09/08/17 09/09/17 06:59 06:59 06:59 Intake Total 548 370 Balance 548 370 Weight 58.8 kg General appearance: PRESENT: no acute distress Head exam: PRESENT: atraumatic, normocephalic Eye exam: PRESENT: conjunctiva pink, EOMI, PERRLA. ABSENT: scleral icterus Mouth exam: PRESENT: moist Respiratory exam: PRESENT: clear to auscultation ana Cardiovascular exam: PRESENT: RRR. ABSENT: diastolic murmur, rubs, systolic murmur Vascular exam: PRESENT: normal capillary refill. ABSENT: pallor GI/Abdominal exam: PRESENT: normal bowel sounds, soft. ABSENT: distended, guarding, mass, organolmegaly, rebound, tenderness Extremities exam: ABSENT: pedal edema Musculoskeletal exam: PRESENT: normal inspection Neurological exam: PRESENT: alert, awake, oriented to person, oriented to place , oriented to time, oriented to situation, CN II-XII grossly intact. ABSENT: motor sensory deficit Skin exam: PRESENT: dry, intact, warm. ABSENT: cyanosis, rash Results Laboratory Results: 09/08/17 06:27 09/08/17 06:27 09/08/17 09/08/17 06:27 06:27 WBC 10.5 RBC 3.71 L Hgb 10.3 L Hct 31.4 L MCV 85 MCH 27.8 MCHC 32.9 RDW 17.8 H Plt Count 288 Seg Neutrophils % Not Reportable Lymphocytes % Not Reportable Monocytes % Not Reportable Eosinophils % Not Reportable Basophils % Not Reportable Absolute Neutrophils Not Reportable Absolute Lymphocytes Not Reportable Absolute Monocytes Not Reportable Absolute Eosinophils Not Reportable Absolute Basophils Not Reportable Sodium 137.0 Potassium 4.8 Chloride 99 Carbon Dioxide 29 Anion Gap 9 BUN 34 H Creatinine 1.46 H Est GFR ( Amer) 56 L Est GFR (Non-Af Amer) 47 L Glucose 108 Calcium 9.7 08/10/17 08/10/17 08/10/17 13:15 13:15 20:30 Creatine Kinase 70 41 L CK-MB (CK-2) 2.03 Troponin I 0.271 NT-Pro-B Natriuret Pep 08/10/17 08/11/17 08/11/17 20:30 06:30 06:30 Creatine Kinase 31 L CK-MB (CK-2) 2.61 1.80 Troponin I 0.160 0.087 NT-Pro-B Natriuret Pep 08/16/17 08/28/17 09/02/17 20:30 17:02 09:06 Creatine Kinase CK-MB (CK-2) Troponin I NT-Pro-B Natriuret Pep 1160 H 1120 H 597 H 09/04/17 11:05 Creatine Kinase CK-MB (CK-2) Troponin I NT-Pro-B Natriuret Pep 516 H Impressions: Head CT 08/10/17 09:58 IMPRESSION: CHRONIC CHANGES OF ATROPHY AND MICROVASCULAR ISCHEMIA. NO ACUTE PROCESS. EVIDENCE OF ACUTE STROKE: NO. Abdomen/Pelvis CT 08/15/17 00:00 IMPRESSION: Trace bilateral pleural effusions with partial collapse left lower lobe Nasogastric tube, Colby catheter in good positioning No CT findings to explain history of sepsis Thoracentesis Ultrasound 08/15/17 00:00 IMPRESSION: SUCCESSFUL THORACENTESIS USING ULTRASOUND GUIDANCE. Facial Bones CT 08/18/17 00:00 IMPRESSION: NO ACUTE FINDINGS. KUB X-Ray 08/19/17 00:00 IMPRESSION: STABLE GAS DISTENDED LOOPS OF BOWEL PRESUMABLY REPRESENTING ILEUS. TOOTH AGAIN NOTED WITHIN THE STOMACH. STABLE NASOGASTRIC TUBE AND COLBY CATHETER. Guidance Fluoroscopy 08/24/17 00:00 IMPRESSION: Please see combined report for performance of procedure and radiologic supervision and interpretation. Interventional Vascular Procedure 08/24/17 00:00 IMPRESSION: Please see combined report for performance of procedure and radiologic supervision and interpretation. PICC Line Insertion 08/24/17 00:00 IMPRESSION: SUCCESSFUL PLACEMENT OF A 5 FR pool LUMEN 42 CM PICC IN THE left basilic VEIN. Chest/Abdomen CTA 08/28/17 00:00 IMPRESSION: No PE. Unchanged pleural effusions and lower lobe consolidation. Chest Ultrasound 09/04/17 12:22 IMPRESSION: Trace right pleural effusion, improved compared to previous studies. Stable small left pleural effusion compared to 08/28/2017 Chest X-Ray 09/07/17 08:00 IMPRESSION: IMPROVED AERATION WITH DECREASE IN THE PLEURAL EFFUSIONS. Assessment & Plan - Diagnosis (1) Septic shock Is this a current diagnosis for this admission?: Yes Plan: Resolved. (2) Acute on chronic respiratory failure with hypoxia and hypercapnia Is this a current diagnosis for this admission?: Yes Plan: Resolved and s/p extubation. (3) Pneumonia Qualifiers: Pneumonia type: due to unspecified organism Laterality: bilateral Lung location: lower lobe of lung Qualified Code(s): J18.1 - Lobar pneumonia, unspecified organism Is this a current diagnosis for this admission?: Yes Plan: Improved. (4) Acute renal failure Qualifiers: Acute renal failure type: unspecified Qualified Code(s): N17.9 - Acute kidney failure, unspecified Is this a current diagnosis for this admission?: Yes Plan: Worsening renal indices. Monitor diuretic therapy. - Time Time Spent with patient: 25-34 minutes Medications reviewed and adjusted accordingly: Yes Anticipated discharge: SNF - for short term rehabilitation Within: Other - Inpatient Certification Based on my medical assessment, after consideration of the patient's comorbidities, presenting symptoms, or acuity I expect that the services needed warrant INPATIENT care.: Yes I certify that my determination is in accordance with my understanding of Medicare's requirements for reasonable and necessary INPATIENT services [42 CFR 412.3e].: Yes Medical Necessity: Need Close Monitoring Due to Risk of Patient Decompensation, Need For IV Fluids, Need For Continuous Telemetry Monitoring, Risk of Complication if Not Cared For in Hospital Post Hospital Care: D/C or Transfer Summary - Plan Summary Plan Summary: See covering attending physician orders.
[2017-09-08] MEDS: ACETAMINOPHEN 325 MG TABLET PO PRN (13:02)
[2017-09-08] MEDS: TAMSULOSIN HCL 0.4 MG CAP.SR.24H PO SCH (18:25)
[2017-09-09] MEDS: LEVALBUTEROL HCL NEB 1.25 MG/3 ML AMPUL NEB SCH ×6 (00:33→20:41)
[2017-09-09] MEDS: IPRATROPIUM BROMIDE 0.02% NEB 0.5 MG/2.5 ML AMPUL NEB SCH ×6 (00:33→20:41)
[2017-09-09] MEDS: HEPARIN SOD (PORCINE) 5,000 UNIT/ML 1 ML SYRINGE SUBCUT SCH (05:49)
[2017-09-09] MEDS: FLUTICASONE/SALMETEROL DISKUS 500-50 MCG/DOSE IH SCH ×2 (05:49→17:44)
[2017-09-09] MEDS: DILTIAZEM HCL 60 MG TABLET PO SCH ×3 (05:49→21:21)
[2017-09-09] MEDS: ACETAMINOPHEN 325 MG TABLET PO PRN (07:08)
[2017-09-09] MEDS: FERROUS SULFATE 325 MG TABLET PO SCH ×2 (10:33→17:43)
[2017-09-09] MEDS: TIOTROPIUM BROMIDE DPI 5 CAP/KIT (18 MCG/CAP) IH SCH (10:33)
[2017-09-09] MEDS: FAMOTIDINE 20 MG TABLET PO SCH ×2 (10:33→21:21)
[2017-09-09] MEDS: FUROSEMIDE 40 MG TABLET PO SCH ×2 (10:33→17:43)
[2017-09-09] MEDS: DIGOXIN 0.125 MG TABLET PO SCH (10:33)
[2017-09-09] MEDS: NORMAL SALINE 10 ML SDV (SCHEDULED) IV SCH ×2 (10:34→21:21)
[2017-09-09] MEDS: MEGESTROL ACETATE SUSP 400 MG/10 ML UDCUP PO SCH (10:34)
--- NOTE | 2017-09-09 15:14 | PDOC PROGRESS REPORT ---
Subjective Progress Note for:: 09/09/17 Subjective:: No chest pain. Baseline breathing improving. No abdominal pain, nausea or vomiting. Appetite and PO intake improving. Reason For Visit: SEPTIC SHOCK,RESPIRATORY FAILURE,RENAL FAILURE, Physical Exam Vital Signs: Temp Pulse Resp BP Pulse Ox 98.2 F 97 18 93/48 L 95 09/09/17 11:18 09/09/17 14:00 09/09/17 11:51 09/09/17 11:18 09/09/17 11:51 Intake & Output 09/08/17 09/09/17 09/10/17 06:59 06:59 06:59 Intake Total 370 538 318 Balance 370 538 318 Weight 56.2 kg Physical Exam: General appearance: OOB in chair. Remain on supplemental oxygen via nasal cannula. PRESENT: no acute distress Head exam: PRESENT: atraumatic, normocephalic Eye exam: PRESENT: conjunctiva pink, EOMI, PERRLA. ABSENT: scleral icterus Mouth exam: PRESENT: moist Respiratory exam: PRESENT: clear to auscultation ana Cardiovascular exam: PRESENT: RRR. ABSENT: diastolic murmur, rubs, systolic murmur Vascular exam: PRESENT: normal capillary refill. ABSENT: pallor GI/Abdominal exam: PRESENT: normal bowel sounds, soft. ABSENT: distended, guarding, mass, organomegaly, rebound, tenderness Extremities exam: ABSENT: pedal edema Musculoskeletal exam: PRESENT: normal inspection Neurological exam: PRESENT: alert, awake, oriented to person, oriented to place , oriented to time, oriented to situation, CN II-XII grossly intact. ABSENT: motor sensory deficit Skin exam: PRESENT: dry, intact, warm. ABSENT: cyanosis, rash Results Laboratory Results: 09/08/17 06:27 09/08/17 06:27 08/10/17 08/10/17 08/10/17 13:15 13:15 20:30 Creatine Kinase 70 41 L CK-MB (CK-2) 2.03 Troponin I 0.271 NT-Pro-B Natriuret Pep 08/10/17 08/11/17 08/11/17 20:30 06:30 06:30 Creatine Kinase 31 L CK-MB (CK-2) 2.61 1.80 Troponin I 0.160 0.087 NT-Pro-B Natriuret Pep 08/16/17 08/28/17 09/02/17 20:30 17:02 09:06 Creatine Kinase CK-MB (CK-2) Troponin I NT-Pro-B Natriuret Pep 1160 H 1120 H 597 H 09/04/17 11:05 Creatine Kinase CK-MB (CK-2) Troponin I NT-Pro-B Natriuret Pep 516 H Impressions: Head CT 08/10/17 09:58 IMPRESSION: CHRONIC CHANGES OF ATROPHY AND MICROVASCULAR ISCHEMIA. NO ACUTE PROCESS. EVIDENCE OF ACUTE STROKE: NO. Abdomen/Pelvis CT 08/15/17 00:00 IMPRESSION: Trace bilateral pleural effusions with partial collapse left lower lobe Nasogastric tube, Colby catheter in good positioning No CT findings to explain history of sepsis Thoracentesis Ultrasound 08/15/17 00:00 IMPRESSION: SUCCESSFUL THORACENTESIS USING ULTRASOUND GUIDANCE. Facial Bones CT 08/18/17 00:00 IMPRESSION: NO ACUTE FINDINGS. KUB X-Ray 08/19/17 00:00 IMPRESSION: STABLE GAS DISTENDED LOOPS OF BOWEL PRESUMABLY REPRESENTING ILEUS. TOOTH AGAIN NOTED WITHIN THE STOMACH. STABLE NASOGASTRIC TUBE AND COLBY CATHETER. Guidance Fluoroscopy 08/24/17 00:00 IMPRESSION: Please see combined report for performance of procedure and radiologic supervision and interpretation. Interventional Vascular Procedure 08/24/17 00:00 IMPRESSION: Please see combined report for performance of procedure and radiologic supervision and interpretation. PICC Line Insertion 08/24/17 00:00 IMPRESSION: SUCCESSFUL PLACEMENT OF A 5 FR pool LUMEN 42 CM PICC IN THE left basilic VEIN. Chest/Abdomen CTA 08/28/17 00:00 IMPRESSION: No PE. Unchanged pleural effusions and lower lobe consolidation. Chest Ultrasound 09/04/17 12:22 IMPRESSION: Trace right pleural effusion, improved compared to previous studies. Stable small left pleural effusion compared to 08/28/2017 Chest X-Ray 09/07/17 08:00 IMPRESSION: IMPROVED AERATION WITH DECREASE IN THE PLEURAL EFFUSIONS. Assessment & Plan - Diagnosis (1) Septic shock Is this a current diagnosis for this admission?: Yes (2) Acute on chronic respiratory failure with hypoxia and hypercapnia Is this a current diagnosis for this admission?: Yes (3) Pneumonia Qualifiers: Pneumonia type: due to unspecified organism Laterality: bilateral Lung location: lower lobe of lung Qualified Code(s): J18.1 - Lobar pneumonia, unspecified organism Is this a current diagnosis for this admission?: Yes (4) Acute renal failure Qualifiers: Acute renal failure type: unspecified Qualified Code(s): N17.9 - Acute kidney failure, unspecified Is this a current diagnosis for this admission?: Yes - Time Time Spent with patient: 25-34 minutes Medications reviewed and adjusted accordingly: Yes Anticipated discharge: SNF Within: Other - Inpatient Certification Based on my medical assessment, after consideration of the patient's comorbidities, presenting symptoms, or acuity I expect that the services needed warrant INPATIENT care.: Yes I certify that my determination is in accordance with my understanding of Medicare's requirements for reasonable and necessary INPATIENT services [42 CFR 412.3e].: Yes Medical Necessity: Need Close Monitoring Due to Risk of Patient Decompensation, Need For IV Fluids, Need For Continuous Telemetry Monitoring Post Hospital Care: D/C or Transfer Summary - Plan Summary Plan Summary: See covering attending physician orders.
[2017-09-09] MEDS: TAMSULOSIN HCL 0.4 MG CAP.SR.24H PO SCH (17:43)
[2017-09-10] MEDS: LEVALBUTEROL HCL NEB 1.25 MG/3 ML AMPUL NEB SCH ×6 (00:32→20:21)
[2017-09-10] MEDS: IPRATROPIUM BROMIDE 0.02% NEB 0.5 MG/2.5 ML AMPUL NEB SCH ×6 (00:32→20:22)
[2017-09-10] MEDS: DILTIAZEM HCL 60 MG TABLET PO SCH ×3 (06:10→21:46)
[2017-09-10] MEDS: FLUTICASONE/SALMETEROL DISKUS 500-50 MCG/DOSE IH SCH ×2 (06:11→17:55)
[2017-09-10] MEDS: FUROSEMIDE 40 MG TABLET PO SCH (09:37)
[2017-09-10] MEDS: TIOTROPIUM BROMIDE DPI 5 CAP/KIT (18 MCG/CAP) IH SCH (09:38)
[2017-09-10] MEDS: FERROUS SULFATE 325 MG TABLET PO SCH ×2 (09:38→17:53)
[2017-09-10] MEDS: DIGOXIN 0.125 MG TABLET PO SCH (09:39)
[2017-09-10] MEDS: FAMOTIDINE 20 MG TABLET PO SCH ×2 (09:39→21:46)
[2017-09-10] MEDS: MEGESTROL ACETATE SUSP 400 MG/10 ML UDCUP PO SCH (09:39)
[2017-09-10] MEDS: NORMAL SALINE 10 ML SDV (SCHEDULED) IV SCH ×2 (09:45→21:46)
--- NOTE | 2017-09-10 13:46 | PDOC PROGRESS REPORT ---
Subjective Progress Note for:: 09/10/17 Subjective:: Patient is currently doing fair Still very weak She is sitting in the chair denied any chest pain denied any shortness of the breath No other events happens during the weekends Reason For Visit: SEPTIC SHOCK,RESPIRATORY FAILURE,RENAL FAILURE, Physical Exam Vital Signs: Temp Pulse Resp BP Pulse Ox 98.3 F 102 H 20 106/51 L 94 09/10/17 11:40 09/10/17 11:42 09/10/17 11:42 09/10/17 11:40 09/10/17 11:42 Intake & Output 09/09/17 09/10/17 09/11/17 06:59 06:59 06:59 Intake Total 538 873 Balance 538 873 Weight 56.2 kg 55.6 kg General appearance: PRESENT: no acute distress, well-developed, well-nourished Head exam: PRESENT: atraumatic, normocephalic Eye exam: PRESENT: conjunctiva pink, EOMI, PERRLA. ABSENT: scleral icterus Ear exam: PRESENT: normal external ear exam Mouth exam: PRESENT: moist, tongue midline Neck exam: PRESENT: full ROM. ABSENT: carotid bruit, JVD, lymphadenopathy, thyromegaly Respiratory exam: PRESENT: clear to auscultation ana Cardiovascular exam: PRESENT: RRR. ABSENT: diastolic murmur, rubs, systolic murmur Pulses: PRESENT: normal dorsalis pedis pul, +2 pedal pulses bilateral Vascular exam: PRESENT: normal capillary refill GI/Abdominal exam: PRESENT: normal bowel sounds, soft. ABSENT: distended, guarding, mass, organolmegaly, rebound, tenderness Rectal exam: PRESENT: deferred Neurological exam: PRESENT: alert, awake, oriented to person, oriented to place , oriented to time, oriented to situation. ABSENT: motor sensory deficit Psychiatric exam: PRESENT: appropriate affect, normal mood. ABSENT: homicidal ideation, suicidal ideation Skin exam: PRESENT: dry, intact, warm. ABSENT: cyanosis, rash Results Laboratory Results: 09/08/17 06:27 09/08/17 06:27 08/10/17 08/10/17 08/10/17 13:15 13:15 20:30 Creatine Kinase 70 41 L CK-MB (CK-2) 2.03 Troponin I 0.271 NT-Pro-B Natriuret Pep 08/10/17 08/11/17 08/11/17 20:30 06:30 06:30 Creatine Kinase 31 L CK-MB (CK-2) 2.61 1.80 Troponin I 0.160 0.087 NT-Pro-B Natriuret Pep 08/16/17 08/28/17 09/02/17 20:30 17:02 09:06 Creatine Kinase CK-MB (CK-2) Troponin I NT-Pro-B Natriuret Pep 1160 H 1120 H 597 H 09/04/17 11:05 Creatine Kinase CK-MB (CK-2) Troponin I NT-Pro-B Natriuret Pep 516 H Impressions: Head CT 08/10/17 09:58 IMPRESSION: CHRONIC CHANGES OF ATROPHY AND MICROVASCULAR ISCHEMIA. NO ACUTE PROCESS. EVIDENCE OF ACUTE STROKE: NO. Abdomen/Pelvis CT 08/15/17 00:00 IMPRESSION: Trace bilateral pleural effusions with partial collapse left lower lobe Nasogastric tube, Colby catheter in good positioning No CT findings to explain history of sepsis Thoracentesis Ultrasound 08/15/17 00:00 IMPRESSION: SUCCESSFUL THORACENTESIS USING ULTRASOUND GUIDANCE. Facial Bones CT 08/18/17 00:00 IMPRESSION: NO ACUTE FINDINGS. KUB X-Ray 08/19/17 00:00 IMPRESSION: STABLE GAS DISTENDED LOOPS OF BOWEL PRESUMABLY REPRESENTING ILEUS. TOOTH AGAIN NOTED WITHIN THE STOMACH. STABLE NASOGASTRIC TUBE AND COLBY CATHETER. Guidance Fluoroscopy 08/24/17 00:00 IMPRESSION: Please see combined report for performance of procedure and radiologic supervision and interpretation. Interventional Vascular Procedure 08/24/17 00:00 IMPRESSION: Please see combined report for performance of procedure and radiologic supervision and interpretation. PICC Line Insertion 08/24/17 00:00 IMPRESSION: SUCCESSFUL PLACEMENT OF A 5 FR pool LUMEN 42 CM PICC IN THE left basilic VEIN. Chest/Abdomen CTA 08/28/17 00:00 IMPRESSION: No PE. Unchanged pleural effusions and lower lobe consolidation. Chest Ultrasound 09/04/17 12:22 IMPRESSION: Trace right pleural effusion, improved compared to previous studies. Stable small left pleural effusion compared to 08/28/2017 Chest X-Ray 09/07/17 08:00 IMPRESSION: IMPROVED AERATION WITH DECREASE IN THE PLEURAL EFFUSIONS. Assessment & Plan - Diagnosis (1) Acute on chronic respiratory failure with hypoxia and hypercapnia Is this a current diagnosis for this admission?: Yes Plan: Currently all resolved (2) Septic shock Is this a current diagnosis for this admission?: Yes Plan: Currently all resolved (3) Pneumonia Qualifiers: Pneumonia type: due to unspecified organism Laterality: bilateral Lung location: lower lobe of lung Qualified Code(s): J18.1 - Lobar pneumonia, unspecified organism Is this a current diagnosis for this admission?: Yes Plan: Currently all resolved (4) Acute renal failure Qualifiers: Acute renal failure type: unspecified Qualified Code(s): N17.9 - Acute kidney failure, unspecified Is this a current diagnosis for this admission?: Yes Plan: Currently all stable (5) Chronic obstructive pulmonary disease Qualifiers: Emphysema type: unspecified Is this a current diagnosis for this admission?: Yes Plan: Continues to nebulizer treatments (6) Hypertension Qualifiers: Hypertension type: essential hypertension Qualified Code(s): I10 - Essential (primary) hypertension Is this a current diagnosis for this admission?: Yes Plan: Currently hypertension is due to the septic shock (7) Neoplasm of rectum Is this a current diagnosis for this admission?: Yes (8) Elevated troponin Is this a current diagnosis for this admission?: Yes Plan: Currently stable patients probably need a stress test as outpatient (9) Leukocytosis Qualifiers: Leukocytosis type: bandemia Qualified Code(s): D72.825 - Bandemia Is this a current diagnosis for this admission?: Yes Plan: Currently all resolved (10) Pleural effusion Is this a current diagnosis for this admission?: Yes (11) Sinus tachycardia Is this a current diagnosis for this admission?: Yes (12) CHF (congestive heart failure) Qualifiers: Heart failure type: systolic Heart failure chronicity: acute Qualified Code(s): I50.21 - Acute systolic (congestive) heart failure Is this a current diagnosis for this admission?: Yes Plan: Continues to Lasix per cardiology - Time Time Spent with patient: 15-24 minutes Medications reviewed and adjusted accordingly: Yes Anticipated discharge: Home Within: Other - Inpatient Certification Medical Necessity: Need Close Monitoring Due to Risk of Patient Decompensation Post Hospital Care: D/C [employer] Documentation - Plan Summary Plan Summary: Continues to current medications patient's family still not decided to send to the patient in rehabStill very weak
[2017-09-10] MEDS: TAMSULOSIN HCL 0.4 MG CAP.SR.24H PO SCH (17:53)
[2017-09-11] MEDS: LEVALBUTEROL HCL NEB 1.25 MG/3 ML AMPUL NEB SCH ×6 (00:15→20:30)
[2017-09-11] MEDS: IPRATROPIUM BROMIDE 0.02% NEB 0.5 MG/2.5 ML AMPUL NEB SCH ×6 (00:15→20:30)
[2017-09-11 05:57] LABS: ANION GAP 11 (5-19); BLOOD UREA NITROGEN 52 mg/dL (7-20); CALCIUM 9.8 mg/dL (8.4-10.2); CARBON DIOXIDE 31 mmol/L (22-30); CHLORIDE 100 mmol/L (98-107); GLUCOSE 98 mg/dL (75-110); SODIUM 141.8 mmol/L (137-145)
[2017-09-11] MEDS: DILTIAZEM HCL 60 MG TABLET PO SCH ×3 (06:07→21:32)
[2017-09-11] MEDS: FLUTICASONE/SALMETEROL DISKUS 500-50 MCG/DOSE IH SCH ×2 (06:07→17:35)
[2017-09-11] MEDS: FUROSEMIDE 40 MG TABLET PO SCH (08:36)
[2017-09-11] MEDS: FERROUS SULFATE 325 MG TABLET PO SCH ×2 (09:09→17:35)
[2017-09-11] MEDS: FAMOTIDINE 20 MG TABLET PO SCH ×2 (09:09→21:32)
[2017-09-11] MEDS: NORMAL SALINE 10 ML SDV (SCHEDULED) IV SCH ×2 (09:10→21:32)
[2017-09-11] MEDS: MEGESTROL ACETATE SUSP 400 MG/10 ML UDCUP PO SCH (09:10)
[2017-09-11] MEDS: DIGOXIN 0.125 MG TABLET PO SCH (09:10)
--- NOTE | 2017-09-11 10:34 | PDOC TRANSFER SUMMARY ---
General - Admit/Disc Date/PCP Admission Date/Primary Care Provider: 08/10/17 12:55 SUSANNA JASMINE MD Discharge Date: 09/11/17 - Discharge Diagnosis (1) Acute on chronic respiratory failure with hypoxia and hypercapnia Is this a current diagnosis for this admission?: Yes Summary: Currently all resolved (2) Septic shock Is this a current diagnosis for this admission?: Yes Summary: Currently all resolved (3) Pneumonia Is this a current diagnosis for this admission?: Yes Summary: Currently all resolved (4) Acute renal failure Is this a current diagnosis for this admission?: Yes Summary: Gait and is 1.57 continues to monitor repeat the Chem-7 in 3 days and check a Chem-7 once a weekFollow outpatients nephrology (5) Chronic obstructive pulmonary disease Is this a current diagnosis for this admission?: Yes Summary: Continues to nebulizer treatments and inhaler (6) Hypertension Is this a current diagnosis for this admission?: Yes Summary: Currently all well controlled (7) Neoplasm of rectum Is this a current diagnosis for this admission?: Yes Summary: Follow-up outpatients Dr. Diane (8) Elevated troponin Is this a current diagnosis for this admission?: Yes Summary: Currently follow with the Dr. Florian patients need outpatient stress test (9) Leukocytosis Is this a current diagnosis for this admission?: Yes Summary: Currently all resolved (10) Pleural effusion Is this a current diagnosis for this admission?: Yes Summary: Currently all resolved (11) Sinus tachycardia Is this a current diagnosis for this admission?: Yes Summary: Currently all stable (12) CHF (congestive heart failure) Is this a current diagnosis for this admission?: Yes Summary: Continues to Lasix 20 mg p.o. daily continues to monitor the patient's in and out and await balance and adjust the dose according to the patient's weight and patient's kidney functionsAnd follow-up outpatients Dr. Florian - Additional Information Resuscitation Status: Full Code Discharge Diet: Cardiac Discharge Activity: Activity As Tolerated Prescriptions: Acetaminophen [Tylenol 325 mg Tablet] 650 mg PO Q4HP PRN #120 tablet PRN Reason: Digoxin [Lanoxin 0.125 mg Tablet] 0.125 mg PO DAILY #30 tablet Diltiazem HCl [Cardizem 60 mg Tablet] 60 mg PO Q8 #90 tablet Famotidine [Pepcid 20 mg Tablet] 20 mg PO Q12 #60 tablet Ferrous Sulfate [Feosol 325 mg Tablet] 325 mg PO BIDPCBS #60 tablet Fluticasone/Salmeterol [Advair 500-50 Diskus 14 Dose/Diskus] 1 inh IH Q12A #1 inhaler Furosemide [Lasix 40 mg Tablet] 20 mg PO DAILY #30 tablet Levalbuterol HCl [Xopenex Neb 1.25 mg/3 ml Ampul] 1.25 mg NEB RTQ6HP PRN #120 vial.neb PRN Reason: Megestrol Acetate [Megace Kacey 400 mg/10 ml Udcup] 400 mg PO DAILY #30 udc Polyethylene Glycol 3350 [Miralax Powder 17 gm/Packet] 17 gm PO DAILYP PRN #30 powd.pack PRN Reason: Tamsulosin HCl [Flomax 0.4 mg Cap.sr] 0.4 mg PO PCSUPPER #30 cap.sr.24h Tiotropium Henderson [Spiriva Handihaler 5 Cap/Kit (18 Mcg/Cap)] 1 cap IH DAILY # 30 kit Home Medications: Albuterol Sulfate [Proair HFA Inhalation Aerosol 8.5 gm MDI] 2 puff IH Q4HP PRN 08/10/17 Atorvastatin Calcium [Lipitor 20 mg Tablet] 20 mg PO QHS 08/10/17 Ergocalciferol (Vitamin D2) [Vitamin D2] 50,000 unit PO Q7D 08/10/17 Fluticasone/Salmeterol [Advair 250-50 Diskus 28 dose] 1 inh IH Q12 08/10/17 Tiotropium Henderson [Spiriva Handihaler 18 mcg/dose (30 Dose)] 1 cap IH DAILY Acetaminophen [Tylenol 325 mg Tablet] 650 mg PO Q4HP PRN #120 tablet 09/11/17 Digoxin [Lanoxin 0.125 mg Tablet] 0.125 mg PO DAILY #30 tablet 09/11/17 Diltiazem HCl [Cardizem 60 mg Tablet] 60 mg PO Q8 #90 tablet 09/11/17 Famotidine [Pepcid 20 mg Tablet] 20 mg PO Q12 #60 tablet 09/11/17 Ferrous Sulfate [Feosol 325 mg Tablet] 325 mg PO BIDPCBS #60 tablet 09/11/17 Fluticasone/Salmeterol [Advair 500-50 Diskus 14 Dose/Diskus] 1 inh IH Q12A #1 inhaler 09/11/17 Furosemide [Lasix 40 mg Tablet] 20 mg PO DAILY #30 tablet 09/11/17 Levalbuterol HCl [Xopenex Neb 1.25 mg/3 ml Ampul] 1.25 mg NEB RTQ6HP PRN #120 vial.neb 09/11/17 Megestrol Acetate [Megace Kacey 400 mg/10 ml Udcup] 400 mg PO DAILY #30 udc 09/11 Polyethylene Glycol 3350 [Miralax Powder 17 gm/Packet] 17 gm PO DAILYP PRN #30 powd.pack 09/11/17 Tamsulosin HCl [Flomax 0.4 mg Cap.sr] 0.4 mg PO PCSUPPER #30 cap.sr.24h Tiotropium Henderson [Spiriva Handihaler 5 Cap/Kit (18 Mcg/Cap)] 1 cap IH DAILY # 30 kit 09/11/17 History of Present Illness Admission Date/PCP: 08/10/17 12:55 SUSANNA JASMINE MD History of Present Illness: CHRISTOPHER LEBLANC is a 77 year old male This is a 77-year-old male's with a history of the COPD history of the hypertension, hyperlipidemia and history of the neoplasm of the rectum currently under well control was doing okay until the last 3 or 4 days according to family patient start complaining some cough cold and some nausea and vomiting and some diarrhea as well as runny nose-like symptoms and this morning patient started complaining of more short of breath. Called the EMS and the patient was alert awake when the EMS went to the see the patient. When patient was brought to the ER the patient was more unresponsive and very hypotensive and patient was intubated Patients in the ER start in the levo drip and added a dopamine drip Patient's also from the elevated white count and the pneumonia in the lung which is most likely source of the infections with the renal failure and elevated troponin which is all because of the septic shock When I saw the patient's in the ER patient was intubated currently on levo drips and dopamine drips systolic blood pressures around 100 Patient also came with emergency department the 101 fever currently 98.5 ER physicians call me for admissions with a septic shock and hypotension's and discussed with the family patient was still full code i discussed with the patient's daughter in the ER. During the patient's current conditions with the critical care including the pneumonia renal failure and other etiologies within not a very good prognosis and understand very well CT of the head ordered to rule out any neurological events but unable to do it currently because patient was not stable enough to take him to the CT scan Patient is otherwise pretty much doing the last seen in my office in May and patient seen by the oncology in the last year was all stable. This history was reviewed and confirmed. I did talk with the nurses. Patient cannot give any history at this time. Hospital Course Hospital Course: This is a 77-year-old male's came to the emergency department with the complaining of cough congestion and shortness of the breath and respiratory distress and septic shock and patient was admitting in the ICU and intubated Patient's son was put on a broad-spectrum antibiotic and the patient also have a renal failure and congestive heart failure patient seen by the pulmonary and the cardiology Patient's was successfully extubated and transferred to the telemetry floor Patient's also having the pleural effusion and thoracocentesis was done Patient also have echocardiogram done and suggests some diastolic congestive heart failure and start him on Lasix Patient still very weak and very [id number] with the discussed with the patient family and patient initially patients do not want to go to the rehab but patient was still very weak and admitting the patient is very safe to go home due to the multiple comorbidity and still ongoing weakness and the patient' s get the maximum benefit in the hospital currently all on the p.o. medications and cardiology and pulmonary already signed off the patient and patient's currently otherwise stable and the patient at this point's discharge to the rehab facility Patient's currently on a discharge denied any chest pain denied any shortness of the breath p.o. intake is fair Patients need to check her kidney functions in 3 days currently Lasix was reduced and adjust the dose according to the patient's weight and the kidney functions and follow-up outpatients cardiology Patient is extremely weak need a fall precautions Patient's need oxygen to keep O2 sat around 90-94 and follow-up outpatients Dr. allen Discussed with the cardiology and pulmonary on case and suggest follow-up outpatient in the clinic Discussed with the both the daughter and the regarding the patient's current conditions Physical Exam Vital Signs: Temp Pulse Resp BP Pulse Ox 98.7 F 79 18 98/49 L 96 09/11/17 07:26 09/11/17 08:54 09/11/17 08:54 09/11/17 07:26 09/11/17 08:54 Intake & Output 09/10/17 09/11/17 09/12/17 06:59 06:59 06:59 Intake Total 873 322 Balance 873 322 Weight 55.6 kg 57.1 kg General appearance: PRESENT: no acute distress, well-developed, well-nourished Head exam: PRESENT: atraumatic, normocephalic Eye exam: PRESENT: conjunctiva pink, EOMI, PERRLA. ABSENT: scleral icterus Ear exam: PRESENT: normal external ear exam Mouth exam: PRESENT: moist, tongue midline Neck exam: ABSENT: carotid bruit, JVD, lymphadenopathy, thyromegaly Respiratory exam: PRESENT: clear to auscultation ana. ABSENT: rales, rhonchi, wheezes Cardiovascular exam: PRESENT: RRR. ABSENT: diastolic murmur, rubs, systolic murmur Pulses: PRESENT: normal dorsalis pedis pul Vascular exam: PRESENT: normal capillary refill GI/Abdominal exam: PRESENT: normal bowel sounds, soft. ABSENT: distended, guarding, mass, organolmegaly, rebound, tenderness Rectal exam: PRESENT: deferred Extremities exam: PRESENT: full ROM. ABSENT: calf tenderness, clubbing, pedal edema Neurological exam: PRESENT: alert, awake, oriented to person, oriented to place , oriented to time, oriented to situation, CN II-XII grossly intact. ABSENT: motor sensory deficit Psychiatric exam: PRESENT: appropriate affect, normal mood. ABSENT: homicidal ideation, suicidal ideation Skin exam: PRESENT: dry, intact, warm. ABSENT: cyanosis, rash Results Laboratory Results: 09/08/17 06:27 09/11/17 04:51 09/11/17 04:51 Sodium 141.8 Potassium 5.0 Chloride 100 Carbon Dioxide 31 H Anion Gap 11 BUN 52 H Creatinine 1.57 H Est GFR ( Amer) 52 L Est GFR (Non-Af Amer) 43 L Glucose 98 Calcium 9.8 08/10/17 08/10/17 08/10/17 13:15 13:15 20:30 Creatine Kinase 70 41 L CK-MB (CK-2) 2.03 Troponin I 0.271 NT-Pro-B Natriuret Pep 08/10/17 08/11/17 08/11/17 20:30 06:30 06:30 Creatine Kinase 31 L CK-MB (CK-2) 2.61 1.80 Troponin I 0.160 0.087 NT-Pro-B Natriuret Pep 08/16/17 08/28/17 09/02/17 20:30 17:02 09:06 Creatine Kinase CK-MB (CK-2) Troponin I NT-Pro-B Natriuret Pep 1160 H 1120 H 597 H 09/04/17 11:05 Creatine Kinase CK-MB (CK-2) Troponin I NT-Pro-B Natriuret Pep 516 H Impressions: Head CT 08/10/17 09:58 IMPRESSION: CHRONIC CHANGES OF ATROPHY AND MICROVASCULAR ISCHEMIA. NO ACUTE PROCESS. EVIDENCE OF ACUTE STROKE: NO. Abdomen/Pelvis CT 08/15/17 00:00 IMPRESSION: Trace bilateral pleural effusions with partial collapse left lower lobe Nasogastric tube, Colby catheter in good positioning No CT findings to explain history of sepsis Thoracentesis Ultrasound 08/15/17 00:00 IMPRESSION: SUCCESSFUL THORACENTESIS USING ULTRASOUND GUIDANCE. Facial Bones CT 08/18/17 00:00 IMPRESSION: NO ACUTE FINDINGS. KUB X-Ray 08/19/17 00:00 IMPRESSION: STABLE GAS DISTENDED LOOPS OF BOWEL PRESUMABLY REPRESENTING ILEUS. TOOTH AGAIN NOTED WITHIN THE STOMACH. STABLE NASOGASTRIC TUBE AND COLBY CATHETER. Guidance Fluoroscopy 08/24/17 00:00 IMPRESSION: Please see combined report for performance of procedure and radiologic supervision and interpretation. Interventional Vascular Procedure 08/24/17 00:00 IMPRESSION: Please see combined report for performance of procedure and radiologic supervision and interpretation. PICC Line Insertion 08/24/17 00:00 IMPRESSION: SUCCESSFUL PLACEMENT OF A 5 FR pool LUMEN 42 CM PICC IN THE left basilic VEIN. Chest/Abdomen CTA 08/28/17 00:00 IMPRESSION: No PE. Unchanged pleural effusions and lower lobe consolidation. Chest Ultrasound 09/04/17 12:22 IMPRESSION: Trace right pleural effusion, improved compared to previous studies. Stable small left pleural effusion compared to 08/28/2017 Chest X-Ray 09/07/17 08:00 IMPRESSION: IMPROVED AERATION WITH DECREASE IN THE PLEURAL EFFUSIONS. Transfer Plan - Time Spent with Patient Time spent with patient: Greater than 30 Minutes Qualifiers - * PATEINT BEING DISCHARGED WITH ANY OF THE FOLLOWING DIAGNOSIS?: Heart Failure VTE patient discharged on overlapping Therapy?: Yes HF Pt being discharged on ACEI for LVEF less than 40%?: No Reason(s) for not prescribing ACEI:: Contraindicated HF Pt being discharged on ARBS for LVEF less than 40%?: No Reason(s) for not prescribing ARBS:: Contraindicated HF Pt with Afib discharged with Warfarin?: No Reason(s) for not prescribing Warfarin:: Not indicated HF Pt discharged on evidence-based Beta Marissa:: No Reason(s) for not prescribing evidence-based Beta Marissa:: Contraindicated Plan Time Spent: Greater than 30 Minutes - Continues to monitor in the rehab and check a Chem-7 in 3 days and then check once a week Continues on oxygen Follow- up outpatients pulmonary clinic in the cardiology clinic Fall precautions
[2017-09-11] MEDS: TIOTROPIUM BROMIDE DPI 5 CAP/KIT (18 MCG/CAP) IH SCH (11:36)
[2017-09-11] MEDS: TAMSULOSIN HCL 0.4 MG CAP.SR.24H PO SCH (17:35)
[2017-09-12] MEDS: LEVALBUTEROL HCL NEB 1.25 MG/3 ML AMPUL NEB SCH ×7 (00:23→23:49)
[2017-09-12] MEDS: IPRATROPIUM BROMIDE 0.02% NEB 0.5 MG/2.5 ML AMPUL NEB SCH ×7 (00:23→23:49)
[2017-09-12] MEDS: FLUTICASONE/SALMETEROL DISKUS 500-50 MCG/DOSE IH SCH ×2 (05:23→18:25)
[2017-09-12] MEDS: DILTIAZEM HCL 60 MG TABLET PO SCH ×3 (05:23→21:54)
[2017-09-12 07:43] LABS: ANION GAP 9 (5-19); BLOOD UREA NITROGEN 54 mg/dL (7-20); CALCIUM 9.9 mg/dL (8.4-10.2); CARBON DIOXIDE 30 mmol/L (22-30); CHLORIDE 102 mmol/L (98-107); GLUCOSE 103 mg/dL (75-110); POTASSIUM 5.4 mmol/L (3.6-5.0); SODIUM 140.5 mmol/L (137-145)
[2017-09-12] MEDS ORDERED: NORMAL SALINE 500 ML IV PRN (08:33)
--- NOTE | 2017-09-12 08:49 | PDOC PROGRESS REPORT ---
Subjective Progress Note for:: 09/12/17 Subjective:: Patient is currently doing well Still very weak Patient's creatinine is also improving the potassium slightly elevated Reason For Visit: SEPTIC SHOCK,RESPIRATORY FAILURE,RENAL FAILURE, Physical Exam Vital Signs: Temp Pulse Resp BP Pulse Ox 98.0 F 83 24 H 116/54 L 100 09/12/17 07:47 09/12/17 07:47 09/12/17 07:47 09/12/17 07:47 09/12/17 07:47 Intake & Output 09/11/17 09/12/17 09/13/17 06:59 06:59 06:59 Intake Total 322 1232 Balance 322 1232 Weight 57.1 kg 57.6 kg General appearance: PRESENT: no acute distress, well-developed, well-nourished Head exam: PRESENT: atraumatic, normocephalic Eye exam: PRESENT: conjunctiva pink, EOMI, PERRLA. ABSENT: scleral icterus Ear exam: PRESENT: normal external ear exam Mouth exam: PRESENT: moist, tongue midline Neck exam: PRESENT: full ROM. ABSENT: carotid bruit, JVD, lymphadenopathy, thyromegaly Respiratory exam: PRESENT: clear to auscultation ana Cardiovascular exam: PRESENT: RRR. ABSENT: diastolic murmur, rubs, systolic murmur Pulses: PRESENT: normal dorsalis pedis pul, +2 pedal pulses bilateral Vascular exam: PRESENT: normal capillary refill GI/Abdominal exam: PRESENT: normal bowel sounds, soft. ABSENT: distended, guarding, mass, organolmegaly, rebound, tenderness Rectal exam: PRESENT: deferred Neurological exam: PRESENT: alert, awake, oriented to person, oriented to place , oriented to time, oriented to situation, CN II-XII grossly intact. ABSENT: motor sensory deficit Psychiatric exam: PRESENT: appropriate affect, normal mood. ABSENT: homicidal ideation, suicidal ideation Skin exam: PRESENT: dry, intact, warm. ABSENT: cyanosis, rash Results Laboratory Results: 09/08/17 06:27 09/12/17 07:10 09/12/17 07:10 Sodium 140.5 Potassium 5.4 H Chloride 102 Carbon Dioxide 30 Anion Gap 9 BUN 54 H Creatinine 1.40 H Est GFR ( Amer) 59 L Est GFR (Non-Af Amer) 49 L Glucose 103 Calcium 9.9 08/10/17 08/10/17 08/10/17 13:15 13:15 20:30 Creatine Kinase 70 41 L CK-MB (CK-2) 2.03 Troponin I 0.271 NT-Pro-B Natriuret Pep 08/10/17 08/11/17 08/11/17 20:30 06:30 06:30 Creatine Kinase 31 L CK-MB (CK-2) 2.61 1.80 Troponin I 0.160 0.087 NT-Pro-B Natriuret Pep 08/16/17 08/28/17 09/02/17 20:30 17:02 09:06 Creatine Kinase CK-MB (CK-2) Troponin I NT-Pro-B Natriuret Pep 1160 H 1120 H 597 H 09/04/17 11:05 Creatine Kinase CK-MB (CK-2) Troponin I NT-Pro-B Natriuret Pep 516 H Impressions: Head CT 08/10/17 09:58 IMPRESSION: CHRONIC CHANGES OF ATROPHY AND MICROVASCULAR ISCHEMIA. NO ACUTE PROCESS. EVIDENCE OF ACUTE STROKE: NO. Abdomen/Pelvis CT 08/15/17 00:00 IMPRESSION: Trace bilateral pleural effusions with partial collapse left lower lobe Nasogastric tube, Colby catheter in good positioning No CT findings to explain history of sepsis Thoracentesis Ultrasound 08/15/17 00:00 IMPRESSION: SUCCESSFUL THORACENTESIS USING ULTRASOUND GUIDANCE. Facial Bones CT 08/18/17 00:00 IMPRESSION: NO ACUTE FINDINGS. KUB X-Ray 08/19/17 00:00 IMPRESSION: STABLE GAS DISTENDED LOOPS OF BOWEL PRESUMABLY REPRESENTING ILEUS. TOOTH AGAIN NOTED WITHIN THE STOMACH. STABLE NASOGASTRIC TUBE AND COLBY CATHETER. Guidance Fluoroscopy 08/24/17 00:00 IMPRESSION: Please see combined report for performance of procedure and radiologic supervision and interpretation. Interventional Vascular Procedure 08/24/17 00:00 IMPRESSION: Please see combined report for performance of procedure and radiologic supervision and interpretation. PICC Line Insertion 08/24/17 00:00 IMPRESSION: SUCCESSFUL PLACEMENT OF A 5 FR pool LUMEN 42 CM PICC IN THE left basilic VEIN. Chest/Abdomen CTA 08/28/17 00:00 IMPRESSION: No PE. Unchanged pleural effusions and lower lobe consolidation. Chest Ultrasound 09/04/17 12:22 IMPRESSION: Trace right pleural effusion, improved compared to previous studies. Stable small left pleural effusion compared to 08/28/2017 Chest X-Ray 09/07/17 08:00 IMPRESSION: IMPROVED AERATION WITH DECREASE IN THE PLEURAL EFFUSIONS. Assessment & Plan - Diagnosis (1) Acute on chronic respiratory failure with hypoxia and hypercapnia Is this a current diagnosis for this admission?: Yes (2) Septic shock Is this a current diagnosis for this admission?: Yes (3) Pneumonia Qualifiers: Pneumonia type: due to unspecified organism Laterality: bilateral Lung location: lower lobe of lung Qualified Code(s): J18.1 - Lobar pneumonia, unspecified organism Is this a current diagnosis for this admission?: Yes (4) Acute renal failure Qualifiers: Acute renal failure type: unspecified Qualified Code(s): N17.9 - Acute kidney failure, unspecified Is this a current diagnosis for this admission?: Yes Plan: Currently all improving already reduced her Lasix dose of 20 mg will give her some Kayexalate and before the discharge will repeat the potassiums and continues to monitor and hopefully low potassium in his diet (5) Chronic obstructive pulmonary disease Qualifiers: Emphysema type: unspecified Is this a current diagnosis for this admission?: Yes (6) Hypertension Qualifiers: Hypertension type: essential hypertension Qualified Code(s): I10 - Essential (primary) hypertension Is this a current diagnosis for this admission?: Yes (7) Neoplasm of rectum Is this a current diagnosis for this admission?: Yes (8) Elevated troponin Is this a current diagnosis for this admission?: Yes (9) Leukocytosis Qualifiers: Leukocytosis type: bandemia Qualified Code(s): D72.825 - Bandemia Is this a current diagnosis for this admission?: Yes (10) Pleural effusion Is this a current diagnosis for this admission?: Yes (11) Sinus tachycardia Is this a current diagnosis for this admission?: Yes (12) CHF (congestive heart failure) Qualifiers: Heart failure type: systolic Heart failure chronicity: acute Qualified Code(s): I50.21 - Acute systolic (congestive) heart failure Is this a current diagnosis for this admission?: Yes - Time Time Spent with patient: 15-24 minutes Medications reviewed and adjusted accordingly: Yes Anticipated discharge: SNF Within: when bed available - Inpatient Certification Medical Necessity: Need Close Monitoring Due to Risk of Patient Decompensation 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
[2017-09-12] MEDS ORDERED: SODIUM POLYSTYRENE SULFONATE 15 GM/60 ML PO ONE (09:30)
[2017-09-12] MEDS: FERROUS SULFATE 325 MG TABLET PO SCH ×2 (10:05→18:24)
[2017-09-12] MEDS: MEGESTROL ACETATE SUSP 400 MG/10 ML UDCUP PO SCH (10:05)
[2017-09-12] MEDS: FAMOTIDINE 20 MG TABLET PO SCH ×2 (10:05→21:54)
[2017-09-12] MEDS: POLYETHYLENE GLYCOL 3350 POWDER 17 GM/1 PACKET PO PRN (10:06)
[2017-09-12] MEDS: TIOTROPIUM BROMIDE DPI 5 CAP/KIT (18 MCG/CAP) IH SCH (10:06)
[2017-09-12] MEDS: NORMAL SALINE 10 ML SDV (SCHEDULED) IV SCH ×2 (10:07→21:54)
[2017-09-12] MEDS: FUROSEMIDE 40 MG TABLET PO SCH (10:07)
[2017-09-12 15:38] LABS: ANION GAP 7 (5-19); BLOOD UREA NITROGEN 55 mg/dL (7-20); CALCIUM 9.8 mg/dL (8.4-10.2); CARBON DIOXIDE 32 mmol/L (22-30); CHLORIDE 103 mmol/L (98-107); DIGOXIN 1.43 ng/mL (0.8-2.0); GLUCOSE 107 mg/dL (75-110); POTASSIUM 5.4 mmol/L (3.6-5.0); SODIUM 141.5 mmol/L (137-145)
[2017-09-12] MEDS: DIGOXIN 0.125 MG TABLET PO SCH (15:57)
[2017-09-12] MEDS ORDERED: DEXTROSE 5%-1/2 NORMAL SALINE 1,000 ML IV PRN (16:18)
[2017-09-12] MEDS: TAMSULOSIN HCL 0.4 MG CAP.SR.24H PO SCH (18:24)
[2017-09-13] MEDS: LEVALBUTEROL HCL NEB 1.25 MG/3 ML AMPUL NEB SCH ×3 (04:27→11:27)
[2017-09-13] MEDS: IPRATROPIUM BROMIDE 0.02% NEB 0.5 MG/2.5 ML AMPUL NEB SCH ×3 (04:27→11:27)
[2017-09-13] MEDS: FLUTICASONE/SALMETEROL DISKUS 500-50 MCG/DOSE IH SCH (05:24)
[2017-09-13] MEDS: DILTIAZEM HCL 60 MG TABLET PO SCH (05:24)
[2017-09-13 05:57] LABS: ANION GAP 10 (5-19); BLOOD UREA NITROGEN 47 mg/dL (7-20); CALCIUM 9.9 mg/dL (8.4-10.2); CARBON DIOXIDE 30 mmol/L (22-30); CHLORIDE 101 mmol/L (98-107); GLUCOSE 105 mg/dL (75-110); POTASSIUM 5.4 mmol/L (3.6-5.0)
[2017-09-13] MEDS ORDERED: SODIUM POLYSTYRENE SULFONATE 15 GM/60 ML PO ONE (08:15)
[2017-09-13] MEDS: FERROUS SULFATE 325 MG TABLET PO SCH (09:19)
[2017-09-13] MEDS: FAMOTIDINE 20 MG TABLET PO SCH (09:19)
[2017-09-13] MEDS: POLYETHYLENE GLYCOL 3350 POWDER 17 GM/1 PACKET PO PRN (09:19)
[2017-09-13] MEDS: MEGESTROL ACETATE SUSP 400 MG/10 ML UDCUP PO SCH (09:19)
[2017-09-13] MEDS: DIGOXIN 0.125 MG TABLET PO SCH (09:19)
[2017-09-13] MEDS: FUROSEMIDE 40 MG TABLET PO SCH (09:20)
[2017-09-13] MEDS: TIOTROPIUM BROMIDE DPI 5 CAP/KIT (18 MCG/CAP) IH SCH (09:20)
[2017-09-13] MEDS: NORMAL SALINE 10 ML SDV (SCHEDULED) IV SCH (09:20)
[2017-09-13] MEDS ORDERED: SODIUM POLYSTYRENE SULFONATE 15 GM/60 ML ONE (09:33)
[2017-09-13 12:39] VITALS: BP 114/54
--- NOTE | 2017-09-13 16:47 | PDOC PROGRESS REPORT ---
Subjective Progress Note for:: 09/13/17 Subjective:: Patient is currently doing fair Since creatinine is also coming down to 1.29 and potassium is 5 No chest pain no short of breath Patient still very weak and going to the rehab Reason For Visit: SEPTIC SHOCK,RESPIRATORY FAILURE,RENAL FAILURE, Physical Exam Vital Signs: Temp Pulse Resp BP Pulse Ox 98.5 F 87 22 H 114/54 L 100 09/13/17 11:37 09/13/17 11:37 09/13/17 11:37 09/13/17 11:37 09/13/17 11:37 Intake & Output 09/12/17 09/13/17 09/14/17 06:59 06:59 06:59 Intake Total 1232 1941 75 Output Total 100 Balance 1232 1940 - Weight 57.6 kg 55.2 kg General appearance: PRESENT: no acute distress, well-developed, well-nourished Head exam: PRESENT: atraumatic, normocephalic Eye exam: PRESENT: conjunctiva pink, EOMI, PERRLA. ABSENT: scleral icterus Ear exam: PRESENT: normal external ear exam Mouth exam: PRESENT: moist, tongue midline Neck exam: PRESENT: full ROM. ABSENT: carotid bruit, JVD, lymphadenopathy, thyromegaly Respiratory exam: PRESENT: clear to auscultation ana Cardiovascular exam: PRESENT: RRR. ABSENT: diastolic murmur, rubs, systolic murmur Pulses: PRESENT: normal dorsalis pedis pul, +2 pedal pulses bilateral Vascular exam: PRESENT: normal capillary refill GI/Abdominal exam: PRESENT: normal bowel sounds, soft. ABSENT: distended, guarding, mass, organolmegaly, rebound, tenderness Rectal exam: PRESENT: deferred Extremities exam: ABSENT: pedal edema Neurological exam: PRESENT: alert, awake, oriented to person, oriented to place , oriented to time, oriented to situation, CN II-XII grossly intact. ABSENT: motor sensory deficit Psychiatric exam: PRESENT: appropriate affect, normal mood. ABSENT: homicidal ideation, suicidal ideation Skin exam: PRESENT: dry, intact, warm. ABSENT: cyanosis, rash Results Laboratory Results: 09/08/17 06:27 09/13/17 12:04 09/13/17 09/13/17 05:13 12:04 Sodium 141.0 Potassium 5.4 H 5.0 Chloride 101 Carbon Dioxide 30 Anion Gap 10 BUN 47 H Creatinine 1.19 Est GFR ( Amer) > 60 Est GFR (Non-Af Amer) 59 L Glucose 105 Calcium 9.9 08/10/17 08/10/17 08/10/17 13:15 13:15 20:30 Creatine Kinase 70 41 L CK-MB (CK-2) 2.03 Troponin I 0.271 NT-Pro-B Natriuret Pep 08/10/17 08/11/17 08/11/17 20:30 06:30 06:30 Creatine Kinase 31 L CK-MB (CK-2) 2.61 1.80 Troponin I 0.160 0.087 NT-Pro-B Natriuret Pep 08/16/17 08/28/17 09/02/17 20:30 17:02 09:06 Creatine Kinase CK-MB (CK-2) Troponin I NT-Pro-B Natriuret Pep 1160 H 1120 H 597 H 09/04/17 11:05 Creatine Kinase CK-MB (CK-2) Troponin I NT-Pro-B Natriuret Pep 516 H Impressions: Head CT 08/10/17 09:58 IMPRESSION: CHRONIC CHANGES OF ATROPHY AND MICROVASCULAR ISCHEMIA. NO ACUTE PROCESS. EVIDENCE OF ACUTE STROKE: NO. Abdomen/Pelvis CT 08/15/17 00:00 IMPRESSION: Trace bilateral pleural effusions with partial collapse left lower lobe Nasogastric tube, Colby catheter in good positioning No CT findings to explain history of sepsis Thoracentesis Ultrasound 08/15/17 00:00 IMPRESSION: SUCCESSFUL THORACENTESIS USING ULTRASOUND GUIDANCE. Facial Bones CT 08/18/17 00:00 IMPRESSION: NO ACUTE FINDINGS. KUB X-Ray 08/19/17 00:00 IMPRESSION: STABLE GAS DISTENDED LOOPS OF BOWEL PRESUMABLY REPRESENTING ILEUS. TOOTH AGAIN NOTED WITHIN THE STOMACH. STABLE NASOGASTRIC TUBE AND COLBY CATHETER. Guidance Fluoroscopy 08/24/17 00:00 IMPRESSION: Please see combined report for performance of procedure and radiologic supervision and interpretation. Interventional Vascular Procedure 08/24/17 00:00 IMPRESSION: Please see combined report for performance of procedure and radiologic supervision and interpretation. PICC Line Insertion 08/24/17 00:00 IMPRESSION: SUCCESSFUL PLACEMENT OF A 5 FR pool LUMEN 42 CM PICC IN THE left basilic VEIN. Chest/Abdomen CTA 08/28/17 00:00 IMPRESSION: No PE. Unchanged pleural effusions and lower lobe consolidation. Chest Ultrasound 09/04/17 12:22 IMPRESSION: Trace right pleural effusion, improved compared to previous studies. Stable small left pleural effusion compared to 08/28/2017 Chest X-Ray 09/07/17 08:00 IMPRESSION: IMPROVED AERATION WITH DECREASE IN THE PLEURAL EFFUSIONS. Assessment & Plan - Diagnosis (1) Acute on chronic respiratory failure with hypoxia and hypercapnia Is this a current diagnosis for this admission?: Yes Plan: Currently all resolved (2) Septic shock Is this a current diagnosis for this admission?: Yes Plan: Currently all resolved (3) Pneumonia Qualifiers: Pneumonia type: due to unspecified organism Laterality: bilateral Lung location: lower lobe of lung Qualified Code(s): J18.1 - Lobar pneumonia, unspecified organism Is this a current diagnosis for this admission?: Yes Plan: Currently all resolved (4) Acute renal failure Qualifiers: Acute renal failure type: unspecified Qualified Code(s): N17.9 - Acute kidney failure, unspecified Is this a current diagnosis for this admission?: Yes Plan: Currently all improving already reduced her Lasix dose of 20 mg will give her some Kayexalate and before the discharge will repeat the potassiums and continues to monitor and hopefully low potassium in his diet (5) Chronic obstructive pulmonary disease Qualifiers: Emphysema type: unspecified Is this a current diagnosis for this admission?: Yes Plan: Continues to nebulizer treatments (6) Hypertension Qualifiers: Hypertension type: essential hypertension Qualified Code(s): I10 - Essential (primary) hypertension Is this a current diagnosis for this admission?: Yes Plan: Currently hypertension is due to the septic shock (7) Neoplasm of rectum Is this a current diagnosis for this admission?: Yes Plan: Patient's last CEA was all normal and according to the oncology's no need for further evaluations (8) Elevated troponin Is this a current diagnosis for this admission?: Yes (9) Leukocytosis Qualifiers: Leukocytosis type: bandemia Qualified Code(s): D72.825 - Bandemia Is this a current diagnosis for this admission?: Yes Plan: Currently all resolved (10) Pleural effusion Is this a current diagnosis for this admission?: Yes (11) Sinus tachycardia Is this a current diagnosis for this admission?: Yes (12) CHF (congestive heart failure) Qualifiers: Heart failure type: systolic Heart failure chronicity: acute Qualified Code(s): I50.21 - Acute systolic (congestive) heart failure Is this a current diagnosis for this admission?: Yes Plan: Continues to Lasix per cardiology - Time Time Spent with patient: 15-24 minutes Medications reviewed and adjusted accordingly: Yes Anticipated discharge: Other Within: Other - Inpatient Certification Medical Necessity: Need Close Monitoring Due to Risk of Patient Decompensation Post Hospital Care: D/C Neonatal Social Worker Documentation - Plan Summary Plan Summary: Patient is currently back to the baseline's but still very weak patients are still multiple comorbidity discussed with the family at this point's will discharge to the rehab and see how the patient's dose
== END 2017-09-13 13:09 | DRG 870 ==
LOC: ER 09:24 → EH 12:55 → ICU 14:09 → 3S 08-27 15:40
PROVIDERS: ADMIT Family Medicine; ATTEND Family Medicine
PROC: 5A1955Z Respiratory Ventilation, Greater than 96 Consecutive Hours (ICD-10-PCS; principal; 2017-08-10)
PROC: 02HV33Z Insertion of Infusion Device into Superior Vena Cava, Percutaneous Approach (ICD-10-PCS; 2017-08-10)
PROC: 0BH17EZ Insertion of Endotracheal Airway into Trachea, Via Natural or Artificial Opening (ICD-10-PCS; 2017-08-10)
PROC: 0W993ZX Drainage of Right Pleural Cavity, Percutaneous Approach, Diagnostic (ICD-10-PCS; 2017-08-15)
PROC: 02HV33Z Insertion of Infusion Device into Superior Vena Cava, Percutaneous Approach (ICD-10-PCS; 2017-08-24)
PROC: B518ZZA Fluoroscopy of Superior Vena Cava, Guidance (ICD-10-PCS; 2017-08-24)
PROC: B548ZZA Ultrasonography of Superior Vena Cava, Guidance (ICD-10-PCS; 2017-08-24)
DX: A41.9 Sepsis, unspecified organism (principal); J96.21 Acute and chronic respiratory failure with hypoxia; I21.4 Non-ST elevation (NSTEMI) myocardial infarction; R65.21 Severe sepsis with septic shock; J18.9 Pneumonia, unspecified organism; N17.9 Acute kidney failure, unspecified; J90 Pleural effusion, not elsewhere classified; I50.21 Acute systolic (congestive) heart failure; T18.2XXA Foreign body in stomach, initial encounter; J96.22 Acute and chronic respiratory failure with hypercapnia; E27.40 Unspecified adrenocortical insufficiency; I47.1 Supraventricular tachycardia; J44.9 Chronic obstructive pulmonary disease, unspecified; I11.0 Hypertensive heart disease with heart failure; D49.0 Neoplasm of unspecified behavior of digestive system; K21.9 Gastro-esophageal reflux disease without esophagitis; E78.5 Hyperlipidemia, unspecified; R77.1 Abnormality of globulin; R79.89 Other specified abnormal findings of blood chemistry; M26.30 Unspecified anomaly of tooth position of fully erupted tooth or teeth; X58.XXXA Exposure to other specified factors, initial encounter; Y93.89 Activity, other specified; Y92.230 Patient room in hospital as the place of occurrence of the external cause; Z79.51 Long term (current) use of inhaled steroids; Z79.899 Other long term (current) drug therapy
CPT/HCPCS: 32555; 36415; 36569; 36600; 51702; 70450; 70486; 71045; 71046; 71275; 74018; 74176; 76604; 76937; 77001; 80048; 80053; 80076; 80162; 80170; 80202; 81001; 82024; 82088; 82533; 82550; 82553; 82565; 82607; 82728; 82746; 82803; 82945; 82962; 83540; 83550; 83605; 83615; 83735; 83880; 84100; 84132; 84157; 84443; 84466; 84484; 85025; 85027; 85045; 85610; 87040; 87070; 87075; 87077; 87086; 87186; 87205; 87493; 87804; 89050; 93005; 93010; 93306; 94002; 94003; 94640; 94660; 96365; 96366; 96367; 96368; 96375; 99291; 99292; C1751; G8978-GP; G8979-GP; G8987-GO; G8988-GO; G8996-GN; G8997-GN; J0692; J0743; J0834; J1100; J1160; J1170; J1200; J1265; J1450; J1580; J1642; J1644; J1720; J1940; J1956; J2250; J2405; J2704; J2930; J3370; J3480; J3490; J7030; J7040; J7060; J7120; J7620; S0028